=== PATIENT | female | born 1945 | race Caucasian/White ===

== ENCOUNTER 2017-03-27 16:46 | Inpatient (IN) | payer MEDICARE, OTHER ==
[2017-03-27 17:44] LABS: CHLORIDE,CL 95 mmol/L (101-111); SODIUM,NA 130 mmol/L (135-145)
[2017-03-27] MEDS: Sodium Chloride 0.9% 10 ML Syringe FLUSH PRN (17:55)
--- NOTE | 2017-03-27 18:33 | EDM.PDOC ---
ED HPI GENERAL MEDICAL PROBLEM - General Chief Complaint: Respiratory Problem Stated Complaint: CHEST PAIN, CANT BREATH Time Seen by Provider: 03/27/17 17:10 Source of Information: Reports: Patient, Family, RN, RN Notes Reviewed History Limitations: Reports: No Limitations - History of Present Illness INITIAL COMMENTS - FREE TEXT/NARRATIVE: Pt presents to ER with c/o sudden onset of severe chest pain, which she states is sternal and rates a 9-10/10. She states the pain does not radiate anywhere. She admits to runny nose, cough, and cold for about 4 days. Pt admits to fever and chills today, along with N/V only today. She denies diarrhea. 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 (see below) Other Treatments INTERNET RETAILER: none Bilateral Lower Chest Pain Score (Numeric/FACES): 9 - Related Data Allergies Allergy/AdvReac Type Severity Reaction Status Date / Time ibuprofen Allergy Cannot Verified 03/27/17 16:59 Remember oxycodone Allergy Cannot Verified 03/27/17 16:59 Remember promethazine HCl Allergy Cannot Verified 03/27/17 16:59 [From Phenergan] Remember Home Meds: Home Meds Atenolol [Atenolol] 100 mg PO DAILY 05/04/14 [History] FLUoxetine HCl [Fluoxetine HCl] 20 mg PO DAILY 05/04/14 [History] Lisinopril [Lisinopril] 20 mg PO DAILY 05/04/14 [History] Simvastatin [Simvastatin] 10 mg PO DAILY 05/04/14 [History] amLODIPine Besylate [Amlodipine Besylate] 5 mg PO DAILY 05/04/14 [History] Aspirin [Adult Low Dose Aspirin EC] 1 tab PO DAILY 03/23/15 [History] Zolpidem [Ambien] 1 tab PO ASDIRECTED PRN 03/23/15 [History] Past Medical History Cardiovascular History: Reports: High Cholesterol, Hypertension 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 Other Dermatologic History: dry skin - Infectious Disease History Infectious Disease History: Reports: Chicken Pox, Measles - Past Surgical History HEENT Surgical History: Reports: Cataract Surgery Female Surgical History: Reports: Ureteral Stent Social & Family History - Family History Family Medical History: Noncontributory - Tobacco Use Smoking Status *Q: Current Every Day Smoker Years of Tobacco use: 30 Packs/Tins Daily: 0.5 Used Tobacco, but Quit: No Second Hand Smoke Exposure: No - Caffeine Use Caffeine Use: Reports: Coffee - Alcohol Use Days Per Week of Alcohol Use: 0 - Recreational Drug Use Recreational Drug Use: No - Living Situation & Occupation Living situation: Reports: Occupation: Retired ED ROS GENERAL - Review of Systems Review Of Systems: ROS reveals no pertinent complaints other than HPI. ED EXAM, GENERAL - Physical Exam Exam: See Below Exam Limited By: No Limitations General Appearance: Alert, WD/WN, Moderate Distress Eye Exam: Bilateral Eye: EOMI, Normal Inspection Ears: Normal External Exam, Hearing Grossly Normal Nose: Normal Inspection Throat/Mouth: Normal Inspection, No Airway Compromise Head: Atraumatic, Normocephalic Neck: Normal Inspection, Supple, Non-Tender, Full Range of Motion Respiratory/Chest: Crackles, Rhonchi, Wheezing. No: Lungs Clear, Normal Breath Sounds Cardiovascular: Normal Peripheral Pulses, Regular Rate, Rhythm, No Edema, No Gallop, No JVD, No Murmur, No Rub Peripheral Pulses: 2+: Radial (L), Radial (R) GI/Abdominal: Normal Bowel Sounds, Soft, Non-Tender, No Distention (Female) Exam: Deferred Rectal (Female) Exam: Deferred Back Exam: Normal Inspection, Full Range of Motion Extremities: Normal Inspection, Normal Range of Motion, Non-Tender, No Pedal Edema, Normal Capillary Refill Neurological: Alert, Oriented, Normal Cognition, No Motor/Sensory Deficits Psychiatric: Depressed Mood, Flat Affect Skin Exam: Warm, Dry, Intact, Normal Color, No Rash Lymphatic: No Adenopathy EKG INTERPRETATION EKG Date: 03/27/17 Time: 16:52 Rhythm: Other (sinus arrhythmia LBBB) Rate (Beats/Min): 99 Comparison: NA - No Prior EKG Course - Vital Signs Last Recorded V/S: Last Vital Signs Temp 101.2 F H 03/27/17 18:33 Pulse 96 03/27/17 18:33 Resp 28 H 03/27/17 18:33 BP 123/50 L 03/27/17 18:33 Pulse Ox 81 L 03/27/17 17:00 - Orders/Labs/Meds Orders: Active Orders 24 hr Category Date Time Status EKG Documentation Completion [RC] STAT Care 03/27/17 17:02 Active Peripheral IV Care [RC] . DIRECTED Care 03/27/17 17:03 Active CULTURE BLOOD [] Stat Lab 03/27/17 17:08 Results CULTURE BLOOD [] Stat Lab 03/27/17 17:12 Received Sodium Chloride 0.9% [Saline Flush] Med 03/27/17 17:02 Active 10 ml FLUSH ASDIRECTED PRN Blood Culture x2 Reflex Set [OM.PC] Stat Oth 03/27/17 17:03 Ordered Peripheral IV Insertion Adult [OM.PC] Stat Oth 03/27/17 17:01 Ordered Medication Orders Sodium Chloride (Saline Flush) 10 ml FLUSH ASDIRECTED PRN PRN Reason: Keep Vein Open Last Admin: 03/27/17 17:55 Dose: 10 ml Labs: Laboratory Tests 03/27/17 03/27/17 03/27/17 Range/Units 17:12 17:12 17:12 WBC 18.1 H (5.0-10.0) 10^3/uL RBC 3.68 L (4.2-5.4) 10^6/uL Hgb 11.8 L (12.0-16.0) g/dL Hct 35.0 L (37.0-47.0) % MCV 95.1 (80-100) fL MCH 32.1 (27.0-34.0) pg MCHC 33.7 (33.0-35.0) g/dL Plt Count 300 (150-450) 10^3/uL Neut % (Auto) 88.0 H (42.2-75.2) % Lymph % (Auto) 4.8 L (20.5-50.1) % Park % (Auto) 6.8 (2-8) % Eos % (Auto) 0.2 L (1.0-3.0) % Baso % (Auto) 0.2 (0.0-1.0) % Sodium 130 L (135-145) mmol/L Potassium 4.7 (3.6-5.0) mmol/L Chloride 95 L (101-111) mmol/L Carbon Dioxide 24.0 (21.0-31.0) mmol/L Anion Gap 15.7 BUN 29 H (7-18) mg/dL Creatinine 1.2 (0.6-1.3) mg/dL Est Cr Clr Drug Dosing 35.61 mL/min Estimated GFR (MDRD) 44 BUN/Creatinine Ratio 24.16 Glucose 104 (74-105) mg/dL Lactic Acid 0.9 (0.5-2.2) mmol/L Calcium 8.9 (8.4-10.2) mg/dl Total Bilirubin 0.8 (0.2-1.0) mg/dL AST 30 (10-42) IU/L ALT 18 (10-60) IU/L Alkaline Phosphatase 93 (42-121) IU/L Troponin I < 0.02 (0.00-0.02) ng/ml Total Protein 7.2 (6.7-8.2) g/dl Albumin 4.0 (3.2-5.5) g/dl Globulin 3.2 Albumin/Globulin Ratio 1.25 Urine Color (YELLOW) Urine Appearance (CLEAR) Urine pH (5.0-9.0) Ur Specific Tul[place] (1.005-1.030) Urine Protein (NEGATIVE) Urine Glucose (UA) (NEGATIVE) Urine Ketones (NEGATIVE) Urine Occult Blood (NEGATIVE) Urine Nitrite (NEGATIVE) Urine Bilirubin (NEGATIVE) Urine Urobilinogen (0.2-1.0) mg/dL Ur Leukocyte Esterase (NEGATIVE) Urine RBC /HPF Urine WBC (0-5/HPF) /HPF Ur Epithelial Cells /HPF Amorphous Sediment (0/HPF) /HPF Urine Bacteria (0-FEW/HPF) /HPF /27/17 Range/Units 17:26 WBC (5.0-10.0) 10^3/uL RBC (4.2-5.4) 10^6/uL Hgb (12.0-16.0) g/dL Hct (37.0-47.0) % MCV (80-100) fL MCH (27.0-34.0) pg MCHC (33.0-35.0) g/dL Plt Count (150-450) 10^3/uL Neut % (Auto) (42.2-75.2) % Lymph % (Auto) (20.5-50.1) % Park % (Auto) (2-8) % Eos % (Auto) (1.0-3.0) % Baso % (Auto) (0.0-1.0) % Sodium (135-145) mmol/L Potassium (3.6-5.0) mmol/L Chloride (101-111) mmol/L Carbon Dioxide (21.0-31.0) mmol/L Anion Gap BUN (7-18) mg/dL Creatinine (0.6-1.3) mg/dL Est Cr Clr Drug Dosing mL/min Estimated GFR (MDRD) BUN/Creatinine Ratio Glucose (74-105) mg/dL Lactic Acid (0.5-2.2) mmol/L Calcium (8.4-10.2) mg/dl Total Bilirubin (0.2-1.0) mg/dL AST (10-42) IU/L ALT (10-60) IU/L Alkaline Phosphatase (42-121) IU/L Troponin I (0.00-0.02) ng/ml Total Protein (6.7-8.2) g/dl Albumin (3.2-5.5) g/dl Globulin Albumin/Globulin Ratio Urine Color Yellow (YELLOW) Urine Appearance Slightly cloudy (CLEAR) Urine pH 5.0 (5.0-9.0) Ur Specific [place] 1.015 (1.005-1.030) Urine Protein Negative (NEGATIVE) Urine Glucose (UA) Negative (NEGATIVE) Urine Ketones 15 H (NEGATIVE) Urine Occult Blood Negative (NEGATIVE) Urine Nitrite Negative (NEGATIVE) Urine Bilirubin Negative (NEGATIVE) Urine Urobilinogen 0.2 (0.2-1.0) mg/dL Ur Leukocyte Esterase Negative (NEGATIVE) Urine RBC 0-5 /HPF Urine WBC 5-10 H (0-5/HPF) /HPF Ur Epithelial Cells Rare /HPF Amorphous Sediment Occasional (0/HPF) /HPF Urine Bacteria Few (0-FEW/HPF) /HPF Meds: Medications Generic Name Dose Route Start Last Admin Trade Name Freq PRN Reason Stop Dose Admin Sodium Chloride 10 ml 03/27/17 17:02 03/27/17 17:55 Saline Flush FLUSH 10 ml ASDIRECTED PRN Administration Keep Vein Open Discontinued Medications Generic Name Dose Route Start Last Admin Trade Name Freq PRN Reason Stop Dose Admin Acetaminophen 650 mg 03/27/17 19:25 Tylenol PO 03/27/17 19:26 NOW ONE Departure - Departure Time of Disposition: 19:35 Disposition: Admitted As Inpatient 67 Condition: Fair Clinical Impression: Pneumonia Qualifiers: Pneumonia type: due to unspecified organism Laterality: unspecified laterality Lung location: unspecified part of lung Qualified Code(s): J18.9 - Pneumonia, unspecified organism - Discharge Information Forms: ED Department Discharge - My Orders Last 24 Hours: My Active Orders 03/27/17 17:01 Peripheral IV Insertion Adult [OM.PC] Stat 03/27/17 17:02 EKG Documentation Completion [RC] STAT Sodium Chloride 0.9% [Saline Flush] 10 ml FLUSH ASDIRECTED PRN 03/27/17 17:03 Peripheral IV Care [RC] . DIRECTED Blood Culture x2 Reflex Set [OM.PC] Stat 03/27/17 17:08 CULTURE BLOOD [BC] Stat 03/27/17 17:12 CULTURE BLOOD [BC] Stat - Assessment/Plan Last 24 Hours: My Active Orders 03/27/17 17:01 Peripheral IV Insertion Adult [OM.PC] Stat 03/27/17 17:02 EKG Documentation Completion [RC] STAT Sodium Chloride 0.9% [Saline Flush] 10 ml FLUSH ASDIRECTED PRN 03/27/17 17:03 Peripheral IV Care [RC] . DIRECTED Blood Culture x2 Reflex Set [OM.PC] Stat 03/27/17 17:08 CULTURE BLOOD [BC] Stat 03/27/17 17:12 CULTURE BLOOD [BC] Stat
[2017-03-27] MEDS ORDERED: Acetaminophen 325 MG Tab PO ONE (19:25)
[2017-03-27] MEDS ORDERED: Acetaminophen 325 MG Tab PO PRN ×2 (19:44→19:54)
[2017-03-27] MEDS ORDERED: Bisacodyl 10 MG Supp RECTAL PRN ×2 (19:44→19:54)
[2017-03-27] MEDS ORDERED: methylPREDNISolone Sodium Succinate 40 MG/1 ML SDV IVPUSH ONE (20:34)
[2017-03-27] MEDS ORDERED: Albuterol 0.083% 2.5 MG/3 ML Neb Soln NEB PRN (20:34)
[2017-03-27] MEDS ORDERED: Azithromycin 500 MG Vial ONE (21:07)
[2017-03-27] MEDS: cefTRIAXone 1 GM in Sodium Chloride 0.9% 50 ML IV SCH (21:20)
[2017-03-27] MEDS: amLODIPine 5 MG Tab PO SCH (21:26)
[2017-03-27] MEDS: Aspirin 81 MG Tab.EC PO SCH (21:26)
[2017-03-27] MEDS: Lisinopril 10 MG Tab PO SCH (21:27)
[2017-03-27] MEDS: Metoprolol Succinate 50 MG Tab.ER PO SCH (21:28)
[2017-03-27] MEDS: FLUoxetine 10 MG Cap PO SCH (21:28)
[2017-03-27] MEDS: Simvastatin 10 MG Tab PO SCH (21:29)
[2017-03-27] MEDS: Albuterol/Ipratropium 3.0-0.5 MG/3 ML Neb Soln NEB SCH (21:37)
[2017-03-27] MEDS: Azithromycin 500 MG in Sodium Chloride 0.9% 250 ML IV SCH (21:58)
[2017-03-27] MEDS: Sodium Chloride 0.9% 250 ML IV SCH (23:01)
--- NOTE | 2017-03-27 23:01 | EKG ---
03/27/2017 - CAMILLA CRAIG - This 12-lead EKG shows a sinus arrhythmia with a ventricular rate that ranges from 75 to 117 with an average rate of 99. There is a left bundle-branch block. This is compared to a previous EKG found in the Alt database performed on March 26, 2015. A left bundle-branch block was seen at that time also. [facility] /[id number] [facility]
[2017-03-27] MEDS: Zolpidem 5 MG Tab PO PRN (23:03)
[2017-03-28] MEDS: Sodium Chloride 0.9% 250 ML IV SCH (04:07)
[2017-03-28] MEDS: methylPREDNISolone Sodium Succinate 40 MG/1 ML SDV IVPUSH SCH ×3 (05:58→21:49)
[2017-03-28] MEDS: Albuterol/Ipratropium 3.0-0.5 MG/3 ML Neb Soln NEB SCH ×4 (07:29→22:01)
[2017-03-28] MEDS: Enoxaparin 40 MG/0.4 ML Syringe SUBCUT SCH (09:20)
--- NOTE | 2017-03-28 13:30 | HP ---
REASON FOR ADMISSION: Fever, cough, and right anterior chest pain. HISTORY OF PRESENT ILLNESS: Becky Barrios is a 71-year-old lady who has been ill for the last 3 to 4 days with increasing coughing. Today, she said she was coughing so hard, she was gagging. Cough is somewhat productive. She has had fever and chills. She came to the emergency room for evaluation. In the emergency room, she was found to have an elevated white count of 18,000. The remainder of her lab work was essentially unremarkable. Chest x-ray showed changes consistent with COPD but no acute infiltrate. She was admitted for further management. PAST MEDICAL HISTORY: Dyslipidemia; essential hypertension; anxiety with depression; osteopenia; tobacco use disorder, she continues to smoke on a daily basis; carotid artery disease; hyponatremia; hypertension. She has had previous episodes with acute bronchitis. PAST SURGICAL HISTORY: MAUREEN-BSO, bladder cystoscopy. She has had ureteral stents in the past in 2014. IMMUNIZATION HISTORY: She needs influenza vaccine. Her last vaccine was January 2016. PCV13, 08/25/2015. PPV23, 08/21/2014. Zoster, 05/27/2008. Tetanus, 08/08/2002. SOCIAL HISTORY: She is . 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 She also had a daycare at home. Her suffered a serious stroke about 4 years ago and still has disability due to the stroke. She has a son and a daughter with six grandchildren. Everyone is in good health. She did not serve in the . FAMILY HISTORY: Her mother at the age of 43 following childbirth. Father of a cerebral aneurysm. She is one of nine children. She was the third to the eldest. One sibling in October 2016 of coronary artery disease. REVIEW OF SYSTEMS: Her last acute respiratory tract infection was about one year ago, and she gets one about once a year, she states. She denies shortness of breath or orthopnea. She denies abdominal pain or any changes in bowel or bladder. Appetite is good. Weight is unchanged. No recent use of antibiotics. She did have some chest pain associated with the coughing earlier and points to the right anterior lateral chest wall. She called the pain sharp and increases with deep breathing, however, it is better than it was. CURRENT MEDICATIONS: were discussed and resolved. 1. Metoprolol succinate. 2. Amlodipine. 3. Simvastatin. 4. Lisinopril. 5. Fluoxetine. 6. Baby aspirin EC. 7. Zolpidem at bedtime as needed. ALLERGIES: 1. Ibuprofen. 2. Codeine. 3. Promethazine. PHYSICAL EXAMINATION: General: She is a pleasant lady, is in no acute distress. She participated throughout the visit. She is alert and oriented. Vital Signs: Blood pressure 151/55 on the left, 160/60 on the right; pulse 108; respiratory rate 16; oxygen saturation 95% on 3.5 L, this was turned down to 2 L, and saturation stayed above 90%. Her temperature was 99.9 at times of the visit. Temperature prior to that had been 101.2 while she was still in the Emergency Department. HEENT: Unremarkable. Mouth showed moist mucous membranes. Neck: No JVDs or bruits. No adenopathy and no thyromegaly. Chest: Showed anterior and posterior wheezing. Heart: Showed regular rate and rhythm. Abdomen: Soft, flat, benign, and nontender. Extremities: Showed no edema. Neurological: She was intact. LABORATORY DATA: CBC showed an elevated white count of 18,000 with a left shift, hemoglobin and hematocrit are 11.8 and 35. Sodium 130, potassium 4.7. BUN and creatinine are 29 and 1.2 with a GFR of 44. LFTs unremarkable. Troponin was negative at less than 0.02. Lactic acid was normal at 0.9. Urinalysis was essentially negative. IMAGING: A single-view chest x-ray was taken in the ER which showed no acute changes that appear consistent with a COPD or with hyperinflation of the lungs. IMPRESSION: A 71-year-old female who is a daily smoker, presents with what appears to be an exacerbation of chronic obstructive pulmonary disease with negative chest x-ray. PLAN: We will treat her for her exacerbation of COPD. 1. She was started on IV azithromycin and IV Rocephin. 2. She was started on IV Solu-Medrol, was given a loading dose and then tapering down. 3. Her usual medications were continued. 4. Enoxaparin and LIA hose were used for VTE prophylaxis. 5. She was put on nebulized bronchodilator therapy with scheduled DuoNeb and p.r.n. albuterol. 6. Labs ordered. We will repeat the CBC with a manual differential in the morning. A BMP will be ordered for the following day. 7. Two sets of blood cultures were drawn and are pending. 8. We will repeat the chest x-ray on March 29. 9. A flutter valve was ordered to help her mobilize secretions. 10.She was given a K-pad for the right anterior chest wall pain. CODE STATUS: Full code. CONDITION AT THE TIME OF ADMISSION: Hemodynamically and neurologically stable. [facility] /[id number] MTDD
--- NOTE | 2017-03-28 15:11 | PCM.PN ---
- General Info Date of Service: 03/28/17 Subjective Update: Patient is a 71 year old female was admitted due to COPD exacerbation started on IV antibiotics, steroids and nebulizations. Patient reports that she is starting to feel better today. still coughing, no productive but feels there are sputum that needs to be expectorated. she has been doing her flutter valve and incentive spirometry. still on oxygen supplementation, she is not on oxygen at home. has tolerated her meals, had BM yesterday. ambulating wtih not problems. - Patient Data Vitals - Most Recent: Last Vital Signs Temp 97.9 F 03/28/17 07:54 Pulse 73 03/28/17 13:27 Resp 20 03/28/17 11:00 BP 138/60 03/28/17 07:54 Pulse Ox 96 03/28/17 13:27 Weight - Most Recent: 110 lb 4 oz I&O - Last 24 Hours: Intake & Output 03/28/17 03/28/17 03/28/17 06:59 14:59 22:59 Intake Total 898 610 Output Total 350 300 Balance 548 310 Lab Results Last 24 Hours: Laboratory Results - last 24 hr 03/28/17 Range/Units 06:24 WBC 14.6 H (5.0-10.0) 10^3/uL Neutrophils % (Manual) 95 H (42-75) % Band Neutrophils % 2 % Lymphocytes % (Manual) 2 L (20-50) % Monocytes % (Manual) 1 L (2-8) % Med Orders - Current: Current Medications Acetaminophen (Tylenol) 650 mg PO Q4H PRN PRN Reason: Pain (mild 1-3 )/fever Albuterol (Proventil Neb Soln) 2.5 mg NEB Q6HRRT PRN PRN Reason: Dyspnea Albuterol/Ipratropium (Duoneb 3.0-0.5 Mg/3 Ml) 3 ml NEB TIDRT [facility] Last Admin: 03/28/17 13:26 Dose: 3 ml Amlodipine Besylate (Norvasc) 5 mg PO BEDTIME [facility] Last Admin: 03/27/17 21:26 Dose: 5 mg Aspirin (Halfprin) 81 mg PO BEDTIME [facility] Last Admin: 03/27/17 21:26 Dose: 81 mg Bisacodyl (Dulcolax) 10 mg RECTAL DAILY PRN PRN Reason: Constipation Enoxaparin Sodium (Lovenox) 40 mg SUBCUT DAILY [facility] Last Admin: 03/28/17 09:20 Dose: 40 mg Fluoxetine HCl (Prozac) 20 mg PO BEDTIME [facility] Last Admin: 03/27/17 21:28 Dose: 20 mg Azithromycin 500 mg/ Sodium (Chloride) 250 mls @ 250 mls/hr IV Q24H [facility] Last Admin: 03/27/17 21:58 Dose: 250 mls/hr Ceftriaxone Sodium 1 gm/ (Sodium Chloride) 50 mls @ 100 mls/hr IV Q24H [facility] Last Admin: 03/27/17 21:20 Dose: 100 mls/hr Lisinopril (Prinivil) 20 mg PO BEDTIME [facility] Last Admin: 03/27/17 21:27 Dose: 20 mg Methylprednisolone Sodium Succinate (Solu-Medrol) 20 mg IVPUSH Q8H [facility] Last Admin: 03/28/17 05:58 Dose: 20 mg Metoprolol Succinate (Toprol Xl) 100 mg PO BEDTIME [facility] Last Admin: 03/27/17 21:28 Dose: 100 mg Simvastatin (Zocor) 10 mg PO BEDTIME [facility] Last Admin: 03/27/17 21:29 Dose: 10 mg Sodium Chloride (Saline Flush) 10 ml FLUSH ASDIRECTED PRN PRN Reason: Keep Vein Open Last Admin: 03/27/17 17:55 Dose: 10 ml Zolpidem Tartrate (Ambien) 5 mg PO BEDTIME PRN PRN Reason: Sleep Last Admin: 03/27/17 23:03 Dose: 5 mg Discontinued Medications Acetaminophen (Tylenol) 650 mg PO NOW ONE Stop: 03/27/17 19:26 Last Admin: 03/27/17 19:43 Dose: 650 mg Acetaminophen (Tylenol) 650 mg PO Q4H PRN PRN Reason: Pain (mild 1-3 )/fever Azithromycin (Zithromax) Confirm Administered Dose 500 mg .ROUTE .STK-MED ONE Stop: 03/27/17 21:08 Last Admin: 03/27/17 21:44 Dose: Not Given Bisacodyl (Dulcolax) 10 mg RECTAL DAILY PRN PRN Reason: Constipation Sodium Chloride (Normal Saline) 250 mls @ 50 mls/hr IV ASDIRECTED [facility] Last Admin: 03/28/17 04:07 Dose: 50 mls/hr Methylprednisolone Sodium Succinate (Solu-Medrol) 80 mg IVPUSH ONETIME ONE Stop: 03/27/17 20:35 Last Admin: 03/27/17 21:40 Dose: 80 mg - Exam General: Alert, Oriented ( ) Cardiovascular: Regular Rate GI/Abdominal Exam: Normal Bowel Sounds, Soft, Non-Tender Extremities: No Pedal Edema - Problem List Review Problem List Initiated/Reviewed/Updated: Yes - My Orders Last 24 Hours: My Active Orders 03/29/17 06:00 CBC WITH AUTO DIFF [HEME] Routine - Plan Plan:: Patient as a case of COPD exacerbation and now clinically improving. Continue current regimen, await cultures. PLan to taper down steroids if with persistent improvement. Has been tolerating diet, discontinue IV fluids. continue with Flutter valve and incentive spirometry. ambulate and check oxygen on ambulation.
[2017-03-28] MEDS: Sodium Chloride 0.9% 10 ML Syringe FLUSH PRN ×3 (20:20→21:52)
[2017-03-28] MEDS: cefTRIAXone 1 GM in Sodium Chloride 0.9% 50 ML IV SCH (20:23)
[2017-03-28] MEDS: Simvastatin 10 MG Tab PO SCH (20:26)
[2017-03-28] MEDS: Aspirin 81 MG Tab.EC PO SCH (20:27)
[2017-03-28] MEDS: FLUoxetine 10 MG Cap PO SCH (20:27)
[2017-03-28] MEDS: Metoprolol Succinate 50 MG Tab.ER PO SCH (20:28)
[2017-03-28] MEDS: amLODIPine 5 MG Tab PO SCH (20:32)
[2017-03-28] MEDS: Lisinopril 10 MG Tab PO SCH (20:34)
[2017-03-28] MEDS: Azithromycin 500 MG in Sodium Chloride 0.9% 250 ML IV SCH (21:57)
[2017-03-28] MEDS: Zolpidem 5 MG Tab PO PRN (23:12)
[2017-03-29] MEDS ORDERED: Gabapentin 300 MG Cap PO ONE (02:08)
[2017-03-29] MEDS: Sodium Chloride 0.9% 10 ML Syringe FLUSH PRN ×2 (06:20→06:28)
[2017-03-29] MEDS: methylPREDNISolone Sodium Succinate 40 MG/1 ML SDV IVPUSH SCH ×3 (06:20→22:08)
[2017-03-29] MEDS: Enoxaparin 40 MG/0.4 ML Syringe SUBCUT SCH (09:38)
[2017-03-29] MEDS: Albuterol/Ipratropium 3.0-0.5 MG/3 ML Neb Soln NEB SCH ×3 (09:41→21:25)
[2017-03-29] MEDS ORDERED: Gabapentin 400 MG Cap PO PRN (09:51)
--- NOTE | 2017-03-29 10:26 | PN ---
DATE: 03/29/2017 SUBJECTIVE: Ms. Becky Barrios is admitted with COPD. Today, she offers no new complaints. Still coughing. Cough is mostly nonproductive. No hemoptysis. Still has some shortness of breath. Overall, she is improving. She states that she still feels weak. REVIEW OF SYSTEMS: Constitutional, cardiac, respiratory, gastrointestinal, and genitourinary system were reviewed. No other pertinent findings except as noted above. OBJECTIVE: General: The patient is alert and oriented to place, time, and person. Head: Atraumatic and normocephalic. Ear, Nose, and Throat: Unremarkable. Neck: Supple. Chest: Diminished breath sounds bilaterally. Cardiovascular System: Regular rate and rhythm. Abdomen: Soft and nontender. Extremities: No pedal edema. No finger clubbing. Vital Signs: Reviewed and appear within normal limits. LABORATORY DATA: Sodium is at 129. Hemoglobin is dropped by 2 g, down to 9.4. White count is 16.5. ASSESSMENT: 1. Acute exacerbation of chronic obstructive pulmonary disease. 2. Anemia. 3. Hyponatremia. Serum sodium is down to 129. PLAN: 1. Obtain a repeat CBC. 2. Obtain a repeat basic metabolic panel. 3. The patient on fluid restriction; 1800 mL every 24 hours. 4. Continue current management. Possibly, discharge in the next day or so. 5. Obtain stool occult blood. Recheck hemoglobin. [facility] /[id number] MAXIMO
--- NOTE | 2017-03-29 13:56 | CR ---
Clinical history: 71-year-old female reported on recent chest radiograph for pain to have "no acute f indings" 27 March 2017. Follow-up please. Interpretation: Asymmetric small dependent new subpulmonic pleural effusions blunting the right costo phrenic sulcus since 01 May 2016 (this present on recent 27 March exam). Cardiac silhouette prominent but within upper limits of normal and unchanged. No cephalization of pedro w, new signs of alveolar edema or contralateral dependent left pleural effusion. No new lung mass or hilar lymphadenopathy but there is subtle patchy medial segment right middle lobe atelectasis or developing infiltrate silhouetting the right heart border. CONCLUSION: Right middle lobe pneumonia with small effusion. Hilar lymphadenopathy or focal lobar pne umonia Cough and shortness of breath reported
[2017-03-29] MEDS: cefTRIAXone 1 GM in Sodium Chloride 0.9% 50 ML IV SCH (21:23)
[2017-03-29] MEDS: FLUoxetine 10 MG Cap PO SCH (21:25)
[2017-03-29] MEDS: Lisinopril 10 MG Tab PO SCH (21:40)
[2017-03-29] MEDS: Aspirin 81 MG Tab.EC PO SCH (21:40)
[2017-03-29] MEDS: Zolpidem 5 MG Tab PO PRN (21:40)
[2017-03-29] MEDS: Simvastatin 10 MG Tab PO SCH (21:40)
[2017-03-29] MEDS: Metoprolol Succinate 50 MG Tab.ER PO SCH (21:41)
[2017-03-29] MEDS: amLODIPine 5 MG Tab PO SCH (21:44)
[2017-03-29] MEDS: Azithromycin 500 MG in Sodium Chloride 0.9% 250 ML IV SCH (22:08)
[2017-03-30] MEDS ORDERED: Metoprolol Succinate 50 MG Tab.ER PO ONE (00:04)
[2017-03-30] MEDS: methylPREDNISolone Sodium Succinate 40 MG/1 ML SDV IVPUSH SCH (06:25)
[2017-03-30] MEDS: Albuterol/Ipratropium 3.0-0.5 MG/3 ML Neb Soln NEB SCH (07:16)
[2017-03-30] MEDS: Enoxaparin 40 MG/0.4 ML Syringe SUBCUT SCH (09:27)
--- NOTE | 2017-03-30 09:34 | PCM.DCSUM1 ---
Discharge Summary - Hospital Course Free Text/Narrative:: The patient presented with cough, shortness of breath. The patient had an abnormal chest x-ray that was felt to represent represents a right-sided pneumonia. She was admitted treated with IV antibiotic ceftriaxone and azithromycin. She was treated with nebulizers. She significantly improved. She will be discharged on continuing oral antibiotics and inhalers. During the hospital stay the patient was noted to have hyponatremia. The patient was asymptomatic. Reviewing her medication list the patient is on an SSRI that might have a side effect of this. Nevertheless she has been on this medication for 10 years and she feels that she would like to continue that. Certainly the pulmonary process might be responsible for this as well. Have to make sure that he chest x-ray changes completely resolve and there is no underlying malignancy. The patient was also noted to have anemia with good blood positive stool. This might represent a gastric ulcer. Start the patient on a proton pump inhibitor. She will also need follow-up with colonoscopy. - Discharge Data Discharge Date: 03/30/17 Discharge Disposition: Home, Self-Care 01 Condition: Fair - Patient Instructions Diet: Regular Diet as Tolerated Fluid Restriction: 2000 mL Activity: As Tolerated - Discharge Plan Prescriptions/Med Rec: Albuterol [Proventil HFA] 6.7 gm INH Q4H PRN #1 inhaler PRN Reason: for SOB Amoxicillin/Potassium Clav [Augmentin 500-125 Tablet] 1 each PO TID #15 tablet Budesonide/Formoterol Fumarate [Symbicort 160-4.5 Mcg Inhaler] 1 puff IH BID #1 canister Pantoprazole Sodium [Protonix] 40 mg PO DAILY #30 tablet. predniSONE [Prednisone] See Taper PO DAILY #30 tablet Home Medications: Home Meds FLUoxetine HCl [Fluoxetine HCl] 20 mg PO DAILY 05/04/14 [History] Lisinopril 20 mg PO DAILY 05/04/14 [History] Simvastatin 10 mg PO DAILY 05/04/14 [History] amLODIPine Besylate [Amlodipine Besylate] 5 mg PO DAILY 05/04/14 [History] Aspirin [Adult Low Dose Aspirin EC] 1 tab PO DAILY 03/23/15 [History] Zolpidem [Ambien] 1 tab PO ASDIRECTED PRN 03/23/15 [History] Metoprolol Succinate [Toprol XL] 100 mg PO DAILY 03/27/17 [History] Albuterol [Proventil HFA] 6.7 gm INH Q4H PRN #1 inhaler 03/30/17 [Rx] Amoxicillin/Potassium Clav [Augmentin 500-125 Tablet] 1 each PO TID #15 tablet 03/30/17 [Rx] Budesonide/Formoterol Fumarate [Symbicort 160-4.5 Mcg Inhaler] 1 puff IH BID #1 canister 03/30/17 [Rx] Pantoprazole Sodium [Protonix] 40 mg PO DAILY #30 tablet. 03/30/17 [Rx] predniSONE [Prednisone] See Taper PO DAILY #30 tablet 03/30/17 [Rx] Referrals: Hannah Fulton PA [Primary Care Provider] - (in 3-4 days) - Discharge Summary/Plan Comment DC Time >30 min.: No - General Info Date of Service: 03/30/17 Subjective Update: She is feeling well, ambulating on the corridor. - Review of Systems General: Denies: Fever, Weakness Pulmonary: Reports: Cough. Denies: Shortness of Breath Cardiovascular: Denies: Chest Pain Gastrointestinal: Denies: Abdominal Pain Genitourinary: Denies: Dysuria - Patient Data Vitals - Most Recent: Last Vital Signs Temp 36.7 C 03/30/17 08:00 Pulse 86 03/30/17 08:00 Resp 20 03/30/17 08:00 BP 128/58 L 03/30/17 08:00 Pulse Ox 94 L 03/30/17 08:00 Weight - Most Recent: 50.009 kg I&O - Last 24 hours: Intake & Output 03/29/17 03/30/17 03/30/17 22:59 06:59 14:59 Intake Total 320 236 Output Total 400 1275 Balance -400 -955 236 Lab Results - Last 24 hrs: Laboratory Results - last 24 hr 03/30/17 03/30/17 Range/Units 06:17 06:17 WBC 14.8 H (5.0-10.0) 10^3/uL RBC 2.91 L (4.2-5.4) 10^6/uL Hgb 9.3 L (12.0-16.0) g/dL Hct 28.0 L (37.0-47.0) % MCV 96.2 (80-100) fL MCH 32.0 (27.0-34.0) pg MCHC 33.2 (33.0-35.0) g/dL Plt Count 279 (150-450) 10^3/uL Sodium 129 L (135-145) mmol/L Potassium 4.6 (3.6-5.0) mmol/L Chloride 98 L (101-111) mmol/L Carbon Dioxide 23.0 (21.0-31.0) mmol/L Anion Gap 12.6 BUN 32 H (7-18) mg/dL Creatinine 1.1 (0.6-1.3) mg/dL Est Cr Clr Drug Dosing 37.57 mL/min Estimated GFR (MDRD) 49 Glucose 119 H (74-105) mg/dL Calcium 8.9 (8.4-10.2) mg/dl AMANUEL Results - Last 24 hrs: Microbiology 03/29/17 22:15 Stool Occult Blood (AMANUEL) - Final Stool / Feces - Stool, Formed Med Orders - Current: Current Medications Acetaminophen (Tylenol) 650 mg PO Q4H PRN PRN Reason: Pain (mild 1-3 )/fever Albuterol (Proventil Neb Soln) 2.5 mg NEB Q6HRRT PRN PRN Reason: Dyspnea Albuterol/Ipratropium (Duoneb 3.0-0.5 Mg/3 Ml) 3 ml NEB TIDRT [facility] Last Admin: 03/30/17 07:16 Dose: 3 ml Amlodipine Besylate (Norvasc) 5 mg PO BEDTIME [facility] Last Admin: 03/29/17 21:44 Dose: 5 mg Aspirin (Halfprin) 81 mg PO BEDTIME [facility] Last Admin: 03/29/17 21:40 Dose: 81 mg Bisacodyl (Dulcolax) 10 mg RECTAL DAILY PRN PRN Reason: Constipation Enoxaparin Sodium (Lovenox) 40 mg SUBCUT DAILY [facility] Last Admin: 03/29/17 09:38 Dose: 40 mg Fluoxetine HCl (Prozac) 20 mg PO BEDTIME [facility] Last Admin: 03/29/17 21:25 Dose: 20 mg Gabapentin (Neurontin) 400 mg PO BEDTIME PRN PRN Reason: restless leg Azithromycin 500 mg/ Sodium (Chloride) 250 mls @ 250 mls/hr IV Q24H [facility] Last Admin: 03/29/17 22:08 Dose: 250 mls/hr Ceftriaxone Sodium 1 gm/ (Sodium Chloride) 50 mls @ 100 mls/hr IV Q24H [facility] Last Admin: 03/29/17 21:23 Dose: 100 mls/hr Lisinopril (Prinivil) 20 mg PO BEDTIME [facility] Last Admin: 03/29/17 21:40 Dose: Not Given Methylprednisolone Sodium Succinate (Solu-Medrol) 20 mg IVPUSH Q8H [facility] Last Admin: 03/30/17 06:25 Dose: 20 mg Simvastatin (Zocor) 10 mg PO BEDTIME [facility] Last Admin: 03/29/17 21:40 Dose: 10 mg Sodium Chloride (Saline Flush) 10 ml FLUSH ASDIRECTED PRN PRN Reason: Keep Vein Open Last Admin: 03/29/17 06:28 Dose: 10 ml Zolpidem Tartrate (Ambien) 5 mg PO BEDTIME PRN PRN Reason: Sleep Last Admin: 03/29/17 21:40 Dose: 5 mg Discontinued Medications Acetaminophen (Tylenol) 650 mg PO NOW ONE Stop: 03/27/17 19:26 Last Admin: 03/27/17 19:43 Dose: 650 mg Acetaminophen (Tylenol) 650 mg PO Q4H PRN PRN Reason: Pain (mild 1-3 )/fever Azithromycin (Zithromax) Confirm Administered Dose 500 mg .ROUTE .STK-MED ONE Stop: 03/27/17 21:08 Last Admin: 03/27/17 21:44 Dose: Not Given Bisacodyl (Dulcolax) 10 mg RECTAL DAILY PRN PRN Reason: Constipation Gabapentin (Neurontin) 300 mg PO ONETIME ONE Stop: 03/29/17 02:09 Last Admin: 03/29/17 02:26 Dose: 300 mg Sodium Chloride (Normal Saline) 250 mls @ 50 mls/hr IV ASDIRECTED ASHIA Last Admin: 03/28/17 04:07 Dose: 50 mls/hr Methylprednisolone Sodium Succinate (Solu-Medrol) 80 mg IVPUSH ONETIME ONE Stop: 03/27/17 20:35 Last Admin: 03/27/17 21:40 Dose: 80 mg Metoprolol Succinate (Toprol Xl) 100 mg PO BEDTIME [facility] Stop: 03/30/17 00:04 Last Admin: 03/29/17 21:41 Dose: Not Given Metoprolol Succinate (Toprol Xl) 100 mg PO ONETIME ONE Stop: 03/30/17 00:05 Last Admin: 03/30/17 00:16 Dose: 100 mg - Exam Quality Assessment: Denies: Supplemental Oxygen General: Reports: Alert, Oriented Neck: Reports: Supple Lungs: Reports: Normal Respiratory Effort, Decreased Breath Sounds. Denies: Wheezing Cardiovascular: Reports: Regular Rate, Regular Rhythm GI/Abdominal Exam: Normal Bowel Sounds, Soft, Non-Tender Extremities: No Pedal Edema Skin: Reports: Warm, Dry *Q Meaningful Use (DIS) - VTE *Q VTE Criteria *Q: - Stroke *Q Stroke Criteria *Q: - AMI *Q AMI Criteria *Q:
[2017-03-30 10:01] VITALS: BP 142/61
--- NOTE | 2017-03-31 18:33 | EKG ---
03/27/2017 - CAMILLA CRAIG - EKG, per my reading, shows sinus tachycardia with left bundle-branch block. [facility] /[id number]
== END 2017-03-30 10:15 | disposition home or self-care (01) | DRG 194 ==
LOC: DL.ED 16:46 → DL.MS 19:44 → DL.ED 19:48
PROVIDERS: ADMIT Internal Medicine; ATTEND Internal Medicine
DX: J18.9 Pneumonia, unspecified organism (principal); E87.1 Hypo-osmolality and hyponatremia; E78.00 Pure hypercholesterolemia, unspecified; F32.9 Major depressive disorder, single episode, unspecified; F41.9 Anxiety disorder, unspecified; E89.6 Postprocedural adrenocortical (-medullary) hypofunction; K92.1 Melena; Z79.82 Long term (current) use of aspirin; D64.9 Anemia, unspecified; F17.210 Nicotine dependence, cigarettes, uncomplicated; I10 Essential (primary) hypertension; F41.8 Other specified anxiety disorders; M85.80 Other specified disorders of bone density and structure, unspecified site; I65.23 Occlusion and stenosis of bilateral carotid arteries; Z88.5 Allergy status to narcotic agent; Z88.8 Allergy status to other drugs, medicaments and biological substances; Z79.899 Other long term (current) drug therapy
CPT/HCPCS: 36415; 71010; 80053; 81001; 83605; 84484; 85025; 87040 ×2; 93005; 93010; 99285; A9270; J7050; 71020; 80048; 82272; 85007; 85027; 85048; 94010; 94640; 94667; 99284; J0456; J0696; J1650; J2920

== ENCOUNTER 2017-06-17 18:41 | Emergency (ER) | payer MEDICARE, OTHER ==
[2017-06-17] MEDS ORDERED: Sodium Chloride 0.9% 1,000 ML IV ONE ×2 (19:18→20:46)
--- NOTE | 2017-06-17 19:27 | EDM.PDOC ---
ED HPI GENERAL MEDICAL PROBLEM - General Chief Complaint: Respiratory Problem Stated Complaint: RESPIRATORY,WEAK [id number] Time Seen by Provider: 06/17/17 19:27 Source of Information: Reports: Patient History Limitations: Reports: No Limitations - History of Present Illness INITIAL COMMENTS - FREE TEXT/NARRATIVE: ED with cough and feeling weak since .Productive green phlegm. Low grade temps. No appetite and not drinking much fluid past couple days. COPD hx, current smoker. - Related Data Allergies Allergy/AdvReac Type Severity Reaction Status Date / Time ibuprofen Allergy Cannot Verified 06/17/17 18:55 Remember oxycodone Allergy Cannot Verified 06/17/17 18:55 Remember promethazine HCl Allergy Cannot Verified 06/17/17 18:55 [From Phenergan] Remember Home Meds: Home Meds FLUoxetine HCl [Fluoxetine HCl] 20 mg PO DAILY 05/04/14 [History] Lisinopril 40 mg PO DAILY 05/04/14 [History] Simvastatin 10 mg PO DAILY 05/04/14 [History] amLODIPine Besylate [Amlodipine Besylate] 5 mg PO BID 05/04/14 [History] Aspirin [Adult Low Dose Aspirin EC] 1 tab PO DAILY 03/23/15 [History] Zolpidem [Ambien] 1 tab PO ASDIRECTED PRN 03/23/15 [History] Metoprolol Succinate [Toprol XL] 100 mg PO DAILY 03/27/17 [History] Albuterol [Proventil HFA] 6.7 gm INH Q4H PRN #1 inhaler 03/30/17 [Rx] Budesonide/Formoterol Fumarate [Symbicort 160-4.5 Mcg Inhaler] 1 puff IH BID #1 canister 03/30/17 [Rx] Past Medical History Cardiovascular History: Reports: High Cholesterol, Hypertension Respiratory History: Reports: Bronchitis, Recurrent, COPD Genitourinary History: Reports: UTI, Recurrent, Other (See Below) Other Genitourinary History: stent in urethea tube and stress incontinence [employer] History: Reports: Musculoskeletal History: Reports: Osteoporosis Psychiatric History: Reports: Anxiety, Depression Oncologic (Cancer) History: Reports: Other (See Below) Other Oncologic History: 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 Other Dermatologic History: dry skin - Infectious Disease History Infectious Disease History: Reports: Chicken Pox, Measles - Past Surgical History HEENT Surgical History: Reports: Cataract Surgery Other HEENT Surgeries/Procedures: left cataract removal GI Surgical History: Reports: Other (See Below) Other GI Surgeries/Procedures: stent in urethea tube Female Surgical History: Reports: Oophorectomy, Ureteral Stent, Other (See Below) Other Female Surgeries/Procedures: bladder lift Social & Family History - Family History Family Medical History: Noncontributory - Tobacco Use Smoking Status *Q: Current Every Day Smoker Years of Tobacco use: 55 Packs/Tins Daily: 0.5 Used Tobacco, but Quit: No Second Hand Smoke Exposure: No - Caffeine Use Caffeine Use: Reports: Coffee - Alcohol Use Days Per Week of Alcohol Use: 5 Number of Drinks Per Day: 2 Total Drinks Per Week: 10 - Recreational Drug Use Recreational Drug Use: No - Living Situation & Occupation Living situation: Reports: Occupation: Retired ED ROS GENERAL - Review of Systems Review Of Systems: See Below Constitutional: Reports: Fever, Chills, Weakness HEENT: Reports: No Symptoms, Throat Pain Respiratory: Reports: Shortness of Breath, Cough, Sputum Cardiovascular: Reports: Dyspnea on Exertion, Other (smoker, ). Denies: Chest Pain Endocrine: Reports: No Symptoms GI/Abdominal: Reports: No Symptoms Musculoskeletal: Reports: No Symptoms Skin: Reports: No Symptoms Neurological: Reports: No Symptoms ED EXAM, GENERAL - Physical Exam Exam: See Below Exam Limited By: No Limitations General Appearance: Alert, Mild Distress Eye Exam: Bilateral Eye: EOMI Ears: Normal External Exam, Normal TMs Nose: Normal Inspection Throat/Mouth: Normal Lips, Other (membranes moist) Head: Atraumatic, Normocephalic Neck: Full Range of Motion. No: Lymphadenopathy (L), Lymphadenopathy (R) Respiratory/Chest: Decreased Breath Sounds, Wheezing (intermittent clear with cough) Cardiovascular: Normal Peripheral Pulses, Regular Rate, Rhythm, Tachycardia GI/Abdominal: Normal Bowel Sounds, Soft Back Exam: Normal Inspection Extremities: Normal Inspection, Normal Range of Motion Neurological: Alert, Oriented, Normal Cognition Psychiatric: Normal Affect, Normal Mood, Anxious Skin Exam: Warm, Dry, Intact, Normal Color Course - Vital Signs Last Recorded V/S: Last Vital Signs Temp 99.2 F 06/17/17 20:44 Pulse 136 H 06/17/17 20:44 Resp 21 H 06/17/17 20:44 BP 146/70 H 06/17/17 20:44 Pulse Ox 94 L 06/17/17 20:44 - Orders/Labs/Meds Orders: Active Orders 24 hr Category Date Time Status CULTURE BLOOD [] Stat Lab 06/17/17 19:25 Received CULTURE BLOOD [] Stat Lab 06/17/17 19:28 Received CULTURE SPUTUM + SMEAR [] Stat Lab 06/17/17 19:16 Results CULTURE STREP A CONFIRMATION [] Stat Lab 06/17/17 19:25 Results STREP SCRN A RAPID W CULT CONF [] Stat Lab 06/17/17 19:25 Results Blood Culture x2 Reflex Set [OM.PC] Stat Oth 06/17/17 19:14 Ordered Labs: Laboratory Tests 06/17/17 06/17/17 06/17/17 Range/Units 19:25 19:25 19:25 WBC 16.6 H (5.0-10.0) 10^3/uL RBC 3.55 L (4.2-5.4) 10^6/uL Hgb 10.7 L (12.0-16.0) g/dL Hct 32.9 L (37.0-47.0) % MCV 92.7 D (80-100) fL MCH 30.1 (27.0-34.0) pg MCHC 32.5 L (33.0-35.0) g/dL Plt Count 399 D (150-450) 10^3/uL Neut % (Auto) 79.2 H (42.2-75.2) % Lymph % (Auto) 8.2 L (20.5-50.1) % [place] % (Auto) 8.4 H (2-8) % Eos % (Auto) 3.7 H (1.0-3.0) % Baso % (Auto) 0.5 (0.0-1.0) % Add Manual Diff Yes Neutrophils % (Manual) 78 H (42-75) % Lymphocytes % (Manual) 11 L (20-50) % Monocytes % (Manual) 8 (2-8) % Eosinophils % (Manual) 3 (1-3) % PT 9.7 (9.0-12.0) SEC INR 1.0 (0.9-1.2) D-Dimer, Quantitative 1430 H (0-400) ng/mL Sodium 133 L (135-145) mmol/L Potassium 3.9 (3.6-5.0) mmol/L Chloride 97 L (101-111) mmol/L Carbon Dioxide 27.0 (21.0-31.0) mmol/L Anion Gap 12.9 BUN 17 (7-18) mg/dL Creatinine 0.9 (0.6-1.3) mg/dL Est Cr Clr Drug Dosing 47.48 mL/min Estimated GFR (MDRD) > 60 BUN/Creatinine Ratio 18.88 Glucose 115 H (74-105) mg/dL Lactic Acid (0.5-2.2) mmol/L Calcium 8.7 (8.4-10.2) mg/dl Total Bilirubin 0.6 (0.2-1.0) mg/dL AST 29 (10-42) IU/L ALT 17 (10-60) IU/L Alkaline Phosphatase 136 H (42-121) IU/L Troponin I < 0.02 (0.00-0.02) ng/ml B-Natriuretic Peptide 178 H (0-100) pg/ml Total Protein 6.9 (6.7-8.2) g/dl Albumin 3.3 (3.2-5.5) g/dl Globulin 3.6 Albumin/Globulin Ratio 0.92 Urine Color (YELLOW) Urine Appearance (CLEAR) Urine pH (5.0-9.0) Ur Specific [place] (1.005-1.030) Urine Protein (NEGATIVE) Urine Glucose (UA) (NEGATIVE) Urine Ketones (NEGATIVE) Urine Occult Blood (NEGATIVE) Urine Nitrite (NEGATIVE) Urine Bilirubin (NEGATIVE) Urine Urobilinogen (0.2-1.0) mg/dL Ur Leukocyte Esterase (NEGATIVE) Urine RBC /HPF Urine WBC (0-5/HPF) /HPF Ur Epithelial Cells /HPF Urine Bacteria (0-FEW/HPF) /HPF 06/17/17 06/17/17 Range/Units 19:25 21:50 WBC (5.0-10.0) 10^3/uL RBC (4.2-5.4) 10^6/uL Hgb (12.0-16.0) g/dL Hct (37.0-47.0) % MCV (80-100) fL MCH (27.0-34.0) pg MCHC (33.0-35.0) g/dL Plt Count (150-450) 10^3/uL Neut % (Auto) (42.2-75.2) % Lymph % (Auto) (20.5-50.1) % [place] % (Auto) (2-8) % Eos % (Auto) (1.0-3.0) % Baso % (Auto) (0.0-1.0) % Add Manual Diff Neutrophils % (Manual) (42-75) % Lymphocytes % (Manual) (20-50) % Monocytes % (Manual) (2-8) % Eosinophils % (Manual) (1-3) % PT (9.0-12.0) SEC INR (0.9-1.2) D-Dimer, Quantitative (0-400) ng/mL Sodium (135-145) mmol/L Potassium (3.6-5.0) mmol/L Chloride (101-111) mmol/L Carbon Dioxide (21.0-31.0) mmol/L Anion Gap BUN (7-18) mg/dL Creatinine (0.6-1.3) mg/dL Est Cr Clr Drug Dosing mL/min Estimated GFR (MDRD) BUN/Creatinine Ratio Glucose (74-105) mg/dL Lactic Acid 1.0 (0.5-2.2) mmol/L Calcium (8.4-10.2) mg/dl Total Bilirubin (0.2-1.0) mg/dL AST (10-42) IU/L ALT (10-60) IU/L Alkaline Phosphatase (42-121) IU/L Troponin I (0.00-0.02) ng/ml B-Natriuretic Peptide (0-100) pg/ml Total Protein (6.7-8.2) g/dl Albumin (3.2-5.5) g/dl Globulin Albumin/Globulin Ratio Urine Color Yellow (YELLOW) Urine Appearance Clear (CLEAR) Urine pH 5.5 (5.0-9.0) Ur Specific [place] 1.010 (1.005-1.030) Urine Protein 30 H (NEGATIVE) Urine Glucose (UA) Negative (NEGATIVE) Urine Ketones Negative (NEGATIVE) Urine Occult Blood Negative (NEGATIVE) Urine Nitrite Negative (NEGATIVE) Urine Bilirubin Negative (NEGATIVE) Urine Urobilinogen 0.2 (0.2-1.0) mg/dL Ur Leukocyte Esterase Negative (NEGATIVE) Urine RBC 0-5 /HPF Urine WBC 0-5 (0-5/HPF) /HPF Ur Epithelial Cells Few /HPF Urine Bacteria Few (0-FEW/HPF) /HPF Meds: Medications Discontinued Medications Generic Name Dose Route Start Last Admin Trade Name Freq PRN Reason Stop Dose Admin Diltiazem HCl 10 mg 06/17/17 19:41 06/17/17 19:50 Diltiazem IVPUSH 06/17/17 19:42 5 mg ONETIME ONE Administration Diltiazem HCl 20 mg 06/17/17 20:47 06/17/17 20:53 Diltiazem IVPUSH 06/17/17 20:48 20 mg ONETIME ONE Administration Sodium Chloride 1,000 mls @ 500 mls/hr 06/17/17 19:18 06/17/17 19:29 Normal Saline IV 06/17/17 21:17 500 mls/hr .BOLUS ONE Administration Levofloxacin/Dextrose 500 mg/ 100 mls @ 100 mls/hr 06/17/17 20:45 06/17/17 21 :15 Premix IV 06/17/17 21:44 100 mls/hr ONETIME ONE Administration Sodium Chloride 1,000 mls @ 250 mls/hr 06/17/17 20:46 06/17/17 21:06 Normal Saline IV 06/18/17 00:45 250 mls/hr .BOLUS ONE Administration Iopamidol 100 ml 06/17/17 20:06 06/17/17 20:35 Isovue-370 (76%) IVPUSH 06/17/17 20:07 55 ml ONETIME ONE Administration Lorazepam 1 mg 06/17/17 22:21 06/17/17 22:27 Ativan IVPUSH 06/17/17 22:22 1 mg ONETIME ONE Administration Methylprednisolone Sodium Succinate 125 mg 06/17/17 20:46 06/17/17 21:06 Solu-Medrol IVPUSH 06/17/17 20:47 125 mg ONETIME ONE Administration - Radiology Interpretation Free Text/Narrative:: CT chest with contrast: No PE, Multifocal bronchopneumonia, Greater than 10 low attenuation metastatic lesions throughout all segments of liver moderate to severe left nephrosis - Re-Assessments/Exams Free Text/Narrative Re-Assessment/Exam: 06/18/17 03:48 Sinus tach with BBB, minimal response with IV rehydration. IV push cardizem for rate control with c/o of brief 5 second sharp chest pain. HR decrease 110's. Abnormal CT findings reviewed with patient and daughter noting abnormal lesions in liver. Dr. Bentley Sams accepting of patient in tx. Increased anxiety upon hearing CT results, tearful, IV ativan prior to transport by [facility]. Departure - Departure Time of Disposition: 21:52 Disposition: DC/Tfer to Acute Hospital 02 Condition: Fair, Undetermined Clinical Impression: Tobacco dependence syndrome, Tachycardia, Dehydration, Hepatic lesion Pneumonia Qualifiers: Pneumonia type: due to unspecified organism Laterality: bilateral Lung location : upper lobe of lung Qualified Code(s): J18.9 - Pneumonia, unspecified organism Hydronephrosis Qualifiers: Hydronephrosis type: unspecified Qualified Code(s): N13.30 - Unspecified hydronephrosis - Discharge Information Forms: ED Department Discharge - My Orders Last 24 Hours: My Active Orders 06/17/17 19:14 Blood Culture x2 Reflex Set [OM.PC] Stat 06/17/17 19:16 CULTURE SPUTUM + SMEAR [RM] Stat 06/17/17 19:25 CULTURE BLOOD [BC] Stat CULTURE STREP A CONFIRMATION [RM] Stat STREP SCRN A RAPID W CULT CONF [RM] Stat 06/17/17 19:28 CULTURE BLOOD [BC] Stat - Assessment/Plan Last 24 Hours: My Active Orders 06/17/17 19:14 Blood Culture x2 Reflex Set [OM.PC] Stat 06/17/17 19:16 CULTURE SPUTUM + SMEAR [RM] Stat 06/17/17 19:25 CULTURE BLOOD [BC] Stat CULTURE STREP A CONFIRMATION [RM] Stat STREP SCRN A RAPID W CULT CONF [RM] Stat 06/17/17 19:28 CULTURE BLOOD [BC] Stat
[2017-06-17] MEDS ORDERED: Diltiazem 25 MG/5 ML SDV IVPUSH ONE ×2 (19:41→20:47)
[2017-06-17 19:56] LABS: CHLORIDE,CL 97 mmol/L (101-111); SODIUM,NA 133 mmol/L (135-145)
[2017-06-17] MEDS ORDERED: Iopamidol 755 Mg/ML 100 ML Bottle IVPUSH ONE (20:06)
[2017-06-17 20:45] VITALS: BP 146/70
[2017-06-17] MEDS ORDERED: Levofloxacin/Dextrose 5%-Water 500 MG in Premix Bag 1 BAG IV ONE (20:45)
[2017-06-17] MEDS ORDERED: methylPREDNISolone Sodium Succinate 125 MG/2 ML SDV IVPUSH ONE (20:46)
[2017-06-17] MEDS ORDERED: LORazepam 2 MG/ML Syringe IVPUSH ONE (22:21)
== END 2017-06-17 22:30 ==
LOC: DL.ED 18:41
DX: J18.9 Pneumonia, unspecified organism (principal); N13.30 Unspecified hydronephrosis; J44.9 Chronic obstructive pulmonary disease, unspecified; I10 Essential (primary) hypertension; E78.00 Pure hypercholesterolemia, unspecified; F17.210 Nicotine dependence, cigarettes, uncomplicated; F32.9 Major depressive disorder, single episode, unspecified; Z79.82 Long term (current) use of aspirin; Z79.899 Other long term (current) drug therapy; Z88.5 Allergy status to narcotic agent; Z88.8 Allergy status to other drugs, medicaments and biological substances
CPT/HCPCS: 36415; 71045; 71260; 80053; 81001; 83605; 83880; 84484; 85025; 85379; 85610; 87040; 87070; 87081; 87205; 87430; 96365; 96366; 96368; 96375; 99285; J1956; J2060; J2930; J3490; J7030; Q9967

== ENCOUNTER 2017-07-07 21:22 | Emergency (ER) | payer MEDICARE, OTHER ==
[2017-07-07] MEDS ORDERED: Acetaminophen/HYDROcodone 325-10 MG Tab PO ONE (21:23)
[2017-07-07] MEDS ORDERED: Metoclopramide 10 MG Tab PO ONE (21:23)
[2017-07-07] MEDS ORDERED: Sodium Chloride 0.9% 1,000 ML IV ONE (21:39)
[2017-07-07] MEDS ORDERED: Metoclopramide 10 MG/2 ML SDV IVPUSH ONE (21:39)
[2017-07-07] MEDS ORDERED: HYDROmorphone 0.5 MG/0.5 ML Syringe IVPUSH ONE (21:40)
--- NOTE | 2017-07-07 23:45 | EDM.PDOC ---
ED HPI GENERAL MEDICAL PROBLEM - General Chief Complaint: Gastrointestinal Problem Stated Complaint: BAD ABDOMINAL PAIN [id number] Time Seen by Provider: 07/07/17 22:00 Source of Information: Reports: Patient, Family History Limitations: Reports: No Limitations - History of Present Illness INITIAL COMMENTS - FREE TEXT/NARRATIVE: ED with daughter. C/O left lower abdominal pain and vomiting. No fever. Hx renal stent placed yesterday. Vomiting started yesterday afternoon. Tried zofran but has not helped. Was able to keep down a few bites of cereal early today and some powerade. Liver bx last week for multiple metastatic lesions. Seeing oncology. Left Lower Abdomen Pain Score (Numeric/FACES): 8 - Related Data Allergies Allergy/AdvReac Type Severity Reaction Status Date / Time ibuprofen Allergy Cannot Verified 07/07/17 21:37 Remember oxycodone Allergy Cannot Verified 07/07/17 21:37 Remember promethazine HCl Allergy Cannot Verified 07/07/17 21:37 [From Phenergan] Remember Home Meds: Home Meds FLUoxetine HCl [Fluoxetine HCl] 20 mg PO DAILY 05/04/14 [History] Lisinopril 40 mg PO DAILY 05/04/14 [History] Simvastatin 10 mg PO DAILY 05/04/14 [History] amLODIPine Besylate [Amlodipine Besylate] 5 mg PO BID 05/04/14 [History] Aspirin [Adult Low Dose Aspirin EC] 1 tab PO DAILY 03/23/15 [History] Zolpidem [Ambien] 1 tab PO ASDIRECTED PRN 03/23/15 [History] Metoprolol Succinate [Toprol XL] 100 mg PO DAILY 03/27/17 [History] Albuterol [Proventil HFA] 6.7 gm INH Q4H PRN #1 inhaler 03/30/17 [Rx] Albuterol [Ventolin HFA] 2 puff INH Q4HR PRN 07/07/17 [History] Past Medical History Cardiovascular History: Reports: High Cholesterol, Hypertension Respiratory History: Reports: Bronchitis, Recurrent, COPD Genitourinary History: Reports: UTI, Recurrent, Other (See Below) Other Genitourinary History: stent in urethea tube and stress incontinence, renal stents 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 Other Dermatologic History: dry skin - Infectious Disease History Infectious Disease History: Reports: Chicken Pox, Measles - Past Surgical History HEENT Surgical History: Reports: Cataract Surgery Other HEENT Surgeries/Procedures: left cataract removal GI Surgical History: Reports: Other (See Below) Other GI Surgeries/Procedures: stent in urethea tube Female Surgical History: Reports: Oophorectomy, Ureteral Stent, Other (See Below) Other Female Surgeries/Procedures: bladder lift Social & Family History - Family History Family Medical History: Noncontributory - Tobacco Use Smoking Status *Q: Current Every Day Smoker Years of Tobacco use: 40 Packs/Tins Daily: 0.2 Used Tobacco, but Quit: No Second Hand Smoke Exposure: Yes - Caffeine Use Caffeine Use: Reports: Coffee - Alcohol Use Days Per Week of Alcohol Use: 5 Number of Drinks Per Day: 2 Total Drinks Per Week: 10 - Recreational Drug Use Recreational Drug Use: No - Living Situation & Occupation Living situation: Reports: Occupation: Retired ED ROS GENERAL - Review of Systems Review Of Systems: See Below Constitutional: Reports: Decreased Appetite. Denies: Fever, Chills HEENT: Reports: No Symptoms Respiratory: Reports: No Symptoms Cardiovascular: Reports: No Symptoms GI/Abdominal: Reports: Abdominal Pain, Nausea, Vomiting. Denies: Distension Musculoskeletal: Reports: No Symptoms Skin: Reports: Wound (bx site RUQ, bandaide dressing CDI) Neurological: Reports: No Symptoms Psychiatric: Reports: No Symptoms ED EXAM, GI/ABD - Physical Exam Exam: See Below Exam Limited By: No Limitations General Appearance: Alert, Mild Distress, Thin Eyes: Bilateral: EOMI Ears: Normal External Exam Nose: Normal Inspection Throat/Mouth: Normal Inspection Head: Normocephalic Neck: Normal Inspection, Full Range of Motion Respiratory/Chest: No Respiratory Distress, Lungs Clear, Normal Breath Sounds Cardiovascular: Normal Peripheral Pulses, Regular Rate, Rhythm GI/Abdominal Exam: Normal Bowel Sounds, Soft, Tender (very mild left lower). No : Distended, Guarding, Rigid, Rebound Back Exam: No: CVA Tenderness (L), CVA Tenderness (R) Extremities: Normal Inspection Neurological: Alert, Oriented, Normal Cognition Psychiatric: Normal Affect, Normal Mood Skin Exam: Warm Course - Vital Signs Last Recorded V/S: Last Vital Signs Temp 98 F 07/07/17 21:33 Pulse 74 07/08/17 00:07 Resp 18 07/08/17 00:07 BP 120/48 L 07/08/17 00:07 Pulse Ox 91 L 07/08/17 00:07 - Orders/Labs/Meds Orders: Active Orders 24 hr Category Date Time Status CULTURE BLOOD [BC] Stat Lab 07/07/17 21:55 Results CULTURE BLOOD [BC] Stat Lab 07/07/17 22:00 Results Blood Culture x2 Reflex Set [OM.PC] Stat Oth 07/07/17 22:34 Ordered Labs: Laboratory Tests 07/07/17 07/07/17 07/07/17 Range/Units 21:55 21:55 21:55 WBC 16.6 H (5.0-10.0) 10^3/uL RBC 3.33 L (4.2-5.4) 10^6/uL Hgb 9.9 L (12.0-16.0) g/dL Hct 30.0 L (37.0-47.0) % MCV 90.1 (80-100) fL MCH 29.7 (27.0-34.0) pg MCHC 33.0 (33.0-35.0) g/dL Plt Count 397 (150-450) 10^3/uL Neut % (Auto) 84.7 H (42.2-75.2) % Lymph % (Auto) 5.7 L (20.5-50.1) % [place] % (Auto) 5.4 (2-8) % Eos % (Auto) 4.0 H (1.0-3.0) % Baso % (Auto) 0.2 (0.0-1.0) % Sodium 128 L (135-145) mmol/L Potassium 3.9 (3.6-5.0) mmol/L Chloride 91 L (101-111) mmol/L Carbon Dioxide 25.0 (21.0-31.0) mmol/L Anion Gap 15.9 BUN 24 H (7-18) mg/dL Creatinine 1.8 H (0.6-1.3) mg/dL Est Cr Clr Drug Dosing 23.32 mL/min Estimated GFR (MDRD) 28 BUN/Creatinine Ratio 13.33 Glucose 144 H (74-105) mg/dL Lactic Acid 0.7 (0.5-2.2) mmol/L Calcium 8.9 (8.4-10.2) mg/dl Total Bilirubin 0.5 (0.2-1.0) mg/dL AST 29 (10-42) IU/L ALT 10 (10-60) IU/L Alkaline Phosphatase 135 H (42-121) IU/L Total Protein 6.9 (6.7-8.2) g/dl Albumin 3.5 (3.2-5.5) g/dl Globulin 3.4 Albumin/Globulin Ratio 1.03 Amylase 171 H (28-100) U/L Lipase 62 H (22-51) U/L Meds: Medications Discontinued Medications Generic Name Dose Route Start Last Admin Trade Name Freq PRN Reason Stop Dose Admin Hydrocodone Bitart/Acetaminophen Confirm 07/08/17 00:00 07/08/17 00:03 [place] 325-10 Mg Administered 07/08/17 00:01 Not Given Dose 2 tab .ROUTE .STK-MED ONE Heparin Sodium (Porcine) 500 units 07/08/17 23:56 07/08/17 00:13 Heparin Lock Flush 100 Units/Ml FLUSH 07/08/17 23:57 500 units ONETIME ONE Administration Heparin Sodium (Porcine) 500 units 07/08/17 00:07 07/08/17 00:21 Heparin Lock Flush 100 Units/Ml FLUSH 07/08/17 00:08 Not Given ASDIRECTED ONE Hydromorphone HCl 1 mg 07/07/17 21:40 07/07/17 22:02 Dilaudid IVPUSH 07/07/17 21:41 1 mg ONETIME ONE Administration Sodium Chloride 1,000 mls @ 250 mls/hr 07/07/17 21:39 07/07/17 22:00 Normal Saline IV 07/08/17 01:38 250 mls/hr .BOLUS ONE Administration Metoclopramide HCl 10 mg 07/07/17 21:39 07/07/17 22:01 Reglan IVPUSH 07/07/17 21:40 10 mg ONETIME ONE Administration Metoclopramide HCl Confirm 07/08/17 00:00 07/08/17 00:03 Reglan Administered 07/08/17 00:01 Not Given Dose 20 mg .ROUTE .STK-MED ONE - Re-Assessments/Exams Free Text/Narrative Re-Assessment/Exam: Good pain relief and nausea resolved. resting taking with daughter while awaiting lab results. Departure - Departure Time of Disposition: 23:37 Disposition: Home, Self-Care 01 Condition: Fair Clinical Impression: Vomiting, History of renal stent - Discharge Information Instructions: Nausea and Vomiting, Adult Referrals: PCP,None [Primary Care Provider] - Forms: ED Department Discharge Additional Instructions: reglan 10 mg every 6 hours as needed for nausea hydrocodone APAP 10/325 one every 6 hours as needed for pain encourage liquids small amount more frequently follow up if symptoms worsen, or fever - My Orders Last 24 Hours: My Active Orders 07/07/17 21:55 CULTURE BLOOD [BC] Stat 07/07/17 22:00 CULTURE BLOOD [BC] Stat 07/07/17 22:34 Blood Culture x2 Reflex Set [OM.PC] Stat - Assessment/Plan Last 24 Hours: My Active Orders 07/07/17 21:55 CULTURE BLOOD [BC] Stat 07/07/17 22:00 CULTURE BLOOD [BC] Stat 07/07/17 22:34 Blood Culture x2 Reflex Set [OM.PC] Stat
[2017-07-08] MEDS ORDERED: Metoclopramide 10 MG Tab ONE
[2017-07-08] MEDS ORDERED: Acetaminophen/HYDROcodone 325-10 MG Tab ONE
[2017-07-08 00:08] VITALS: BP 120/48
== END 2017-07-08 00:25 | disposition home or self-care (01) ==
LOC: DL.ED 21:22
DX: R11.10 Vomiting, unspecified (principal); R10.32 Left lower quadrant pain; I10 Essential (primary) hypertension; E78.00 Pure hypercholesterolemia, unspecified; J44.9 Chronic obstructive pulmonary disease, unspecified; F32.9 Major depressive disorder, single episode, unspecified; F17.210 Nicotine dependence, cigarettes, uncomplicated; Z79.82 Long term (current) use of aspirin; Z79.899 Other long term (current) drug therapy; Z88.5 Allergy status to narcotic agent; Z88.6 Allergy status to analgesic agent; Z88.8 Allergy status to other drugs, medicaments and biological substances; Z96.0 Presence of urogenital implants
CPT/HCPCS: 36415; 80053; 82150; 83605; 83690; 85025; 87040; 96361; 96374; 96375; 99284; J1170; J1642; J2765; J7030; A9270-GY

== ENCOUNTER 2017-08-18 16:11 | Inpatient (IN) | payer MEDICARE, OTHER ==
[2017-08-18] MEDS ORDERED: methylPREDNISolone Sodium Succinate 40 MG/1 ML SDV IVPUSH SCH (17:00)
[2017-08-18] MEDS ORDERED: Levofloxacin/Dextrose 5%-Water 750 MG in Premix Bag 1 BAG IV SCH (17:00)
[2017-08-18] MEDS ORDERED: LIDOCAINE TOP PRN (17:07)
[2017-08-18] MEDS ORDERED: PRILOCAINE TOP PRN (17:07)
[2017-08-18] MEDS ORDERED: Docusate Sodium 100 MG Cap PO PRN (17:25)
[2017-08-18] MEDS ORDERED: Lidocaine/Prilocaine 2.5-2.5% Crm 5 GM Tube TOP ONE (17:29)
--- NOTE | 2017-08-18 17:36 | PCM.HP ---
H&P History of Present Illness - General Date of Service: 08/18/17 Admit Problem/Dx: Admission Diagnosis/Problem Admission Diagnosis/Problem Acute bronchitis - History of Present Illness Initial Comments - Free Text/Narative: The patient is a 72-year-old lady with a history of colon cancer on chemotherapy. History of COPD, hypertension, dyslipidemia. The patient had last chemotherapy last week. She presented to her primary care physician with complaints of cough, sputum. No associated fever. There is increased shortness of breath associated with wheezing. No apparent sick contact at home. Duration of the symptoms are about the 3-4 days. Severity is moderate and worsening. Chest x-ray was done in the clinic there was suspicion for pneumonia. The final chest x-ray reading did not confirm this. Into the clinic oxygen saturation was in the low 80s on room air. The patient was recommended for hospital admission. - Related Data Allergies/Adverse Reactions: Allergies Allergy/AdvReac Type Severity Reaction Status Date / Time ibuprofen Allergy Cannot Verified 07/07/17 21:37 Remember oxycodone Allergy Cannot Verified 07/07/17 21:37 Remember promethazine HCl Allergy Cannot Verified 07/07/17 21:37 [From Phenergan] Remember Home Medications: Home Meds FLUoxetine HCl [Fluoxetine HCl] 20 mg PO DAILY 05/04/14 [History] Lisinopril 40 mg PO DAILY 05/04/14 [History] Simvastatin 10 mg PO BEDTIME 05/04/14 [History] amLODIPine Besylate [Amlodipine Besylate] 10 mg PO DAILY 05/04/14 [History] Aspirin [Adult Low Dose Aspirin EC] 81 mg PO DAILY 03/23/15 [History] Zolpidem [Ambien] 5 mg PO BEDTIME PRN 03/23/15 [History] Metoprolol Succinate [Toprol XL] 100 mg PO DAILY 03/27/17 [History] Albuterol [Ventolin HFA] 1 puff INH Q4HR PRN 08/18/17 [History] Lidocaine/Prilocaine [EMLA Crm] 5 gm TOP DAILY PRN 08/18/17 [History] Multivitamin with Minerals [Multiple Vitamin] 1 tab PO DAILY 08/18/17 [History] Past Medical History Cardiovascular History: Reports: CAD, High Cholesterol, Hypertension Respiratory History: Reports: Bronchitis, Recurrent, COPD Gastrointestinal History: Reports: Other (See Below) Other Gastrointestinal History: abnormal digestive system Genitourinary History: Reports: UTI, Recurrent, Other (See Below) Other Genitourinary History: stent in urethea tube and stress incontinence, renal stents 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 Other Dermatologic History: dry skin - Infectious Disease History Infectious Disease History: Reports: Chicken Pox, Measles - Past Surgical History HEENT Surgical History: Reports: Cataract Surgery Other HEENT Surgeries/Procedures: left cataract removal GI Surgical History: Reports: Colonoscopy, Other (See Below) Other GI Surgeries/Procedures: stent in urethea tube Female Surgical History: Reports: Oophorectomy, Ureteral Stent, Other (See Below) Other Female Surgeries/Procedures: bladder lift Social & Family History - Family History Family Medical History: Noncontributory - Tobacco Use Smoking Status *Q: Former Smoker Years of Tobacco use: 30 Packs/Tins Daily: 0.5 Used Tobacco, but Quit: Yes Month/Year Tobacco Last Used: June 2017 Second Hand Smoke Exposure: Yes - Caffeine Use Caffeine Use: Reports: Coffee - Alcohol Use Days Per Week of Alcohol Use: 5 Number of Drinks Per Day: 2 Total Drinks Per Week: 10 - Recreational Drug Use Recreational Drug Use: No - Living Situation & Occupation Living situation: Reports: Occupation: Retired H&P Review of Systems - Review of Systems: Review Of Systems: See Below General: Reports: Chills, Weakness. Denies: Fever Pulmonary: Reports: Shortness of Breath, Wheezing, Cough. Denies: Sputum Cardiovascular: Denies: Chest Pain, Palpitations Gastrointestinal: Denies: Abdominal Pain Genitourinary: Denies: Dysuria Psychiatric: Denies: Confusion Neurological: Denies: Dizziness Exam - Exam Exam: See Below - Vital Signs Vital Signs: Last Vital Signs Temp 36.8 C 08/18/17 16:29 Pulse 89 08/18/17 16:29 Resp 20 08/18/17 16:29 BP 157/75 H 08/18/17 16:29 Pulse Ox 91 L 08/18/17 16:29 Weight: 47.264 kg - Exam Quality Assessment: No: Supplemental Oxygen General: Alert, Oriented HEENT: EOMI Neck: Supple Lungs: Normal Respiratory Effort, Rales, Wheezing Cardiovascular: Regular Rate, Regular Rhythm GI/Abdominal Exam: Normal Bowel Sounds, Soft, Non-Tender Extremities: No Pedal Edema Skin: Warm, Dry Neuro Extensive - Mental Status: Alert, Oriented x3, Normal Mood/Affect Psychiatric: Normal Mood - Patient Data Lab Results Last 24 hrs: Results for CAMILLA CRAIG ( ) as of 08/18/2017 17:28 Ref. Range 08/18/2017 14:32 BUN Latest Ref Range: 7 - 18 mg/dL 24 (H) Sodium Latest Ref Range: 136 - 145 mmol/L 137 Potassium Latest Ref Range: 3.5 - 5.1 mmol/L 4.3 Chloride Latest Ref Range: 98 - 107 mmol/L 102 CO2 Latest Ref Range: 21.0 - 32.0 mmol/L 27.5 SERUM GLUCOSE Latest Ref Range: 70 - 99 mg/dL 135 (H) Creatinine Latest Ref Range: 0.6 - 1.0 mg/dL 1.3 (H) Calcium Latest Ref Range: 8.5 - 10.1 mg/dL 9.2 ANION GAP Latest Ref Range: 5.0 - 13.0 mmol/L 7.5 GFR Calculated Latest Units: mL/min/1.73 sq m 40 Results for CAMILLA CRAIG ( ) as of 08/18/2017 17:28 Ref. Range 08/18/2017 14:32 WBC Latest Ref Range: 3.60 - 11.00 K/uL 8.40 RBC Latest Ref Range: 3.80 - 5.20 M/uL 3.64 (L) Hemoglobin Latest Ref Range: 12.0 - 16.0 g/dL 10.6 (L) Hematocrit Latest Ref Range: 40.0 - 52.0 % 32.3 (L) MCV Latest Ref Range: 80.0 - 100.0 fL 88.7 MCH Latest Ref Range: 26.0 - 34.0 pg 29.1 MCHC Latest Ref Range: 32.0 - 36.0 g/dL 32.8 RDW Latest Ref Range: 37.0 - 50.0 fL 48.2 Platelets Latest Ref Range: 150 - 440 K/L 210 MPV Latest Ref Range: 8.0 - 13.0 fL 8.7 Imaging Impressions Last 24 hrs: DATE OF STUDY: 08/18/2017 2:41 PM STUDY: XR CHEST PA AND LATERAL HISTORY: Cough COMPARISONS: Outside chest radiograph 06/17/2017 FINDINGS. Heart size is upper normal and similar. Normal pulmonary vascularity. RIGHT portacatheter tip overlies the lower SVC. No infiltrate, pleural effusion or pneumothorax. Problem List Initiated/Reviewed/Updated: Yes Orders Last 24hrs: Active Orders 24 hr Category Date Time Status Patient Status [ADT] Routine ADT 08/18/17 17:25 Ordered Oxygen Therapy [RC] PRN Care 08/18/17 17:25 Ordered Peripheral IV Care [RC] . DIRECTED Care 08/18/17 17:27 Ordered RT Aerosol Therapy [RC] ASDIRECTED Care 08/18/17 16:56 Ordered Up With Assistance [RC] ASDIRECTED Care 08/18/17 17:25 Ordered VTE/DVT Education [RC] PER UNIT ROUTINE Care 08/18/17 17:25 Ordered Vital Signs [RC] Q4H Care 08/18/17 17:25 Ordered Regular Diet [DIET] Diet 08/18/17 Breakfast Ordered BASIC METABOLIC PANEL,BMP [CHEM] AM Lab 08/19/17 05:15 Ordered CBC WITH AUTO DIFF [HEME] AM Lab 08/19/17 05:15 Ordered CULTURE BLOOD [BC] Stat Lab 08/18/17 16:55 Ordered CULTURE BLOOD [BC] Stat Lab 08/18/17 16:55 Ordered CULTURE SPUTUM + SMEAR [RM] Routine Lab 08/18/17 16:55 Ordered LACTIC ACID [CHEM] Routine Lab 08/18/17 16:54 Ordered Albuterol/Ipratropium [DuoNeb 3.0-0.5 MG/3 ML] Med 08/18/17 21:00 Ordered 3 ml NEB TID Aspirin [Halfprin] Med 08/19/17 09:00 Ordered 81 mg PO DAILY Budesonide [Pulmicort] Med 08/18/17 18:00 Ordered 0.5 mg NEB BIDRT Docusate Sodium [Colace] Med 08/18/17 17:25 Ordered 100 mg PO BID PRN FLUoxetine HCl [Fluoxetine HCl] Med 08/19/17 09:00 Ordered 20 mg PO DAILY Heparin Sodium Med 08/18/17 22:00 Ordered 5,000 units SUBCUT Q8HR Levofloxacin/Dextrose 5%-Water [Levaquin in D5W 750 MG/ Med 08/18/17 17:00 Ordered 150 ML] 750 mg Premix Bag 1 bag IV Q24H Lidocaine/Prilocaine Med 08/18/17 17:07 Ordered 5 gm TOP DAILY PRN Lisinopril [Prinivil] Med 08/19/17 09:00 Ordered 40 mg PO DAILY Metoprolol Succinate [Toprol XL] Med 08/19/17 09:00 Ordered 100 mg PO DAILY Simvastatin [Zocor] Med 08/18/17 21:00 Ordered 10 mg PO BEDTIME Sodium Chloride 0.9% [Saline Flush] Med 08/18/17 17:25 Ordered 10 ml FLUSH ASDIRECTED PRN Vancomycin Pharmacy to Dose [Pharmacy to Dose - Med 08/18/17 17:00 Ordered Vancomycin] 1 dose .XX ASDIRECTED Zolpidem [Ambien] Med 08/18/17 17:07 Ordered 5 mg PO BEDTIME PRN amLODIPine [Norvasc] Med 08/19/17 09:00 Ordered 10 mg PO DAILY methylPREDNISolone Sod Succ [Solu-MEDROL] Med 08/18/17 17:00 Ordered 40 mg IVPUSH Q8H Antiembolic Hose [OM.PC] Per Unit Routine Oth 08/18/17 17:26 Ordered Blood Culture x2 Reflex Set [OM.PC] Stat Oth 08/18/17 16:55 Ordered Peripheral IV Insertion Adult [OM.PC] Routine Oth 08/18/17 17:25 Ordered Saline Lock Insert [OM.PC] Routine Oth 08/18/17 17:25 Ordered Resuscitation Status Routine Resus Stat 08/18/17 17:25 Ordered Medication Orders Albuterol/Ipratropium (Duoneb 3.0-0.5 Mg/3 Ml) 3 ml NEB TIDRT ASHIA Amlodipine Besylate (Norvasc) 10 mg PO DAILY ASHIA Aspirin (Halfprin) 81 mg PO DAILY ASHIA Budesonide (Pulmicort) 0.5 mg NEB BIDRT ASHIA Docusate Sodium (Colace) 100 mg PO BID PRN PRN Reason: Constipation Heparin Sodium (Porcine) (Heparin Sodium) 5,000 units SUBCUT Q8HR ASHIA Levofloxacin/Dextrose 750 mg/ (Premix) 150 mls @ 100 mls/hr IV Q24H A[facility]IA Lisinopril (Prinivil) 40 mg PO DAILY ASHIA Methylprednisolone Sodium Succinate (Solu-Medrol) 40 mg IVPUSH Q8H A[facility] Non-Formulary Medication (Fluoxetine Hcl [Fluoxetine Hcl]) 20 mg PO DAILY A[facility] Non-Formulary Medication (Lidocaine/Prilocaine) 5 gm TOP DAILY PRN PRN Reason: Other Non-Formulary Medication (Metoprolol Succinate [Toprol Xl]) 100 mg PO DAILY ASHIA Simvastatin (Zocor) 10 mg PO BEDTIME ASHIA Sodium Chloride (Saline Flush) 10 ml FLUSH ASDIRECTED PRN PRN Reason: Keep Vein Open Vancomycin HCl (Pharmacy To Dose - Vancomycin) 1 dose .XX ASDIRECTED ASHIA Zolpidem Tartrate (Ambien) 5 mg PO BEDTIME PRN PRN Reason: Sleep Assessment/Plan Comment:: The patient is a 72-year-old lady who is immunocompromised due to chemotherapy for colon cancer. She presented with cough, hypoxemia, wheezing as noted in the clinic. #1 acute hypoxemic respiratory failure The patient has COPD, para the patient that she'll always have some wheezing. She might be on borderline hypoxemic At rest when she is at her stable condition. For now we will supplement oxygen as needed. 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 We will obtain sputum culture, blood culture, lactic acid level. We'll empirically treat with levofloxacin and vancomycin. #3 acute COPD exacerbation with hypoxemia and significant wheezing, cough We'll start Pulmicort We'll start scheduled DuoNeb Use as needed DuoNeb Supplement oxygen as needed Start Solu-Medrol IV and taper later #4 history of hypertension Treat with Norvasc, metoprolol, lisinopril #5 dyslipidemia Treat with Zocor #6 DVT prophylaxis will be with subcutaneous heparin
[2017-08-18] MEDS ORDERED: Lidocaine/Prilocaine 2.5-2.5% Crm 5 GM Tube TOP PRN (18:22)
[2017-08-18] MEDS ORDERED: Ondansetron 4 MG/2 ML SDV IV PRN (18:36)
[2017-08-18] MEDS ORDERED: Ondansetron 4 MG Tab.DIS PO PRN (18:37)
[2017-08-18] MEDS: Albuterol/Ipratropium 3.0-0.5 MG/3 ML Neb Soln NEB PRN (19:25)
[2017-08-18] MEDS: Budesonide 0.5 MG/2 ML Neb Susp NEB SCH (19:26)
[2017-08-18] MEDS: Levofloxacin/Dextrose 5%-Water 750 MG in Premix Bag 1 BAG IV SCH (20:42)
[2017-08-18] MEDS: Albuterol/Ipratropium 3.0-0.5 MG/3 ML Neb Soln NEB SCH (21:51)
[2017-08-18] MEDS: Simvastatin 10 MG Tab PO SCH (21:52)
[2017-08-18] MEDS: Zolpidem 5 MG Tab PO PRN (21:52)
[2017-08-18] MEDS: Heparin Sodium 5,000 Units/ML Vial SUBCUT SCH (22:03)
[2017-08-19] MEDS: methylPREDNISolone Sodium Succinate 40 MG/1 ML SDV IVPUSH SCH ×3 (04:13→20:21)
[2017-08-19] MEDS: Heparin Sodium 5,000 Units/ML Vial SUBCUT SCH ×3 (06:18→21:07)
[2017-08-19 07:13] LABS: ANION GAP 11.5
[2017-08-19] MEDS: amLODIPine 5 MG Tab PO SCH (08:00)
[2017-08-19] MEDS: Aspirin 81 MG Tab.EC PO SCH (08:00)
[2017-08-19] MEDS: Lisinopril 20 MG Tab PO SCH (08:01)
[2017-08-19] MEDS: FLUoxetine 10 MG Cap PO SCH (08:01)
[2017-08-19] MEDS: Metoprolol Succinate 50 MG Tab.ER PO SCH (08:01)
[2017-08-19] MEDS: Albuterol/Ipratropium 3.0-0.5 MG/3 ML Neb Soln NEB SCH ×3 (09:39→20:10)
[2017-08-19] MEDS: Budesonide 0.5 MG/2 ML Neb Susp NEB SCH ×2 (10:43→19:28)
--- NOTE | 2017-08-19 11:21 | PCM.PN ---
- General Info Date of Service: 08/19/17 Admission Dx/Problem (Free Text): Admission Diagnosis/Problem Admission Diagnosis/Problem Acute bronchitis Functional Status: Reports: Pain Controlled, Tolerating Diet - Review of Systems General: Reports: Weakness. Denies: Fever Pulmonary: Reports: Shortness of Breath (Improved) Cardiovascular: Denies: Chest Pain, Edema Gastrointestinal: Denies: Abdominal Pain Neurological: Denies: Confusion - Patient Data Vitals - Most Recent: Last Vital Signs Temp 36.6 C 08/19/17 08:00 Pulse 88 08/19/17 09:42 Resp 18 08/19/17 08:00 BP 126/56 L 08/19/17 08:01 Pulse Ox 91 L 08/19/17 09:42 Weight - Most Recent: 47.264 kg I&O - Last 24 Hours: Intake & Output 08/18/17 08/19/17 08/19/17 22:59 06:59 14:59 Intake Total 300 600 Output Total 425 Balance 300 175 Lab Results Last 24 Hours: Laboratory Results - last 24 hr 08/18/17 08/19/17 08/19/17 Range/Units 17:55 06:00 06:00 WBC 3.5 L (5.0-10.0) 10^3/uL RBC 3.02 L (4.2-5.4) 10^6/uL Hgb 8.8 L (12.0-16.0) g/dL Hct 26.8 L (37.0-47.0) % MCV 88.7 (80-100) fL MCH 29.1 (27.0-34.0) pg MCHC 32.8 L (33.0-35.0) g/dL Plt Count 166 D (150-450) 10^3/uL Neut % (Auto) 84.2 H (42.2-75.2) % Lymph % (Auto) 15.0 L (20.5-50.1) % [place] % (Auto) 0.8 L (2-8) % Eos % (Auto) 0.0 L (1.0-3.0) % Baso % (Auto) 0.0 (0.0-1.0) % Sodium 133 L (135-145) mmol/L Potassium 4.5 (3.6-5.0) mmol/L Chloride 102 (101-111) mmol/L Carbon Dioxide 24.0 (21.0-31.0) mmol/L Anion Gap 11.5 BUN 24 H (7-18) mg/dL Creatinine 1.0 (0.6-1.3) mg/dL Est Cr Clr Drug Dosing 38.50 mL/min Estimated GFR (MDRD) 55 Glucose 138 H (74-105) mg/dL Lactic Acid 0.6 (0.5-2.2) mmol/L Calcium 8.7 (8.4-10.2) mg/dl Ramses Results Last 24 Hours: Microbiology 08/18/17 19:30 Gram Stain - Final Sputum - Expectorated Med Orders - Current: Current Medications Albuterol/Ipratropium (Duoneb 3.0-0.5 Mg/3 Ml) 3 ml NEB TIDRT [facility] Last Admin: 08/19/17 09:39 Dose: 3 ml Albuterol/Ipratropium (Duoneb 3.0-0.5 Mg/3 Ml) 3 ml NEB Q4HRRT PRN PRN Reason: sob Last Admin: 08/18/17 19:25 Dose: 3 ml Amlodipine Besylate (Norvasc) 10 mg PO DAILY [facility] Last Admin: 08/19/17 08:00 Dose: 10 mg Aspirin (Halfprin) 81 mg PO DAILY [facility] Last Admin: 08/19/17 08:00 Dose: 81 mg Budesonide (Pulmicort) 0.5 mg NEB BIDRT [facility] Last Admin: 08/19/17 10:43 Dose: Not Given Docusate Sodium (Colace) 100 mg PO BID PRN PRN Reason: Constipation Fluoxetine HCl (Prozac) 20 mg PO DAILY [facility] Last Admin: 08/19/17 08:01 Dose: 20 mg Heparin Sodium (Porcine) (Heparin Sodium) 5,000 units SUBCUT Q8HR [facility] Last Admin: 08/19/17 06:18 Dose: 5,000 units Vancomycin HCl 0.75 gm/ Sodium (Chloride) 250 mls @ 166.667 mls/hr IV Q24H [facility] Last Admin: 08/18/17 18:53 Dose: 166.667 mls/hr Levofloxacin/Dextrose 750 mg/ (Premix) 150 mls @ 100 mls/hr IV Q48H [facility] Last Admin: 08/18/17 20:42 Dose: 100 mls/hr Lidocaine/Prilocaine (Emla Crm) 5 gm TOP DAILY PRN PRN 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 Lisinopril (Prinivil) 40 mg PO DAILY [facility] Last Admin: 08/19/17 08:01 Dose: 40 mg Methylprednisolone Sodium Succinate (Solu-Medrol) 40 mg IVPUSH TID@0400,1200, 2000 [facility] Last Admin: 08/19/17 04:13 Dose: 40 mg Metoprolol Succinate (Toprol Xl) 100 mg PO DAILY [facility] Last Admin: 08/19/17 08:01 Dose: 100 mg Ondansetron HCl (Zofran) 4 mg IV Q4H PRN PRN Reason: Nausea/Vomiting Ondansetron HCl (Zofran Odt) 4 mg PO Q6H PRN PRN Reason: Nausea Simvastatin (Zocor) 10 mg PO BEDTIME [facility] Last Admin: 08/18/17 21:52 Dose: 10 mg Sodium Chloride (Saline Flush) 10 ml FLUSH ASDIRECTED PRN PRN Reason: Keep Vein Open Vancomycin HCl (Pharmacy To Dose - Vancomycin) 1 dose .XX ASDIRECTED [facility] Zolpidem Tartrate (Ambien) 5 mg PO BEDTIME PRN PRN Reason: Sleep Last Admin: 08/18/17 21:52 Dose: 5 mg Discontinued Medications Levofloxacin/Dextrose 750 mg/ (Premix) 150 mls @ 100 mls/hr IV Q24H [facility] Last Admin: 08/18/17 19:19 Dose: Not Given Lidocaine/Prilocaine (Emla Crm) 5 gm TOP ONETIME ONE Stop: 08/18/17 17:30 Last Admin: 08/18/17 17:45 Dose: 1 applic Methylprednisolone Sodium Succinate (Solu-Medrol) 40 mg IVPUSH Q8H [facility] Last Admin: 08/18/17 19:26 Dose: 40 mg Methylprednisolone Sodium Succinate (Solu-Medrol) 40 mg IVPUSH TID@0400,1200, 2000 [facility] Non-Formulary Medication (Lidocaine/Prilocaine) 5 gm TOP DAILY PRN PRN Reason: Other - Exam General: Alert, Oriented Neck: Supple Lungs: Rhonchi, Wheezing Cardiovascular: Regular Rate, Regular Rhythm GI/Abdominal Exam: Normal Bowel Sounds, Soft, Non-Tender Extremities: No Pedal Edema Skin: Warm, Dry Psy/Mental Status: Alert, Normal Affect, Normal Mood - Problem List Review Problem List Initiated/Reviewed/Updated: Yes - My Orders Last 24 Hours: My Active Orders 08/18/17 16:55 Blood Culture x2 Reflex Set [OM.PC] Stat 08/18/17 16:56 RT Aerosol Therapy [RC] ASDIRECTED 08/18/17 17:00 Vancomycin 0.75 gm Sodium Chloride 0.9% [Normal Saline] 250 ml IV Q24H Vancomycin Pharmacy to Dose [Pharmacy to Dose - Vancomycin] 1 dose .XX ASDIRECTED 08/18/17 17:07 Zolpidem [Ambien] 5 mg PO BEDTIME PRN 08/18/17 17:25 Patient Status [ADT] Routine Oxygen Therapy [RC] PRN Up With Assistance [RC] ASDIRECTED VTE/DVT Education [RC] PER UNIT ROUTINE Vital Signs [RC] Q4H Docusate Sodium [Colace] 100 mg PO BID PRN Sodium Chloride 0.9% [Saline Flush] 10 ml FLUSH ASDIRECTED PRN Peripheral IV Insertion Adult [OM.PC] Routine Saline Lock Insert [OM.PC] Routine Resuscitation Status Routine 08/18/17 17:26 Antiembolic Hose [OM.PC] Per Unit Routine 08/18/17 17:27 Peripheral IV Care [RC] . DIRECTED 08/18/17 17:36 Albuterol/Ipratropium [DuoNeb 3.0-0.5 MG/3 ML] 3 ml NEB Q4HRRT PRN 08/18/17 17:37 RT Aerosol Therapy [RC] ASDIRECTED 08/18/17 17:55 CULTURE BLOOD [BC] Stat 08/18/17 18:00 Budesonide [Pulmicort] 0.5 mg NEB BIDRT 08/18/17 18:22 Lidocaine/Prilocaine [EMLA Crm] 5 gm TOP DAILY PRN 08/18/17 18:36 Ondansetron [Zofran] 4 mg IV Q4H PRN 08/18/17 18:37 Ondansetron [Zofran ODT] 4 mg PO Q6H PRN 08/18/17 18:45 CULTURE BLOOD [BC] Stat 08/18/17 19:00 Levofloxacin/Dextrose 5%-Water [Levaquin in D5W 750 MG/150 ML] 750 mg Premix Bag 1 bag IV Q48H 08/18/17 19:30 CULTURE SPUTUM + SMEAR [RM] Routine 08/18/17 21:00 Albuterol/Ipratropium [DuoNeb 3.0-0.5 MG/3 ML] 3 ml NEB TIDRT Simvastatin [Zocor] 10 mg PO BEDTIME 08/18/17 22:00 Heparin Sodium 5,000 units SUBCUT Q8HR 08/19/17 04:00 methylPREDNISolone Sod Succ [Solu-MEDROL] 40 mg IVPUSH TID@0400,1200,199908/19/17 09:00 Aspirin [Halfprin] 81 mg PO DAILY FLUoxetine [PROzac] 20 mg PO DAILY Lisinopril [Prinivil] 40 mg PO DAILY Metoprolol Succinate [Toprol XL] 100 mg PO DAILY amLODIPine [Norvasc] 10 mg PO DAILY 08/19/17 10:24 Acapella [RT Chest Physiotherapy] [RC] ASDIRECTED 08/20/17 05:15 BASIC METABOLIC PANEL,BMP [CHEM] AM CBC WITH AUTO DIFF [HEME] AM - Plan Plan:: The patient is a 72-year-old lady who is immunocompromised due to chemotherapy for colon cancer. She presented with cough, hypoxemia, wheezing as noted in the clinic. #1 acute hypoxemic respiratory failure Improved The patient has COPD, per the patient that she always has some wheezing. She might be on borderline hypoxemic At rest when she is at her stable condition. For now we will supplement oxygen as needed. 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 Pending sputum culture Blood culture: Pending We'll empirically treat with levofloxacin and vancomycin. #3 acute COPD exacerbation with hypoxemia and significant wheezing, cough Continue Pulmicort Continue scheduled DuoNeb Use as needed DuoNeb Supplement oxygen as needed Continue Solu-Medrol IV and taper later #4 history of hypertension Treat with Norvasc, metoprolol, lisinopril #5 dyslipidemia Treat with Zocor #6 DVT prophylaxis will be with subcutaneous heparin
[2017-08-19] MEDS ORDERED: methylPREDNISolone Sodium Succinate 40 MG/1 ML SDV IVPUSH SCH (20:30)
[2017-08-19] MEDS: Simvastatin 10 MG Tab PO SCH (21:07)
[2017-08-19] MEDS: Zolpidem 5 MG Tab PO PRN (21:07)
[2017-08-20] MEDS: methylPREDNISolone Sodium Succinate 40 MG/1 ML SDV IVPUSH SCH ×2 (03:56→21:06)
[2017-08-20] MEDS: Heparin Sodium 5,000 Units/ML Vial SUBCUT SCH ×3 (06:06→21:07)
[2017-08-20 07:13] LABS: ANION GAP 11.9
[2017-08-20] MEDS: Budesonide 0.5 MG/2 ML Neb Susp NEB SCH ×2 (07:26→18:39)
[2017-08-20] MEDS: Albuterol/Ipratropium 3.0-0.5 MG/3 ML Neb Soln NEB SCH ×3 (07:26→21:11)
[2017-08-20] MEDS: Lisinopril 20 MG Tab PO SCH (09:19)
[2017-08-20] MEDS: amLODIPine 5 MG Tab PO SCH (09:19)
[2017-08-20] MEDS: FLUoxetine 10 MG Cap PO SCH (09:19)
[2017-08-20] MEDS: Metoprolol Succinate 50 MG Tab.ER PO SCH (09:19)
[2017-08-20] MEDS: Aspirin 81 MG Tab.EC PO SCH (09:20)
--- NOTE | 2017-08-20 11:41 | PCM.PN ---
- General Info Date of Service: 08/20/17 Admission Dx/Problem (Free Text): Admission Diagnosis/Problem Admission Diagnosis/Problem Acute bronchitis Subjective Update: Feeling better, less shortness of breath. Off oxygen. Still eating very little. No associated abdominal pain, diarrhea, vomiting. Has little appetite Has been up and moving around in the room. Functional Status: Reports: Pain Controlled, Tolerating Diet - Review of Systems General: Denies: Fever, Weakness Pulmonary: Reports: Shortness of Breath (Mild and improved) Cardiovascular: Denies: Chest Pain Gastrointestinal: Denies: Abdominal Pain Neurological: Denies: Confusion Psychiatric: Denies: Depression - Patient Data Vitals - Most Recent: Last Vital Signs Temp 36.6 C 08/20/17 08:00 Pulse 76 08/20/17 09:19 Resp 18 08/20/17 08:00 BP 117/41 L 08/20/17 09:19 Pulse Ox 93 L 08/20/17 08:00 Weight - Most Recent: 47.264 kg I&O - Last 24 Hours: Intake & Output 08/19/17 08/20/17 08/20/17 22:59 06:59 14:59 Intake Total 497 200 Output Total 600 Balance 497 -400 Lab Results Last 24 Hours: Laboratory Results - last 24 hr 08/20/17 08/20/17 Range/Units 06:20 06:20 WBC 8.1 (5.0-10.0) 10^3/uL RBC 2.81 L (4.2-5.4) 10^6/uL Hgb 8.4 L (12.0-16.0) g/dL Hct 24.7 L (37.0-47.0) % MCV 87.9 (80-100) fL MCH 29.9 (27.0-34.0) pg MCHC 34.0 (33.0-35.0) g/dL Plt Count 159 (150-450) 10^3/uL Neut % (Auto) 87.9 H (42.2-75.2) % Lymph % (Auto) 10.1 L (20.5-50.1) % [place] % (Auto) 2.0 (2-8) % Eos % (Auto) 0.0 L (1.0-3.0) % Baso % (Auto) 0.0 (0.0-1.0) % Sodium 132 L (135-145) mmol/L Potassium 3.9 (3.6-5.0) mmol/L Chloride 101 (101-111) mmol/L Carbon Dioxide 23.0 (21.0-31.0) mmol/L Anion Gap 11.9 BUN 30 H (7-18) mg/dL Creatinine 1.1 (0.6-1.3) mg/dL Est Cr Clr Drug Dosing 35.00 mL/min Estimated GFR (MDRD) 49 Glucose 138 H (74-105) mg/dL Calcium 8.4 (8.4-10.2) mg/dl Ramses Results Last 24 Hours: Microbiology 08/18/17 18:45 Aerobic Blood Culture - Preliminary Blood - Venous - Lab Draw NO GROWTH AFTER 1 DAY Anaerobic Blood Culture - Preliminary NO GROWTH AFTER 1 DAY 08/18/17 17:55 Aerobic Blood Culture - Preliminary Blood - Venous NO GROWTH AFTER 1 DAY Anaerobic Blood Culture - Preliminary NO GROWTH AFTER 1 DAY Med Orders - Current: Current Medications Albuterol/Ipratropium (Duoneb 3.0-0.5 Mg/3 Ml) 3 ml NEB TIDRT [facility] Last Admin: 08/20/17 07:26 Dose: 3 ml Albuterol/Ipratropium (Duoneb 3.0-0.5 Mg/3 Ml) 3 ml NEB Q4HRRT PRN PRN Reason: sob Last Admin: 08/18/17 19:25 Dose: 3 ml Amlodipine Besylate (Norvasc) 10 mg PO DAILY [facility] Last Admin: 08/20/17 09:19 Dose: 10 mg Aspirin (Halfprin) 81 mg PO DAILY [facility] Last Admin: 08/20/17 09:20 Dose: 81 mg Budesonide (Pulmicort) 0.5 mg NEB BIDRT [facility] Last Admin: 08/20/17 07:26 Dose: 0.5 mg Docusate Sodium (Colace) 100 mg PO BID PRN PRN Reason: Constipation Fluoxetine HCl (Prozac) 20 mg PO DAILY [facility] Last Admin: 08/20/17 09:19 Dose: 20 mg Heparin Sodium (Porcine) (Heparin Sodium) 5,000 units SUBCUT Q8HR [facility] Last Admin: 08/20/17 06:06 Dose: 5,000 units Vancomycin HCl 0.75 gm/ Sodium (Chloride) 250 mls @ 166.667 mls/hr IV Q24H [facility] Last Admin: 08/19/17 17:53 Dose: 166.667 mls/hr Levofloxacin/Dextrose 750 mg/ (Premix) 150 mls @ 100 mls/hr IV Q48H [facility] Last Admin: 08/18/17 20:42 Dose: 100 mls/hr Lidocaine/Prilocaine (Emla Crm) 5 gm TOP DAILY PRN PRN 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 Lisinopril (Prinivil) 40 mg PO DAILY [facility] Last Admin: 08/20/17 09:19 Dose: 40 mg Methylprednisolone Sodium Succinate (Solu-Medrol) 40 mg IVPUSH TID@0400,1200, 2000 [facility] Last Admin: 08/20/17 03:56 Dose: 40 mg Metoprolol Succinate (Toprol Xl) 100 mg PO DAILY [facility] Last Admin: 08/20/17 09:19 Dose: 100 mg Ondansetron HCl (Zofran) 4 mg IV Q4H PRN PRN Reason: Nausea/Vomiting Ondansetron HCl (Zofran Odt) 4 mg PO Q6H PRN PRN Reason: Nausea Simvastatin (Zocor) 10 mg PO BEDTIME [facility] Last Admin: 08/19/17 21:07 Dose: 10 mg Sodium Chloride (Saline Flush) 10 ml FLUSH ASDIRECTED PRN PRN Reason: Keep Vein Open Vancomycin HCl (Pharmacy To Dose - Vancomycin) 1 dose .XX ASDIRECTED [facility] Zolpidem Tartrate (Ambien) 5 mg PO BEDTIME PRN PRN Reason: Sleep Last Admin: 08/19/17 21:07 Dose: 5 mg Discontinued Medications Levofloxacin/Dextrose 750 mg/ (Premix) 150 mls @ 100 mls/hr IV Q24H [facility] Last Admin: 08/18/17 19:19 Dose: Not Given Lidocaine/Prilocaine (Emla Crm) 5 gm TOP ONETIME ONE Stop: 08/18/17 17:30 Last Admin: 08/18/17 17:45 Dose: 1 applic Methylprednisolone Sodium Succinate (Solu-Medrol) 40 mg IVPUSH Q8H [facility] Last Admin: 08/18/17 19:26 Dose: 40 mg Methylprednisolone Sodium Succinate (Solu-Medrol) 40 mg IVPUSH TID@0400,1200, 2000 [facility] Non-Formulary Medication (Lidocaine/Prilocaine) 5 gm TOP DAILY PRN PRN Reason: Other - Exam Quality Assessment: No: Supplemental Oxygen General: Alert, Oriented HEENT: EOMI Neck: Supple Lungs: Normal Respiratory Effort, Wheezing. No: Rales, Rhonchi Cardiovascular: Regular Rate, Regular Rhythm GI/Abdominal Exam: Normal Bowel Sounds, Soft, Non-Tender Extremities: No Pedal Edema - Problem List Review Problem List Initiated/Reviewed/Updated: Yes - My Orders Last 24 Hours: My Active Orders 08/20/17 11:37 Communication Order [RC] DAILY 08/21/17 05:11 CEA [REF] AM FERRITIN [REF] AM HEPATIC FUNCTION PANEL,HFP [CHEM] AM 08/21/17 05:15 BASIC METABOLIC PANEL,BMP [CHEM] AM CBC WITH AUTO DIFF [HEME] AM - Plan Plan:: The patient is a 72-year-old lady who is immunocompromised due to chemotherapy for colon cancer. She presented with cough, hypoxemia, wheezing as noted in the clinic. #1 acute hypoxemic respiratory failure Improved The patient has COPD, per the patient that she always has some wheezing. She might be on borderline hypoxemic At rest when she is at her stable condition. For now we will supplement oxygen as needed but right now she does not require oxygen supplement. 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 Pending sputum culture Blood culture: Negative for now We'll empirically treat with levofloxacin and vancomycin. #3 acute COPD exacerbation with hypoxemia and significant wheezing, cough Continue Pulmicort Continue scheduled DuoNeb Use as needed DuoNeb Supplement oxygen as needed Taper Solu-Medrol IV #4 history of hypertension Treat with Norvasc, metoprolol, lisinopril #5 dyslipidemia Treat with Zocor #6 DVT prophylaxis will be with subcutaneous heparin
[2017-08-20] MEDS: Sodium Chloride 0.9% 10 ML Syringe FLUSH PRN (19:10)
[2017-08-20] MEDS: Levofloxacin/Dextrose 5%-Water 750 MG in Premix Bag 1 BAG IV SCH (19:28)
[2017-08-20] MEDS: Zolpidem 5 MG Tab PO PRN (21:06)
[2017-08-20] MEDS: Simvastatin 10 MG Tab PO SCH (21:06)
[2017-08-21] MEDS ORDERED: Acetaminophen 325 MG Tab PO PRN (00:32)
[2017-08-21] MEDS: Heparin Sodium 5,000 Units/ML Vial SUBCUT SCH (06:04)
[2017-08-21 07:10] LABS: ANION GAP 8.9
[2017-08-21] MEDS: Albuterol/Ipratropium 3.0-0.5 MG/3 ML Neb Soln NEB SCH (07:50)
[2017-08-21] MEDS: Budesonide 0.5 MG/2 ML Neb Susp NEB SCH ×2 (08:16→11:35)
[2017-08-21] MEDS: Albuterol/Ipratropium 3.0-0.5 MG/3 ML Neb Soln NEB PRN (08:17)
[2017-08-21] MEDS: Metoprolol Succinate 50 MG Tab.ER PO SCH (09:25)
[2017-08-21] MEDS: Aspirin 81 MG Tab.EC PO SCH (09:26)
[2017-08-21] MEDS: Lisinopril 20 MG Tab PO SCH (09:27)
[2017-08-21] MEDS: FLUoxetine 10 MG Cap PO SCH (09:27)
[2017-08-21] MEDS: amLODIPine 5 MG Tab PO SCH (09:27)
[2017-08-21] MEDS: methylPREDNISolone Sodium Succinate 40 MG/1 ML SDV IVPUSH SCH (09:30)
--- NOTE | 2017-08-21 09:33 | PCM.DCSUM1 ---
Discharge Summary - Hospital Course Free Text/Narrative:: The patient is a 72-year-old lady who is immunocompromised due to chemotherapy for colon cancer. She presented with cough, hypoxemia, wheezing as noted in the clinic. 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 Pending sputum culture Blood culture: Negative for now Treated with levofloxacin and vancomycin. finish PO LEvofloxacin 7 more days #3 acute COPD exacerbation with hypoxemia and significant wheezing, cough much improved Continue Pulmicort Continue scheduled DuoNeb Use as needed DuoNeb taper steroids #4 history of hypertension Treat with Norvasc, metoprolol, lisinopril #5 dyslipidemia Treat with Zocor - Discharge Data Discharge Date: 08/21/17 Discharge Disposition: Home, Self-Care 01 Condition: Good - Patient Instructions Diet: Heart Healthy Diet Activity: As Tolerated - Discharge Plan Prescriptions/Med Rec: Albuterol/Ipratropium [DuoNeb 3.0-0.5 MG/3 ML] 3 ml NEB TIDRT #90 neb Budesonide [Pulmicort] 0.5 mg NEB BIDRT #60 neb Levofloxacin 500 mg PO DAILY #7 tablet predniSONE See Taper PO .TAPER #30 tab Home Medications: Home Meds FLUoxetine HCl [Fluoxetine HCl] 20 mg PO DAILY 05/04/14 [History] Lisinopril 40 mg PO DAILY 05/04/14 [History] Simvastatin 10 mg PO BEDTIME 05/04/14 [History] amLODIPine Besylate [Amlodipine Besylate] 10 mg PO DAILY 05/04/14 [History] Aspirin [Adult Low Dose Aspirin EC] 81 mg PO DAILY 03/23/15 [History] Zolpidem [Ambien] 5 mg PO BEDTIME PRN 03/23/15 [History] Metoprolol Succinate [Toprol XL] 100 mg PO DAILY 03/27/17 [History] Albuterol [Ventolin HFA] 1 puff INH Q4HR PRN 08/18/17 [History] Lidocaine/Prilocaine [EMLA Crm] 5 gm TOP DAILY PRN 08/18/17 [History] Multivitamin with Minerals [Multiple Vitamin] 1 tab PO DAILY 08/18/17 [History] Albuterol/Ipratropium [DuoNeb 3.0-0.5 MG/3 ML] 3 ml NEB TIDRT #90 neb 08/21/17 [ Rx] Budesonide [Pulmicort] 0.5 mg NEB BIDRT #60 neb 08/21/17 [Rx] Levofloxacin 500 mg PO DAILY #7 tablet 08/21/17 [Rx] predniSONE See Taper PO .TAPER #30 tab 08/21/17 [Rx] - General Info Date of Service: 08/21/17 Subjective Update: Feeling well. less shortness of breath. Off oxygen. Has been up and moving around in the room. - Review of Systems General: Reports: Weakness. Denies: Fever Pulmonary: Denies: Shortness of Breath, Cough Cardiovascular: Denies: Chest Pain, Edema Neurological: Denies: Confusion - Patient Data Vitals - Most Recent: Last Vital Signs Temp 36.8 C 08/21/17 08:00 Pulse 96 08/21/17 09:25 Resp 20 08/21/17 08:00 BP 140/46 L 08/21/17 09:27 Pulse Ox 94 L 08/21/17 08:00 Weight - Most Recent: 47.264 kg I&O - Last 24 hours: Intake & Output 08/20/17 08/21/17 08/21/17 22:59 06:59 14:59 Intake Total 752 200 Output Total 1400 Balance 752 -1200 Lab Results - Last 24 hrs: Laboratory Results - last 24 hr 08/21/17 08/21/17 Range/Units 06:28 06:28 WBC 5.6 (5.0-10.0) 10^3/uL RBC 2.85 L (4.2-5.4) 10^6/uL Hgb 8.5 L (12.0-16.0) g/dL Hct 25.1 L (37.0-47.0) % MCV 88.1 (80-100) fL MCH 29.8 (27.0-34.0) pg MCHC 33.9 (33.0-35.0) g/dL Plt Count 168 (150-450) 10^3/uL Neut % (Auto) 84.1 H (42.2-75.2) % Lymph % (Auto) 10.4 L (20.5-50.1) % [place] % (Auto) 4.8 (2-8) % Eos % (Auto) 0.5 L (1.0-3.0) % Baso % (Auto) 0.2 (0.0-1.0) % Sodium 130 L (135-145) mmol/L Potassium 3.9 (3.6-5.0) mmol/L Chloride 101 (101-111) mmol/L Carbon Dioxide 24.0 (21.0-31.0) mmol/L Anion Gap 8.9 BUN 29 H (7-18) mg/dL Creatinine 1.1 (0.6-1.3) mg/dL Est Cr Clr Drug Dosing 35.00 mL/min Estimated GFR (MDRD) 49 Glucose 115 H (74-105) mg/dL Calcium 7.9 L (8.4-10.2) mg/dl Total Bilirubin 0.5 (0.2-1.0) mg/dL Direct Bilirubin 0.1 (0.0-0.2) mg/dL Indirect Bilirubin 0.4 AST 39 (10-42) IU/L ALT 37 (10-60) IU/L Alkaline Phosphatase 72 (42-121) IU/L Total Protein 5.3 L (6.7-8.2) g/dl Albumin 2.8 L (3.2-5.5) g/dl Globulin 2.5 Albumin/Globulin Ratio 1.12 AMANUEL Results - Last 24 hrs: Microbiology 08/18/17 19:30 Gram Stain - Final Sputum - Expectorated Sputum Culture - Final Normal Vidya 08/18/17 18:45 Aerobic Blood Culture - Preliminary Blood - Venous - Lab Draw NO GROWTH AFTER 2 DAYS Anaerobic Blood Culture - Preliminary NO GROWTH AFTER 2 DAYS 08/18/17 17:55 Aerobic Blood Culture - Preliminary Blood - Venous NO GROWTH AFTER 2 DAYS Anaerobic Blood Culture - Preliminary NO GROWTH AFTER 2 DAYS Med Orders - Current: Current Medications Acetaminophen (Tylenol) 650 mg PO Q4H PRN PRN Reason: Pain Last Admin: 08/21/17 00:42 Dose: 650 mg Albuterol/Ipratropium (Duoneb 3.0-0.5 Mg/3 Ml) 3 ml NEB TIDRT [facility] Last Admin: 08/20/17 21:11 Dose: 3 ml Albuterol/Ipratropium (Duoneb 3.0-0.5 Mg/3 Ml) 3 ml NEB Q4HRRT PRN PRN Reason: sob Last Admin: 08/21/17 08:17 Dose: 3 ml Amlodipine Besylate (Norvasc) 10 mg PO DAILY [facility] Last Admin: 08/21/17 09:27 Dose: 10 mg Aspirin (Halfprin) 81 mg PO DAILY [facility] Last Admin: 08/21/17 09:26 Dose: 81 mg Budesonide (Pulmicort) 0.5 mg NEB BIDRT [facility] Last Admin: 08/21/17 08:16 Dose: 0.5 mg Docusate Sodium (Colace) 100 mg PO BID PRN PRN Reason: Constipation Fluoxetine HCl (Prozac) 20 mg PO DAILY [facility] Last Admin: 08/21/17 09:27 Dose: 20 mg Heparin Sodium (Porcine) (Heparin Sodium) 5,000 units SUBCUT Q8HR [facility] Last Admin: 08/21/17 06:04 Dose: 5,000 units Vancomycin HCl 0.75 gm/ Sodium (Chloride) 250 mls @ 166.667 mls/hr IV Q24H [facility] Last Admin: 08/20/17 17:33 Dose: 166.667 mls/hr Levofloxacin/Dextrose 750 mg/ (Premix) 150 mls @ 100 mls/hr IV Q48H [facility] Last Admin: 08/20/17 19:28 Dose: 100 mls/hr Lidocaine/Prilocaine (Emla Crm) 5 gm TOP DAILY PRN PRN 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 Lisinopril (Prinivil) 40 mg PO DAILY [facility] Last Admin: 08/21/17 09:27 Dose: 40 mg Methylprednisolone Sodium Succinate (Solu-Medrol) 40 mg IVPUSH BID [facility] Last Admin: 08/21/17 09:30 Dose: 40 mg Metoprolol Succinate (Toprol Xl) 100 mg PO DAILY [facility] Last Admin: 08/21/17 09:25 Dose: 100 mg Ondansetron HCl (Zofran) 4 mg IV Q4H PRN PRN Reason: Nausea/Vomiting Ondansetron HCl (Zofran Odt) 4 mg PO Q6H PRN PRN Reason: Nausea Simvastatin (Zocor) 10 mg PO BEDTIME [facility] Last Admin: 08/20/17 21:06 Dose: 10 mg Sodium Chloride (Saline Flush) 10 ml FLUSH ASDIRECTED PRN PRN Reason: Keep Vein Open Last Admin: 08/20/17 19:10 Dose: 10 ml Vancomycin HCl (Pharmacy To Dose - Vancomycin) 1 dose .XX ASDIRECTED [facility] Zolpidem Tartrate (Ambien) 5 mg PO BEDTIME PRN PRN Reason: Sleep Last Admin: 08/20/17 21:06 Dose: 5 mg Discontinued Medications Levofloxacin/Dextrose 750 mg/ (Premix) 150 mls @ 100 mls/hr IV Q24H [facility] Last Admin: 08/18/17 19:19 Dose: Not Given Lidocaine/Prilocaine (Emla Crm) 5 gm TOP ONETIME ONE Stop: 08/18/17 17:30 Last Admin: 08/18/17 17:45 Dose: 1 applic Methylprednisolone Sodium Succinate (Solu-Medrol) 40 mg IVPUSH Q8H [facility] Last Admin: 08/18/17 19:26 Dose: 40 mg Methylprednisolone Sodium Succinate (Solu-Medrol) 40 mg IVPUSH TID@0400,1200, 2000 [facility] Methylprednisolone Sodium Succinate (Solu-Medrol) 40 mg IVPUSH TID@0400,1200, 2000 [facility] Last Admin: 08/20/17 03:56 Dose: 40 mg Non-Formulary Medication (Lidocaine/Prilocaine) 5 gm TOP DAILY PRN PRN Reason: Other - Exam Quality Assessment: Denies: Supplemental Oxygen General: Reports: Alert, Oriented Neck: Reports: Supple Lungs: Reports: Normal Respiratory Effort, Decreased Breath Sounds. Denies: Wheezing Cardiovascular: Reports: Regular Rate, Regular Rhythm GI/Abdominal Exam: Normal Bowel Sounds, Soft, Non-Tender Extremities: No Pedal Edema
[2017-08-21 11:38] VITALS: BP 119/43
[2017-08-21] MEDS: Sodium Chloride 0.9% 10 ML Syringe FLUSH PRN (11:42)
== END 2017-08-21 13:00 | disposition home or self-care (01) | DRG 189 ==
LOC: DL.MS 16:11 → UNDOADMIN 16:11 → DL.MS 17:25
PROVIDERS: ADMIT Internal Medicine; ATTEND Internal Medicine
DX: J96.01 Acute respiratory failure with hypoxia (principal); J44.0 Chronic obstructive pulmonary disease with (acute) lower respiratory infection; C18.9 Malignant neoplasm of colon, unspecified; J44.1 Chronic obstructive pulmonary disease with (acute) exacerbation; J20.9 Acute bronchitis, unspecified; I10 Essential (primary) hypertension; E78.5 Hyperlipidemia, unspecified; T45.1X5A Adverse effect of antineoplastic and immunosuppressive drugs, initial encounter; I25.10 Atherosclerotic heart disease of native coronary artery without angina pectoris; N39.3 Stress incontinence (female) (male); M81.0 Age-related osteoporosis without current pathological fracture; F41.9 Anxiety disorder, unspecified; F32.9 Major depressive disorder, single episode, unspecified; D64.9 Anemia, unspecified; R53.1 Weakness; Z85.828 Personal history of other malignant neoplasm of skin; Z85.05 Personal history of malignant neoplasm of liver; Z88.5 Allergy status to narcotic agent; Z88.8 Allergy status to other drugs, medicaments and biological substances; Z79.82 Long term (current) use of aspirin; Z87.440 Personal history of urinary (tract) infections; Z96.0 Presence of urogenital implants; Z79.899 Other long term (current) drug therapy; Z87.891 Personal history of nicotine dependence; Z28.21 Immunization not carried out because of patient refusal
CPT/HCPCS: 36415; 80048; 80076; 82378; 82728; 83605; 85025; 87040; 87070; 87205; 94640; 94667; 94668; A9270-GY; J1642; J1644; J1956; J2920; J3370; J7050

== ENCOUNTER 2017-08-23 09:15 | Inpatient (IN) | payer MEDICARE, OTHER ==
[2017-08-23] MEDS ORDERED: Sodium Chloride 0.9% 1,000 ML IV ONE (09:38)
[2017-08-23] MEDS ORDERED: Ondansetron 4 MG Tab.DIS PO ONE (09:38)
--- NOTE | 2017-08-23 09:47 | EDM.PDOC ---
ED HPI GENERAL MEDICAL PROBLEM - General Chief Complaint: Gastrointestinal Problem Stated Complaint: [id number] SICK Time Seen by Provider: 08/23/17 09:35 Source of Information: Reports: Patient, Family History Limitations: Reports: No Limitations - History of Present Illness INITIAL COMMENTS - FREE TEXT/NARRATIVE: This 72 yo female patient was brought to the ED due to nausea and diarrhea that started at about midnight. The patient reports that she had a chemo treatment yesterday and felt a little nauseated last night. The nausea has continued, but the patient reports she has also had 4 separate episodes of diarrhea. The patient reports that her diarrhea was so bad that she could not make it to the bathroom. The patient was recently hospitalized at [facility] for Bronchitis from 08/18/17-. During the hospital stay, the patient was on Levofloxicin and Vancomycin. The patient was discharged on Levofloxacin for 7 additional days. The patient did contact Dr. Joshi (Oncology) regarding this issue and was advised to come to the ED. Dr. Joshi called the ED requesting testing for c. diff. as well as further evaluation. The patient's daughter reports that the patient normally does have loose bowel movements after chemo and takes Zofran for nausea, but the patient has never been to the point that she could not get to the bathroom due to loose bowels. Onset: Today Onset Date: 08/23/17 Onset Time: 00:00 Duration: Constant Location: Reports: Generalized Quality: Reports: Other Severity: Moderate Improves with: Reports: None Worsens with: Reports: None Associated Symptoms: Reports: Nausea/Vomiting, Other (diarrhea) - Related Data Allergies Allergy/AdvReac Type Severity Reaction Status Date / Time ibuprofen Allergy Cannot Verified 07/07/17 21:37 Remember nitrofurantoin Allergy Cannot Verified 08/18/17 20:41 [From Macrobid] Remember oxycodone Allergy Cannot Verified 07/07/17 21:37 Remember promethazine HCl Allergy Cannot Verified 07/07/17 21:37 [From Phenergan] Remember Home Meds: Home Meds FLUoxetine HCl [Fluoxetine HCl] 20 mg PO DAILY 05/04/14 [History] Lisinopril 40 mg PO DAILY 05/04/14 [History] Simvastatin 10 mg PO BEDTIME 05/04/14 [History] amLODIPine Besylate [Amlodipine Besylate] 10 mg PO DAILY 05/04/14 [History] Aspirin [Adult Low Dose Aspirin EC] 81 mg PO DAILY 03/23/15 [History] Zolpidem [Ambien] 5 mg PO BEDTIME PRN 03/23/15 [History] Metoprolol Succinate [Toprol XL] 100 mg PO DAILY 03/27/17 [History] Albuterol [Ventolin HFA] 1 puff INH Q4HR PRN 08/18/17 [History] Lidocaine/Prilocaine [EMLA Crm] 5 gm TOP DAILY PRN 08/18/17 [History] Multivitamin with Minerals [Multiple Vitamin] 1 tab PO DAILY 08/18/17 [History] Albuterol/Ipratropium [DuoNeb 3.0-0.5 MG/3 ML] 3 ml NEB TIDRT #90 neb 08/21/17 [ Rx] Budesonide [Pulmicort] 0.5 mg NEB BIDRT #60 neb 08/21/17 [Rx] Levofloxacin 500 mg PO DAILY #7 tablet 08/21/17 [Rx] predniSONE See Taper PO .TAPER #30 tab 08/21/17 [Rx] Past Medical History Cardiovascular History: Reports: CAD, High Cholesterol, Hypertension Respiratory History: Reports: Bronchitis, Recurrent, COPD, Other (See Below) Other Respiratory History: recent pneumonia Gastrointestinal History: Reports: Other (See Below) Other Gastrointestinal History: abnormal digestive system Genitourinary History: Reports: UTI, Recurrent, Other (See Below) Other Genitourinary History: stent in urethea tube and stress incontinence, renal stents 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 Other Dermatologic History: dry skin - Infectious Disease History Infectious Disease History: Reports: Chicken Pox, Measles - Past Surgical History HEENT Surgical History: Reports: Cataract Surgery Other HEENT Surgeries/Procedures: left cataract removal GI Surgical History: Reports: Colonoscopy, Other (See Below) Other GI Surgeries/Procedures: stent in urethea tube Female Surgical History: Reports: Oophorectomy, Ureteral Stent, Other (See Below) Other Female Surgeries/Procedures: bladder lift Social & Family History - Family History Family Medical History: Noncontributory - Tobacco Use Smoking Status *Q: Former Smoker Years of Tobacco use: 30 Packs/Tins Daily: 0.5 Used Tobacco, but Quit: Yes Month/Year Tobacco Last Used: 06/2017 Second Hand Smoke Exposure: Yes - Caffeine Use Caffeine Use: Reports: Coffee, Soda - Alcohol Use Days Per Week of Alcohol Use: 5 Number of Drinks Per Day: 2 Total Drinks Per Week: 10 - Recreational Drug Use Recreational Drug Use: No - Living Situation & Occupation Living situation: Reports: Occupation: Retired ED ROS GENERAL - Review of Systems Review Of Systems: ROS reveals no pertinent complaints other than HPI. ED EXAM, GI/ABD - Physical Exam Exam: See Below Exam Limited By: No Limitations General Appearance: Alert, WD/WN, Moderate Distress Eyes: Bilateral: Normal Appearance, EOMI Ears: Normal External Exam, Normal Canal, Hearing Grossly Normal, Normal TMs Nose: Normal Inspection, Normal Mucosa, No Blood Throat/Mouth: Normal Inspection, Normal Lips, Normal Teeth, Normal Gums, Normal Oropharynx, Normal Voice, No Airway Compromise Head: Atraumatic, Normocephalic Neck: Normal Inspection, Supple, Non-Tender, Full Range of Motion Respiratory/Chest: No Respiratory Distress, Lungs Clear, Normal Breath Sounds, No Accessory Muscle Use, Chest Non-Tender Cardiovascular: Normal Peripheral Pulses, Regular Rate, Rhythm, No Edema, No Gallop, No JVD, No Murmur, No Rub GI/Abdominal Exam: Normal Bowel Sounds, Soft, Non-Tender, No Organomegaly, No Distention, No Abnormal Bruit, No Mass, Pelvis Stable (Female) Exam: Deferred Rectal (Female) Exam: Deferred Back Exam: Normal Inspection, Full Range of Motion, NT Extremities: Normal Inspection, Normal Range of Motion, Non-Tender, Normal Capillary Refill, No Pedal Edema Neurological: Alert, Oriented, CN II-XII Intact, Normal Cognition, Normal Gait, Normal Reflexes, No Motor/Sensory Deficits Psychiatric: Normal Affect, Normal Mood Skin Exam: Warm, Dry, Intact, Normal Color, No Rash Lymphatic: No Adenopathy Course - Vital Signs Last Recorded V/S: Last Vital Signs Temp 36.1 C 08/23/17 09:31 Pulse 94 04/25/18 09:31 Resp 16 08/23/17 09:31 BP 148/67 H 08/23/17 09:31 Pulse Ox 92 L 08/23/17 09:31 - Orders/Labs/Meds Orders: Active Orders 24 hr Category Date Time Status C DIFFICILE TOXIN BY PCR [MREF] Stat Lab 08/23/17 09:30 Ordered CBC WITH AUTO DIFF [HEME] Urgent Lab 08/23/17 09:30 Ordered CULTURE STOOL [RM] Stat Lab 08/23/17 09:30 Ordered MANUAL DIFFERENTIAL QA/NC [HEME] Urgent Lab 08/23/17 09:42 Results OVA & PARASITES Urgent Lab 08/23/17 09:30 Ordered UA W/MICROSCOPIC [URIN] Stat Lab 08/23/17 09:30 Ordered Labs: Laboratory Tests 08/23/17 08/23/17 Range/Units 09:42 09:42 WBC 1.1 L* (5.0-10.0) 10^3/uL RBC 3.52 L (4.2-5.4) 10^6/uL Hgb 10.4 L D (12.0-16.0) g/dL Hct 31.3 L (37.0-47.0) % MCV 88.9 (80-100) fL MCH 29.5 (27.0-34.0) pg MCHC 33.2 (33.0-35.0) g/dL Plt Count 210 (150-450) 10^3/uL Neut % (Auto) 55.7 (42.2-75.2) % Lymph % (Auto) 19.8 L (20.5-50.1) % Hooker % (Auto) 24.5 H (2-8) % Eos % (Auto) 0.0 L (1.0-3.0) % Baso % (Auto) 0.0 (0.0-1.0) % Add Manual Diff Yes Sodium 132 L (135-145) mmol/L Potassium 3.6 (3.6-5.0) mmol/L Chloride 100 L (101-111) mmol/L Carbon Dioxide 23.0 (21.0-31.0) mmol/L Anion Gap 12.6 BUN 38 H (7-18) mg/dL Creatinine 1.1 (0.6-1.3) mg/dL Est Cr Clr Drug Dosing 35.60 mL/min Estimated GFR (MDRD) 49 BUN/Creatinine Ratio 34.54 Glucose 120 H (74-105) mg/dL Calcium 8.1 L (8.4-10.2) mg/dl Total Bilirubin 0.3 (0.2-1.0) mg/dL AST 40 (10-42) IU/L ALT 38 (10-60) IU/L Alkaline Phosphatase 70 (42-121) IU/L Total Protein 6.0 L (6.7-8.2) g/dl Albumin 3.1 L (3.2-5.5) g/dl Globulin 2.9 Albumin/Globulin Ratio 1.07 Meds: Medications Discontinued Medications Generic Name Dose Route Start Last Admin Trade Name Freq PRN Reason Stop Dose Admin Sodium Chloride 1,000 mls @ 999 mls/hr 08/23/17 09:38 08/23/17 10:23 Normal Saline IV 08/23/17 10:38 999 mls/hr .BOLUS ONE Administration Ondansetron HCl 8 mg 08/23/17 09:38 08/23/17 09:53 Zofran Odt PO 08/23/17 09:39 8 mg ONETIME ONE Administration Departure - Departure Time of Disposition: 10:42 Disposition: Admitted As Inpatient 67 Condition: Fair Clinical Impression: Leukopenia Qualifiers: Leukopenia type: unspecified Qualified Code(s): D72.819 - Decreased white blood cell count, unspecified Diarrhea Qualifiers: Diarrhea type: unspecified type Qualified Code(s): R19.7 - Diarrhea, unspecified - Discharge Information Care Plan Goals: Discussed the patient's history, examination and lab results with Dr. Mendez ( Hospitalist). Dr. Mendez accepted the patient for continued evaluation and management as an inpatient at [facility]. - My Orders Last 24 Hours: My Active Orders 08/23/17 09:30 C DIFFICILE TOXIN BY PCR [MREF] Stat CBC WITH AUTO DIFF [HEME] Urgent CULTURE STOOL [RM] Stat OVA & PARASITES Urgent UA W/MICROSCOPIC [URIN] Stat 08/23/17 09:42 MANUAL DIFFERENTIAL QA/NC [HEME] Urgent - Assessment/Plan Last 24 Hours: My Active Orders 08/23/17 09:30 C DIFFICILE TOXIN BY PCR [MREF] Stat CBC WITH AUTO DIFF [HEME] Urgent CULTURE STOOL [RM] Stat OVA & PARASITES Urgent UA W/MICROSCOPIC [URIN] Stat 08/23/17 09:42 MANUAL DIFFERENTIAL QA/NC [HEME] Urgent
[2017-08-23] MEDS ORDERED: Albuterol 6.7 GM Inhaler INH PRN (11:55)
[2017-08-23] MEDS ORDERED: Lidocaine/Prilocaine 2.5-2.5% Crm 5 GM Tube TOP PRN (11:55)
--- NOTE | 2017-08-23 12:05 | PCM.HP ---
H&P History of Present Illness - General Date of Service: 08/23/17 Admit Problem/Dx: Admission Diagnosis/Problem Admission Diagnosis/Problem Neutropenia associated with infection Source of Information: Patient - History of Present Illness Initial Comments - Free Text/Narative: The patient is a 72 year old female with medical history of colon cancer. The patient was recently in the hospital because of acute hypoxemic respiratory failure and acute exacerbation of COPD. After discharge from the hospital she went and saw her oncologist started on chemotherapy. She started chemotherapy yesterday 22 August 2017. Post chemotherapy she began to have nausea and dry heaves and subsequently diarrhea. She became extremely weak and had to come into the emergency room. She was noted to be neutropenic with absolute neutrophil count of 550. Total white cell count is 1 Onset of Symptoms: Reports: Gradual, Other (Yesterday) Location: Reports: Abdomen Severity: Moderate Associated Symptoms: Reports: Diaphoresis, Nausea/Vomiting, Weakness - Related Data Allergies/Adverse Reactions: Allergies Allergy/AdvReac Type Severity Reaction Status Date / Time ibuprofen Allergy Cannot Verified 08/23/17 12:00 Remember nitrofurantoin Allergy Diarrhea Verified 08/23/17 12:00 [From Macrobid] oxycodone Allergy Cannot Verified 08/23/17 12:00 Remember promethazine HCl Allergy Anxiety Verified 08/23/17 12:00 [From Phenergan] Home Medications: Home Meds FLUoxetine HCl [Fluoxetine HCl] 20 mg PO DAILY 05/04/14 [History] Lisinopril 40 mg PO DAILY 05/04/14 [History] Simvastatin 10 mg PO BEDTIME 05/04/14 [History] amLODIPine Besylate [Amlodipine Besylate] 10 mg PO DAILY 05/04/14 [History] Aspirin [Adult Low Dose Aspirin EC] 81 mg PO DAILY 03/23/15 [History] Zolpidem [Ambien] 5 mg PO BEDTIME PRN 03/23/15 [History] Metoprolol Succinate [Toprol XL] 100 mg PO DAILY 03/27/17 [History] Albuterol [Ventolin HFA] 1 puff INH Q4HR PRN 08/18/17 [History] Lidocaine/Prilocaine [EMLA Crm] 5 gm TOP DAILY PRN 08/18/17 [History] Multivitamin with Minerals [Multiple Vitamin] 1 tab PO DAILY 08/18/17 [History] Albuterol/Ipratropium [DuoNeb 3.0-0.5 MG/3 ML] 3 ml NEB TIDRT #90 neb 08/21/17 [ Rx] Budesonide [Pulmicort] 0.5 mg NEB BIDRT #60 neb 08/21/17 [Rx] Levofloxacin 500 mg PO DAILY #7 tablet 08/21/17 [Rx] Past Medical History Cardiovascular History: Reports: CAD, High Cholesterol, Hypertension Respiratory History: Reports: Bronchitis, Recurrent, COPD, Other (See Below) Other Respiratory History: recent pneumonia Gastrointestinal History: Reports: Other (See Below) Other Gastrointestinal History: abnormal digestive system Genitourinary History: Reports: UTI, Recurrent, Other (See Below) Other Genitourinary History: stent in urethea tube and stress incontinence, renal stents USABILITY 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 Other Dermatologic History: dry skin - Infectious Disease History Infectious Disease History: Reports: Chicken Pox, Measles - Past Surgical History HEENT Surgical History: Reports: Cataract Surgery Other HEENT Surgeries/Procedures: left cataract removal GI Surgical History: Reports: Colonoscopy, Other (See Below) Other GI Surgeries/Procedures: stent in urethea tube Female Surgical History: Reports: Oophorectomy, Ureteral Stent, Other (See Below) Other Female Surgeries/Procedures: bladder lift Social & Family History - Family History Family Medical History: Noncontributory - Tobacco Use Smoking Status *Q: Former Smoker Years of Tobacco use: 30 Packs/Tins Daily: 0.5 Used Tobacco, but Quit: Yes Month/Year Tobacco Last Used: 06/2017 Second Hand Smoke Exposure: Yes - Caffeine Use Caffeine Use: Reports: Coffee, Soda - Alcohol Use Days Per Week of Alcohol Use: 5 Number of Drinks Per Day: 2 Total Drinks Per Week: 10 - Recreational Drug Use Recreational Drug Use: No - Living Situation & Occupation Living situation: Reports: Occupation: Retired H&P Review of Systems - Review of Systems: Review Of Systems: See Below General: Reports: No Symptoms Pulmonary: Reports: No Symptoms Cardiovascular: Reports: No Symptoms Genitourinary: Reports: No Symptoms Skin: Reports: No Symptoms Psychiatric: Reports: No Symptoms Neurological: Reports: No Symptoms Hematologic/Lymphatic: Reports: No Symptoms Exam - Exam Exam: See Below - Vital Signs Vital Signs: Last Vital Signs Temp 36.0 C 08/23/17 11:02 Pulse 82 08/23/17 11:02 Resp 20 08/23/17 11:02 BP 149/51 H 08/23/17 11:02 Pulse Ox 98 08/23/17 11:02 Weight: 48.444 kg - Exam Quality Assessment: Supplemental Oxygen General: Alert, Oriented HEENT: Conjunctiva Clear Neck: Supple Lungs: Rhonchi Cardiovascular: Regular Rate, Regular Rhythm GI/Abdominal Exam: Soft, Non-Tender Back Exam: Normal Inspection, Full Range of Motion, NT Extremities: Normal Inspection, Normal Range of Motion, Non-Tender, No Pedal Edema, Normal Capillary Refill Skin: Warm Psychiatric: Alert, Normal Affect, Normal Mood - Patient Data Lab Results Last 24 hrs: Laboratory Results - last 24 hr 08/23/17 08/23/17 Range/Units 09:42 09:42 WBC 1.1 L* (5.0-10.0) 10^3/uL RBC 3.52 L (4.2-5.4) 10^6/uL Hgb 10.4 L D (12.0-16.0) g/dL Hct 31.3 L (37.0-47.0) % MCV 88.9 (80-100) fL MCH 29.5 (27.0-34.0) pg MCHC 33.2 (33.0-35.0) g/dL Plt Count 210 (150-450) 10^3/uL Neut % (Auto) 55.7 (42.2-75.2) % Lymph % (Auto) 19.8 L (20.5-50.1) % Taylor % (Auto) 24.5 H (2-8) % Eos % (Auto) 0.0 L (1.0-3.0) % Baso % (Auto) 0.0 (0.0-1.0) % Add Manual Diff Yes Neutrophils % (Manual) 50 (42-75) % Band Neutrophils % 3 % Lymphocytes % (Manual) 27 (20-50) % Monocytes % (Manual) 19 H (2-8) % Eosinophils % (Manual) 1 (1-3) % Nucleated RBCs 1 /100WBC Platelet Estimate Adequate Giant Platelets Few Sodium 132 L (135-145) mmol/L Potassium 3.6 (3.6-5.0) mmol/L Chloride 100 L (101-111) mmol/L Carbon Dioxide 23.0 (21.0-31.0) mmol/L Anion Gap 12.6 BUN 38 H (7-18) mg/dL Creatinine 1.1 (0.6-1.3) mg/dL Est Cr Clr Drug Dosing 35.60 mL/min Estimated GFR (MDRD) 49 BUN/Creatinine Ratio 34.54 Glucose 120 H (74-105) mg/dL Calcium 8.1 L (8.4-10.2) mg/dl Total Bilirubin 0.3 (0.2-1.0) mg/dL AST 40 (10-42) IU/L ALT 38 (10-60) IU/L Alkaline Phosphatase 70 (42-121) IU/L Total Protein 6.0 L (6.7-8.2) g/dl Albumin 3.1 L (3.2-5.5) g/dl Globulin 2.9 Albumin/Globulin Ratio 1.07 Result Diagrams: 08/23/17 09:42 08/23/17 09:42 Problem List Initiated/Reviewed/Updated: Yes Orders Last 24hrs: Active Orders 24 hr Category Date Time Status Patient Status [ADT] Routine ADT 08/23/17 11:50 Ordered Oxygen Therapy [RC] PRN Care 08/23/17 11:50 Ordered Up ad Mariana [RC] ASDIRECTED Care 08/23/17 11:50 Ordered VTE/DVT Education [RC] PER UNIT ROUTINE Care 08/23/17 11:50 Ordered Vital Signs [RC] Q4H Care 08/23/17 11:50 Ordered PT Evaluation and Treatment [CONS] Routine Cons 08/23/17 11:50 Ordered Regular Diet [DIET] Diet 08/23/17 Lunch Ordered BASIC METABOLIC PANEL,BMP [CHEM] AM Lab 08/24/17 05:11 Ordered C DIFFICILE TOXIN BY PCR [MREF] Stat Lab 08/23/17 09:30 Ordered CBC WITH AUTO DIFF [HEME] AM Lab 08/24/17 05:11 Ordered CULTURE STOOL [RM] Stat Lab 08/23/17 09:30 Ordered MAGNESIUM [CHEM] AM Lab 08/24/17 05:11 Ordered OVA & PARASITES Urgent Lab 08/23/17 09:30 Ordered PHOSPHORUS [CHEM] AM Lab 08/24/17 05:11 Ordered UA W/MICROSCOPIC [URIN] Stat Lab 08/23/17 09:30 Ordered UA W/O MICROSCOPIC [URIN] Routine Lab 08/23/17 11:50 Ordered Albuterol [Proventil HFA] Med 08/23/17 11:55 Ordered 1 puff INH Q4HR PRN Albuterol/Ipratropium [DuoNeb 3.0-0.5 MG/3 ML] Med 08/23/17 15:00 Ordered 3 ml NEB TIDRT Aspirin [Halfprin] Med 08/24/17 09:00 Ordered 81 mg PO DAILY Budesonide [Pulmicort] Med 08/23/17 18:00 Ordered 0.5 mg NEB BIDRT FLUoxetine HCl [Fluoxetine HCl] Med 08/24/17 09:00 Ordered 20 mg PO DAILY Heparin Sodium Med 08/23/17 14:00 Ordered 5,000 units SUBCUT Q8HR Levofloxacin [Levaquin] Med 08/24/17 09:00 Ordered 500 mg PO DAILY Lidocaine/Prilocaine Med 08/23/17 11:55 Ordered 5 gm TOP DAILY PRN Lisinopril [Prinivil] Med 08/24/17 09:00 Ordered 40 mg PO DAILY Metoprolol Succinate [Toprol XL] Med 08/24/17 09:00 Ordered 100 mg PO DAILY Multivitamin with Minerals [Multiple Vitamin] Med 08/24/17 09:00 Ordered 1 tab PO DAILY Ondansetron [Zofran] Med 08/23/17 11:50 Ordered 4 mg IVPUSH Q6H PRN Simvastatin [Zocor] Med 08/23/17 21:00 Ordered 10 mg PO BEDTIME Sodium Chloride 0.9% @ 125 MLS/HR (1000ml) Med 08/23/17 12:00 Ordered Sodium Chloride 0.9% [Normal Saline] 1,000 ml IV ASDIRECTED Zolpidem [Ambien] Med 08/23/17 11:55 Ordered 5 mg PO BEDTIME PRN amLODIPine [Norvasc] Med 08/24/17 09:00 Ordered 10 mg PO DAILY predniSONE Med 08/24/17 09:00 Ordered 10 mg PO DAILY Resuscitation Status Routine Resus Stat 08/23/17 11:50 Ordered Medication Orders Heparin Sodium (Porcine) (Heparin Sodium) 5,000 units SUBCUT Q8HR [facility] Sodium Chloride (Normal Saline) 1,000 mls @ 125 mls/hr IV ASDIRECTED [facility] Ondansetron HCl (Zofran) 4 mg IVPUSH Q6H PRN PRN Reason: Nausea/Vomiting Assessment/Plan Comment:: The patient is a 72 year old female with medical history of colon cancer. The patient was recently in the hospital because of acute hypoxemic respiratory failure and acute exacerbation of COPD. After discharge from the hospital she went and saw her oncologist started on chemotherapy. She started chemotherapy yesterday 22 August 2017. Post chemotherapy she began to have nausea and dry heaves and subsequently diarrhea. She became extremely weak and had to come into the emergency room. She was noted to be neutropenic with absolute neutrophil count of 550. Total white cell count is 1 #. Diarrhea. Etiology of this is unclear. He may be related to chemotherapy. Could also be related to antibiotic therapy. #. COPD exacerbation. Patient has been on treatment for this. Was recently in the hospital and discharged 2 days ago #.Hypertension. Blood pressure is within acceptable limits. Patient is on multiple antihypertensives. #. Dyslipidemia #. Colon cancer. This is advanced with evidence of spread to the liver. Started on chemotherapy Plan: Admit patient to medical floor. Start intravenous fluid for rehydration. Send sample for basic metabolic panel. Send sample for C. difficile toxin. Send sample for complete blood count. If C. difficile comes back negative I will use antidiarrheal agent. Continue levofloxacin and also continue prednisone. Patient's medical chart was reviewed. Discussed with the emergency room physician family assistant
[2017-08-23] MEDS: Heparin Sodium 5,000 Units/ML Vial SUBCUT SCH ×2 (14:42→21:31)
[2017-08-23] MEDS: Sodium Chloride 0.9% 1,000 ML IV SCH ×2 (14:45→23:18)
[2017-08-23] MEDS ORDERED: Levofloxacin/Dextrose 5%-Water 250 MG in Premix Bag 1 BAG IV SCH (15:00)
[2017-08-23] MEDS: Albuterol/Ipratropium 3.0-0.5 MG/3 ML Neb Soln NEB SCH ×2 (15:30→21:31)
[2017-08-23] MEDS: Ondansetron 4 MG/2 ML SDV IVPUSH PRN (17:37)
[2017-08-23] MEDS: Budesonide 0.5 MG/2 ML Neb Susp NEB SCH (18:36)
[2017-08-23] MEDS: Simvastatin 10 MG Tab PO SCH (21:29)
[2017-08-23] MEDS: Zolpidem 5 MG Tab PO PRN (21:38)
[2017-08-24] MEDS: Ondansetron 4 MG/2 ML SDV IVPUSH PRN ×3 (01:41→19:52)
[2017-08-24] MEDS: Heparin Sodium 5,000 Units/ML Vial SUBCUT SCH ×3 (06:05→21:17)
[2017-08-24 07:00] LABS: CHLORIDE,CL 101 mmol/L (101-111); SODIUM,NA 130 mmol/L (135-145)
[2017-08-24] MEDS: Sodium Chloride 0.9% 1,000 ML IV SCH (07:18)
[2017-08-24] MEDS: Albuterol/Ipratropium 3.0-0.5 MG/3 ML Neb Soln NEB SCH ×3 (07:46→21:17)
[2017-08-24] MEDS: Budesonide 0.5 MG/2 ML Neb Susp NEB SCH ×2 (07:46→17:16)
[2017-08-24] MEDS ORDERED: Levofloxacin 500 MG Tab PO SCH (09:00)
[2017-08-24] MEDS: NS + KCl 20mEq/L 1,000 ML IV SCH ×2 (09:09→23:38)
[2017-08-24] MEDS: predniSONE 10 MG Tab PO SCH (09:39)
[2017-08-24] MEDS: Potassium Chloride 10 MEQ Tab.ER PO SCH ×3 (09:39→17:10)
[2017-08-24] MEDS: metroNIDAZOLE/Normal Saline 500 MG in Premix Bag 100 BAG IV SCH ×2 (12:14→18:40)
--- NOTE | 2017-08-24 12:35 | PN ---
DATE: 08/24/2017 SUBJECTIVE: Mrs. Becky Barrios is a 72-year-old female with a medical history significant for colon cancer, has been on chemotherapy; chronic obstructive pulmonary disease; got admitted to the hospital with complaints of severe diarrhea, weakness, and tiredness, and has been on chemotherapy since 08/22/2017 and was noted to have neutropenia. For the last 24 hours, the patient continues to have diarrhea. She had at least 4 loose stools yesterday and 2 bowel movements this morning. No blood seen in the diarrhea which is watery in nature. Denies any chest pains. No shortness of breath. No abdominal pain. REVIEW OF SYSTEMS: Cardiovascular, respiratory, gastrointestinal, neurology, constitutional were all evaluated. PHYSICAL EXAMINATION: Vital Signs: Temperature of 99, pulse of 91, blood pressure 148/58, respiratory rate of 20, and saturating at 94% on room air. General Appearance: The patient is well oriented to time, place, and person. Follows commands spontaneously. Cardiovascular System: S1 and S2 heard with normal intensity. No gallops. Respiratory System: Clear to auscultation bilaterally. No wheeze. No crepitations. Abdomen: Soft. Bowel sounds positive. Nontender. No rigidity. Extremities: No edema in the bilateral lower extremities. Neurology: No gross focal neurological deficit. MEDICATIONS: Reviewed. Continue with: 1. Albuterol inhalation every 4 hours as needed. 2. DuoNeb 3 mL nebulizer 3 times a day. 3. Norvasc 10 mg daily. 4. Aspirin 81 mg daily. 5. Pulmicort 0.5 mg nebulizer twice a day. 6. Prozac 20 mg daily. 7. Heparin 5000 subcutaneous q.8 hourly. 8. Levaquin every 24 hours. 9. Lisinopril 40 mg daily. 10.Toprol-XL 100 mg daily. 11.Zofran 4 mg IV q.6 hours as needed. 12.Potassium chloride 20 mEq twice a day. 13.Prednisone 10 mg daily. 14.Zocor 10 mg at bedtime. 15.Ambien 5 mg at bedtime as needed. LABORATORY DATA: Reviewed. 1. WBC 0.9, hemoglobin 9.7, hematocrit 28.8, platelet count 199. 2. Sodium 130, potassium 3.1, chloride 101, bicarb 22, BUN 20, creatinine 0.8, glucose 93. ASSESSMENT: 1. Diarrhea. 2. Colon cancer, currently on chemotherapy. 3. Chronic obstructive pulmonary disease. 4. Hypertension. 5. Hyperlipidemia. 6. Hyponatremia. 7. Hypokalemia. 8. Anemia and neutropenia. PLAN: 1. Diarrhea. The patient continues to have diarrhea. Unsure if this is infectious diarrhea versus chemotherapy-related diarrhea. We ordered stool for C. diff toxin; still awaiting for report. We will continue the antibiotic for now. One might consider adding metronidazole if her C. diff toxin is positive. We will keep her hydrated with IV fluids. 2. Neutropenia and anemia. This is chemotherapy related. We will closely follow. We will consult Oncology to see if the patient would benefit from Neulasta or Neupogen to boost her WBC count. We will get a CBC with differential in the a.m. 3. Hyponatremia. This is mainly hypovolemic hyponatremia from diarrhea. We will continue with IV normal saline for now. 4. Hypokalemia. We will replace with IV and oral potassium chloride. We will recheck a basic metabolic panel in the a.m. Recheck a potassium later today. Make sure the patient is not having severe hypokalemia. 5. Hypertension, well controlled. Continue with current antihypertensive medications. 6. DVT prophylaxis. Continue with heparin for DVT prophylaxis. Her platelet count is within normal range at 199. 7. Chronic obstructive pulmonary disease, remains stable. No wheeze noted on the lung exam. Continue with current nebulizer treatment. She recently had COPD exacerbation and has been on steroids. [facility] /[id number]
[2017-08-24] MEDS: amLODIPine 5 MG Tab PO SCH (17:12)
[2017-08-24] MEDS: FLUoxetine 10 MG Cap PO SCH (17:12)
[2017-08-24] MEDS: Aspirin 81 MG Tab.EC PO SCH (17:12)
[2017-08-24] MEDS: Lisinopril 20 MG Tab PO SCH (17:12)
[2017-08-24] MEDS: Metoprolol Succinate 50 MG Tab.ER PO SCH (17:13)
[2017-08-24] MEDS: Multivitamins, Therapeutic with Minerals Tab PO SCH (17:13)
[2017-08-24] MEDS: Zolpidem 5 MG Tab PO PRN (21:16)
[2017-08-24] MEDS: Sodium Chloride 0.9% 10 ML Syringe FLUSH SCH (21:19)
[2017-08-24] MEDS: Simvastatin 10 MG Tab PO SCH (21:19)
[2017-08-25] MEDS: metroNIDAZOLE/Normal Saline 500 MG in Premix Bag 100 BAG IV SCH ×3 (01:49→17:20)
[2017-08-25] MEDS: Ondansetron 4 MG/2 ML SDV IVPUSH PRN ×3 (03:23→15:45)
[2017-08-25] MEDS: Heparin Sodium 5,000 Units/ML Vial SUBCUT SCH ×3 (06:03→23:18)
[2017-08-25 06:51] LABS: CHLORIDE,CL 106 mmol/L (101-111); SODIUM,NA 131 mmol/L (135-145)
[2017-08-25] MEDS: Albuterol/Ipratropium 3.0-0.5 MG/3 ML Neb Soln NEB SCH ×3 (07:23→20:30)
[2017-08-25] MEDS: Budesonide 0.5 MG/2 ML Neb Susp NEB SCH ×2 (07:40→18:28)
[2017-08-25] MEDS: Multivitamins, Therapeutic with Minerals Tab PO SCH (09:07)
[2017-08-25] MEDS: predniSONE 10 MG Tab PO SCH (09:07)
[2017-08-25] MEDS: Aspirin 81 MG Tab.EC PO SCH (09:07)
[2017-08-25] MEDS: amLODIPine 5 MG Tab PO SCH (09:08)
[2017-08-25] MEDS: Metoprolol Succinate 50 MG Tab.ER PO SCH (09:08)
[2017-08-25] MEDS: FLUoxetine 10 MG Cap PO SCH (09:08)
[2017-08-25] MEDS: Lisinopril 20 MG Tab PO SCH (09:09)
[2017-08-25] MEDS: Potassium Chloride 10 MEQ Tab.ER PO SCH (09:10)
[2017-08-25] MEDS: Sodium Chloride 0.9% 10 ML Syringe FLUSH SCH ×2 (09:11→22:32)
[2017-08-25] MEDS ORDERED: Potassium Chloride 10 MEQ Tab.ER PO SCH (09:45)
[2017-08-25] MEDS: Potassium Chloride 10 MEQ in Premix Bag 1 BAG IV SCH ×6 (10:01→15:37)
[2017-08-25] MEDS: Sodium Chloride 0.9% 10 ML Syringe FLUSH PRN (10:06)
[2017-08-25] MEDS: Fluconazole/Normal Saline 200 MG in Premix Bag 1 BAG IV SCH (11:43)
--- NOTE | 2017-08-25 13:30 | PN ---
DATE: 08/25/2017 SUBJECTIVE: Ms. Becky Barrios is a 72-year-old female with medical history significant for colon cancer, received chemotherapy; chronic obstructive pulmonary disease, admitted to the hospital with complaints of severe diarrhea, weakness, and tiredness. For the last 24 hours, the patient continues to have loose stools. She had at least 3-4 loose stools yesterday and 2 loose stools this morning. She also complains of feeling nauseated and unable to eat anything. She does not have a good appetite. She denies any chest pain. No shortness of breath. No cough, no sputum. Denies any fevers or chills in the last 24 hours. She continues to have loose stools. No blood seen in the diarrhea. REVIEW OF SYSTEMS: Cardiovascular, respiratory, gastrointestinal, neurology, constitutional were all evaluated. PHYSICAL EXAMINATION: Vital Signs: Temperature of 97.9, pulse of 104, blood pressure of 162/66, respiratory rate of 18, saturating at 93%. General Appearance: The patient is well oriented to time, place, and person. Follows commands spontaneously. Cardiovascular System: S1, S2 heard with normal intensity. No gallops. Respiratory System: Clear to auscultation bilaterally. No wheeze. No crepitations. Abdomen: Soft. Bowel sounds positive. Mild tenderness. No rigidity, no guarding. No rebound tenderness. Extremities: No edema, bilateral lower extremities. Neurology: No gross focal neurological deficit. MEDICATIONS: Reviewed, continue with, 1. DuoNeb 3 mL nebulizer 3 times a day. 2. Norvasc 10 mg daily. 3. Aspirin 81 mg daily. 4. Pulmicort 0.5 nebulizer twice a day. 5. Prozac 20 mg daily. 6. Heparin 5000 subcutaneous q.8 hourly. 7. Lisinopril 40 mg daily. 8. Toprol-XL 100 mg daily. 9. Metronidazole 500 mg IV q.8 hourly. 10.Potassium chloride 10 mEq for 6 doses. 11.Prednisone 10 mg daily. 12.Zocor 10 mg at bedtime. 13.Diflucan 200 mg daily. LABORATORY DATA: Reviewed. WBC 1, hemoglobin 9.8, hematocrit 29.1, platelet count 202. Sodium 131, potassium 3.5, chloride 106, bicarb 21, BUN 14, creatinine 0.8. ASSESSMENT: 1. Diarrhea. 2. Neutropenia. 3. Anemia. 4. Colon cancer, received chemotherapy. 5. Chronic obstructive pulmonary disease. 6. Hyponatremia. 7. Hypokalemia. 8. Hyperlipidemia. 9. Hypertension. PLAN: 1. Diarrhea. The patient continues to have diarrhea, unsure if this is neutropenic colitis versus infectious diarrhea. Her stool culture has been negative except for yeast in the stool culture. Her C. diff toxin has been negative. Shiga toxin has been negative. Cryptosporidium has been negative, but she is noted to have yeast in the stool culture. [facility] to extract the yeast to see if it is a Alisha albicans. The patient will be started on IV Diflucan. We will order for blood cultures with fungus and we will closely follow. 2. Anemia and neutropenia. The patient continues to have neutropenia. She received Neulasta dose yesterday. We will repeat a CBC with differential in a.m. and if the patient does not improve, she might need higher level of care and will be transferred to [place] in a.m. if things does not improve. 3. Hypertension, uncontrolled. The patient noted to have elevated blood pressure. Continue with current antihypertensive medications. We will further dose adjust the medications if needed. Continue with lisinopril, Toprol-XL, and Norvasc. 4. Chronic obstructive pulmonary disease, remains stable. No wheeze noted on the lung exam. Continue with current nebulizer treatments. The patient is encouraged to use incentive spirometer. 5. Hyponatremia, this is mild in nature. Her sodium is at 131. 6. Hypokalemia, 3.5 potassium. We will replace with IV potassium chloride. The patient is unable to tolerate oral pills well, so we will discontinue the oral and continue with the IV. We also mixed potassium chloride to her IV normal saline bag. 7. Discussed with family members at bedside. [facility] /[id number]
[2017-08-25] MEDS: NS + KCl 20mEq/L 1,000 ML IV SCH (16:49)
[2017-08-25] MEDS ORDERED: Calcium Carbonate 500 MG Tab.Chew PO PRN (18:48)
[2017-08-25] MEDS: Pantoprazole 40 MG Vial IVPUSH SCH ×2 (19:35→20:30)
[2017-08-25] MEDS: Zolpidem 5 MG Tab PO PRN (20:31)
[2017-08-25] MEDS: Simvastatin 10 MG Tab PO SCH (20:31)
[2017-08-26] MEDS: metroNIDAZOLE/Normal Saline 500 MG in Premix Bag 100 BAG IV SCH ×3 (02:09→17:19)
[2017-08-26] MEDS: Sodium Chloride 0.9% 1,000 ML IV SCH ×2 (03:58→16:04)
[2017-08-26] MEDS: Heparin Sodium 5,000 Units/ML Vial SUBCUT SCH ×3 (06:13→21:05)
[2017-08-26] MEDS: Budesonide 0.5 MG/2 ML Neb Susp NEB SCH ×2 (07:30→18:11)
[2017-08-26] MEDS: Albuterol/Ipratropium 3.0-0.5 MG/3 ML Neb Soln NEB SCH ×3 (07:30→21:03)
[2017-08-26] MEDS: amLODIPine 5 MG Tab PO SCH (08:44)
[2017-08-26] MEDS: Lisinopril 20 MG Tab PO SCH (08:45)
[2017-08-26] MEDS: Multivitamins, Therapeutic with Minerals Tab PO SCH (08:45)
[2017-08-26] MEDS: FLUoxetine 10 MG Cap PO SCH (08:45)
[2017-08-26] MEDS: Metoprolol Succinate 50 MG Tab.ER PO SCH (08:46)
[2017-08-26] MEDS: Aspirin 81 MG Tab.EC PO SCH (08:46)
[2017-08-26] MEDS: Pantoprazole 40 MG Vial IVPUSH SCH ×2 (08:46→21:05)
[2017-08-26] MEDS: predniSONE 10 MG Tab PO SCH (08:46)
[2017-08-26] MEDS: Sodium Chloride 0.9% 10 ML Syringe FLUSH SCH ×3 (08:46→21:06)
[2017-08-26] MEDS: Ondansetron 4 MG/2 ML SDV IVPUSH PRN ×2 (10:13→20:01)
[2017-08-26] MEDS: Fluconazole/Normal Saline 200 MG in Premix Bag 1 BAG IV SCH (11:10)
--- NOTE | 2017-08-26 13:22 | PN ---
DATE: 08/26/2017 SUBJECTIVE: Ms. Becky Barrios is a 72-year-old female with medical history significant for colon cancer, received chemotherapy, chronic obstructive pulmonary disease, admitted with complaints of severe diarrhea, weakness, and tiredness. For the last 24 hours, the patient denies any complaints of chest pain. No shortness of breath. Complains of mild abdominal discomfort. She continues to have loose stools but much better than yesterday. She denies any dizziness. No complaints of headache or changes in the vision. REVIEW OF SYSTEMS: Cardiovascular, respiratory, gastrointestinal, neurology, constitutional were all evaluated. PHYSICAL EXAMINATION: Vital Signs: Temperature of 98.8, pulse of 91, blood pressure 131/74, respiratory rate of 20, and saturating 95% on room air. General Appearance: The patient is well oriented to time, place, and person. Follows commands spontaneously. Cardiovascular System: S1 and S2 heard with normal intensity. No gallops. Respiratory System: Clear to auscultation bilaterally. No wheeze. No crepitations. Abdomen: Soft. Bowel sounds positive. Nontender. No rigidity. Extremities: No edema in the bilateral lower extremities. Neurology: No gross focal neurological deficit. MEDICATIONS: Reviewed. Continue the same. Continue: 1. DuoNeb 3 mL nebulizer 3 times a day. 2. Norvasc 10 mg daily. 3. Aspirin 81 mg daily. 4. Pulmicort 0.5 mg nebulizer twice a day. 5. Prozac 20 mg daily. 6. Heparin 5000 subcutaneous q.8 hourly. 7. Lisinopril 40 mg daily. 8. Toprol-XL 100 mg daily. 9. Metronidazole 500 mg IV q.8 hourly. 10.Zofran 4 mg IV push every 6 hours as needed for nausea or vomiting. 11.Prednisone 10 mg daily. 12.Zocor 10 mg at bedtime. 13.Ambien 5 mg at bedtime as needed. LABORATORY DATA: Reviewed. 1. WBC 10.7, hemoglobin 10.2, hematocrit 30.5, platelet count 206. 2. Sodium 130, potassium 4.2, chloride 107, bicarb 17, BUN 18, creatinine 1.1, glucose 91. MICROBIOLOGY: Stool culture positive for yeast. Blood culture negative so far. C. diff negative. ASSESSMENT: 1. Diarrhea. Stool positive for yeast. 2. Neutropenia, improved with Neulasta. 3. Anemia. 4. Colon cancer, receiving chemotherapy. 5. Chronic obstructive pulmonary disease. 6. Hyponatremia. 7. Hypokalemia, improved. 8. Hypertension. PLAN: 1. Diarrhea. This has much improved. Her stool for C. diff toxin has been negative. Shiga toxin has been negative. She is tested positive for yeast in the stool culture. We started her on Diflucan IV. Continue the same. Her stool seems to be improved from yesterday. 2. Electrolyte imbalance. The patient is noted to have hyponatremia. She was noted to have hypokalemia which got improved with IV potassium chloride. She continues to have hyponatremia. We will continue with IV normal saline for now. 3. Hypertension. The patient's blood pressure seems to be in acceptable range. Continue with the current antihypertensive medications. 4. Colon cancer. She received chemotherapy without any complications. 5. Anemia. This could be anemia of chronic disease. No indication for transfusion at this time. 6. DVT prophylaxis. Continue with heparin for DVT prophylaxis. Discussed with family members at bedside. [facility] /[id number]
[2017-08-26] MEDS: Simvastatin 10 MG Tab PO SCH (21:05)
[2017-08-26] MEDS: Zolpidem 5 MG Tab PO PRN (21:05)
[2017-08-26] MEDS ORDERED: Acetaminophen 325 MG Tab PO PRN (23:12)
[2017-08-27] MEDS: metroNIDAZOLE/Normal Saline 500 MG in Premix Bag 100 BAG IV SCH ×3 (01:46→17:46)
[2017-08-27] MEDS: Ondansetron 4 MG/2 ML SDV IVPUSH PRN ×4 (01:48→21:05)
[2017-08-27] MEDS: Sodium Chloride 0.9% 1,000 ML IV SCH ×2 (03:05→16:19)
[2017-08-27] MEDS: Heparin Sodium 5,000 Units/ML Vial SUBCUT SCH ×3 (06:01→21:02)
[2017-08-27] MEDS: Albuterol/Ipratropium 3.0-0.5 MG/3 ML Neb Soln NEB SCH ×3 (07:48→20:58)
[2017-08-27] MEDS: Budesonide 0.5 MG/2 ML Neb Susp NEB SCH ×2 (07:48→19:44)
[2017-08-27] MEDS: Pantoprazole 40 MG Vial IVPUSH SCH ×2 (08:14→21:05)
[2017-08-27] MEDS: FLUoxetine 10 MG Cap PO SCH (08:15)
[2017-08-27] MEDS: Metoprolol Succinate 50 MG Tab.ER PO SCH (08:15)
[2017-08-27] MEDS: Lisinopril 20 MG Tab PO SCH (08:17)
[2017-08-27] MEDS: Multivitamins, Therapeutic with Minerals Tab PO SCH (08:17)
[2017-08-27] MEDS: predniSONE 10 MG Tab PO SCH (08:17)
[2017-08-27] MEDS: amLODIPine 5 MG Tab PO SCH (08:18)
[2017-08-27] MEDS: Aspirin 81 MG Tab.EC PO SCH (08:19)
[2017-08-27] MEDS: Sodium Chloride 0.9% 10 ML Syringe FLUSH PRN (08:20)
[2017-08-27] MEDS: Sodium Chloride 0.9% 10 ML Syringe FLUSH SCH ×2 (09:00→21:06)
[2017-08-27] MEDS: Fluconazole/Normal Saline 200 MG in Premix Bag 1 BAG IV SCH (11:07)
[2017-08-27] MEDS: Sodium Bicarbonate 650 MG Tab PO SCH ×2 (11:55→20:58)
--- NOTE | 2017-08-27 12:42 | PN ---
DATE: 08/27/2017 SUBJECTIVE: Ms. Becky Barrios is a 72-year-old female with medical history significant for colon cancer, received chemotherapy, chronic obstructive pulmonary disease, admitted with severe diarrhea, weakness, and tiredness, and noted to have neutropenia. For the last 24 hours, the patient continues to have diarrhea, but this has much improved. She just had two episodes of diarrhea yesterday. She denies any chest pain. Continues to have poor oral intake, secondary to abdominal discomfort. Denies any shortness of breath at this time. No hematemesis, hematochezia, or melenic stools. Remains afebrile. REVIEW OF SYSTEMS: Cardiovascular, respiratory, gastrointestinal, neurology, constitutional were all evaluated. PHYSICAL EXAMINATION: Vital Signs: Temperature of 98.7, pulse of 79, blood pressure 121/55, respiratory rate of 20, and saturating at 98% on room air. General Appearance: The patient is well oriented to time, place, and person. Follows commands spontaneously. Cardiovascular System: S1 and S2 heard with normal intensity. No gallops. Respiratory System: Clear to auscultation bilaterally. No wheeze. No crepitations. Abdomen: Soft. Bowel sounds positive. Nontender. No rigidity. Extremities: No edema in the bilateral lower extremities. Neurology: No gross focal neurological deficit. MEDICATIONS: Reviewed. Continue the same. The patient is currently on Diflucan; continue the same. Continue with heparin for DVT prophylaxis. Continue the antihypertensive medication with lisinopril and metoprolol. LABORATORY DATA: Labs reviewed. 1. WBC 21.1, hemoglobin 9.8, hematocrit 28.9, platelet count 163. 2. Sodium 131, potassium 3.6, chloride 108, bicarb 17, BUN 18, creatinine 1.1. ASSESSMENT: 1. Diarrhea, improved. 2. Neutropenia, resolved. 3. Hypertension. 4. Hyperlipidemia. 5. Colonic cancer, requiring chemotherapy. 6. Chronic obstructive pulmonary disease. 7. Hyponatremia. 8. Hypokalemia, resolved. PLAN: 1. Diarrhea. The patient's diarrhea seems to be improving, but still continues to have some loose stools, two episodes yesterday. We will have her on Imodium at this time, and we will closely follow. The patient's stool culture was positive for yeast, so we have her on Diflucan, continue the same. 2. Hyponatremia and hypokalemia. The patient's potassium is within normal limits. Continues to have low sodium. We will continue with IV normal saline for now. 3. Metabolic acidosis. The patient's bicarb is at 17. This could be resulting from diarrhea. We will have her on sodium bicarbonate tablets. 4. Anemia. This is anemia of chronic disease. The patient denies any hematemesis, hematochezia, or melenic stools. 5. Hypertension. The patient is currently on metoprolol, lisinopril, and Norvasc for blood pressure. Continue the same. 6. The patient will be encouraged to ambulate. 7. We will have Physical Therapy and Occupational Therapy evaluate and treat the patient. [facility] /[id number]
[2017-08-27] MEDS: Potassium Chloride 10 MEQ in Premix Bag 1 BAG IV SCH ×3 (12:50→15:13)
[2017-08-27] MEDS ORDERED: MAGIC MOUTHWASH PO PRN (18:19)
[2017-08-27] MEDS: Simvastatin 10 MG Tab PO SCH (20:58)
[2017-08-27] MEDS: Zolpidem 5 MG Tab PO PRN (20:58)
[2017-08-28] MEDS: metroNIDAZOLE/Normal Saline 500 MG in Premix Bag 100 BAG IV SCH ×2 (01:36→10:17)
[2017-08-28] MEDS: Sodium Chloride 0.9% 1,000 ML IV SCH (03:11)
[2017-08-28] MEDS: Heparin Sodium 5,000 Units/ML Vial SUBCUT SCH ×3 (06:03→21:01)
[2017-08-28] MEDS: Budesonide 0.5 MG/2 ML Neb Susp NEB SCH ×2 (09:48→17:07)
[2017-08-28] MEDS: Aspirin 81 MG Tab.EC PO SCH (09:48)
[2017-08-28] MEDS: Albuterol/Ipratropium 3.0-0.5 MG/3 ML Neb Soln NEB SCH ×3 (09:48→20:35)
[2017-08-28] MEDS: amLODIPine 5 MG Tab PO SCH (09:48)
[2017-08-28] MEDS: Lisinopril 20 MG Tab PO SCH (09:49)
[2017-08-28] MEDS: FLUoxetine 10 MG Cap PO SCH (09:49)
[2017-08-28] MEDS: Multivitamins, Therapeutic with Minerals Tab PO SCH (09:49)
[2017-08-28] MEDS: Sodium Bicarbonate 650 MG Tab PO SCH ×2 (09:49→20:34)
[2017-08-28] MEDS: Pantoprazole 40 MG Vial IVPUSH SCH ×2 (09:49→20:44)
[2017-08-28] MEDS: Sodium Chloride 0.9% 10 ML Syringe FLUSH SCH ×2 (09:49→20:43)
[2017-08-28] MEDS: predniSONE 10 MG Tab PO SCH (09:49)
[2017-08-28] MEDS: Metoprolol Succinate 50 MG Tab.ER PO SCH (09:49)
[2017-08-28] MEDS ORDERED: Magnesium Sulfate/Water 2 GM in Premix Bag 1 BAG IV ONE (10:00)
[2017-08-28] MEDS: Phosphorus #1 250 MG Tab PO SCH ×3 (10:49→20:34)
[2017-08-28] MEDS: Sodium Chloride 0.9% with KCl 1,000 ML IV SCH (10:49)
[2017-08-28] MEDS: Potassium Chloride 10 MEQ in Premix Bag 1 BAG IV SCH ×2 (11:29→12:22)
[2017-08-28] MEDS ORDERED: Loperamide 2 MG Cap PO PRN (12:21)
[2017-08-28] MEDS ORDERED: Aspirin 81 MG Tab.EC PO ONE (12:49)
[2017-08-28] MEDS ORDERED: amLODIPine 5 MG Tab PO ONE (12:49)
[2017-08-28] MEDS ORDERED: predniSONE 10 MG Tab PO ONE (12:49)
[2017-08-28] MEDS ORDERED: Sodium Bicarbonate 650 MG Tab PO ONE (12:49)
[2017-08-28] MEDS ORDERED: Pantoprazole 40 MG Vial IV ONE (12:49)
[2017-08-28] MEDS ORDERED: Multivitamins, Therapeutic with Minerals Tab PO ONE (12:49)
[2017-08-28] MEDS ORDERED: FLUoxetine 10 MG Cap PO ONE (12:49)
[2017-08-28] MEDS ORDERED: Metoprolol Succinate 50 MG Tab.ER PO ONE (12:49)
[2017-08-28] MEDS ORDERED: Lisinopril 20 MG Tab PO ONE (12:49)
--- NOTE | 2017-08-28 12:52 | PN ---
DATE: 08/28/2017 SUBJECTIVE: Ms. Becky Barrios is a 72-year-old female with medical history significant for colon cancer, receiving chemotherapy; chronic obstructive pulmonary disease, admitted with severe diarrhea, weakness, and neutropenia. For the last 24 hours, the patient continues to have loose stools. She had at least 5 loose stools yesterday which were watery in nature. She complains of mild weakness. She is still not able to have good oral intake. She has a poor oral intake. She denies any chest pain. No shortness of breath. Mild abdominal discomfort. No nausea, vomiting, but continues to have loose stools. REVIEW OF SYSTEMS: Cardiovascular, respiratory, gastrointestinal, neurology, constitutional were all evaluated. PHYSICAL EXAMINATION: Vital Signs: Temperature of 97.3, pulse of 93, blood pressure 130/58, respiratory rate of 20, saturating at 96%. General Appearance: The patient is well oriented to time, place, and person. Follows commands spontaneously. Cardiovascular System: S1, S2 heard with normal intensity. No gallops. Respiratory System: Clear to auscultation bilaterally. No wheeze. No crepitations. Abdomen: Soft. Bowel sounds positive. Nontender. No rigidity. No guarding. No rebound tenderness. Extremities: No edema in bilateral lower extremities. Neurology: No gross focal neurological deficits. MEDICATIONS: Reviewed, continue with, 1. Tylenol 650 every 4 hours as needed for pain. 2. Albuterol every 4 hours as needed for wheezing. 3. DuoNeb 3 mL 3 times a day. 4. Norvasc 10 mg daily. 5. Aspirin 81 mg daily. 6. Pulmicort 0.5 mg nebulizer twice a day. 7. Calcium carbonate (Tums) 500 mg every 2 hours as needed. 8. Prozac 20 mg daily. 9. Heparin 5000 subcutaneous q.8 hourly. 10.Lisinopril 40 mg daily. 11.Metoprolol-XL 100 mg daily. 12.Zofran 4 mg IV q.6 hours as needed for nausea and vomiting. 13.Prednisone 10 mg daily. 14.Zocor 10 mg at bedtime. 15.Neutra-Phos 250 mg 3 times a day. 16.Ambien at bedtime as needed. LABORATORY DATA: Reviewed. WBC 11.5, hemoglobin 8.6, hematocrit 25.7, platelet count 107. Sodium 130, potassium 3.4, chloride 105, bicarb 20, BUN 14, creatinine 1, glucose 77. Phosphorus 1.9, magnesium 1.3. ASSESSMENT: 1. Diarrhea. 2. Neutropenia, improved. 3. Hypertension. 4. Hyponatremia. 5. Hypokalemia. 6. Hypomagnesemia. 7. Hypophosphatemia. 8. Hypertension. 9. Chronic obstructive pulmonary disease. 10.Colon cancer. PLAN: 1. Diarrhea. The patient continues to have diarrhea. It seems to be improved yesterday, but again started to have loose stools. Her stool for C. diff toxin has been negative. Stool was positive for yeast and she is currently on Diflucan. We will add Imodium to control the diarrhea at this time. She denies any abdominal pain. No rigidity, no guarding, no rebound tenderness on physical exam. 2. Hyponatremia and hypokalemia. We will replace with IV normal saline with 40 of potassium in it and also have her on 20 mEq IV potassium chloride, and she is not able to tolerate oral potassium chloride. 3. Hypomagnesemia and hypophosphatemia. We will replace with IV magnesium and oral phosphorus. We will recheck magnesium and phosphorus in the a.m. 4. Hypertension, well controlled. Continue with current antihypertensive medications. 5. Chronic obstructive pulmonary disease, remains stable. No wheeze noted on the lung exam. The patient is currently on nebulizer treatment, continue the same. [facility] /[id number]
[2017-08-28] MEDS: Fluconazole/Normal Saline 200 MG in Premix Bag 1 BAG IV SCH (12:53)
[2017-08-28] MEDS: Ondansetron 4 MG/2 ML SDV IVPUSH PRN (17:26)
[2017-08-28] MEDS: Simvastatin 10 MG Tab PO SCH (20:34)
[2017-08-28] MEDS: Zolpidem 5 MG Tab PO PRN (20:57)
[2017-08-29] MEDS: Sodium Chloride 0.9% with KCl 1,000 ML IV SCH ×2 (01:22→15:34)
[2017-08-29] MEDS: Heparin Sodium 5,000 Units/ML Vial SUBCUT SCH ×3 (06:29→21:14)
[2017-08-29 06:47] LABS: CHLORIDE,CL 108 mmol/L (101-111); SODIUM,NA 133 mmol/L (135-145)
[2017-08-29] MEDS: Albuterol/Ipratropium 3.0-0.5 MG/3 ML Neb Soln NEB SCH ×3 (07:28→21:04)
[2017-08-29] MEDS: Budesonide 0.5 MG/2 ML Neb Susp NEB SCH ×2 (07:28→21:04)
[2017-08-29] MEDS: Pantoprazole 40 MG Vial IVPUSH SCH ×2 (09:02→20:58)
[2017-08-29] MEDS: Sodium Chloride 0.9% 10 ML Syringe FLUSH SCH ×2 (09:02→21:59)
--- NOTE | 2017-08-29 09:02 | PCM.PN ---
- General Info Date of Service: 08/29/17 Admission Dx/Problem (Free Text): Admission Diagnosis/Problem Admission Diagnosis/Problem Neutropenia associated with infection Subjective Update: Patient admitted with diarrhea and weakness. One episode of diarrhea overnight. Genrally feels well Functional Status: Reports: Pain Controlled - Review of Systems General: Reports: No Symptoms HEENT: Reports: No Symptoms Pulmonary: Reports: No Symptoms Cardiovascular: Reports: No Symptoms Gastrointestinal: Reports: No Symptoms Genitourinary: Reports: No Symptoms Musculoskeletal: Reports: No Symptoms Skin: Reports: No Symptoms Neurological: Reports: No Symptoms Psychiatric: Reports: No Symptoms - Patient Data Vitals - Most Recent: Last Vital Signs Temp 98.6 F 08/29/17 07:37 Pulse 90 08/29/17 07:37 Resp 20 08/29/17 07:37 BP 118/59 L 08/29/17 07:37 Pulse Ox 95 08/29/17 07:37 Weight - Most Recent: 106 lb 12.8 oz I&O - Last 24 Hours: Intake & Output 08/28/17 08/29/17 08/29/17 22:59 06:59 14:59 Intake Total 200 955 Balance 200 955 Lab Results Last 24 Hours: Laboratory Results - last 24 hr 08/28/17 08/29/17 08/29/17 Range/Units 17:15 05:58 05:58 WBC 3.1 L (5.0-10.0) 10^3/uL RBC 3.06 L (4.2-5.4) 10^6/uL Hgb 9.1 L (12.0-16.0) g/dL Hct 26.6 L (37.0-47.0) % MCV 86.9 (80-100) fL MCH 29.7 (27.0-34.0) pg MCHC 34.2 (33.0-35.0) g/dL Plt Count 75 L (150-450) 10^3/uL Neut % (Auto) 45.3 (42.2-75.2) % Lymph % (Auto) 51.1 H (20.5-50.1) % [place] % (Auto) 2.6 (2-8) % Eos % (Auto) 0.7 L (1.0-3.0) % Baso % (Auto) 0.3 (0.0-1.0) % Sodium 133 L (135-145) mmol/L Potassium 4.0 4.1 (3.6-5.0) mmol/L Chloride 108 (101-111) mmol/L Carbon Dioxide 21.0 (21.0-31.0) mmol/L Anion Gap 8.1 BUN 11 (7-18) mg/dL Creatinine 0.9 (0.6-1.3) mg/dL Est Cr Clr Drug Dosing 43.85 mL/min Estimated GFR (MDRD) > 60 Glucose 94 (74-105) mg/dL Calcium 7.6 L (8.4-10.2) mg/dl Phosphorus 2.4 L (2.5-4.6) mg/dL Magnesium 1.6 L (1.8-2.5) mg/dL Ramses Results Last 24 Hours: Microbiology 08/25/17 11:07 Aerobic Blood Culture - Preliminary Blood NO GROWTH AFTER 3 DAYS Anaerobic Blood Culture - Preliminary NO GROWTH AFTER 3 DAYS Med Orders - Current: Current Medications Acetaminophen (Tylenol) 650 mg PO Q4H PRN PRN Reason: Pain Last Admin: 08/26/17 23:23 Dose: 650 mg Albuterol (Proventil Hfa) 0 gm INH Q4HR PRN PRN Reason: Wheezing Albuterol/Ipratropium (Duoneb 3.0-0.5 Mg/3 Ml) 3 ml NEB TIDRT [facility] Last Admin: 08/29/17 07:28 Dose: 3 ml Amlodipine Besylate (Norvasc) 10 mg PO DAILY [facility] Last Admin: 08/28/17 09:48 Dose: Not Given Aspirin (Halfprin) 81 mg PO DAILY [facility] Last Admin: 08/28/17 09:48 Dose: Not Given Budesonide (Pulmicort) 0.5 mg NEB BIDRT [facility] Last Admin: 08/29/17 07:28 Dose: 0.5 mg Calcium Carbonate/Glycine (Tums) 500 mg PO Q2H PRN PRN Reason: Heartburn Fluoxetine HCl (Prozac) 20 mg PO DAILY [facility] Last Admin: 08/28/17 09:49 Dose: Not Given Heparin Sodium (Porcine) (Heparin Sodium) 5,000 units SUBCUT Q8HR [facility] Last Admin: 08/29/17 06:29 Dose: 5,000 units Fluconazole/Sodium Chloride (200 mg/ Premix) 100 mls @ 100 mls/hr IV Q24H [facility] Last Admin: 08/28/17 12:53 Dose: 100 mls/hr Potassium Chloride/Sodium Chloride (Normal Saline With 40 Meq Kcl) 1,000 mls @ 75 mls/hr IV ASDIRECTED [facility] Last Admin: 08/29/17 01:22 Dose: 75 mls/hr Lidocaine/Prilocaine (Emla Crm) 5 gm TOP DAILY PRN PRN Reason: Other Lisinopril (Prinivil) 40 mg PO DAILY [facility] Last Admin: 08/28/17 09:49 Dose: Not Given Loperamide HCl (Imodium) 2 mg PO Q6H PRN PRN Reason: Diarrhea Metoprolol Succinate (Toprol Xl) 100 mg PO DAILY [facility] Last Admin: 08/28/17 09:49 Dose: Not Given Multivitamins/Minerals (Vitamins And Minerals) 1 tab PO DAILY [facility] Last Admin: 08/28/17 09:49 Dose: Not Given Non-Formulary Medication Magic Mouthwash 0 each PO Q2HR PRN PRN Reason: Other Ondansetron HCl (Zofran) 4 mg IVPUSH Q6H PRN PRN Reason: Nausea/Vomiting Last Admin: 08/28/17 17:26 Dose: 4 mg Pantoprazole Sodium (Protonix Iv) 40 mg IVPUSH BID [facility] Last Admin: 08/28/17 20:44 Dose: 40 mg Prednisone (Prednisone) 5 mg PO DAILY@0800 [facility] Simvastatin (Zocor) 10 mg PO BEDTIME [facility] Last Admin: 08/28/17 20:34 Dose: 10 mg Sodium Bicarbonate (Sodium Bicarbonate) 650 mg PO BID [facility] Last Admin: 08/28/17 20:34 Dose: 650 mg Sodium Chloride (Saline Flush) 10 ml FLUSH ASDIRECTED PRN PRN Reason: Keep Vein Open Last Admin: 08/27/17 08:20 Dose: 10 ml Sodium Chloride (Saline Flush) 10 ml FLUSH BID [facility] Last Admin: 08/28/17 20:43 Dose: 10 ml Sodium Phosphate (Neutra-Phos) 250 mg PO TID [facility] Last Admin: 08/28/17 20:34 Dose: 250 mg Zolpidem Tartrate (Ambien) 5 mg PO BEDTIME PRN PRN Reason: Sleep Last Admin: 08/28/17 20:57 Dose: 5 mg Discontinued Medications Sodium Chloride (Normal Saline) 1,000 mls @ 999 mls/hr IV .BOLUS ONE Stop: 08/23/17 10:38 Last Admin: 08/23/17 10:23 Dose: 999 mls/hr Sodium Chloride (Normal Saline) 1,000 mls @ 125 mls/hr IV ASDIRECTED [facility] Last Admin: 08/24/17 07:18 Dose: 125 mls/hr Levofloxacin/Dextrose 250 mg/ (Premix) 50 mls @ 50 mls/hr IV Q24H [facility] Last Admin: 08/23/17 14:41 Dose: 50 mls/hr Potassium Chloride/Sodium Chloride (Normal Saline With 20 Meq Kcl) 1,000 mls @ 75 mls/hr IV ASDIRECTED [facility] Last Infusion: 08/26/17 16:04 Dose: Infused Metronidazole 500 mg/ Premix 100 mls @ 100 mls/hr IV Q8H [facility] Last Admin: 08/28/17 10:17 Dose: 200 mls/hr Potassium Chloride 10 meq/ (Premix) 100 mls @ 100 mls/hr IV Q1H [facility] Stop: 08/25/17 15:44 Last Infusion: 08/25/17 16:48 Dose: Infused Sodium Chloride (Normal Saline) 1,000 mls @ 100 mls/hr IV ASDIRECTED [facility] Stop: 08/30/17 03:40 Last Admin: 08/28/17 03:11 Dose: 100 mls/hr Potassium Chloride 10 meq/ (Premix) 100 mls @ 100 mls/hr IV Q2H [facility] Stop: 08/27/17 16:59 Last Admin: 08/27/17 15:13 Dose: 100 mls/hr Magnesium Sulfate 2 gm/ Premix 50 mls @ 25 mls/hr IV ONETIME ONE Stop: 08/28/17 11:59 Last Admin: 08/28/17 11:00 Dose: 25 mls/hr Potassium Chloride 10 meq/ (Premix) 100 mls @ 100 mls/hr IV Q1H [facility] Stop: 08/28/17 12:59 Last Infusion: 08/28/17 13:26 Dose: Infused Levofloxacin (Levaquin) 500 mg PO DAILY [facility] Ondansetron HCl (Zofran Odt) 8 mg PO ONETIME ONE Stop: 04/25/18 09:39 Last Admin: 08/23/17 09:53 Dose: 8 mg Pegfilgrastim (Neulasta) 6 mg SUBCUT ONETIME ONE Stop: 08/24/17 18:01 Last Admin: 08/24/17 19:34 Dose: 6 mg Potassium Chloride (Klor-Con 10) 20 meq PO BIDMEALS [facility] Last Admin: 08/25/17 09:10 Dose: Not Given Potassium Chloride (Klor-Con 10) 20 meq PO TIDMEALS [facility] Prednisone (Prednisone) 10 mg PO DAILY [facility] Last Admin: 08/28/17 09:49 Dose: Not Given - Exam General: Alert, Oriented HEENT: Pupils Equal, Pupils Reactive, EOMI, Mucous Membr. Moist/[place] Neck: Supple Lungs: Clear to Auscultation, Normal Respiratory Effort Cardiovascular: Regular Rate, Regular Rhythm GI/Abdominal Exam: Normal Bowel Sounds, Soft, Non-Tender, No Organomegaly, No Distention, No Abnormal Bruit, No Mass, Pelvis Stable (Female) Exam: Normal External Exam, Normal Speculum Exam, Normal Bimanual Exam Back Exam: Normal Inspection, Full Range of Motion Extremities: Normal Inspection, Normal Range of Motion, Non-Tender, No Pedal Edema, Normal Capillary Refill Skin: Warm, Dry, Intact Wound/Incisions: Healing Well Neurological: No New Focal Deficit Psy/Mental Status: Alert, Normal Affect, Normal Mood - Problem List & Annotations (1) Abdominal pain SNOMED Code(s): 35652393 Code(s): R10.9 - UNSPECIFIED ABDOMINAL PAIN Status: Acute Current Visit: No (2) Acute bronchitis SNOMED Code(s): 86615696 Code(s): J20.9 - ACUTE BRONCHITIS, UNSPECIFIED Status: Acute Current Visit: No (3) Acute exacerbation of chronic obstructive airways disease SNOMED Code(s): 345742845 Code(s): J44.1 - CHRONIC OBSTRUCTIVE PULMONARY DISEASE W (ACUTE) EXACERBATION Status: Acute Current Visit: No (4) Allergic reaction, urticaria SNOMED Code(s): 55582393 Code(s): L50.0 - ALLERGIC URTICARIA Status: Acute Current Visit: No (5) Bronchospasm with bronchitis, acute SNOMED Code(s): 66516407 Code(s): J20.9 - ACUTE BRONCHITIS, UNSPECIFIED Status: Acute Current Visit: No (6) Dehydration SNOMED Code(s): 95109813 Code(s): E86.0 - DEHYDRATION Status: Acute Current Visit: No (7) Diarrhea SNOMED Code(s): 89569807 Code(s): R19.7 - DIARRHEA, UNSPECIFIED Status: Acute Current Visit: No Qualifiers: Diarrhea type: unspecified type Qualified Code(s): R19.7 - Diarrhea, unspecified (8) HTN, Essential hypertension SNOMED Code(s): 97123304 Code(s): I10 - ESSENTIAL (PRIMARY) HYPERTENSION Status: Acute Current Visit: No (9) Leukopenia SNOMED Code(s): 33478652, 495674049 Code(s): D72.819 - DECREASED WHITE BLOOD CELL COUNT, UNSPECIFIED Status: Acute Current Visit: No Qualifiers: Leukopenia type: unspecified Qualified Code(s): D72.819 - Decreased white blood cell count, unspecified (10) Vomiting SNOMED Code(s): 286158223 Code(s): R11.10 - VOMITING, UNSPECIFIED Status: Acute Current Visit: No - Problem List Review Problem List Initiated/Reviewed/Updated: Yes - Plan Plan:: The patient is a 72 year old female with medical history of colon cancer. The patient was recently in the hospital because of acute hypoxemic respiratory failure and acute exacerbation of COPD. After discharge from the hospital she went and saw her oncologist started on chemotherapy. She started chemotherapy yesterday 22 August 2017. Post chemotherapy she began to have nausea and dry heaves and subsequently diarrhea. She became extremely weak and had to come into the emergency room. She was noted to be neutropenic with absolute neutrophil count of 550. Total white cell count is 1. She has recieved one dose of neulesta in this admission. #. Diarrhea. Etiology of this is unclear. He may be related to chemotherapy. C.diff was negative. Stool grew yeast and she was starte on diflucan Improving continue current care #. COPD exacerbation. stable continue nebs #.Hypertension. Blood pressure is within acceptable limits. Patient is on multiple antihypertensives. continue current care #. Dyslipidemia continue home meds #. Colon cancer. This is advanced with evidence of spread to the liver. Started on chemotherapy
[2017-08-29] MEDS: Lisinopril 20 MG Tab PO SCH (09:03)
[2017-08-29] MEDS: amLODIPine 5 MG Tab PO SCH (09:03)
[2017-08-29] MEDS: Aspirin 81 MG Tab.EC PO SCH (09:03)
[2017-08-29] MEDS: Phosphorus #1 250 MG Tab PO SCH ×3 (09:03→21:04)
[2017-08-29] MEDS: Multivitamins, Therapeutic with Minerals Tab PO SCH (09:03)
[2017-08-29] MEDS: Sodium Bicarbonate 650 MG Tab PO SCH ×2 (09:03→21:02)
[2017-08-29] MEDS: FLUoxetine 10 MG Cap PO SCH (09:03)
[2017-08-29] MEDS: Metoprolol Succinate 50 MG Tab.ER PO SCH (09:03)
[2017-08-29] MEDS: predniSONE 5 MG Tab PO SCH (09:03)
[2017-08-29] MEDS ORDERED: Magnesium Sulfate/Water 2 GM in Premix Bag 1 BAG IV ONE (10:11)
[2017-08-29] MEDS: Fluconazole/Normal Saline 200 MG in Premix Bag 1 BAG IV SCH (11:08)
[2017-08-29] MEDS: Ondansetron 4 MG/2 ML SDV IVPUSH PRN (13:10)
[2017-08-29] MEDS ORDERED: MAGIC MOUTHWASH PO PRN (13:48)
[2017-08-29] MEDS: Ondansetron 4 MG/2 ML SDV IVPUSH SCH (21:02)
[2017-08-29] MEDS: Simvastatin 10 MG Tab PO SCH (21:03)
[2017-08-29] MEDS: Zolpidem 5 MG Tab PO PRN (21:14)
[2017-08-30] MEDS: Sodium Chloride 0.9% with KCl 1,000 ML IV SCH ×2 (04:57→19:35)
[2017-08-30] MEDS: Heparin Sodium 5,000 Units/ML Vial SUBCUT SCH (05:23)
--- NOTE | 2017-08-30 08:13 | PCM.PN ---
- General Info Date of Service: 08/30/17 Admission Dx/Problem (Free Text): Admission Diagnosis/Problem Admission Diagnosis/Problem Neutropenia associated with infection Subjective Update: Patient admitted with diarrhea and weakness. One episode of diarrhea overnight. Genrally feels well Functional Status: Reports: Pain Controlled - Review of Systems General: Reports: No Symptoms HEENT: Reports: No Symptoms Pulmonary: Reports: No Symptoms Cardiovascular: Reports: No Symptoms Gastrointestinal: Reports: Diarrhea Genitourinary: Reports: No Symptoms Musculoskeletal: Reports: No Symptoms Skin: Reports: No Symptoms Neurological: Reports: No Symptoms Psychiatric: Reports: No Symptoms - Patient Data Vitals - Most Recent: Last Vital Signs Temp 98 F 08/30/17 08:00 Pulse 87 08/30/17 08:00 Resp 16 08/30/17 08:00 BP 129/56 L 08/30/17 08:00 Pulse Ox 95 08/30/17 08:00 Weight - Most Recent: 100 lb I&O - Last 24 Hours: Intake & Output 08/29/17 08/30/17 08/30/17 22:59 06:59 14:59 Intake Total 388 1412 Balance 388 1412 Lab Results Last 24 Hours: Laboratory Results - last 24 hr 08/30/17 08/30/17 Range/Units 05:53 05:53 WBC 1.3 L* (5.0-10.0) 10^3/uL RBC 2.87 L (4.2-5.4) 10^6/uL Hgb 8.5 L (12.0-16.0) g/dL Hct 24.8 L (37.0-47.0) % MCV 86.4 (80-100) fL MCH 29.6 (27.0-34.0) pg MCHC 34.3 (33.0-35.0) g/dL Plt Count 59 L (150-450) 10^3/uL Neut % (Auto) 5.5 L (42.2-75.2) % Lymph % (Auto) 84.4 H (20.5-50.1) % [place] % (Auto) 7.0 (2-8) % Eos % (Auto) 3.1 H (1.0-3.0) % Baso % (Auto) 0.0 (0.0-1.0) % Add Manual Diff Yes Neutrophils % (Manual) 5 L (42-75) % Lymphocytes % (Manual) 85 H (20-50) % Atypical Lymphs % 6 % Monocytes % (Manual) 4 (2-8) % Sodium 132 L (135-145) mmol/L Potassium 4.5 (3.6-5.0) mmol/L Chloride 108 (101-111) mmol/L Carbon Dioxide 21.0 (21.0-31.0) mmol/L Anion Gap 7.5 BUN 10 (7-18) mg/dL Creatinine 1.0 (0.6-1.3) mg/dL Est Cr Clr Drug Dosing 36.95 mL/min Estimated GFR (MDRD) 55 BUN/Creatinine Ratio 10.00 Glucose 86 (74-105) mg/dL Calcium 7.4 L (8.4-10.2) mg/dl Total Bilirubin 0.5 (0.2-1.0) mg/dL AST 23 (10-42) IU/L ALT 26 (10-60) IU/L Alkaline Phosphatase 55 (42-121) IU/L Total Protein 4.1 L (6.7-8.2) g/dl Albumin 2.3 L (3.2-5.5) g/dl Globulin 1.8 Albumin/Globulin Ratio 1.28 Ramses Results Last 24 Hours: Microbiology 08/25/17 11:07 Aerobic Blood Culture - Preliminary Blood NO GROWTH AFTER 4 DAYS Anaerobic Blood Culture - Preliminary NO GROWTH AFTER 4 DAYS Med Orders - Current: Current Medications Acetaminophen (Tylenol) 650 mg PO Q4H PRN PRN Reason: Pain Last Admin: 08/26/17 23:23 Dose: 650 mg Albuterol (Proventil Hfa) 0 gm INH Q4HR PRN PRN Reason: Wheezing Albuterol/Ipratropium (Duoneb 3.0-0.5 Mg/3 Ml) 3 ml NEB TIDRT [facility] Last Admin: 08/29/17 21:04 Dose: Not Given Amlodipine Besylate (Norvasc) 10 mg PO DAILY [facility] Last Admin: 08/29/17 09:03 Dose: 10 mg Aspirin (Halfprin) 81 mg PO DAILY [facility] Last Admin: 08/29/17 09:03 Dose: 81 mg Budesonide (Pulmicort) 0.5 mg NEB BIDRT [facility] Last Admin: 08/29/17 21:04 Dose: Not Given Calcium Carbonate/Glycine (Tums) 500 mg PO Q2H PRN PRN Reason: Heartburn Fluoxetine HCl (Prozac) 20 mg PO DAILY [facility] Last Admin: 08/29/17 09:03 Dose: 20 mg Heparin Sodium (Porcine) (Heparin Sodium) 5,000 units SUBCUT Q8HR [facility] Last Admin: 08/30/17 05:23 Dose: 5,000 units Fluconazole/Sodium Chloride (200 mg/ Premix) 100 mls @ 100 mls/hr IV Q24H [facility] Last Admin: 08/29/17 11:08 Dose: 100 mls/hr Potassium Chloride/Sodium Chloride (Normal Saline With 40 Meq Kcl) 1,000 mls @ 75 mls/hr IV ASDIRECTED [facility] Last Admin: 08/30/17 04:57 Dose: 75 mls/hr Lidocaine/Prilocaine (Emla Crm) 5 gm TOP DAILY PRN PRN Reason: Other Lisinopril (Prinivil) 40 mg PO DAILY [facility] Last Admin: 08/29/17 09:03 Dose: 40 mg Loperamide HCl (Imodium) 2 mg PO Q6H PRN PRN Reason: Diarrhea Last Admin: 08/30/17 04:15 Dose: 2 mg Metoprolol Succinate (Toprol Xl) 100 mg PO DAILY [facility] Last Admin: 08/29/17 09:03 Dose: 100 mg Multivitamins/Minerals (Vitamins And Minerals) 1 tab PO DAILY [facility] Last Admin: 08/29/17 09:03 Dose: 1 tab Non-Formulary Medication Magic Mouthwash 0 each PO Q2HR PRN PRN Reason: Other Last Admin: 08/30/17 04:19 Dose: 1 each Ondansetron HCl (Zofran) 4 mg IVPUSH Q6H PRN PRN Reason: Nausea/Vomiting Last Admin: 08/29/17 13:10 Dose: 4 mg Ondansetron HCl (Zofran) 4 mg IVPUSH TID [facility] Last Admin: 08/29/17 21:02 Dose: 4 mg Pantoprazole Sodium (Protonix Iv) 40 mg IVPUSH BID [facility] Last Admin: 08/29/17 20:58 Dose: 40 mg Prednisone (Prednisone) 5 mg PO DAILY@0800 [facility] Last Admin: 08/29/17 09:03 Dose: 5 mg Simvastatin (Zocor) 10 mg PO BEDTIME [facility] Last Admin: 08/29/17 21:03 Dose: 10 mg Sodium Bicarbonate (Sodium Bicarbonate) 650 mg PO BID [facility] Last Admin: 08/29/17 21:02 Dose: 650 mg Sodium Chloride (Saline Flush) 10 ml FLUSH ASDIRECTED PRN PRN Reason: Keep Vein Open Last Admin: 08/27/17 08:20 Dose: 10 ml Sodium Chloride (Saline Flush) 10 ml FLUSH BID [facility] Last Admin: 08/29/17 21:59 Dose: 10 ml Sodium Phosphate (Neutra-Phos) 250 mg PO TID [facility] Last Admin: 08/29/17 21:04 Dose: 250 mg Zolpidem Tartrate (Ambien) 5 mg PO BEDTIME PRN PRN Reason: Sleep Last Admin: 08/29/17 21:14 Dose: 5 mg Discontinued Medications Sodium Chloride (Normal Saline) 1,000 mls @ 999 mls/hr IV .BOLUS ONE Stop: 08/23/17 10:38 Last Admin: 08/23/17 10:23 Dose: 999 mls/hr Sodium Chloride (Normal Saline) 1,000 mls @ 125 mls/hr IV ASDIRECTED [facility] Last Admin: 08/24/17 07:18 Dose: 125 mls/hr Levofloxacin/Dextrose 250 mg/ (Premix) 50 mls @ 50 mls/hr IV Q24H [facility] Last Admin: 08/23/17 14:41 Dose: 50 mls/hr Potassium Chloride/Sodium Chloride (Normal Saline With 20 Meq Kcl) 1,000 mls @ 75 mls/hr IV ASDIRECTED [facility] Last Infusion: 08/26/17 16:04 Dose: Infused Metronidazole 500 mg/ Premix 100 mls @ 100 mls/hr IV Q8H [facility] Last Admin: 08/28/17 10:17 Dose: 200 mls/hr Potassium Chloride 10 meq/ (Premix) 100 mls @ 100 mls/hr IV Q1H [facility] Stop: 08/25/17 15:44 Last Infusion: 08/25/17 16:48 Dose: Infused Sodium Chloride (Normal Saline) 1,000 mls @ 100 mls/hr IV ASDIRECTED [facility] Stop: 08/30/17 03:40 Last Admin: 08/28/17 03:11 Dose: 100 mls/hr Potassium Chloride 10 meq/ (Premix) 100 mls @ 100 mls/hr IV Q2H [facility] Stop: 08/27/17 16:59 Last Admin: 08/27/17 15:13 Dose: 100 mls/hr Magnesium Sulfate 2 gm/ Premix 50 mls @ 25 mls/hr IV ONETIME ONE Stop: 08/28/17 11:59 Last Admin: 08/28/17 11:00 Dose: 25 mls/hr Potassium Chloride 10 meq/ (Premix) 100 mls @ 100 mls/hr IV Q1H [facility] Stop: 08/28/17 12:59 Last Infusion: 08/28/17 13:26 Dose: Infused Magnesium Sulfate 2 gm/ Premix 50 mls @ 25 mls/hr IV ONETIME ONE Stop: 08/29/17 12:10 Last Admin: 08/29/17 11:09 Dose: 25 mls/hr Levofloxacin (Levaquin) 500 mg PO DAILY [facility] Non-Formulary Medication Magic Mouthwash 0 each PO Q2HR PRN PRN Reason: Other Ondansetron HCl (Zofran Odt) 8 mg PO ONETIME ONE Stop: 08/23/17 09:39 Last Admin: 08/23/17 09:53 Dose: 8 mg Pegfilgrastim (Neulasta) 6 mg SUBCUT ONETIME ONE Stop: 08/24/17 18:01 Last Admin: 08/24/17 19:34 Dose: 6 mg Potassium Chloride (Klor-Con 10) 20 meq PO BIDMEALS [facility] Last Admin: 08/25/17 09:10 Dose: Not Given Potassium Chloride (Klor-Con 10) 20 meq PO TIDMEALS [facility] Prednisone (Prednisone) 10 mg PO DAILY [facility] Last Admin: 08/28/17 09:49 Dose: Not Given - Exam General: Alert, Oriented HEENT: Pupils Equal, Pupils Reactive, EOMI, Mucous Membr. Moist/[place] Neck: Supple Lungs: Clear to Auscultation, Normal Respiratory Effort Cardiovascular: Regular Rate, Regular Rhythm GI/Abdominal Exam: Normal Bowel Sounds, Soft, Non-Tender, No Organomegaly, No Distention, No Abnormal Bruit, No Mass, Pelvis Stable (Female) Exam: Normal External Exam, Normal Speculum Exam, Normal Bimanual Exam Back Exam: Normal Inspection, Full Range of Motion Extremities: Normal Inspection, Normal Range of Motion, Non-Tender, No Pedal Edema, Normal Capillary Refill Skin: Warm, Dry, Intact Wound/Incisions: Healing Well Neurological: No New Focal Deficit Psy/Mental Status: Alert, Normal Affect, Normal Mood - Problem List & Annotations (1) Abdominal pain SNOMED Code(s): 87407018 Code(s): R10.9 - UNSPECIFIED ABDOMINAL PAIN Status: Acute Current Visit: No (2) Acute bronchitis SNOMED Code(s): 47049044 Code(s): J20.9 - ACUTE BRONCHITIS, UNSPECIFIED Status: Acute Current Visit: No (3) Acute exacerbation of chronic obstructive airways disease SNOMED Code(s): 748106017 Code(s): J44.1 - CHRONIC OBSTRUCTIVE PULMONARY DISEASE W (ACUTE) EXACERBATION Status: Acute Current Visit: No (4) Allergic reaction, urticaria SNOMED Code(s): 92086584 Code(s): L50.0 - ALLERGIC URTICARIA Status: Acute Current Visit: No (5) Bronchospasm with bronchitis, acute SNOMED Code(s): 06250282 Code(s): J20.9 - ACUTE BRONCHITIS, UNSPECIFIED Status: Acute Current Visit: No (6) Dehydration SNOMED Code(s): 23785888 Code(s): E86.0 - DEHYDRATION Status: Acute Current Visit: No (7) Diarrhea SNOMED Code(s): 67824215 Code(s): R19.7 - DIARRHEA, UNSPECIFIED Status: Acute Current Visit: No Qualifiers: Diarrhea type: unspecified type Qualified Code(s): R19.7 - Diarrhea, unspecified (8) HTN, Essential hypertension SNOMED Code(s): 19917014 Code(s): I10 - ESSENTIAL (PRIMARY) HYPERTENSION Status: Acute Current Visit: No (9) Leukopenia SNOMED Code(s): 23530936, 590996037 Code(s): D72.819 - DECREASED WHITE BLOOD CELL COUNT, UNSPECIFIED Status: Acute Current Visit: No Qualifiers: Leukopenia type: unspecified Qualified Code(s): D72.819 - Decreased white blood cell count, unspecified (10) Vomiting SNOMED Code(s): 550280049 Code(s): R11.10 - VOMITING, UNSPECIFIED Status: Acute Current Visit: No - Problem List Review Problem List Initiated/Reviewed/Updated: Yes - My Orders Last 24 Hours: My Active Orders 05/01/18 21:00 Ondansetron [Zofran] 4 mg IVPUSH TID 08/30/17 05:53 CEA [REF] Routine FERRITIN [REF] Routine - Plan Plan:: The patient is a 72 year old female with medical history of colon cancer. The patient was recently in the hospital because of acute hypoxemic respiratory failure and acute exacerbation of COPD. After discharge from the hospital she went and saw her oncologist started on chemotherapy. She started chemotherapy yesterday 22 August 2017. Post chemotherapy she began to have nausea and dry heaves and subsequently diarrhea. She became extremely weak and had to come into the emergency room. She was noted to be neutropenic with absolute neutrophil count of 550. Total white cell count is 1. She has recieved one dose of neulesta in this admission. #. Diarrhea. Etiology of this is unclear. He may be related to chemotherapy. C.diff was negative. Stool grew yeast and she was started on diflucan Improving continue current care #Hypomagnesemia will replace #Hypophosphatemia will replace #Generalized weakness PT/OT #. COPD exacerbation. stable continue nebs #.Hypertension. Blood pressure is within acceptable limits. Patient is on multiple antihypertensives. continue current care #. Dyslipidemia continue home meds #. Colon cancer. This is advanced with evidence of spread to the liver. Started on chemotherapy
[2017-08-30] MEDS: Budesonide 0.5 MG/2 ML Neb Susp NEB SCH ×2 (08:48→19:19)
[2017-08-30] MEDS: Albuterol/Ipratropium 3.0-0.5 MG/3 ML Neb Soln NEB SCH ×3 (08:48→21:02)
[2017-08-30] MEDS: Pantoprazole 40 MG Vial IVPUSH SCH ×2 (08:49→20:39)
[2017-08-30] MEDS: Ondansetron 4 MG/2 ML SDV IVPUSH SCH ×3 (08:49→20:38)
[2017-08-30] MEDS: predniSONE 5 MG Tab PO SCH (08:49)
[2017-08-30] MEDS: Phosphorus #1 250 MG Tab PO SCH ×3 (08:50→21:02)
[2017-08-30] MEDS: Aspirin 81 MG Tab.EC PO SCH (08:50)
[2017-08-30] MEDS: amLODIPine 5 MG Tab PO SCH (08:50)
[2017-08-30] MEDS: Lisinopril 20 MG Tab PO SCH (08:51)
[2017-08-30] MEDS: FLUoxetine 10 MG Cap PO SCH (08:51)
[2017-08-30] MEDS: Sodium Bicarbonate 650 MG Tab PO SCH ×2 (08:52→21:03)
[2017-08-30] MEDS: Metoprolol Succinate 50 MG Tab.ER PO SCH (08:52)
[2017-08-30] MEDS: Multivitamins, Therapeutic with Minerals Tab PO SCH (08:52)
[2017-08-30] MEDS: Sodium Chloride 0.9% 10 ML Syringe FLUSH SCH ×2 (08:58→21:28)
[2017-08-30] MEDS ORDERED: Magnesium Sulfate/Water 2 GM in Premix Bag 1 BAG IV ONE (10:00)
[2017-08-30] MEDS: Fluconazole/Normal Saline 200 MG in Premix Bag 1 BAG IV SCH (11:10)
[2017-08-30] MEDS ORDERED: ORAJEL TOP PRN (16:37)
[2017-08-30] MEDS: Ondansetron 4 MG/2 ML SDV IVPUSH PRN (16:40)
[2017-08-30] MEDS: Simvastatin 10 MG Tab PO SCH (21:03)
[2017-08-30] MEDS: Zolpidem 5 MG Tab PO PRN (21:28)
[2017-08-31] MEDS: Sodium Chloride 0.9% with KCl 1,000 ML IV SCH (09:29)
[2017-08-31] MEDS: Ondansetron 4 MG/2 ML SDV IVPUSH SCH (09:35)
[2017-08-31] MEDS: Pantoprazole 40 MG Vial IVPUSH SCH (09:35)
[2017-08-31] MEDS: Sodium Chloride 0.9% 10 ML Syringe FLUSH SCH (09:35)
[2017-08-31] MEDS: Albuterol/Ipratropium 3.0-0.5 MG/3 ML Neb Soln NEB SCH (10:05)
[2017-08-31] MEDS: Budesonide 0.5 MG/2 ML Neb Susp NEB SCH (10:05)
[2017-08-31] MEDS ORDERED: Magnesium Sulfate/D5W 2 GM in Premix Bag 1 BAG IV ONE (10:12)
[2017-08-31] MEDS ORDERED: Loperamide 2 MG Cap PO SCH (10:15)
[2017-08-31] MEDS: predniSONE 5 MG Tab PO SCH (10:23)
[2017-08-31] MEDS: Phosphorus #1 250 MG Tab PO SCH (10:23)
[2017-08-31] MEDS: Aspirin 81 MG Tab.EC PO SCH (10:23)
[2017-08-31] MEDS: amLODIPine 5 MG Tab PO SCH ×2 (10:24→12:18)
[2017-08-31] MEDS: FLUoxetine 10 MG Cap PO SCH (10:24)
[2017-08-31] MEDS: Lisinopril 20 MG Tab PO SCH ×2 (10:24→12:20)
[2017-08-31] MEDS: Sodium Bicarbonate 650 MG Tab PO SCH (10:25)
[2017-08-31] MEDS: Metoprolol Succinate 50 MG Tab.ER PO SCH ×2 (10:25→12:19)
[2017-08-31] MEDS: Multivitamins, Therapeutic with Minerals Tab PO SCH (10:26)
--- NOTE | 2017-08-31 10:53 | PCM.DCSUM1 ---
Discharge Summary - Hospital Course Free Text/Narrative:: The patient is a 72 year old female with medical history of colon cancer. The patient was recently in the hospital because of acute hypoxemic respiratory failure and acute exacerbation of COPD. After discharge from the hospital she went and saw her oncologist started on chemotherapy. She started chemotherapy yesterday 22 August 2017. Post chemotherapy she began to have nausea and dry heaves and subsequently diarrhea. She became extremely weak and had to come into the emergency room. #. Diarrhea. Etiology of this is unclear. He may be related to chemotherapy. C.diff was negative. Stool grew yeast and she was started on diflucan Family member had similar diarrhea starting the same day that lasted about 4 days. Was presumed a viral infection. Not Improving Unable to keep down food, medications. Requiring IV fluids. #Hypomagnesemia #Hypophosphatemia Needs continued replacement #Generalized weakness PT/OT #. COPD, recent pneumonia. stable continue nebs Off antibiotics #.Hypertension. Controlled #. Dyslipidemia continue home meds #. Colon cancer status post chemotherapy This is advanced with evidence of spread to the liver. Started on chemotherapy # Neutropenia She was noted to be neutropenic with absolute neutrophil count of 550. Total white cell count is 1. She has recieved one dose of neulasta in this admission. - Discharge Data Discharge Date: 08/31/17 Discharge Disposition: Home, Self-Care 01 Condition: Serious - Patient Summary/Data Consults: Consultations 08/23/17 11:50 PT Evaluation and Treatment [CONS] Routine - Patient Instructions Diet: Full Liquid Diet Activity: As Tolerated - Discharge Plan Home Medications: Home Meds FLUoxetine HCl [Fluoxetine HCl] 20 mg PO DAILY 05/04/14 [History] Lisinopril 40 mg PO DAILY 05/04/14 [History] Simvastatin 10 mg PO BEDTIME 05/04/14 [History] amLODIPine Besylate [Amlodipine Besylate] 10 mg PO DAILY 05/04/14 [History] Aspirin [Adult Low Dose Aspirin EC] 81 mg PO DAILY 03/23/15 [History] Zolpidem [Ambien] 5 mg PO BEDTIME PRN 03/23/15 [History] Metoprolol Succinate [Toprol XL] 100 mg PO DAILY 03/27/17 [History] Albuterol [Ventolin HFA] 1 puff INH Q4HR PRN 08/18/17 [History] Lidocaine/Prilocaine [EMLA Crm] 5 gm TOP DAILY PRN 08/18/17 [History] Multivitamin with Minerals [Multiple Vitamin] 1 tab PO DAILY 08/18/17 [History] Albuterol/Ipratropium [DuoNeb 3.0-0.5 MG/3 ML] 3 ml NEB TIDRT #90 neb 08/21/17 [ Rx] Budesonide [Pulmicort] 0.5 mg NEB BIDRT #60 neb 08/21/17 [Rx] Fluconazole/Normal Saline [Diflucan in NS 200 MG/100 ML] 200 mg IV Q24H bag 07/16 [Rx] Loperamide [Imodium] 2 mg PO Q6H cap 08/31/17 [Rx] Pantoprazole [ProTONIX IV] 40 mg IVPUSH BID vial 08/31/17 [Rx] Phosphorus #1 [Neutra-Phos] 250 mg PO TID tablet 08/31/17 [Rx] Sodium Bicarbonate 650 mg PO BID tablet 08/31/17 [Rx] predniSONE 5 mg PO DAILY@0800 tablet 08/31/17 [Rx] Patient Handouts: Precautions When Using Cytotoxic Medicine, Neutropenia, Food Safety for the Immunocompromised Person - Discharge Summary/Plan Comment DC Time >30 min.: Yes (arranging transfer to [facility]) - General Info Date of Service: 08/31/17 Admission Dx/Problem (Free Text: Admission Diagnosis/Problem Admission Diagnosis/Problem Neutropenia, diarrhea Subjective Update: Patient admitted with diarrhea and weakness. Continues to have ongoing diarrhea, vomiting. Unable to take oral medications. Complains of feeling soreness in mouth but ulcers not seen. Feels very weak. Has not been able to eat about 7 days. Functional Status: Denies: Tolerating Diet - Review of Systems General: Reports: Weakness, Fatigue. Denies: Fever Pulmonary: Denies: Shortness of Breath Cardiovascular: Denies: Chest Pain Gastrointestinal: Reports: Diarrhea, Nausea. Denies: Abdominal Pain Neurological: Denies: Confusion Psychiatric: Denies: Depression - Patient Data Vitals - Most Recent: Last Vital Signs Temp 37.1 C 08/31/17 07:55 Pulse 107 H 08/31/17 10:25 Resp 20 08/31/17 07:55 BP 146/56 H 08/31/17 10:25 Pulse Ox 97 08/31/17 07:55 Weight - Most Recent: 45.359 kg I&O - Last 24 hours: Intake & Output 08/30/17 08/31/17 08/31/17 22:59 06:59 14:59 Intake Total 400 1400 Balance 400 1400 Lab Results - Last 24 hrs: Laboratory Results - last 24 hr 08/30/17 08/30/17 08/30/17 Range/Units 05:53 05:53 05:53 WBC (5.0-10.0) 10^3/uL RBC (4.2-5.4) 10^6/uL Hgb (12.0-16.0) g/dL Hct (37.0-47.0) % MCV (80-100) fL MCH (27.0-34.0) pg MCHC (33.0-35.0) g/dL Plt Count (150-450) 10^3/uL Neut % (Auto) (42.2-75.2) % Lymph % (Auto) (20.5-50.1) % [place] % (Auto) (2-8) % Eos % (Auto) (1.0-3.0) % Baso % (Auto) (0.0-1.0) % Percent Retic (0.5-1.5) % Sodium (135-145) mmol/L Potassium (3.6-5.0) mmol/L Chloride (101-111) mmol/L Carbon Dioxide (21.0-31.0) mmol/L Anion Gap BUN (7-18) mg/dL Creatinine (0.6-1.3) mg/dL Est Cr Clr Drug Dosing mL/min Estimated GFR (MDRD) Glucose (74-105) mg/dL Calcium (8.4-10.2) mg/dl Phosphorus (2.5-4.6) mg/dL Magnesium (1.8-2.5) mg/dL Ferritin 314 H (11-307) ng/mL Carcinoembryonic Ag 6.8 H (0.0-3.0) ng/mL 08/31/17 08/31/17 Range/Units 06:06 06:06 WBC 2.3 L (5.0-10.0) 10^3/uL RBC 2.97 L (4.2-5.4) 10^6/uL Hgb 8.7 L (12.0-16.0) g/dL Hct 25.8 L (37.0-47.0) % MCV 86.9 (80-100) fL MCH 29.3 (27.0-34.0) pg MCHC 33.7 (33.0-35.0) g/dL Plt Count 66 L (150-450) 10^3/uL Neut % (Auto) 6.9 L (42.2-75.2) % Lymph % (Auto) 66.7 H (20.5-50.1) % [place] % (Auto) 20.9 H (2-8) % Eos % (Auto) 5.1 H (1.0-3.0) % Baso % (Auto) 0.4 (0.0-1.0) % Percent Retic (0.5-1.5) % Sodium 130 L (135-145) mmol/L Potassium 4.8 (3.6-5.0) mmol/L Chloride 102 (101-111) mmol/L Carbon Dioxide 22.0 (21.0-31.0) mmol/L Anion Gap 10.8 BUN 6 L (7-18) mg/dL Creatinine 1.0 (0.6-1.3) mg/dL Est Cr Clr Drug Dosing 36.95 mL/min Estimated GFR (MDRD) 55 Glucose 72 L (74-105) mg/dL Calcium 7.8 L (8.4-10.2) mg/dl Phosphorus 2.4 L (2.5-4.6) mg/dL Magnesium 1.6 L (1.8-2.5) mg/dL Ferritin (11-307) ng/mL Carcinoembryonic Ag (0.0-3.0) ng/mL AMANUEL Results - Last 24 hrs: Microbiology 08/25/17 11:07 Aerobic Blood Culture - Final Blood NO GROWTH AFTER 5 DAYS Anaerobic Blood Culture - Final NO GROWTH AFTER 5 DAYS Med Orders - Current: Current Medications Acetaminophen (Tylenol) 650 mg PO Q4H PRN PRN Reason: Pain Last Admin: 08/26/17 23:23 Dose: 650 mg Albuterol (Proventil Hfa) 0 gm INH Q4HR PRN PRN Reason: Wheezing Albuterol/Ipratropium (Duoneb 3.0-0.5 Mg/3 Ml) 3 ml NEB TIDRT [facility] Last Admin: 08/31/17 10:05 Dose: Not Given Amlodipine Besylate (Norvasc) 10 mg PO DAILY [facility] Last Admin: 08/31/17 10:24 Dose: Not Given Aspirin (Halfprin) 81 mg PO DAILY [facility] Last Admin: 08/31/17 10:23 Dose: Not Given Budesonide (Pulmicort) 0.5 mg NEB BIDRT [facility] Last Admin: 08/31/17 10:05 Dose: Not Given Calcium Carbonate/Glycine (Tums) 500 mg PO Q2H PRN PRN Reason: Heartburn Fluoxetine HCl (Prozac) 20 mg PO DAILY [facility] Last Admin: 08/31/17 10:24 Dose: Not Given Fluconazole/Sodium Chloride (200 mg/ Premix) 100 mls @ 100 mls/hr IV Q24H [facility] Last Admin: 08/30/17 11:10 Dose: 100 mls/hr Potassium Chloride/Sodium Chloride (Normal Saline With 40 Meq Kcl) 1,000 mls @ 75 mls/hr IV ASDIRECTED [facility] Last Admin: 08/31/17 09:29 Dose: 75 mls/hr Magnesium Sulfate/Dextrose 2 (gm/ Premix) 200 mls @ 100 mls/hr IV ONETIME ONE Stop: 08/31/17 12:11 Lidocaine/Prilocaine (Emla Crm) 5 gm TOP DAILY PRN PRN Reason: Other Lisinopril (Prinivil) 40 mg PO DAILY [facility] Last Admin: 08/31/17 10:24 Dose: Not Given Loperamide HCl (Imodium) 2 mg PO Q6HR [facility] Metoprolol Succinate (Toprol Xl) 100 mg PO DAILY [facility] Last Admin: 08/31/17 10:25 Dose: Not Given Multivitamins/Minerals (Vitamins And Minerals) 1 tab PO DAILY [facility] Last Admin: 08/31/17 10:26 Dose: Not Given Non-Formulary Medication Magic Mouthwash 0 each PO Q2HR PRN PRN Reason: Other Last Admin: 08/30/17 04:19 Dose: 1 each Ondansetron HCl (Zofran) 4 mg IVPUSH Q6H PRN PRN Reason: Nausea/Vomiting Last Admin: 08/30/17 16:40 Dose: 4 mg Ondansetron HCl (Zofran) 4 mg IVPUSH TID [facility] Last Admin: 08/31/17 09:35 Dose: 4 mg Pantoprazole Sodium (Protonix Iv) 40 mg IVPUSH BID [facility] Last Admin: 08/31/17 09:35 Dose: 40 mg Orajel Pt's Own (Med) 1 each TOP QID PRN PRN Reason: mouth sores Prednisone (Prednisone) 5 mg PO DAILY@0800 [facility] Last Admin: 08/31/17 10:23 Dose: Not Given Simvastatin (Zocor) 10 mg PO BEDTIME [facility] Last Admin: 08/30/17 21:03 Dose: Not Given Sodium Bicarbonate (Sodium Bicarbonate) 650 mg PO BID [facility] Last Admin: 08/31/17 10:25 Dose: Not Given Sodium Chloride (Saline Flush) 10 ml FLUSH ASDIRECTED PRN PRN Reason: Keep Vein Open Last Admin: 08/27/17 08:20 Dose: 10 ml Sodium Chloride (Saline Flush) 10 ml FLUSH BID [facility] Last Admin: 08/30/17 21:28 Dose: 10 ml Sodium Phosphate (Neutra-Phos) 250 mg PO TID [facility] Last Admin: 08/31/17 10:23 Dose: Not Given Zolpidem Tartrate (Ambien) 5 mg PO BEDTIME PRN PRN Reason: Sleep Last Admin: 08/30/17 21:28 Dose: 5 mg Discontinued Medications Heparin Sodium (Porcine) (Heparin Sodium) 5,000 units SUBCUT Q8HR [facility] Last Admin: 08/30/17 05:23 Dose: 5,000 units Sodium Chloride (Normal Saline) 1,000 mls @ 999 mls/hr IV .BOLUS ONE Stop: 08/23/17 10:38 Last Admin: 08/23/17 10:23 Dose: 999 mls/hr Sodium Chloride (Normal Saline) 1,000 mls @ 125 mls/hr IV ASDIRECTED [facility] Last Admin: 08/24/17 07:18 Dose: 125 mls/hr Levofloxacin/Dextrose 250 mg/ (Premix) 50 mls @ 50 mls/hr IV Q24H [facility] Last Admin: 08/23/17 14:41 Dose: 50 mls/hr Potassium Chloride/Sodium Chloride (Normal Saline With 20 Meq Kcl) 1,000 mls @ 75 mls/hr IV ASDIRECTED [facility] Last Infusion: 08/26/17 16:04 Dose: Infused Metronidazole 500 mg/ Premix 100 mls @ 100 mls/hr IV Q8H [facility] Last Admin: 08/28/17 10:17 Dose: 200 mls/hr Potassium Chloride 10 meq/ (Premix) 100 mls @ 100 mls/hr IV Q1H [facility] Stop: 08/25/17 15:44 Last Infusion: 08/25/17 16:48 Dose: Infused Sodium Chloride (Normal Saline) 1,000 mls @ 100 mls/hr IV ASDIRECTED [facility] Stop: 08/30/17 03:40 Last Admin: 08/28/17 03:11 Dose: 100 mls/hr Potassium Chloride 10 meq/ (Premix) 100 mls @ 100 mls/hr IV Q2H [facility] Stop: 08/27/17 16:59 Last Admin: 08/27/17 15:13 Dose: 100 mls/hr Magnesium Sulfate 2 gm/ Premix 50 mls @ 25 mls/hr IV ONETIME ONE Stop: 08/28/17 11:59 Last Admin: 08/28/17 11:00 Dose: 25 mls/hr Potassium Chloride 10 meq/ (Premix) 100 mls @ 100 mls/hr IV Q1H [facility] Stop: 08/28/17 12:59 Last Infusion: 08/28/17 13:26 Dose: Infused Magnesium Sulfate 2 gm/ Premix 50 mls @ 25 mls/hr IV ONETIME ONE Stop: 08/29/17 12:10 Last Admin: 08/29/17 11:09 Dose: 25 mls/hr Magnesium Sulfate 2 gm/ Premix 50 mls @ 25 mls/hr IV ONETIME ONE Stop: 08/30/17 11:59 Last Admin: 08/30/17 09:51 Dose: 25 mls/hr Levofloxacin (Levaquin) 500 mg PO DAILY [facility] Loperamide HCl (Imodium) 2 mg PO Q6H PRN PRN Reason: Diarrhea Last Admin: 08/30/17 04:15 Dose: 2 mg Non-Formulary Medication Magic Mouthwash 0 each PO Q2HR PRN PRN Reason: Other Ondansetron HCl (Zofran Odt) 8 mg PO ONETIME ONE Stop: 08/23/17 09:39 Last Admin: 08/23/17 09:53 Dose: 8 mg Pegfilgrastim (Neulasta) 6 mg SUBCUT ONETIME ONE Stop: 08/24/17 18:01 Last Admin: 08/24/17 19:34 Dose: 6 mg Potassium Chloride (Klor-Con 10) 20 meq PO BIDMEALS [facility] Last Admin: 08/25/17 09:10 Dose: Not Given Potassium Chloride (Klor-Con 10) 20 meq PO TIDMEALS [facility] Prednisone (Prednisone) 10 mg PO DAILY [facility] Last Admin: 08/28/17 09:49 Dose: Not Given - Exam General: Reports: Alert, Oriented Neck: Reports: Supple Lungs: Reports: Clear to Auscultation, Normal Respiratory Effort Cardiovascular: Reports: Regular Rate, Regular Rhythm GI/Abdominal Exam: Normal Bowel Sounds, Soft. No: Non-Tender, No Distention Extremities: No Pedal Edema Skin: Reports: Warm, Dry Neurological: Reports: No New Focal Deficit Psy/Mental Status: Reports: Alert, Normal Affect, Normal Mood
[2017-08-31 11:10] VITALS: BP 136/59
[2017-08-31] MEDS ORDERED: Magnesium Sulfate/Water 2 GM in Premix Bag 1 BAG IV ONE (11:39)
[2017-08-31] MEDS: Fluconazole/Normal Saline 200 MG in Premix Bag 1 BAG IV SCH (13:17)
== END 2017-08-31 12:50 | DRG 394 ==
LOC: DL.ED 09:15 → DL.MS 10:56 → UNDOADMIN 10:56 → DL.MS 11:50
PROVIDERS: ADMIT Hospitalist; ATTEND Hospitalist
DX: D72.819 Decreased white blood cell count, unspecified (principal); K52.1 Toxic gastroenteritis and colitis; B37.89 Other sites of candidiasis; E78.00 Pure hypercholesterolemia, unspecified; J44.9 Chronic obstructive pulmonary disease, unspecified; C18.9 Malignant neoplasm of colon, unspecified; J44.1 Chronic obstructive pulmonary disease with (acute) exacerbation; D64.9 Anemia, unspecified; C78.7 Secondary malignant neoplasm of liver and intrahepatic bile duct; E87.1 Hypo-osmolality and hyponatremia; C22.8 Malignant neoplasm of liver, primary, unspecified as to type; E87.2 Acidosis; J44.0 Chronic obstructive pulmonary disease with (acute) lower respiratory infection; T45.1X5A Adverse effect of antineoplastic and immunosuppressive drugs, initial encounter; R11.2 Nausea with vomiting, unspecified; I25.10 Atherosclerotic heart disease of native coronary artery without angina pectoris; I10 Essential (primary) hypertension; R11.0 Nausea; R19.7 Diarrhea, unspecified; N39.3 Stress incontinence (female) (male); M81.0 Age-related osteoporosis without current pathological fracture; F41.9 Anxiety disorder, unspecified; F32.9 Major depressive disorder, single episode, unspecified; R53.1 Weakness; E78.5 Hyperlipidemia, unspecified; E87.6 Hypokalemia; D70.1 Agranulocytosis secondary to cancer chemotherapy; D64.81 Anemia due to antineoplastic chemotherapy; D63.8 Anemia in other chronic diseases classified elsewhere; E83.42 Hypomagnesemia; E83.39 Other disorders of phosphorus metabolism; E86.0 Dehydration; J20.9 Acute bronchitis, unspecified; L50.0 Allergic urticaria; Z88.1 Allergy status to other antibiotic agents; Z88.5 Allergy status to narcotic agent; Z88.8 Allergy status to other drugs, medicaments and biological substances; Z87.440 Personal history of urinary (tract) infections; Z96.0 Presence of urogenital implants; Z79.82 Long term (current) use of aspirin; Z85.828 Personal history of other malignant neoplasm of skin; Z87.891 Personal history of nicotine dependence; Z79.52 Long term (current) use of systemic steroids; Z79.899 Other long term (current) drug therapy
CPT/HCPCS: 36415; 80053; 85025; 87046 ×2; 96360; 99284 ×2; A9270; J7030; 80048; 81001; 82378; 82728; 83735; 84100; 84132; 85045; 87040; 87045; 87328; 87329; 87493; 87899; 94640; 94760; 97110-GP; 97116-GP; 97162-GP; 99211; C9113; J1450; J1644; J1956; J2405; J2505; J3475; J3480; J7050

== ENCOUNTER 2017-09-12 17:51 | Emergency (ER) | payer MEDICARE, OTHER ==
--- NOTE | 2017-09-12 18:04 | EDM.PDOC ---
<Selvin Paula M - Last Filed: 09/12/17 19:01> ED HPI GENERAL MEDICAL PROBLEM - General Chief Complaint: Cardiovascular Problem Stated Complaint: HEART IRREGULAR Time Seen by Provider: 09/12/17 17:55 Source of Information: Reports: Patient History Limitations: Reports: No Limitations - History of Present Illness INITIAL COMMENTS - FREE TEXT/NARRATIVE: This 72 yo female patient was brought to the ED by her family due to an irregular heartrate, lightheadedness and swelling in her lower extremities. The patient also reports that she has been a little nauseated. The patient reports that her symptoms started this afternoon. The patient's daughter talked to her primary care provider (Hannah Fulton) and was advised to come to the ED. The patient was released from [place] yesterday after being an inpatient due to nausea, vomiting and diarrhea. 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: Reports: EKG, IV/IO - Related Data Allergies Allergy/AdvReac Type Severity Reaction Status Date / Time ibuprofen Allergy Cannot Verified 09/12/17 18:05 Remember nitrofurantoin Allergy Diarrhea Verified 09/12/17 18:05 [From Macrobid] oxycodone Allergy Cannot Verified 09/12/17 18:05 Remember promethazine HCl Allergy Anxiety Verified 09/12/17 18:05 [From Phenergan] Home Meds: Home Meds FLUoxetine HCl [Fluoxetine HCl] 20 mg PO DAILY 05/04/14 [History] Simvastatin 10 mg PO BEDTIME 05/04/14 [History] Aspirin [Adult Low Dose Aspirin EC] 81 mg PO DAILY 03/23/15 [History] Zolpidem [Ambien] 5 mg PO BEDTIME PRN 03/23/15 [History] Albuterol [Ventolin HFA] 1 puff INH Q4HR PRN 08/18/17 [History] Lidocaine/Prilocaine [EMLA Crm] 5 gm TOP DAILY PRN 08/18/17 [History] Multivitamin with Minerals [Multiple Vitamin] 1 tab PO DAILY 08/18/17 [History] Albuterol/Ipratropium [DuoNeb 3.0-0.5 MG/3 ML] 3 ml NEB TIDRT #90 neb 08/21/17 [ Rx] Budesonide [Pulmicort] 0.5 mg NEB BIDRT #60 neb 08/21/17 [Rx] Loperamide [Imodium] 2 mg PO Q6H cap 08/31/17 [Rx] Diphenoxylate HCl/Atropine [Lomotil] 1 tab PO Q6H PRN 09/12/17 [History] Ondansetron [Zofran ODT] 4 mg PO Q6H PRN 09/12/17 [History] Past Medical History Cardiovascular History: Reports: CAD, High Cholesterol, Hypertension Respiratory History: Reports: Bronchitis, Recurrent, COPD, Other (See Below) Other Respiratory History: recent pneumonia Gastrointestinal History: Reports: Other (See Below) Other Gastrointestinal History: abnormal digestive system Genitourinary History: Reports: UTI, Recurrent, Other (See Below) Other Genitourinary History: stent in urethea tube and stress incontinence, renal stents [employer] History: Reports: Musculoskeletal History: Reports: Osteoporosis Psychiatric History: Reports: Anxiety, Depression Hematologic History: Reports: Anemia Immunologic History: Reports: Immunosuppression, Other (See Below) Other Immunologic History: on chemo Oncologic (Cancer) History: Reports: Colon, Liver, Other (See Below) Other Oncologic History: 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 Other Dermatologic History: dry skin - Infectious Disease History Infectious Disease History: Reports: Chicken Pox, Measles - Past Surgical History HEENT Surgical History: Reports: Cataract Surgery Other HEENT Surgeries/Procedures: left cataract removal GI Surgical History: Reports: Colonoscopy, Other (See Below) Other GI Surgeries/Procedures: stent in urethea tube Female Surgical History: Reports: Oophorectomy, Ureteral Stent, Other (See Below) Other Female Surgeries/Procedures: bladder lift Social & Family History - Family History Family Medical History: Noncontributory - Caffeine Use Caffeine Use: Reports: Coffee, Soda - Living Situation & Occupation Living situation: Reports: Occupation: Retired ED ROS GENERAL - Review of Systems Review Of Systems: ROS reveals no pertinent complaints other than HPI. ED EXAM, GENERAL - Physical Exam Exam: See Below Exam Limited By: No Limitations General Appearance: Alert, WD/WN, No Apparent Distress, Thin Eye Exam: Bilateral Eye: EOMI, Normal Inspection, PERRL Ears: Normal External Exam, Normal Canal, Hearing Grossly Normal, Normal TMs Nose: Normal Inspection, Normal Mucosa, No Blood Throat/Mouth: Normal Inspection, Normal Lips, Normal Teeth, Normal Gums, Normal Oropharynx, Normal Voice, No Airway Compromise Head: Atraumatic, Normocephalic Neck: Normal Inspection, Supple, Non-Tender, Full Range of Motion Respiratory/Chest: No Respiratory Distress, Lungs Clear, Normal Breath Sounds, No Accessory Muscle Use, Chest Non-Tender Cardiovascular: No Murmur, No Rub, Tachycardia GI/Abdominal: Normal Bowel Sounds, Soft, Non-Tender, No Organomegaly, No Distention, No Abnormal Bruit, No Mass (Female) Exam: Deferred Rectal (Female) Exam: Deferred Back Exam: Normal Inspection, Full Range of Motion, NT Extremities: Pedal Edema (bilateral) Neurological: Alert, Oriented, CN II-XII Intact, Normal Cognition, Normal Gait, Normal Reflexes, No Motor/Sensory Deficits Psychiatric: Normal Affect, Normal Mood Skin Exam: Warm, Dry, Intact, Normal Color, No Rash Lymphatic: No Adenopathy Course - Vital Signs Last Recorded V/S: Last Vital Signs Temp 99.3 F 09/12/17 21:37 Pulse 91 09/12/17 21:37 Resp 16 09/12/17 21:37 BP 146/81 H 09/12/17 21:37 Pulse Ox 96 09/12/17 21:37 - Orders/Labs/Meds Orders: Active Orders 24 hr Category Date Time Status EKG Documentation Completion [RC] URGENT Care 09/12/17 17:56 Active CULTURE BLOOD [BC] Stat Lab 09/12/17 18:58 Received CULTURE BLOOD [BC] Stat Lab 09/12/17 19:02 Received UA W/MICROSCOPIC [URIN] Stat Lab 09/12/17 19:56 Ordered Blood Culture x2 Reflex Set [OM.PC] Stat Oth 09/12/17 18:42 Ordered Labs: Laboratory Tests 09/12/17 09/12/17 09/12/17 Range/Units 18:08 18:08 18:08 WBC 18.7 H (5.0-10.0) 10^3/uL RBC 3.05 L (4.2-5.4) 10^6/uL Hgb 9.4 L (12.0-16.0) g/dL Hct 27.7 L (37.0-47.0) % MCV 90.8 D (80-100) fL MCH 30.8 (27.0-34.0) pg MCHC 33.9 (33.0-35.0) g/dL Plt Count 345 D (150-450) 10^3/uL Neut % (Auto) 71.6 (42.2-75.2) % Lymph % (Auto) 15.9 L (20.5-50.1) % [place] % (Auto) 10.4 H (2-8) % Eos % (Auto) 0.7 L (1.0-3.0) % Baso % (Auto) 1.4 H (0.0-1.0) % Sodium 132 L (135-145) mmol/L Potassium 4.3 (3.6-5.0) mmol/L Chloride 102 (101-111) mmol/L Carbon Dioxide 23.0 (21.0-31.0) mmol/L Anion Gap 11.3 BUN 15 (7-18) mg/dL Creatinine 1.2 (0.6-1.3) mg/dL Est Cr Clr Drug Dosing 30.79 mL/min Estimated GFR (MDRD) 44 BUN/Creatinine Ratio 12.50 Glucose 102 (74-105) mg/dL Lactic Acid (0.5-2.2) mmol/L Calcium 8.2 L (8.4-10.2) mg/dl Total Bilirubin 0.4 (0.2-1.0) mg/dL AST 28 (10-42) IU/L ALT 19 (10-60) IU/L Alkaline Phosphatase 89 (42-121) IU/L Troponin I 0.02 (0.00-0.02) ng/ml B-Natriuretic Peptide 331 H (0-100) pg/ml Total Protein 5.6 L (6.7-8.2) g/dl Albumin 2.8 L (3.2-5.5) g/dl Globulin 2.8 Albumin/Globulin Ratio 1.00 Urine Color (YELLOW) Urine Appearance (CLEAR) Urine pH (5.0-9.0) Ur Specific [place] (1.005-1.030) Urine Protein (NEGATIVE) Urine Glucose (UA) (NEGATIVE) Urine Ketones (NEGATIVE) Urine Occult Blood (NEGATIVE) Urine Nitrite (NEGATIVE) Urine Bilirubin (NEGATIVE) Urine Urobilinogen (0.2-1.0) mg/dL Ur Leukocyte Esterase (NEGATIVE) Urine RBC /HPF Urine WBC (0-5/HPF) /HPF Ur Epithelial Cells /HPF Amorphous Sediment (0/HPF) /HPF Urine Bacteria (0-FEW/HPF) /HPF Hyaline Casts /LPF Urine Mucus /LPF 09/12/17 09/12/17 Range/Units 18:58 19:56 WBC (5.0-10.0) 10^3/uL RBC (4.2-5.4) 10^6/uL Hgb (12.0-16.0) g/dL Hct (37.0-47.0) % MCV (80-100) fL MCH (27.0-34.0) pg MCHC (33.0-35.0) g/dL Plt Count (150-450) 10^3/uL Neut % (Auto) (42.2-75.2) % Lymph % (Auto) (20.5-50.1) % [place] % (Auto) (2-8) % Eos % (Auto) (1.0-3.0) % Baso % (Auto) (0.0-1.0) % Sodium (135-145) mmol/L Potassium (3.6-5.0) mmol/L Chloride (101-111) mmol/L Carbon Dioxide (21.0-31.0) mmol/L Anion Gap BUN (7-18) mg/dL Creatinine (0.6-1.3) mg/dL Est Cr Clr Drug Dosing mL/min Estimated GFR (MDRD) BUN/Creatinine Ratio Glucose (74-105) mg/dL Lactic Acid 0.7 (0.5-2.2) mmol/L Calcium (8.4-10.2) mg/dl Total Bilirubin (0.2-1.0) mg/dL AST (10-42) IU/L ALT (10-60) IU/L Alkaline Phosphatase (42-121) IU/L Troponin I (0.00-0.02) ng/ml B-Natriuretic Peptide (0-100) pg/ml Total Protein (6.7-8.2) g/dl Albumin (3.2-5.5) g/dl Globulin Albumin/Globulin Ratio Urine Color Yellow (YELLOW) Urine Appearance Cloudy (CLEAR) Urine pH 5.5 (5.0-9.0) Ur Specific [place] 1.015 (1.005-1.030) Urine Protein 30 H (NEGATIVE) Urine Glucose (UA) Negative (NEGATIVE) Urine Ketones Negative (NEGATIVE) Urine Occult Blood Moderate H (NEGATIVE) Urine Nitrite Negative (NEGATIVE) Urine Bilirubin Negative (NEGATIVE) Urine Urobilinogen 0.2 (0.2-1.0) mg/dL Ur Leukocyte Esterase Trace H (NEGATIVE) Urine RBC 20-30 H /HPF Urine WBC 10-20 H (0-5/HPF) /HPF Ur Epithelial Cells Moderate H /HPF Amorphous Sediment Rare (0/HPF) /HPF Urine Bacteria Rare (0-FEW/HPF) /HPF Hyaline Casts Few H /LPF Urine Mucus Few H /LPF Meds: Medications Discontinued Medications Generic Name Dose Route Start Last Admin Trade Name Freq PRN Reason Stop Dose Admin Heparin Sodium (Porcine) 500 units 09/12/17 21:21 09/12/17 21:26 Heparin Lock Flush 100 Units/Ml FLUSH 09/12/17 21:22 500 units ONETIME ONE Administration Sodium Chloride 1,000 mls @ 999 mls/hr 09/12/17 18:05 09/12/17 18:17 Normal Saline IV 09/12/17 19:05 999 mls/hr .BOLUS ONE Administration Metoprolol Tartrate 2.5 mg 09/12/17 19:29 09/12/17 19:35 Lopressor IVPUSH 09/12/17 19:30 2.5 mg ONETIME ONE Administration Metoprolol Tartrate 50 mg 09/12/17 21:15 09/12/17 21:22 Lopressor PO 09/12/17 21:16 50 mg ONETIME ONE Administration Departure - Departure Disposition: Home, Self-Care 01 Clinical Impression: Dehydration, Tachycardia with heart rate 141-160 beats per minute Instructions: Dehydration, Adult, [id number] Forms: ED Department Discharge Additional Instructions: Urgent follow up if HR greater than 120, dizziness, shortness or chest pain change positions slowly Toprol 50mg daily Follow up with Dr. Joshi tomorrow as scheduled <Iesha Carmen - Last Filed: 09/13/17 04:55> Course - Re-Assessments/Exams Free Text/Narrative Re-Assessment/Exam: Initial improviement with IVF with decrease HR 130's not sustained, Good response with Lopressor. Tolerate limited activity with no increase beyond 110' s. No complaint of pain or SOB. Has appointment in [place] to see PCP. Family reports patient's 3 BP medications discontinued by hospitalist during last hospitalization with dehydration and tachycardia. Diarrhea mostly resolved with both immodium and lomotil. Chemo on hold for one more week. Daughter planning to stay with patient tonight and take to appointment in am. Patient desires home trial tonight. Daughter and patient agreeable to return if HR increasing or becomes symptomatic with anything.. PO metoprolol resumed. Departure - Departure Time of Disposition: 21:16
[2017-09-12] MEDS ORDERED: Sodium Chloride 0.9% 1,000 ML IV ONE (18:05)
[2017-09-12] MEDS ORDERED: Metoprolol Tartrate 5 MG/5 ML SDV IVPUSH ONE (19:29)
[2017-09-12] MEDS ORDERED: Metoprolol Tartrate 50 MG Tab PO ONE (21:15)
[2017-09-12 21:39] VITALS: BP 146/81
--- NOTE | 2017-09-13 17:38 | EKG ---
09/12/2017 - CAMILLA CRAIG - A 12-lead EKG shows wide-complex tachycardia with possible left bundle branch block. Highly recommend to repeat a 12-lead EKG and if persistent, then the patient would benefit from Cardiology consultation. [facility] /[id number]
== END 2017-09-12 21:42 | disposition home or self-care (01) ==
LOC: DL.ED 17:51
DX: R00.0 Tachycardia, unspecified (principal); E86.0 Dehydration; I10 Essential (primary) hypertension; E78.00 Pure hypercholesterolemia, unspecified; F41.9 Anxiety disorder, unspecified; F32.9 Major depressive disorder, single episode, unspecified; D64.9 Anemia, unspecified; Z79.899 Other long term (current) drug therapy; Z79.82 Long term (current) use of aspirin; Z88.6 Allergy status to analgesic agent; Z88.2 Allergy status to sulfonamides
CPT/HCPCS: 36415; 71045; 80053; 81001; 83605; 83880; 84484; 85025; 87040; 93005; 93010; 96361; 96374; 96375; 99284; 99285; A9270-GY; J1642; J3490; J7030

== ENCOUNTER 2017-11-02 01:40 | Emergency (ER) | payer MEDICARE, OTHER ==
[2017-11-02] MEDS ORDERED: Etomidate 2 MG/ML 20 ML SDV IVPUSH ONE (01:41)
[2017-11-02] MEDS ORDERED: fentaNYL 100 MCG/2 ML SDV IV ONE (01:41)
[2017-11-02] MEDS ORDERED: Rocuronium 50 MG/5 ML Vial IV ONE (01:41)
[2017-11-02] MEDS ORDERED: Succinylcholine 200 MG/10 ML MDV IV ONE (01:41)
[2017-11-02] MEDS ORDERED: Midazolam 1 MG/ML 2 ML SDV IV ONE (01:41)
[2017-11-02] MEDS ORDERED: Sodium Chloride 0.9% 10 ML Syringe FLUSH PRN (01:45)
[2017-11-02 01:52] VITALS: BP 194/106
[2017-11-02] MEDS ORDERED: fentaNYL 100 MCG/2 ML SDV ONE (01:58)
[2017-11-02] MEDS ORDERED: Midazolam 1 MG/ML 2 ML SDV ONE (01:58)
[2017-11-02] MEDS ORDERED: Nitroprusside 50 MG in Dextrose 5% in Water 248 ML IV SCH ×2 (02:15)
[2017-11-02 02:19] LABS: ANION GAP 14.5; CHLORIDE,CL 105 mmol/L (101-111); SODIUM,NA 137 mmol/L (135-145)
[2017-11-02 02:30] LABS: O2 DELIVERY DEVICE NON REBR MASK
--- NOTE | 2017-11-02 02:30 | EDM.PDOC ---
ED HPI GENERAL MEDICAL PROBLEM - General Chief Complaint: Respiratory Problem Stated Complaint: AMBULANCE Time Seen by Provider: 11/02/17 01:47 Source of Information: Reports: EMS, EMS Notes Reviewed, RN, RN Notes Reviewed History Limitations: Reports: Altered Mental Status, Respiratory Distress - History of Present Illness INITIAL COMMENTS - FREE TEXT/NARRATIVE: Pt to Er per [facility] in respiratory distress. EMS states they were paged to a home where a woman called crying that she could not breathe. Upon arrival to the home , the patient was standing on the porch in respiratory distress, but answering questions. Upon arrival to the ER, patient unresponsive, breathing on her own with a non-rebreather in place. Patient daughter states the patient has a history of colon cancer with mets to the liver, currently on chemotherapy, which was running upon arrival. Onset: Today, Sudden - Related Data Allergies Allergy/AdvReac Type Severity Reaction Status Date / Time ibuprofen Allergy Cannot Verified 09/12/17 18:05 Remember nitrofurantoin Allergy Diarrhea Verified 09/12/17 18:05 [From Macrobid] oxycodone Allergy Cannot Verified 09/12/17 18:05 Remember promethazine HCl Allergy Anxiety Verified 09/12/17 18:05 [From Phenergan] Home Meds: Home Meds FLUoxetine HCl [Fluoxetine HCl] 20 mg PO DAILY 05/04/14 [History] Simvastatin 10 mg PO BEDTIME 05/04/14 [History] Aspirin [Adult Low Dose Aspirin EC] 81 mg PO DAILY 03/23/15 [History] Zolpidem [Ambien] 5 mg PO BEDTIME PRN 03/23/15 [History] Albuterol [Ventolin HFA] 1 puff INH Q4HR PRN 08/18/17 [History] Lidocaine/Prilocaine [EMLA Crm] 5 gm TOP DAILY PRN 08/18/17 [History] Multivitamin with Minerals [Multiple Vitamin] 1 tab PO DAILY 08/18/17 [History] Albuterol/Ipratropium [DuoNeb 3.0-0.5 MG/3 ML] 3 ml NEB TIDRT #90 neb 08/21/17 [ Rx] Budesonide [Pulmicort] 0.5 mg NEB BIDRT #60 neb 08/21/17 [Rx] Loperamide [Imodium] 2 mg PO Q6H cap 08/31/17 [Rx] Diphenoxylate HCl/Atropine [Lomotil] 1 tab PO Q6H PRN 09/12/17 [History] Ondansetron [Zofran ODT] 4 mg PO Q6H PRN 09/12/17 [History] Past Medical History HEENT History: Reports: None Cardiovascular History: Reports: CAD, High Cholesterol, Hypertension Respiratory History: Reports: Bronchitis, Recurrent, COPD, Other (See Below) Other Respiratory History: recent pneumonia Gastrointestinal History: Reports: Other (See Below) Other Gastrointestinal History: abnormal digestive system Genitourinary History: Reports: UTI, Recurrent, Other (See Below) Other Genitourinary History: stent in urethea tube and stress incontinence, renal stents PAPER COUNTER History: Reports: Musculoskeletal History: Reports: Osteoporosis Neurological History: Reports: None Psychiatric History: Reports: Anxiety, Depression Endocrine/Metabolic History: Reports: None Hematologic History: Reports: Anemia Immunologic History: Reports: Immunosuppression, Other (See Below) Other Immunologic History: on chemo Oncologic (Cancer) History: Reports: Colon, Liver, Other (See Below) Other Oncologic History: 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 Dermatologic History: Reports: None Other Dermatologic History: dry skin - Infectious Disease History Infectious Disease History: Reports: Chicken Pox, Measles - Past Surgical History HEENT Surgical History: Reports: Cataract Surgery Other HEENT Surgeries/Procedures: left cataract removal GI Surgical History: Reports: Colonoscopy, Other (See Below) Other GI Surgeries/Procedures: stent in urethea tube Female Surgical History: Reports: Oophorectomy, Ureteral Stent, Other (See Below) Other Female Surgeries/Procedures: bladder lift Social & Family History - Family History Family Medical History: Noncontributory - Caffeine Use Caffeine Use: Reports: Coffee, Soda - Living Situation & Occupation Living situation: Reports: Occupation: Retired ED ROS GENERAL - Review of Systems Review Of Systems: ROS reveals no pertinent complaints other than HPI. ED EXAM, GENERAL - Physical Exam Exam: See Below Exam Limited By: Altered Mental Status General Appearance: Obtunded, Severe Distress, Thin, Cachetic Eye Exam: Bilateral Eye: PERRL (3, very sluggish) Ears: Normal External Exam Nose: Normal Inspection Throat/Mouth: Normal Inspection Head: Atraumatic, Normocephalic Neck: Normal Inspection Respiratory/Chest: Respiratory Distress, Crackles, Rhonchi, Accessory Muscle Use , Retractions Cardiovascular: Normal Peripheral Pulses, No Edema, Tachycardia Peripheral Pulses: 1+: Radial (L), Radial (R), Dorsalis Pedis (L), Dorsalis Pedis (R) GI/Abdominal: Abnormal Bowel Sounds (hypoactive) (Female) Exam: Deferred Rectal (Female) Exam: Deferred Back Exam: Normal Inspection Extremities: Normal Inspection Neurological: Unresponsive Skin Exam: Dry, Cool Lymphatic: No Adenopathy EKG INTERPRETATION EKG Date: 11/02/17 Rhythm: Other (wide complex tachycardia) Rate (Beats/Min): 150 Comparison: No Change Course - Vital Signs Last Recorded V/S: Last Vital Signs Temp 97 F 11/02/17 01:48 Pulse 151 H 11/02/17 01:48 Resp 24 H 11/02/17 01:48 BP 194/106 H 11/02/17 01:48 Pulse Ox 89 L 11/02/17 01:48 - Orders/Labs/Meds Orders: Active Orders 24 hr Category Date Time Status EKG Documentation Completion [RC] STAT Care 11/02/17 01:46 Active Peripheral IV Care [RC] . DIRECTED Care 11/02/17 01:47 Active Chest 1V Frontal [CR] Routine Exams 11/02/17 02:20 Taken Chest 1V Frontal [CR] Stat Exams 11/02/17 01:46 Taken ABG [BLOOD GAS ARTERIAL] [BG] Stat Lab 11/02/17 01:48 Ordered CULTURE BLOOD [BC] Stat Lab 11/02/17 01:52 Received CULTURE BLOOD [BC] Stat Lab 11/02/17 02:23 Received UA W/MICROSCOPIC [URIN] Stat Lab 11/02/17 02:22 Ordered Blood Culture x2 Reflex Set [OM.PC] Stat Oth 11/02/17 01:46 Ordered Peripheral IV Insertion Adult [OM.PC] Stat Oth 11/02/17 01:46 Ordered Labs: Laboratory Tests 11/02/17 11/02/17 11/02/17 Range/Units 01:52 01:52 01:52 WBC 11.2 H (5.0-10.0) 10^3/uL RBC 3.06 L (4.2-5.4) 10^6/uL Hgb 9.7 L (12.0-16.0) g/dL Hct 31.9 L (37.0-47.0) % MCV 104.2 H D (80-100) fL MCH 31.7 (27.0-34.0) pg MCHC 30.4 L (33.0-35.0) g/dL Plt Count 222 D (150-450) 10^3/uL Neut % (Auto) 68.7 (42.2-75.2) % Lymph % (Auto) 21.4 (20.5-50.1) % [place] % (Auto) 7.2 (2-8) % Eos % (Auto) 2.2 (1.0-3.0) % Baso % (Auto) 0.5 (0.0-1.0) % PT 9.1 (9.0-12.0) SEC INR 0.9 (0.9-1.2) D-Dimer, Quantitative 3020 H (0-400) ng/mL Sodium 137 (135-145) mmol/L Potassium 4.5 (3.6-5.0) mmol/L Chloride 105 (101-111) mmol/L Carbon Dioxide 22.0 (21.0-31.0) mmol/L Anion Gap 14.5 BUN 30 H (7-18) mg/dL Creatinine 1.5 H (0.6-1.3) mg/dL Est Cr Clr Drug Dosing TNP Estimated GFR (MDRD) 34 BUN/Creatinine Ratio 20.00 Glucose TNP Lactic Acid (0.5-2.2) mmol/L Calcium 8.3 L (8.4-10.2) mg/dl Total Bilirubin 0.4 (0.2-1.0) mg/dL AST 67 H (10-42) IU/L ALT 40 (10-60) IU/L Alkaline Phosphatase 101 (42-121) IU/L Troponin I 0.02 (0.00-0.02) ng/ml B-Natriuretic Peptide 1480 H (0-100) pg/ml Total Protein 6.7 (6.7-8.2) g/dl Albumin 3.7 (3.2-5.5) g/dl Globulin 3.0 Albumin/Globulin Ratio 1.23 Urine Color (YELLOW) Urine Appearance (CLEAR) Urine pH (5.0-9.0) Ur Specific [place] (1.005-1.030) Urine Protein (NEGATIVE) Urine Glucose (UA) (NEGATIVE) Urine Ketones (NEGATIVE) Urine Occult Blood (NEGATIVE) Urine Nitrite (NEGATIVE) Urine Bilirubin (NEGATIVE) Urine Urobilinogen (0.2-1.0) mg/dL Ur Leukocyte Esterase (NEGATIVE) Urine RBC /HPF Urine WBC (0-5/HPF) /HPF Ur Epithelial Cells /HPF Urine Bacteria (0-FEW/HPF) /HPF Ethyl Alcohol < 5 mg/dL 11/02/17 11/02/17 Range/Units 01:52 02:22 WBC (5.0-10.0) 10^3/uL RBC (4.2-5.4) 10^6/uL Hgb (12.0-16.0) g/dL Hct (37.0-47.0) % MCV (80-100) fL MCH (27.0-34.0) pg MCHC (33.0-35.0) g/dL Plt Count (150-450) 10^3/uL Neut % (Auto) (42.2-75.2) % Lymph % (Auto) (20.5-50.1) % [place] % (Auto) (2-8) % Eos % (Auto) (1.0-3.0) % Baso % (Auto) (0.0-1.0) % PT (9.0-12.0) SEC INR (0.9-1.2) D-Dimer, Quantitative (0-400) ng/mL Sodium (135-145) mmol/L Potassium (3.6-5.0) mmol/L Chloride (101-111) mmol/L Carbon Dioxide (21.0-31.0) mmol/L Anion Gap BUN (7-18) mg/dL Creatinine (0.6-1.3) mg/dL Est Cr Clr Drug Dosing Estimated GFR (MDRD) BUN/Creatinine Ratio Glucose Lactic Acid 4.3 H (0.5-2.2) mmol/L Calcium (8.4-10.2) mg/dl Total Bilirubin (0.2-1.0) mg/dL AST (10-42) IU/L ALT (10-60) IU/L Alkaline Phosphatase (42-121) IU/L Troponin I (0.00-0.02) ng/ml B-Natriuretic Peptide (0-100) pg/ml Total Protein (6.7-8.2) g/dl Albumin (3.2-5.5) g/dl Globulin Albumin/Globulin Ratio Urine Color Red (YELLOW) Urine Appearance Cloudy (CLEAR) Urine pH 6.0 (5.0-9.0) Ur Specific [place] 1.020 (1.005-1.030) Urine Protein >=300 H (NEGATIVE) Urine Glucose (UA) Negative (NEGATIVE) Urine Ketones Trace H (NEGATIVE) Urine Occult Blood Large H (NEGATIVE) Urine Nitrite Negative (NEGATIVE) Urine Bilirubin Moderate H (NEGATIVE) Urine Urobilinogen 1.0 (0.2-1.0) mg/dL Ur Leukocyte Esterase Trace H (NEGATIVE) Urine RBC Packed H /HPF Urine WBC 5-10 H (0-5/HPF) /HPF Ur Epithelial Cells Few /HPF Urine Bacteria Few (0-FEW/HPF) /HPF Ethyl Alcohol mg/dL Meds: Medications Discontinued Medications Generic Name Dose Route Start Last Admin Trade Name Freq PRN Reason Stop Dose Admin Albuterol/Ipratropium Confirm 11/02/17 02:37 11/02/17 02:40 Duoneb 3.0-0.5 Mg/3 Ml Administered 11/02/17 02:38 3 ml Dose Administration 3 ml .ROUTE .STK-MED ONE Fentanyl Confirm 11/02/17 01:58 Sublimaze Administered 11/02/17 01:59 Dose 100 mcg .ROUTE .STK-MED ONE Sodium Nitroprusside 50 mg/ 250 mls @ 44.33 mls/hr 11/02/17 02:15 Dextrose/Water IV TITRATE ASHIA Protocol 3 MCG/KG/MIN Midazolam HCl Confirm 11/02/17 01:58 Versed 1 Mg/Ml Administered 11/02/17 01:59 Dose 2 mg .ROUTE .STK-MED ONE Sodium Chloride 10 ml 11/02/17 01:45 Saline Flush FLUSH ASDIRECTED PRN Keep Vein Open - Radiology Interpretation Free Text/Narrative:: Chest xray: IMPRESSION: Interval development of pulmonary vascular congestion with bilateral pulmonary edema. Thank you for allowing us to participate in the care of your patient. Dictated and Authenticated by: Tammy Friedman MD Post intubation chest xray: IMPRESSION: Interval placement of an endotracheal tube, which terminates approximately 5.9 cm superior to the florina. No other significant interval change. Thank you for allowing us to participate in the care of your patient. Dictated and Authenticated by: Tammy Friedman MD 11/02/2017 3:20 AM Central Time ([place] & [place]) See Rad report Departure - Departure Time of Disposition: 03:00 Disposition: DC/Tfer to Acute Hospital 02 Condition: Poor, Critical Clinical Impression: Acute respiratory failure Qualifiers: Respiratory failure complication: unspecified whether with hypoxia or hypercapnia Qualified Code(s): J96.00 - Acute respiratory failure, unspecified whether with hypoxia or hypercapnia Pulmonary edema Qualifiers: Chronicity: acute Qualified Code(s): J81.0 - Acute pulmonary edema - Discharge Information Referrals: PCP,Unobtain [Primary Care Provider] - Forms: ED Department Discharge, Interfacility Transfer EMTALA - My Orders Last 24 Hours: My Active Orders 11/02/17 01:46 EKG Documentation Completion [RC] STAT Chest 1V Frontal [CR] Stat Blood Culture x2 Reflex Set [OM.PC] Stat Peripheral IV Insertion Adult [OM.PC] Stat 11/02/17 01:47 Peripheral IV Care [RC] . DIRECTED 11/02/17 01:48 ABG [BLOOD GAS ARTERIAL] [BG] Stat 11/02/17 01:52 CULTURE BLOOD [BC] Stat 11/02/17 02:20 Chest 1V Frontal [CR] Routine 11/02/17 02:22 UA W/MICROSCOPIC [URIN] Stat 11/02/17 02:23 CULTURE BLOOD [BC] Stat - Assessment/Plan Last 24 Hours: My Active Orders 11/02/17 01:46 EKG Documentation Completion [RC] STAT Chest 1V Frontal [CR] Stat Blood Culture x2 Reflex Set [OM.PC] Stat Peripheral IV Insertion Adult [OM.PC] Stat 11/02/17 01:47 Peripheral IV Care [RC] . DIRECTED 11/02/17 01:48 ABG [BLOOD GAS ARTERIAL] [BG] Stat 11/02/17 01:52 CULTURE BLOOD [BC] Stat 11/02/17 02:20 Chest 1V Frontal [CR] Routine 11/02/17 02:22 UA W/MICROSCOPIC [URIN] Stat 11/02/17 02:23 CULTURE BLOOD [BC] Stat
--- NOTE | 2017-11-02 02:34 | EDM.PDOC ---
ED HPI GENERAL MEDICAL PROBLEM - General Chief Complaint: Respiratory Problem Stated Complaint: AMBULANCE - Related Data Allergies Allergy/AdvReac Type Severity Reaction Status Date / Time ibuprofen Allergy Cannot Verified 09/12/17 18:05 Remember nitrofurantoin Allergy Diarrhea Verified 09/12/17 18:05 [From Macrobid] oxycodone Allergy Cannot Verified 09/12/17 18:05 Remember promethazine HCl Allergy Anxiety Verified 09/12/17 18:05 [From Phenergan] Home Meds: Home Meds FLUoxetine HCl [Fluoxetine HCl] 20 mg PO DAILY 05/04/14 [History] Simvastatin 10 mg PO BEDTIME 05/04/14 [History] Aspirin [Adult Low Dose Aspirin EC] 81 mg PO DAILY 03/23/15 [History] Zolpidem [Ambien] 5 mg PO BEDTIME PRN 03/23/15 [History] Albuterol [Ventolin HFA] 1 puff INH Q4HR PRN 08/18/17 [History] Lidocaine/Prilocaine [EMLA Crm] 5 gm TOP DAILY PRN 08/18/17 [History] Multivitamin with Minerals [Multiple Vitamin] 1 tab PO DAILY 08/18/17 [History] Albuterol/Ipratropium [DuoNeb 3.0-0.5 MG/3 ML] 3 ml NEB TIDRT #90 neb 08/21/17 [ Rx] Budesonide [Pulmicort] 0.5 mg NEB BIDRT #60 neb 08/21/17 [Rx] Loperamide [Imodium] 2 mg PO Q6H cap 08/31/17 [Rx] Diphenoxylate HCl/Atropine [Lomotil] 1 tab PO Q6H PRN 09/12/17 [History] Ondansetron [Zofran ODT] 4 mg PO Q6H PRN 09/12/17 [History] Past Medical History HEENT History: Reports: None Cardiovascular History: Reports: CAD, High Cholesterol, Hypertension Respiratory History: Reports: Bronchitis, Recurrent, COPD, Other (See Below) Other Respiratory History: recent pneumonia Gastrointestinal History: Reports: Other (See Below) Other Gastrointestinal History: abnormal digestive system Genitourinary History: Reports: UTI, Recurrent, Other (See Below) Other Genitourinary History: stent in urethea tube and stress incontinence, renal stents 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 Dermatologic History: Reports: None Other Dermatologic History: dry skin - Infectious Disease History Infectious Disease History: Reports: Chicken Pox, Measles - Past Surgical History HEENT Surgical History: Reports: Cataract Surgery Other HEENT Surgeries/Procedures: left cataract removal GI Surgical History: Reports: Colonoscopy, Other (See Below) Other GI Surgeries/Procedures: stent in urethea tube Female Surgical History: Reports: Oophorectomy, Ureteral Stent, Other (See Below) Other Female Surgeries/Procedures: bladder lift Social & Family History - Family History Family Medical History: Noncontributory - Caffeine Use Caffeine Use: Reports: Coffee, Soda - Living Situation & Occupation Living situation: Reports: Occupation: Retired Course - Vital Signs Last Recorded V/S: Last Vital Signs Temp 97 F 11/02/17 01:48 Pulse 151 H 11/02/17 01:48 Resp 24 H 11/02/17 01:48 BP 194/106 H 11/02/17 01:48 Pulse Ox 89 L 11/02/17 01:48 - Orders/Labs/Meds Labs: Laboratory Tests 11/02/17 11/02/17 11/02/17 Range/Units 01:48 01:52 01:52 WBC 11.2 H (5.0-10.0) 10^3/uL RBC 3.06 L (4.2-5.4) 10^6/uL Hgb 9.7 L (12.0-16.0) g/dL Hct 31.9 L (37.0-47.0) % MCV 104.2 H D (80-100) fL MCH 31.7 (27.0-34.0) pg MCHC 30.4 L (33.0-35.0) g/dL Plt Count 222 D (150-450) 10^3/uL Neut % (Auto) 68.7 (42.2-75.2) % Lymph % (Auto) 21.4 (20.5-50.1) % [place] % (Auto) 7.2 (2-8) % Eos % (Auto) 2.2 (1.0-3.0) % Baso % (Auto) 0.5 (0.0-1.0) % PT 9.1 (9.0-12.0) SEC INR 0.9 (0.9-1.2) D-Dimer, Quantitative 3020 H (0-400) ng/mL ABG pH 7.07 L* (7.35-7.45) ABG pCO2 69 H* (35-45) mmHg ABG pO2 242 H (70-100) mmHg ABG HCO3 19.0 L (22-26) mmol/L ABG O2 Saturation 100 (95-100) % ABG Base Excess -11 L ((-2)-(+3)) mmol/L Ricki Test Performed O2 Delivery Device Non rebr mask Sodium (135-145) mmol/L Potassium (3.6-5.0) mmol/L Chloride (101-111) mmol/L Carbon Dioxide (21.0-31.0) mmol/L Anion Gap BUN (7-18) mg/dL Creatinine (0.6-1.3) mg/dL Est Cr Clr Drug Dosing Estimated GFR (MDRD) BUN/Creatinine Ratio Glucose Lactic Acid (0.5-2.2) mmol/L Calcium (8.4-10.2) mg/dl Total Bilirubin (0.2-1.0) mg/dL AST (10-42) IU/L ALT (10-60) IU/L Alkaline Phosphatase (42-121) IU/L Troponin I (0.00-0.02) ng/ml B-Natriuretic Peptide (0-100) pg/ml Total Protein (6.7-8.2) g/dl Albumin (3.2-5.5) g/dl Globulin Albumin/Globulin Ratio Urine Color (YELLOW) Urine Appearance (CLEAR) Urine pH (5.0-9.0) Ur Specific [place] (1.005-1.030) Urine Protein (NEGATIVE) Urine Glucose (UA) (NEGATIVE) Urine Ketones (NEGATIVE) Urine Occult Blood (NEGATIVE) Urine Nitrite (NEGATIVE) Urine Bilirubin (NEGATIVE) Urine Urobilinogen (0.2-1.0) mg/dL Ur Leukocyte Esterase (NEGATIVE) Urine RBC /HPF Urine WBC (0-5/HPF) /HPF Ur Epithelial Cells /HPF Urine Bacteria (0-FEW/HPF) /HPF Ethyl Alcohol mg/dL 11/02/17 11/02/17 11/02/17 Range/Units 01:52 01:52 02:22 WBC (5.0-10.0) 10^3/uL RBC (4.2-5.4) 10^6/uL Hgb (12.0-16.0) g/dL Hct (37.0-47.0) % MCV (80-100) fL MCH (27.0-34.0) pg MCHC (33.0-35.0) g/dL Plt Count (150-450) 10^3/uL Neut % (Auto) (42.2-75.2) % Lymph % (Auto) (20.5-50.1) % [place] % (Auto) (2-8) % Eos % (Auto) (1.0-3.0) % Baso % (Auto) (0.0-1.0) % PT (9.0-12.0) SEC INR (0.9-1.2) D-Dimer, Quantitative (0-400) ng/mL ABG pH (7.35-7.45) ABG pCO2 (35-45) mmHg ABG pO2 (70-100) mmHg ABG HCO3 (22-26) mmol/L ABG O2 Saturation (95-100) % ABG Base Excess ((-2)-(+3)) mmol/L Ricki Test O2 Delivery Device Sodium 137 (135-145) mmol/L Potassium 4.5 (3.6-5.0) mmol/L Chloride 105 (101-111) mmol/L Carbon Dioxide 22.0 (21.0-31.0) mmol/L Anion Gap 14.5 BUN 30 H (7-18) mg/dL Creatinine 1.5 H (0.6-1.3) mg/dL Est Cr Clr Drug Dosing TNP Estimated GFR (MDRD) 34 BUN/Creatinine Ratio 20.00 Glucose TNP Lactic Acid 4.3 H (0.5-2.2) mmol/L Calcium 8.3 L (8.4-10.2) mg/dl Total Bilirubin 0.4 (0.2-1.0) mg/dL AST 67 H (10-42) IU/L ALT 40 (10-60) IU/L Alkaline Phosphatase 101 (42-121) IU/L Troponin I 0.02 (0.00-0.02) ng/ml B-Natriuretic Peptide 1480 H (0-100) pg/ml Total Protein 6.7 (6.7-8.2) g/dl Albumin 3.7 (3.2-5.5) g/dl Globulin 3.0 Albumin/Globulin Ratio 1.23 Urine Color Red (YELLOW) Urine Appearance Cloudy (CLEAR) Urine pH 6.0 (5.0-9.0) Ur Specific [place] 1.020 (1.005-1.030) Urine Protein >=300 H (NEGATIVE) Urine Glucose (UA) Negative (NEGATIVE) Urine Ketones Trace H (NEGATIVE) Urine Occult Blood Large H (NEGATIVE) Urine Nitrite Negative (NEGATIVE) Urine Bilirubin Moderate H (NEGATIVE) Urine Urobilinogen 1.0 (0.2-1.0) mg/dL Ur Leukocyte Esterase Trace H (NEGATIVE) Urine RBC Packed H /HPF Urine WBC 5-10 H (0-5/HPF) /HPF Ur Epithelial Cells Few /HPF Urine Bacteria Few (0-FEW/HPF) /HPF Ethyl Alcohol < 5 mg/dL Meds: Medications Discontinued Medications Generic Name Dose Route Start Last Admin Trade Name Guillermo PRN Reason Stop Dose Admin Albuterol/Ipratropium Confirm 11/02/17 02:37 11/02/17 02:40 Duoneb 3.0-0.5 Mg/3 Ml Administered 11/02/17 02:38 3 ml Dose Administration 3 ml .ROUTE .STK-MED ONE Etomidate 18 mg 11/02/17 01:41 Amidate IVPUSH 11/02/17 01:42 .STK-MED ONE Fentanyl Confirm 11/02/17 01:58 Sublimaze Administered 11/02/17 01:59 Dose 100 mcg .ROUTE .STK-MED ONE Fentanyl 100 mcg 11/02/17 01:41 Sublimaze IV 11/02/17 01:42 .STK-MED ONE Sodium Nitroprusside 50 mg/ 250 mls @ 44.33 mls/hr 11/02/17 02:15 Dextrose/Water IV TITRATE ASHIA Protocol 3 MCG/KG/MIN Midazolam HCl Confirm 11/02/17 01:58 Versed 1 Mg/Ml Administered 11/02/17 01:59 Dose 2 mg .ROUTE .STK-MED ONE Midazolam HCl 2 mg 11/02/17 01:41 Versed 1 Mg/Ml IV 11/02/17 01:42 .STK-MED ONE Rocuronium [place] 25 mg 11/02/17 01:41 Zemuron IV 11/02/17 01:42 .STK-MED ONE Sodium Chloride 10 ml 11/02/17 01:45 Saline Flush FLUSH ASDIRECTED PRN Keep Vein Open Succinylcholine Chloride 100 mg 11/02/17 01:41 Quelicin IV 11/02/17 01:42 .STK-MED ONE - Re-Assessments/Exams Free Text/Narrative Re-Assessment/Exam: 11/02/17 02:28 Anesthesia. Pt w resp distress, obtunded, O2 sats 89% on 100% NRB, resp rate in 30's. ED provider requesting Pt be intubated for transfer. Pt sedated w 2 mg of versed, 100 mcg of fentanyl and 12 mg of etomidate. cricoid pressure. Glidescope used, anterior airway. 7.0 ETT visualized through cords on 2nd attempt, Pos ETCO2, BBS, pos fogging, O2 sats immediately in low 90 's. OG tube placed. Tube secured at 21 cm at lip. 25 mg Zemuron given. [facility] present for transfer and report given. Departure - Departure Disposition: DC/Tfer to [facility] 02 Clinical Impression: Acute respiratory failure Qualifiers: Respiratory failure complication: unspecified whether with hypoxia or hypercapnia Qualified Code(s): J96.00 - Acute respiratory failure, unspecified whether with hypoxia or hypercapnia Pulmonary edema Qualifiers: Chronicity: acute Qualified Code(s): J81.0 - Acute pulmonary edema - Discharge Information Referrals: PCP,Unobtain [Primary Care Provider] - Forms: ED Department Discharge, Interfacility Transfer [facility]ON[facility]A
[2017-11-02] MEDS ORDERED: Albuterol/Ipratropium 3.0-0.5 MG/3 ML Neb Soln ONE (02:37)
[2017-11-02 07:49] LABS: O2 SATURATION ARTERIAL 100 % (95-100); PCO2 ARTERIAL 69 mmHg (35-45); PO2 ARTERIAL 242 mmHg (70-100)
[2017-11-02 07:50] LABS: ALLEN TEST PERFORMED; BASE EXCESS ARTERIAL -11 mmol/L ((-2)-(+3))
== END 2017-11-02 02:57 ==
LOC: DL.ED 01:40
DX: J96.00 Acute respiratory failure, unspecified whether with hypoxia or hypercapnia (principal); J18.0 Bronchopneumonia, unspecified organism; I10 Essential (primary) hypertension; E78.00 Pure hypercholesterolemia, unspecified; F41.9 Anxiety disorder, unspecified; F32.9 Major depressive disorder, single episode, unspecified; D64.9 Anemia, unspecified; Z79.82 Long term (current) use of aspirin; Z79.899 Other long term (current) drug therapy; Z88.6 Allergy status to analgesic agent; Z88.8 Allergy status to other drugs, medicaments and biological substances
CPT/HCPCS: 31500; 36415; 36600; 43752; 51702; 71045; 80053; 81001; 82803; 83605; 83880; 84484; 85025; 85379; 85610; 87040; 93005; 93010; 99285; G0480; J0330; J2250; J3010; J3490

== ENCOUNTER 2018-08-01 17:00 | Emergency (ER) | payer MEDICARE, OTHER ==
--- NOTE | 2018-08-01 17:13 | EDM.PDOC ---
<Myla English - Last Filed: 08/01/18 17:21> ED HPI GENERAL MEDICAL PROBLEM - General Chief Complaint: Fever Stated Complaint: 101.4 TEMP Time Seen by Provider: 08/01/18 17:13 Source of Information: Reports: Patient, Family History Limitations: Reports: No Limitations - History of Present Illness INITIAL COMMENTS - FREE TEXT/NARRATIVE: Patient is a 73 year old female with significant history of colon cancer currently undergoing chemotherapy treatment presented with a fever for 1 day. Patient went to chemotherapy treatment yesterday in [place], [place] and she was noted to have a cough and cold. They deferred treatment yesterday and began Zithromax. Her daughter came to [facility] today and reports that she has had a fever of 104.5F along with a cough and fatigue. They called [facility] and was directed to come to the ER. She reports cough with green sputum production and mild fatigue. She has not had a bowel movement today and has had decreased urination. She denies symptoms of headache, dizziness, blurred vision, sore throat, shortness of breath, chest pain, abdominal pain, or lower extremity swelling. - Related Data Allergies Allergy/AdvReac Type Severity Reaction Status Date / Time ibuprofen Allergy Cannot Verified 08/01/18 17:35 Remember nitrofurantoin Allergy Diarrhea Verified 08/01/18 17:35 [From Macrobid] oxycodone Allergy Cannot Verified 08/01/18 17:35 Remember promethazine HCl Allergy Anxiety Verified 08/01/18 17:35 [From Phenergan] Home Meds: Home Meds FLUoxetine HCl [Fluoxetine HCl] 20 mg PO DAILY 05/04/14 [History] Simvastatin 10 mg PO BEDTIME 05/04/14 [History] Aspirin [Adult Low Dose Aspirin EC] 81 mg PO DAILY 03/23/15 [History] Zolpidem [Ambien] 5 mg PO BEDTIME PRN 03/23/15 [History] Albuterol [Ventolin HFA] 1 puff INH Q4HR PRN 08/18/17 [History] Lidocaine/Prilocaine [EMLA Crm] 5 gm TOP DAILY PRN 08/18/17 [History] Multivitamin with Minerals [Multiple Vitamin] 1 tab PO DAILY 08/18/17 [History] Albuterol/Ipratropium [DuoNeb 3.0-0.5 MG/3 ML] 3 ml NEB TIDRT #90 neb 08/21/17 [ Rx] Budesonide [Pulmicort] 0.5 mg NEB BIDRT #60 neb 08/21/17 [Rx] Loperamide [Imodium] 2 mg PO Q6H cap 08/31/17 [Rx] Diphenoxylate HCl/Atropine [Lomotil] 1 tab PO Q6H PRN 09/12/17 [History] Ondansetron [Zofran ODT] 4 mg PO Q6H PRN 09/12/17 [History] Past Medical History HEENT History: Reports: None Cardiovascular History: Reports: CAD, High Cholesterol, Hypertension Respiratory History: Reports: Bronchitis, Recurrent, COPD, Other (See Below) Other Respiratory History: recent pneumonia Gastrointestinal History: Reports: Other (See Below) (Colon Cancer) Other Gastrointestinal History: abnormal digestive system Genitourinary History: Reports: UTI, Recurrent, Other (See Below) Other Genitourinary History: stent in urethea tube and stress incontinence, renal stents [employer]ING [employer] History: Reports: Musculoskeletal History: Reports: Osteoporosis Neurological History: Reports: None Psychiatric History: Reports: Anxiety, Depression Endocrine/Metabolic History: Reports: None Hematologic History: Reports: Anemia Immunologic History: Reports: Immunosuppression, Other (See Below) Other Immunologic History: on chemo Oncologic (Cancer) History: Reports: Colon, Liver, Other (See Below) Other Oncologic History: 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 Dermatologic History: Reports: None Other Dermatologic History: dry skin - Infectious Disease History Infectious Disease History: Reports: Chicken Pox, Measles - Past Surgical History HEENT Surgical History: Reports: Cataract Surgery Other HEENT Surgeries/Procedures: left cataract removal GI Surgical History: Reports: Colonoscopy, Other (See Below) Other GI Surgeries/Procedures: stent in urethea tube Female Surgical History: Reports: Oophorectomy, Ureteral Stent, Other (See Below) Other Female Surgeries/Procedures: bladder lift Social & Family History - Family History Family Medical History: Noncontributory - Caffeine Use Caffeine Use: Reports: Coffee, Soda - Living Situation & Occupation Living situation: Reports: Occupation: Retired ED ROS GENERAL - Review of Systems Review Of Systems: ROS reveals no pertinent complaints other than HPI. ED EXAM, GENERAL - Physical Exam Exam: See Below Exam Limited By: No Limitations General Appearance: Alert, No Apparent Distress, Cachetic Eye Exam: Bilateral Eye: EOMI, Normal Inspection, PERRL Ears: Normal External Exam Nose: Normal Inspection, Normal Mucosa Throat/Mouth: Normal Inspection, Normal Oropharynx Head: Atraumatic, Normocephalic Neck: Normal Inspection, Supple, Non-Tender, Full Range of Motion Respiratory/Chest: Rhonchi (Left lower lobe and right upper lobe), Wheezing ( diffuse, most prominent in RUL and LLL) Cardiovascular: Normal Peripheral Pulses, Regular Rate, Rhythm Peripheral Pulses: 2+: Radial (L), Radial (R) GI/Abdominal: Normal Bowel Sounds, Soft, Non-Tender, No Abnormal Bruit, No Mass , Distended Extremities: Normal Inspection, No Pedal Edema, Normal Capillary Refill Neurological: Alert, Oriented, CN II-XII Intact Skin Exam: Warm, Dry, Intact Course - Vital Signs Last Recorded V/S: Last Vital Signs Temp 38.6 C H 08/01/18 17:16 Pulse 118 H 08/01/18 17:16 Resp 16 08/01/18 17:16 BP 173/74 H 08/01/18 17:16 Pulse Ox 90 L 08/01/18 17:16 - Orders/Labs/Meds Orders: Active Orders 24 hr Category Date Time Status Peripheral IV Care [RC] . DIRECTED Care 08/01/18 17:22 Active RT Aerosol Therapy [RC] ASDIRECTED Care 08/01/18 17:26 Active Chest 2V [CR] Stat Exams 08/01/18 17:20 Taken CULTURE BLOOD [BC] Stat Lab 08/01/18 17:42 Received CULTURE BLOOD [BC] Stat Lab 08/01/18 17:47 Received CULTURE SPUTUM + SMEAR [RM] Stat Lab 08/01/18 17:50 Received CULTURE URINE [RM] Stat Lab 08/01/18 17:54 Received Piperacillin/Tazobactam [Zosyn] 3.375 gm Med 08/01/18 18:47 Active Sodium Chloride 0.9% [Normal Saline] 100 ml IV ONETIME Sodium Chloride 0.9% [Normal Saline] 1,000 ml Med 08/01/18 17:30 Active IV ASDIRECTED Sodium Chloride 0.9% [Saline Flush] Med 08/01/18 17:22 Active 10 ml FLUSH ASDIRECTED PRN Blood Culture x2 Reflex Set [OM.PC] Stat Oth 08/01/18 17:20 Ordered Peripheral IV Insertion Adult [OM.PC] Stat Oth 08/01/18 17:20 Ordered Medication Orders Sodium Chloride (Normal Saline) 1,000 mls @ 200 mls/hr IV ASDIRECTED ASHIA Last Admin: 08/01/18 18:04 Dose: 200 mls/hr Piperacillin Sod/Tazobactam (Sod 3.375 gm/ Sodium Chloride) 100 mls @ 200 mls/ hr IV ONETIME ONE Stop: 08/01/18 19:16 Sodium Chloride (Saline Flush) 10 ml FLUSH ASDIRECTED PRN PRN Reason: Keep Vein Open Last Admin: 08/01/18 18:03 Dose: 10 ml Labs: Laboratory Tests 08/01/18 08/01/18 08/01/18 Range/Units 17:47 17:47 17:47 WBC 7.3 (5.0-10.0) 10^3/uL RBC 3.50 L (4.2-5.4) 10^6/uL Hgb 11.6 L D (12.0-16.0) g/dL Hct 35.5 L (37.0-47.0) % MCV 101.4 H (80-100) fL MCH 33.1 (27.0-34.0) pg MCHC 32.7 L (33.0-35.0) g/dL Plt Count 323 D (150-450) 10^3/uL Neut % (Auto) 66.7 (42.2-75.2) % Lymph % (Auto) 16.6 L (20.5-50.1) % [place] % (Auto) 12.4 H (2-8) % Eos % (Auto) 3.8 H (1.0-3.0) % Baso % (Auto) 0.5 (0.0-1.0) % Sodium 133 L (135-145) mmol/L Potassium 4.1 (3.6-5.0) mmol/L Chloride 96 L (101-111) mmol/L Carbon Dioxide 25.0 (21.0-31.0) mmol/L Anion Gap 16.1 BUN 20 H (7-18) mg/dL Creatinine 1.1 (0.6-1.3) mg/dL Est Cr Clr Drug Dosing 32.77 mL/min Estimated GFR (MDRD) 49 BUN/Creatinine Ratio 18.18 Glucose 98 (74-105) mg/dL Lactic Acid 0.8 (0.5-2.2) mmol/L Calcium 9.0 (8.4-10.2) mg/dl Total Bilirubin 0.5 (0.2-1.0) mg/dL AST 29 (10-42) IU/L ALT 18 (10-60) IU/L Alkaline Phosphatase 114 (42-121) IU/L Total Protein 7.3 (6.7-8.2) g/dl Albumin 3.8 (3.2-5.5) g/dl Globulin 3.5 Albumin/Globulin Ratio 1.09 Urine Color (YELLOW) Urine Appearance (CLEAR) Urine pH (5.0-9.0) Ur Specific [place] (1.005-1.030) Urine Protein (NEGATIVE) Urine Glucose (UA) (NEGATIVE) Urine Ketones (NEGATIVE) Urine Occult Blood (NEGATIVE) Urine Nitrite (NEGATIVE) Urine Bilirubin (NEGATIVE) Urine Urobilinogen (0.2-1.0) mg/dL Ur Leukocyte Esterase (NEGATIVE) Urine RBC /HPF Urine WBC (0-5/HPF) /HPF Ur Epithelial Cells /HPF Urine Bacteria (0-FEW/HPF) /HPF Urine Mucus /LPF Urine Yeast (0/HPF) /HPF 08/01/18 Range/Units 17:54 WBC (5.0-10.0) 10^3/uL RBC (4.2-5.4) 10^6/uL Hgb (12.0-16.0) g/dL Hct (37.0-47.0) % MCV (80-100) fL MCH (27.0-34.0) pg MCHC (33.0-35.0) g/dL Plt Count (150-450) 10^3/uL Neut % (Auto) (42.2-75.2) % Lymph % (Auto) (20.5-50.1) % [place] % (Auto) (2-8) % Eos % (Auto) (1.0-3.0) % Baso % (Auto) (0.0-1.0) % Sodium (135-145) mmol/L Potassium (3.6-5.0) mmol/L Chloride (101-111) mmol/L Carbon Dioxide (21.0-31.0) mmol/L Anion Gap BUN (7-18) mg/dL Creatinine (0.6-1.3) mg/dL Est Cr Clr Drug Dosing mL/min Estimated GFR (MDRD) BUN/Creatinine Ratio Glucose (74-105) mg/dL Lactic Acid (0.5-2.2) mmol/L Calcium (8.4-10.2) mg/dl Total Bilirubin (0.2-1.0) mg/dL AST (10-42) IU/L ALT (10-60) IU/L Alkaline Phosphatase (42-121) IU/L Total Protein (6.7-8.2) g/dl Albumin (3.2-5.5) g/dl Globulin Albumin/Globulin Ratio Urine Color Dark yellow (YELLOW) Urine Appearance Cloudy (CLEAR) Urine pH 6.0 (5.0-9.0) Ur Specific [place] 1.020 (1.005-1.030) Urine Protein 100 H (NEGATIVE) Urine Glucose (UA) Negative (NEGATIVE) Urine Ketones Negative (NEGATIVE) Urine Occult Blood Large H (NEGATIVE) Urine Nitrite Negative (NEGATIVE) Urine Bilirubin Negative (NEGATIVE) Urine Urobilinogen 0.2 (0.2-1.0) mg/dL Ur Leukocyte Esterase Large H (NEGATIVE) Urine RBC >100 H /HPF Urine WBC >100 H (0-5/HPF) /HPF Ur Epithelial Cells Few /HPF Urine Bacteria Moderate H (0-FEW/HPF) /HPF Urine Mucus Few H /LPF Urine Yeast Many H (0/HPF) /HPF Meds: Medications Generic Name Dose Route Start Last Admin Trade Name Freq PRN Reason Stop Dose Admin Sodium Chloride 1,000 mls @ 200 mls/hr 08/01/18 17:30 08/01/18 18:04 Normal Saline IV 200 mls/hr ASDIRECTED ASHIA Administration Piperacillin Sod/Tazobactam 100 mls @ 200 mls/hr 08/01/18 18:47 Sod 3.375 gm/ Sodium Chloride IV 08/01/18 19:16 ONETIME ONE Sodium Chloride 10 ml 08/01/18 17:22 08/01/18 18:03 Saline Flush FLUSH 10 ml ASDIRECTED PRN Administration Keep Vein Open Discontinued Medications Generic Name Dose Route Start Last Admin Trade Name Freq PRN Reason Stop Dose Admin Acetaminophen 650 mg 08/01/18 17:24 08/01/18 18:03 Tylenol PO 08/01/18 17:25 650 mg NOW ONE Administration Albuterol/Ipratropium 3 ml 08/01/18 17:24 Duoneb 3.0-0.5 Mg/3 Ml NEB 08/01/18 17:25 ONETIME ONE Levofloxacin/Dextrose 500 mg/ 100 mls @ 100 mls/hr 08/01/18 17:27 Premix IV 08/01/18 18:26 ONETIME ONE Departure - Departure Disposition: DC/Tfer to [facility] 02 Clinical Impression: Acute exacerbation of chronic obstructive pulmonary disease (COPD), Yeast cystitis, Colon cancer metastasized to liver, History of chemotherapy Pneumonia Qualifiers: Pneumonia type: due to unspecified organism Laterality: unspecified laterality Lung location: unspecified part of lung Qualified Code(s): J18.9 - Pneumonia, unspecified organism UTI (urinary tract infection) Qualifiers: Urinary tract infection type: site unspecified Hematuria presence: without hematuria Qualified Code(s): N39.0 - Urinary tract infection, site not specified - Discharge Information Forms: ED Department Discharge, Interfacility Transfer EMTALA - Problem List Review Problem List Initiated/Reviewed/Updated: Yes - My Orders Last 24 Hours: My Active Orders 08/01/18 17:20 Chest 2V [CR] Stat Blood Culture x2 Reflex Set [OM.PC] Stat Peripheral IV Insertion Adult [OM.PC] Stat 08/01/18 17:22 Peripheral IV Care [RC] . DIRECTED Sodium Chloride 0.9% [Saline Flush] 10 ml FLUSH ASDIRECTED PRN 08/01/18 17:26 RT Aerosol Therapy [RC] ASDIRECTED 08/01/18 17:30 Sodium Chloride 0.9% [Normal Saline] 1,000 ml IV ASDIRECTED 08/01/18 17:42 CULTURE BLOOD [BC] Stat 08/01/18 17:47 CULTURE BLOOD [BC] Stat 08/01/18 17:50 CULTURE SPUTUM + SMEAR [RM] Stat 08/01/18 17:54 CULTURE URINE [RM] Stat 08/01/18 18:47 Piperacillin/Tazobactam [Zosyn] 3.375 gm Sodium Chloride 0.9% [Normal Saline] 100 ml IV ONETIME - Assessment/Plan Last 24 Hours: My Active Orders 08/01/18 17:20 Chest 2V [CR] Stat Blood Culture x2 Reflex Set [OM.PC] Stat Peripheral IV Insertion Adult [OM.PC] Stat 08/01/18 17:22 Peripheral IV Care [RC] . DIRECTED Sodium Chloride 0.9% [Saline Flush] 10 ml FLUSH ASDIRECTED PRN 08/01/18 17:26 RT Aerosol Therapy [RC] ASDIRECTED 08/01/18 17:30 Sodium Chloride 0.9% [Normal Saline] 1,000 ml IV ASDIRECTED 08/01/18 17:42 CULTURE BLOOD [BC] Stat 08/01/18 17:47 CULTURE BLOOD [BC] Stat 08/01/18 17:50 CULTURE SPUTUM + SMEAR [RM] Stat 08/01/18 17:54 CULTURE URINE [RM] Stat 08/01/18 18:47 Piperacillin/Tazobactam [Zosyn] 3.375 gm Sodium Chloride 0.9% [Normal Saline] 100 ml IV ONETIME Assessment:: Patient is a 73 year old female with significant history of Colon Cancer undergoing chemotherapy presenting with a fever and cough for 1 day. Plan: 1. Chest X-ray 2. Duoneb 3. IV Fluid 4. Tylenol 5. CBC, CMP, UA, Lactic Acid, Blood cultures 6. Levaquin will be initiated after blood cultures are obtained 7. Discussed with daughter that patient will likely need to be transported to [place] to be closer to her oncologist and condition. <John Ferguson - Last Filed: 08/01/18 18:59> Course - Orders/Labs/Meds Labs: Laboratory Tests 08/01/18 08/01/18 08/01/18 Range/Units 17:47 17:47 17:47 WBC 7.3 (5.0-10.0) 10^3/uL RBC 3.50 L (4.2-5.4) 10^6/uL Hgb 11.6 L D (12.0-16.0) g/dL Hct 35.5 L (37.0-47.0) % MCV 101.4 H (80-100) fL MCH 33.1 (27.0-34.0) pg MCHC 32.7 L (33.0-35.0) g/dL Plt Count 323 D (150-450) 10^3/uL Neut % (Auto) 66.7 (42.2-75.2) % Lymph % (Auto) 16.6 L (20.5-50.1) % [place] % (Auto) 12.4 H (2-8) % Eos % (Auto) 3.8 H (1.0-3.0) % Baso % (Auto) 0.5 (0.0-1.0) % Sodium 133 L (135-145) mmol/L Potassium 4.1 (3.6-5.0) mmol/L Chloride 96 L (101-111) mmol/L Carbon Dioxide 25.0 (21.0-31.0) mmol/L Anion Gap 16.1 BUN 20 H (7-18) mg/dL Creatinine 1.1 (0.6-1.3) mg/dL Est Cr Clr Drug Dosing 32.77 mL/min Estimated GFR (MDRD) 49 BUN/Creatinine Ratio 18.18 Glucose 98 (74-105) mg/dL Lactic Acid 0.8 (0.5-2.2) mmol/L Calcium 9.0 (8.4-10.2) mg/dl Total Bilirubin 0.5 (0.2-1.0) mg/dL AST 29 (10-42) IU/L ALT 18 (10-60) IU/L Alkaline Phosphatase 114 (42-121) IU/L Total Protein 7.3 (6.7-8.2) g/dl Albumin 3.8 (3.2-5.5) g/dl Globulin 3.5 Albumin/Globulin Ratio 1.09 Urine Color (YELLOW) Urine Appearance (CLEAR) Urine pH (5.0-9.0) Ur Specific [place] (1.005-1.030) Urine Protein (NEGATIVE) Urine Glucose (UA) (NEGATIVE) Urine Ketones (NEGATIVE) Urine Occult Blood (NEGATIVE) Urine Nitrite (NEGATIVE) Urine Bilirubin (NEGATIVE) Urine Urobilinogen (0.2-1.0) mg/dL Ur Leukocyte Esterase (NEGATIVE) Urine RBC /HPF Urine WBC (0-5/HPF) /HPF Ur Epithelial Cells /HPF Urine Bacteria (0-FEW/HPF) /HPF Urine Mucus /LPF Urine Yeast (0/HPF) /HPF 08/01/18 Range/Units 17:54 WBC (5.0-10.0) 10^3/uL RBC (4.2-5.4) 10^6/uL Hgb (12.0-16.0) g/dL Hct (37.0-47.0) % MCV (80-100) fL MCH (27.0-34.0) pg MCHC (33.0-35.0) g/dL Plt Count (150-450) 10^3/uL Neut % (Auto) (42.2-75.2) % Lymph % (Auto) (20.5-50.1) % [place] % (Auto) (2-8) % Eos % (Auto) (1.0-3.0) % Baso % (Auto) (0.0-1.0) % Sodium (135-145) mmol/L Potassium (3.6-5.0) mmol/L Chloride (101-111) mmol/L Carbon Dioxide (21.0-31.0) mmol/L Anion Gap BUN (7-18) mg/dL Creatinine (0.6-1.3) mg/dL Est Cr Clr Drug Dosing mL/min Estimated GFR (MDRD) BUN/Creatinine Ratio Glucose (74-105) mg/dL Lactic Acid (0.5-2.2) mmol/L Calcium (8.4-10.2) mg/dl Total Bilirubin (0.2-1.0) mg/dL AST (10-42) IU/L ALT (10-60) IU/L Alkaline Phosphatase (42-121) IU/L Total Protein (6.7-8.2) g/dl Albumin (3.2-5.5) g/dl Globulin Albumin/Globulin Ratio Urine Color Dark yellow (YELLOW) Urine Appearance Cloudy (CLEAR) Urine pH 6.0 (5.0-9.0) Ur Specific [place] 1.020 (1.005-1.030) Urine Protein 100 H (NEGATIVE) Urine Glucose (UA) Negative (NEGATIVE) Urine Ketones Negative (NEGATIVE) Urine Occult Blood Large H (NEGATIVE) Urine Nitrite Negative (NEGATIVE) Urine Bilirubin Negative (NEGATIVE) Urine Urobilinogen 0.2 (0.2-1.0) mg/dL Ur Leukocyte Esterase Large H (NEGATIVE) Urine RBC >100 H /HPF Urine WBC >100 H (0-5/HPF) /HPF Ur Epithelial Cells Few /HPF Urine Bacteria Moderate H (0-FEW/HPF) /HPF Urine Mucus Few H /LPF Urine Yeast Many H (0/HPF) /HPF - Radiology Interpretation Free Text/Narrative:: CXR: COPD w/large lung volumes, no focal infiltrates per Rad. report. Departure - Departure Time of Disposition: 18:55 Condition: Serious - Discharge Information *PRESCRIPTION DRUG MONITORING PROGRAM REVIEWED*: No *COPY OF PRESCRIPTION DRUG MONITORING REPORT IN PATIENT KAYLA: No
[2018-08-01 17:34] VITALS: BP 173/74
[2018-08-01] MEDS: Acetaminophen 325 MG Tab PO ONE (18:03)
[2018-08-01] MEDS: Sodium Chloride 0.9% 10 ML Syringe FLUSH PRN (18:03)
[2018-08-01] MEDS: Sodium Chloride 0.9% 1,000 ML IV SCH (18:04)
[2018-08-01 18:18] LABS: ANION GAP 16.1
[2018-08-01] MEDS: Piperacillin/Tazobactam 3.375 GM in Sodium Chloride 0.9% 100 ML IV ONE (18:54)
[2018-08-01] MEDS: Albuterol/Ipratropium 3.0-0.5 MG/3 ML Neb Soln NEB ONE (19:01)
[2018-08-01] MEDS: Levofloxacin/Dextrose 5%-Water 500 MG in Premix Bag 1 BAG IV ONE (19:32)
== END 2018-08-01 19:32 ==
LOC: DL.ED 17:00
DX: J18.9 Pneumonia, unspecified organism (principal); N39.0 Urinary tract infection, site not specified; C18.9 Malignant neoplasm of colon, unspecified; C78.7 Secondary malignant neoplasm of liver and intrahepatic bile duct; J44.1 Chronic obstructive pulmonary disease with (acute) exacerbation; B37.41 Candidal cystitis and urethritis; I10 Essential (primary) hypertension; Z88.8 Allergy status to other drugs, medicaments and biological substances; Z79.899 Other long term (current) drug therapy
CPT/HCPCS: 36415; 71046; 80053; 81001; 83605; 85025; 87040; 87070; 87086; 87205; 87804; 94762; 96361; 96365; 99285; A9270; J2543; J7030; J7050

== ENCOUNTER 2018-08-28 16:50 | Inpatient (IN) | payer MEDICARE, OTHER ==
--- NOTE | 2018-08-28 17:09 | EDM.PDOC ---
"<Lourdes Owen - Last Filed: 08/28/18 17:55> ED HPI GENERAL MEDICAL PROBLEM - General Chief Complaint: General Stated Complaint: SICK,FEVER Time Seen by Provider: 08/28/18 17:09 Source of Information: Reports: Patient, Family, RN, RN Notes Reviewed History Limitations: Reports: No Limitations - History of Present Illness INITIAL COMMENTS - FREE TEXT/NARRATIVE: Pt to ER with c/o cough and fever. Patient states on Monday she began with a dry throat. She was seen in the clinic yesterday and prescribed Levaquin. She has taken 2 doses. Today has had a fever and increased productive cough. Patient states hx COPD, colon cancer. Denies N/V/D. Onset: Gradual Duration: Getting Worse - Related Data Allergies Allergy/AdvReac Type Severity Reaction Status Date / Time ibuprofen Allergy Cannot Verified 08/28/18 21:08 Remember nitrofurantoin Allergy Diarrhea Verified 08/28/18 21:08 [From Macrobid] oxycodone Allergy Cannot Verified 08/28/18 21:08 Remember promethazine HCl Allergy Anxiety Verified 08/28/18 21:08 [From Phenergan] Home Meds: Home Meds FLUoxetine HCl [Fluoxetine HCl] 20 mg PO DAILY 05/04/14 [History] Simvastatin 10 mg PO BEDTIME 05/04/14 [History] Aspirin [Adult Low Dose Aspirin EC] 81 mg PO DAILY 03/23/15 [History] Zolpidem [Ambien] 5 mg PO BEDTIME PRN 03/23/15 [History] Albuterol [Ventolin HFA] 1 puff INH Q4HR PRN 08/18/17 [History] Lidocaine/Prilocaine [EMLA Crm] 5 gm TOP DAILY PRN 08/18/17 [History] Multivitamin with Minerals [Multiple Vitamin] 1 tab PO DAILY 08/18/17 [History] Albuterol/Ipratropium [DuoNeb 3.0-0.5 MG/3 ML] 3 ml NEB TIDRT #90 neb 08/21/17 [ Rx] Budesonide [Pulmicort] 0.5 mg NEB BIDRT #60 neb 08/21/17 [Rx] Loperamide [Imodium] 2 mg PO Q6H cap 08/31/17 [Rx] Diphenoxylate HCl/Atropine [Lomotil] 1 tab PO Q6H PRN 09/12/17 [History] Ondansetron [Zofran ODT] 4 mg PO Q6H PRN 09/12/17 [History] Amitriptyline [Elavil] 10 mg PO BID 08/28/18 [History] Levofloxacin 500 mg PO BID 08/28/18 [History] Metoprolol Tartrate 75 mg PO BID 08/28/18 [History] amLODIPine [Norvasc] 5 mg PO DAILY 08/28/18 [History] Past Medical History HEENT History: Reports: None Cardiovascular History: Reports: CAD, High Cholesterol, Hypertension Respiratory History: Reports: Bronchitis, Recurrent, COPD, Other (See Below) Other Respiratory History: recent pneumonia Gastrointestinal History: Reports: Other (See Below) Other Gastrointestinal History: abnormal digestive system Genitourinary History: Reports: UTI, Recurrent, Other (See Below) Other Genitourinary History: stent in urethea tube and stress incontinence, renal stents [employer]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 Dermatologic History: Reports: None Other Dermatologic History: dry skin - Infectious Disease History Infectious Disease History: Reports: Chicken Pox, Measles - Past Surgical History Head Surgeries/Procedures: Reports: None HEENT Surgical History: Reports: Cataract Surgery Other HEENT Surgeries/Procedures: left cataract removal GI Surgical History: Reports: Colonoscopy, Other (See Below) Other GI Surgeries/Procedures: stent in urethea tube Female Surgical History: Reports: Oophorectomy, Ureteral Stent, Other (See Below) Other Female Surgeries/Procedures: bladder lift Social & Family History - Family History Family Medical History: Noncontributory - Caffeine Use Caffeine Use: Reports: Coffee, Soda - Living Situation & Occupation Living situation: Reports: Occupation: Retired ED ROS GENERAL - Review of Systems Review Of Systems: ROS reveals no pertinent complaints other than HPI. ED EXAM, GENERAL - Physical Exam Exam: See Below Exam Limited By: No Limitations General Appearance: Alert, WD/WN, Mild Distress, Thin Eye Exam: Bilateral Eye: EOMI, Normal Inspection Ears: Normal External Exam, Hearing Grossly Normal Nose: Normal Inspection Throat/Mouth: Normal Inspection, Normal Voice, No Airway Compromise Head: Atraumatic, Normocephalic Neck: Normal Inspection, Supple, Non-Tender Respiratory/Chest: Decreased Breath Sounds, Crackles, Rales, Wheezing Cardiovascular: Normal Peripheral Pulses, No Edema, No Gallop, No JVD, No Murmur , No Rub, Tachycardia Peripheral Pulses: 2+: Radial (L), Radial (R) GI/Abdominal: Normal Bowel Sounds, Soft, Non-Tender (Female) Exam: Deferred Rectal (Female) Exam: Deferred Back Exam: Normal Inspection, Full Range of Motion Extremities: Normal Inspection, Normal Range of Motion, Non-Tender, No Pedal Edema, Normal Capillary Refill Neurological: Alert, Oriented, Normal Cognition, Normal Gait, Normal Reflexes, No Motor/Sensory Deficits Psychiatric: Normal Affect, Normal Mood Skin Exam: Warm, Dry, Intact, No Rash, Pallor Lymphatic: No Adenopathy Course - Vital Signs Last Recorded V/S: Last Vital Signs Temp 100.5 F 08/28/18 22:00 Pulse 102 H 08/28/18 22:00 Resp 20 08/28/18 22:00 BP 145/62 H 08/28/18 22:00 Pulse Ox 83 L 08/28/18 22:00 - Orders/Labs/Meds Orders: Active Orders 24 hr Category Date Time Status EKG Documentation Completion [RC] STAT Care 08/28/18 17:15 Active Peripheral IV Care [RC] . DIRECTED Care 08/28/18 17:16 Active RT Aerosol Therapy [RC] ASDIRECTED Care 08/28/18 17:23 Active CULTURE BLOOD [BC] Stat Lab 08/28/18 17:11 Received CULTURE BLOOD [BC] Stat Lab 08/28/18 17:35 Received CULTURE URINE [RM] Stat Lab 08/28/18 18:10 Received Sodium Chloride 0.9% [Saline Flush] Med 08/28/18 17:15 Active 10 ml FLUSH ASDIRECTED PRN Blood Culture x2 Reflex Set [OM.PC] Stat Oth 08/28/18 17:15 Ordered Peripheral IV Insertion Adult [OM.PC] Stat Oth 08/28/18 17:15 Ordered Medication Orders Acetaminophen (Tylenol) 650 mg PO Q4H PRN PRN Reason: Fever Albuterol/Ipratropium (Duoneb 3.0-0.5 Mg/3 Ml) 3 ml NEB Q4HRRT PRN PRN Reason: Wheezing Amitriptyline HCl (Elavil) 10 mg PO BID [facility] Amlodipine Besylate (Norvasc) 5 mg PO DAILY [facility] Aspirin (Halfprin) 81 mg PO DAILY [facility] Budesonide (Pulmicort) 0.5 mg NEB BIDRT [facility] Diphenoxylate HCl/Atropine (Lomotil 0.025-2.5 Mg) 1 tab PO Q6H PRN PRN Reason: Diarrhea Enoxaparin Sodium (Lovenox) 40 mg SUBCUT DAILY [facility] Fluoxetine HCl (Prozac) 20 mg PO DAILY [facility] Ceftriaxone Sodium 1 gm/ (Sodium Chloride) 50 mls @ 50 mls/hr IV Q24H [facility] Last Admin: 08/28/18 22:32 Dose: 50 mls/hr Sodium Chloride (Normal Saline) 1,000 mls @ 125 mls/hr IV ASDIRECTED [facility] Last Admin: 08/29/18 03:19 Dose: 125 mls/hr Metoprolol Tartrate (Lopressor) 75 mg PO BID [facility] Multivitamins/Minerals (Vitamins And Minerals) 1 tab PO DAILY [facility] Ondansetron HCl (Zofran Odt) 4 mg PO Q6H PRN PRN Reason: Nausea Simvastatin (Zocor) 10 mg PO BEDTIME [facility] Sodium Chloride (Saline Flush) 10 ml FLUSH ASDIRECTED PRN PRN Reason: Keep Vein Open Last Admin: 08/28/18 17:17 Dose: 10 ml Sodium Chloride (Saline Flush) 10 ml FLUSH ASDIRECTED PRN PRN Reason: Keep Vein Open Sodium Chloride (Saline Flush) 10 ml FLUSH ASDIRECTED PRN PRN Reason: Keep Vein Open Zolpidem Tartrate (Ambien) 5 mg PO BEDTIME PRN PRN Reason: Sleep Last Admin: 08/28/18 22:32 Dose: 5 mg Labs: Laboratory Tests 08/28/18 08/28/18 08/28/18 Range/Units 17:11 17:11 17:11 WBC 4.6 L (5.0-10.0) 10^3/uL RBC 3.01 L (4.2-5.4) 10^6/uL Hgb 9.9 L D (12.0-16.0) g/dL Hct 30.4 L (37.0-47.0) % MCV 101.0 H (80-100) fL MCH 32.9 (27.0-34.0) pg MCHC 32.6 L (33.0-35.0) g/dL Plt Count 253 (150-450) 10^3/uL Neut % (Auto) 70.9 (42.2-75.2) % Lymph % (Auto) 16.3 L (20.5-50.1) % [place] % (Auto) 9.8 H (2-8) % Eos % (Auto) 2.6 (1.0-3.0) % Baso % (Auto) 0.4 (0.0-1.0) % PT 10.2 (9.0-12.0) SEC INR 1.0 (0.9-1.2) D-Dimer, Quantitative (0-400) ng/mL Sodium 132 L (135-145) mmol/L Potassium 4.5 (3.6-5.0) mmol/L Chloride 94 L (101-111) mmol/L Carbon Dioxide 25.0 (21.0-31.0) mmol/L Anion Gap 17.5 BUN 18 (7-18) mg/dL Creatinine 1.3 (0.6-1.3) mg/dL Est Cr Clr Drug Dosing 27.98 mL/min Estimated GFR (MDRD) 40 BUN/Creatinine Ratio 13.84 Glucose 110 H (74-105) mg/dL Lactic Acid (0.5-2.2) mmol/L Calcium 8.7 (8.4-10.2) mg/dl Total Bilirubin 0.4 (0.2-1.0) mg/dL AST 27 (10-42) IU/L ALT 15 (10-60) IU/L Alkaline Phosphatase 84 (42-121) IU/L Troponin I 0.02 (0.00-0.02) ng/ml B-Natriuretic Peptide (0-100) pg/ml Total Protein 6.6 L (6.7-8.2) g/dl Albumin 3.3 (3.2-5.5) g/dl Globulin 3.3 Albumin/Globulin Ratio 1.00 Urine Color (YELLOW) Urine Appearance (CLEAR) Urine pH (5.0-9.0) Ur Specific [place] (1.005-1.030) Urine Protein (NEGATIVE) Urine Glucose (UA) (NEGATIVE) Urine Ketones (NEGATIVE) Urine Occult Blood (NEGATIVE) Urine Nitrite (NEGATIVE) Urine Bilirubin (NEGATIVE) Urine Urobilinogen (0.2-1.0) mg/dL Ur Leukocyte Esterase (NEGATIVE) Urine RBC /HPF Urine WBC (0-5/HPF) /HPF Ur Epithelial Cells /HPF Amorphous Sediment (0/HPF) /HPF Urine Bacteria (0-FEW/HPF) /HPF Urine Mucus /LPF 08/28/18 08/28/18 08/28/18 Range/Units 17:11 17:11 17:11 WBC (5.0-10.0) 10^3/uL RBC (4.2-5.4) 10^6/uL Hgb (12.0-16.0) g/dL Hct (37.0-47.0) % MCV (80-100) fL MCH (27.0-34.0) pg MCHC (33.0-35.0) g/dL Plt Count (150-450) 10^3/uL Neut % (Auto) (42.2-75.2) % Lymph % (Auto) (20.5-50.1) % [place] % (Auto) (2-8) % Eos % (Auto) (1.0-3.0) % Baso % (Auto) (0.0-1.0) % PT (9.0-12.0) SEC INR (0.9-1.2) D-Dimer, Quantitative 1130 H (0-400) ng/mL Sodium (135-145) mmol/L Potassium (3.6-5.0) mmol/L Chloride (101-111) mmol/L Carbon Dioxide (21.0-31.0) mmol/L Anion Gap BUN (7-18) mg/dL Creatinine (0.6-1.3) mg/dL Est Cr Clr Drug Dosing mL/min Estimated GFR (MDRD) BUN/Creatinine Ratio Glucose (74-105) mg/dL Lactic Acid 1.1 (0.5-2.2) mmol/L Calcium (8.4-10.2) mg/dl Total Bilirubin (0.2-1.0) mg/dL AST (10-42) IU/L ALT (10-60) IU/L Alkaline Phosphatase (42-121) IU/L Troponin I (0.00-0.02) ng/ml B-Natriuretic Peptide 326 H (0-100) pg/ml Total Protein (6.7-8.2) g/dl Albumin (3.2-5.5) g/dl Globulin Albumin/Globulin Ratio Urine Color (YELLOW) Urine Appearance (CLEAR) Urine pH (5.0-9.0) Ur Specific [place] (1.005-1.030) Urine Protein (NEGATIVE) Urine Glucose (UA) (NEGATIVE) Urine Ketones (NEGATIVE) Urine Occult Blood (NEGATIVE) Urine Nitrite (NEGATIVE) Urine Bilirubin (NEGATIVE) Urine Urobilinogen (0.2-1.0) mg/dL Ur Leukocyte Esterase (NEGATIVE) Urine RBC /HPF Urine WBC (0-5/HPF) /HPF Ur Epithelial Cells /HPF Amorphous Sediment (0/HPF) /HPF Urine Bacteria (0-FEW/HPF) /HPF Urine Mucus /LPF 08/28/18 Range/Units 18:10 WBC (5.0-10.0) 10^3/uL RBC (4.2-5.4) 10^6/uL Hgb (12.0-16.0) g/dL Hct (37.0-47.0) % MCV (80-100) fL MCH (27.0-34.0) pg MCHC (33.0-35.0) g/dL Plt Count (150-450) 10^3/uL Neut % (Auto) (42.2-75.2) % Lymph % (Auto) (20.5-50.1) % [place] % (Auto) (2-8) % Eos % (Auto) (1.0-3.0) % Baso % (Auto) (0.0-1.0) % PT (9.0-12.0) SEC INR (0.9-1.2) D-Dimer, Quantitative (0-400) ng/mL Sodium (135-145) mmol/L Potassium (3.6-5.0) mmol/L Chloride (101-111) mmol/L Carbon Dioxide (21.0-31.0) mmol/L Anion Gap BUN (7-18) mg/dL Creatinine (0.6-1.3) mg/dL Est Cr Clr Drug Dosing mL/min Estimated GFR (MDRD) BUN/Creatinine Ratio Glucose (74-105) mg/dL Lactic Acid (0.5-2.2) mmol/L Calcium (8.4-10.2) mg/dl Total Bilirubin (0.2-1.0) mg/dL AST (10-42) IU/L ALT (10-60) IU/L Alkaline Phosphatase (42-121) IU/L Troponin I (0.00-0.02) ng/ml B-Natriuretic Peptide (0-100) pg/ml Total Protein (6.7-8.2) g/dl Albumin (3.2-5.5) g/dl Globulin Albumin/Globulin Ratio Urine Color Yellow (YELLOW) Urine Appearance Turbid (CLEAR) Urine pH 7.5 (5.0-9.0) Ur Specific [place] 1.020 (1.005-1.030) Urine Protein 100 H (NEGATIVE) Urine Glucose (UA) Negative (NEGATIVE) Urine Ketones Negative (NEGATIVE) Urine Occult Blood Moderate H (NEGATIVE) Urine Nitrite Positive H (NEGATIVE) Urine Bilirubin Negative (NEGATIVE) Urine Urobilinogen 0.2 (0.2-1.0) mg/dL Ur Leukocyte Esterase Large H (NEGATIVE) Urine RBC 50-75 H /HPF Urine WBC Packed H (0-5/HPF) /HPF Ur Epithelial Cells Rare /HPF Amorphous Sediment Few (0/HPF) /HPF Urine Bacteria Moderate H (0-FEW/HPF) /HPF Urine Mucus Not seen /LPF Meds: Medications Generic Name Dose Route Start Last Admin Trade Name Freq PRN Reason Stop Dose Admin Acetaminophen 650 mg 08/28/18 21:54 Tylenol PO Q4H PRN Fever Albuterol/Ipratropium 3 ml 08/28/18 21:54 Duoneb 3.0-0.5 Mg/3 Ml NEB Q4HRRT PRN Wheezing Amitriptyline HCl 10 mg 08/29/18 09:00 Elavil PO BID [facility] Amlodipine Besylate 5 mg 08/29/18 09:00 Norvasc PO DAILY [facility] Aspirin 81 mg 08/29/18 09:00 Halfprin PO DAILY [facility] Budesonide 0.5 mg 08/29/18 07:00 Pulmicort NEB BIDRT [facility] Diphenoxylate HCl/Atropine 1 tab 08/28/18 21:57 Lomotil 0.025-2.5 Mg PO Q6H PRN Diarrhea Enoxaparin Sodium 40 mg 08/28/18 22:00 Lovenox SUBCUT DAILY [facility] Fluoxetine HCl 20 mg 08/29/18 09:00 Prozac PO DAILY [facility] Ceftriaxone Sodium 1 gm/ 50 mls @ 50 mls/hr 08/28/18 22:00 08/28/18 22:32 Sodium Chloride IV 50 mls/hr Q24H [facility] Administration Sodium Chloride 1,000 mls @ 125 mls/hr 08/28/18 22:00 08/29/18 03:19 Normal Saline IV 125 mls/hr ASDIRECTED [facility] Administration Metoprolol Tartrate 75 mg 08/29/18 09:00 Lopressor PO BID [facility] Multivitamins/Minerals 1 tab 08/29/18 09:00 Vitamins And Minerals PO DAILY [facility] Ondansetron HCl 4 mg 08/28/18 21:57 Zofran Odt PO Q6H PRN Nausea Simvastatin 10 mg 08/29/18 21:00 Zocor PO BEDTIME [facility] Sodium Chloride 10 ml 08/28/18 17:15 08/28/18 17:17 Saline Flush FLUSH 10 ml ASDIRECTED PRN Administration Keep Vein Open Sodium Chloride 10 ml 08/28/18 21:51 Saline Flush FLUSH ASDIRECTED PRN Keep Vein Open Sodium Chloride 10 ml 08/28/18 21:51 Saline Flush FLUSH ASDIRECTED PRN Keep Vein Open Zolpidem Tartrate 5 mg 08/28/18 21:57 08/28/18 22:32 Ambien PO 5 mg BEDTIME PRN Administration Sleep Discontinued Medications Generic Name Dose Route Start Last Admin Trade Name Freq PRN Reason Stop Dose Admin Albuterol/Ipratropium 3 ml 08/28/18 17:23 08/28/18 17:34 Duoneb 3.0-0.5 Mg/3 Ml NEB 08/28/18 17:24 3 ml ONETIME ONE Administration Diltiazem HCl 20 mg 08/28/18 18:04 08/28/18 18:09 Diltiazem IVPUSH 08/28/18 18:05 20 mg ONETIME ONE Administration Sodium Chloride 1,000 mls @ 200 mls/hr 08/28/18 18:53 08/28/18 19:01 Normal Saline IV 08/28/18 23:52 200 mls/hr .BOLUS ONE Administration Iopamidol 100 ml 08/28/18 19:09 08/28/18 19:23 Isovue-370 (76%) IVPUSH 08/28/18 19:10 70 ml ONETIME ONE Administration - Radiology Interpretation Free Text/Narrative:: Chest xray: FINDINGS: Lungs: Clear lungs. Pleural space: No pneumothorax. No sizable pleural effusion. Heart/Mediastinum: Cardiomegaly. Vasculature: Right internal jugular vein approach Mediport catheter with tip in the SVC. Bones/joints: Unremarkable. IMPRESSION: Clear lungs. Thank you for allowing us to participate in the care of your patient. Dictated and Authenticated by: Jos Barroso MD 08/28/2018 5:53 PM Central Time ([place] & [place]) See rad report Departure - Departure Disposition: Refer to Observation Clinical Impression: Colon cancer metastasized to liver, History of chemotherapy, UTI, Urinary tract infectious disease - Discharge Information <Rachel Foote - Last Filed: 08/29/18 03:22> Course - Radiology Interpretation Free Text/Narrative:: [facility] Final Radiology Report Call: [phone] assistance Online chat: [email or web address] Name: CAMILLA CRAIG Age: 73Years F Date: 08/28/2018 SSN: -- : [id number] Study: CT CHEST W Requesting Physician: RACHEL FOOTE Images: [id number] Addl Studies: Provided Clinical History: Contrast: With Contrast Medium: iso 370 Contrast Amount: 70 mL Contrast Method: RAC Page 1 of 2 EXAM: CT Chest With Contrast EXAM DATE/TIME: 08/28/2018 7:19 PM CLINICAL HISTORY: 73 years old, female; Pain and signs and symptoms; Shortness of breath; Patient HX: Chest pain SOB R/O pe TECHNIQUE: Imaging protocol: Axial computed tomography images of the chest with intravenous contrast. Coronal and sagittal reformatted images were created and reviewed. Radiation optimization: All CT scans at this facility use at least one of these dose optimization techniques: automated exposure control; mA and/or kV adjustment per patient size (includes targeted exams where dose is matched to clinical indication); or iterative reconstruction. Contrast material: ISO 370; Contrast volume: 70 ml; Contrast route: RAC; COMPARISON: CT Chest w Cont 06/17/2017 8:13 PM FINDINGS: Tubes, catheters and devices: Right-sided Port-A-Cath is in place with its tip in the superior vena cava. Lungs: The lungs are hyperinflated, consistent with underlying small airways disease. Mild bronchiectatic changes bilaterally. Pleural space: Apical pleural thickening noted bilaterally. Heart: The heart demonstrates mild diffuse enlargement. Mediastinum: A small hiatal hernia is present. Pulmonary arteries: No evidence of pulmonary embolism. CAMILLA CRAIG | Final Radiology Report CONFIDENTIALITY STATEMENT This report is intended only for use by the referring physician, and only in accordance with law. If you received this in error, call [phone]. Page 2 of 2 Aorta: No evidence of aortic dissection. The vasculature demonstrates diffuse mild atherosclerotic calcification. Lymph nodes: Unremarkable. No enlarged lymph nodes. Bones/joints: The thoracic spine demonstrates mild degenerative changes at multiple levels. Scattered sclerotic densities throughout the thoracic vertebral bodies. Findings are similar to the prior study. Soft tissues: Unremarkable. Liver: Multiple low density masses again noted throughout the liver consistent with metastatic changes. Kidneys and ureters: Moderate left hydronephrosis. IMPRESSION: 1. Multiple low density masses again noted throughout the liver consistent with metastatic changes. 2. No evidence of pulmonary embolism. 3. No evidence of aortic dissection. 4. Scattered sclerotic densities throughout the thoracic vertebral bodies. Findings are similar to the prior study. Thank you for allowing us to participate in the care of your patient. Dictated and Authenticated by: Felipe Singh Departure - Departure Time of Disposition: 20:50 Condition: Good"
[2018-08-28] MEDS ORDERED: Sodium Chloride 0.9% 10 ML Syringe FLUSH PRN ×2 (17:15→21:51)
[2018-08-28] MEDS ORDERED: Albuterol/Ipratropium 3.0-0.5 MG/3 ML Neb Soln NEB ONE (17:23)
[2018-08-28 17:40] LABS: ANION GAP 17.5
[2018-08-28] MEDS ORDERED: Diltiazem 25 MG/5 ML SDV IVPUSH ONE (18:04)
[2018-08-28] MEDS ORDERED: Sodium Chloride 0.9% 1,000 ML IV ONE (18:53)
[2018-08-28] MEDS ORDERED: Iopamidol 755 Mg/ML 100 ML Bottle IVPUSH ONE (19:09)
[2018-08-28] MEDS ORDERED: Albuterol/Ipratropium 3.0-0.5 MG/3 ML Neb Soln NEB PRN (21:54)
[2018-08-28] MEDS ORDERED: Ondansetron 4 MG Tab.DIS PO PRN (21:57)
[2018-08-28] MEDS ORDERED: Atropine/Diphenoxylate 0.025-2.5 MG Tab PO PRN (21:57)
[2018-08-28] MEDS ORDERED: Enoxaparin 40 MG/0.4 ML Syringe SUBCUT SCH (22:00)
--- NOTE | 2018-08-28 22:07 | PCM.HP ---
H&P History of Present Illness - General Date of Service: 08/28/18 Admit Problem/Dx: Admission Diagnosis/Problem Admission Diagnosis/Problem Sepsis, UTI Source of Information: Patient History Limitations: Reports: No Limitations - History of Present Illness Initial Comments - Free Text/Narative: 73 yo F with PMH of colon cancer with mets to the liver, COPD, htn, hld who p/w fever, cough, sore throat. I saw and examined the patient at the bedside. Fever and sore throat started two days ago. Also had an associated cough productive of yellowish sputum No chest pain, no abd pain, no dysuria, no increased frequency, no leg swelling , no wheezing Was seen by PCP yesterday and started on oral levaquin Symptoms persisted and she came to the ED In the ED, she was found to be hypoxic, tachycardic, low grade fever, EKG showed sinus tachy, CXR was clear, CTPE ruled out PE. Admission was requested cos she met SIRS criteria. - Related Data Allergies/Adverse Reactions: Allergies Allergy/AdvReac Type Severity Reaction Status Date / Time ibuprofen Allergy Cannot Verified 08/28/18 21:08 Remember nitrofurantoin Allergy Diarrhea Verified 08/28/18 21:08 [From Macrobid] oxycodone Allergy Cannot Verified 08/28/18 21:08 Remember promethazine HCl Allergy Anxiety Verified 08/28/18 21:08 [From Phenergan] Home Medications: Home Meds FLUoxetine HCl [Fluoxetine HCl] 20 mg PO DAILY 05/04/14 [History] Simvastatin 10 mg PO BEDTIME 05/04/14 [History] Aspirin [Adult Low Dose Aspirin EC] 81 mg PO DAILY 03/23/15 [History] Zolpidem [Ambien] 5 mg PO BEDTIME PRN 03/23/15 [History] Albuterol [Ventolin HFA] 1 puff INH Q4HR PRN 08/18/17 [History] Lidocaine/Prilocaine [EMLA Crm] 5 gm TOP DAILY PRN 08/18/17 [History] Multivitamin with Minerals [Multiple Vitamin] 1 tab PO DAILY 08/18/17 [History] Albuterol/Ipratropium [DuoNeb 3.0-0.5 MG/3 ML] 3 ml NEB TIDRT #90 neb 08/21/17 [ Rx] Budesonide [Pulmicort] 0.5 mg NEB BIDRT #60 neb 08/21/17 [Rx] Loperamide [Imodium] 2 mg PO Q6H cap 08/31/17 [Rx] Diphenoxylate HCl/Atropine [Lomotil] 1 tab PO Q6H PRN 09/12/17 [History] Ondansetron [Zofran ODT] 4 mg PO Q6H PRN 09/12/17 [History] Amitriptyline [Elavil] 10 mg PO BID 08/28/18 [History] Levofloxacin 500 mg PO BID 08/28/18 [History] Metoprolol Tartrate 75 mg PO BID 08/28/18 [History] amLODIPine [Norvasc] 5 mg PO DAILY 08/28/18 [History] Past Medical History HEENT History: Reports: None Cardiovascular History: Reports: CAD, High Cholesterol, Hypertension Respiratory History: Reports: Bronchitis, Recurrent, COPD, Other (See Below) Other Respiratory History: recent pneumonia Gastrointestinal History: Reports: Other (See Below) Other Gastrointestinal History: abnormal digestive system Genitourinary History: Reports: UTI, Recurrent, Other (See Below) Other Genitourinary History: stent in urethea tube and stress incontinence, renal stents [employer] History: Reports: Musculoskeletal History: Reports: Osteoporosis Neurological History: Reports: None Psychiatric History: Reports: Anxiety, Depression Endocrine/Metabolic History: Reports: None Hematologic History: Reports: Anemia Immunologic History: Reports: Immunosuppression, Other (See Below) Other Immunologic History: on chemo Oncologic (Cancer) History: Reports: Colon, Liver, Other (See Below) Other Oncologic History: 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 Dermatologic History: Reports: None Other Dermatologic History: dry skin - Infectious Disease History Infectious Disease History: Reports: Chicken Pox, Measles - Past Surgical History Head Surgeries/Procedures: Reports: None HEENT Surgical History: Reports: Cataract Surgery Other HEENT Surgeries/Procedures: left cataract removal GI Surgical History: Reports: Colonoscopy, Other (See Below) Other GI Surgeries/Procedures: stent in urethea tube Female Surgical History: Reports: Oophorectomy, Ureteral Stent, Other (See Below) Other Female Surgeries/Procedures: bladder lift Social & Family History - Family History Family Medical History: Noncontributory - Tobacco Use Smoking Status *Q: Current Some Day Smoker Years of Tobacco use: 30 Packs/Tins Daily: 1 Second Hand Smoke Exposure: No - Caffeine Use Caffeine Use: Reports: None - Alcohol Use Number of Drinks Per Day: 1 - Recreational Drug Use Recreational Drug Use: No - Living Situation & Occupation Living situation: Reports: Occupation: Retired H&P Review of Systems - Review of Systems: Review Of Systems: See Below General: Reports: Fever HEENT: Reports: No Symptoms Pulmonary: Reports: Shortness of Breath, Cough, Sputum Cardiovascular: Reports: No Symptoms. Denies: Chest Pain Gastrointestinal: Reports: Anorexia Genitourinary: Reports: No Symptoms Musculoskeletal: Reports: No Symptoms Skin: Reports: No Symptoms Psychiatric: Reports: No Symptoms Neurological: Reports: No Symptoms Exam - Exam Exam: See Below - Vital Signs Vital Signs: Last Vital Signs Temp 37.8 C 08/28/18 17:04 Pulse 138 H 08/28/18 17:23 Resp 23 H 08/28/18 17:04 BP 121/75 08/28/18 17:04 Pulse Ox 97 08/28/18 17:59 Weight: 43.346 kg - Exam General: Alert, Oriented HEENT: Conjunctiva Clear, EOMI, Hearing Intact Neck: Supple, Trachea Midline Lungs: Clear to Auscultation, Normal Respiratory Effort Cardiovascular: Regular Rate, Regular Rhythm, Normal S1, Normal S2 GI/Abdominal Exam: Normal Bowel Sounds, Soft, Non-Tender Extremities: Normal Inspection, Normal Range of Motion, Non-Tender - Patient Data Lab Results Last 24 hrs: Laboratory Results - last 24 hr 08/28/18 08/28/18 08/28/18 Range/Units 17:11 17:11 17:11 WBC 4.6 L (5.0-10.0) 10^3/uL RBC 3.01 L (4.2-5.4) 10^6/uL Hgb 9.9 L D (12.0-16.0) g/dL Hct 30.4 L (37.0-47.0) % MCV 101.0 H (80-100) fL MCH 32.9 (27.0-34.0) pg MCHC 32.6 L (33.0-35.0) g/dL Plt Count 253 (150-450) 10^3/uL Neut % (Auto) 70.9 (42.2-75.2) % Lymph % (Auto) 16.3 L (20.5-50.1) % [place] % (Auto) 9.8 H (2-8) % Eos % (Auto) 2.6 (1.0-3.0) % Baso % (Auto) 0.4 (0.0-1.0) % PT 10.2 (9.0-12.0) SEC INR 1.0 (0.9-1.2) D-Dimer, Quantitative (0-400) ng/mL Sodium 132 L (135-145) mmol/L Potassium 4.5 (3.6-5.0) mmol/L Chloride 94 L (101-111) mmol/L Carbon Dioxide 25.0 (21.0-31.0) mmol/L Anion Gap 17.5 BUN 18 (7-18) mg/dL Creatinine 1.3 (0.6-1.3) mg/dL Est Cr Clr Drug Dosing 27.98 mL/min Estimated GFR (MDRD) 40 BUN/Creatinine Ratio 13.84 Glucose 110 H (74-105) mg/dL Lactic Acid (0.5-2.2) mmol/L Calcium 8.7 (8.4-10.2) mg/dl Total Bilirubin 0.4 (0.2-1.0) mg/dL AST 27 (10-42) IU/L ALT 15 (10-60) IU/L Alkaline Phosphatase 84 (42-121) IU/L Troponin I 0.02 (0.00-0.02) ng/ml B-Natriuretic Peptide (0-100) pg/ml Total Protein 6.6 L (6.7-8.2) g/dl Albumin 3.3 (3.2-5.5) g/dl Globulin 3.3 Albumin/Globulin Ratio 1.00 Urine Color (YELLOW) Urine Appearance (CLEAR) Urine pH (5.0-9.0) Ur Specific [place] (1.005-1.030) Urine Protein (NEGATIVE) Urine Glucose (UA) (NEGATIVE) Urine Ketones (NEGATIVE) Urine Occult Blood (NEGATIVE) Urine Nitrite (NEGATIVE) Urine Bilirubin (NEGATIVE) Urine Urobilinogen (0.2-1.0) mg/dL Ur Leukocyte Esterase (NEGATIVE) Urine RBC /HPF Urine WBC (0-5/HPF) /HPF Ur Epithelial Cells /HPF Amorphous Sediment (0/HPF) /HPF Urine Bacteria (0-FEW/HPF) /HPF Urine Mucus /LPF 08/28/18 08/28/18 08/28/18 Range/Units 17:11 17:11 17:11 WBC (5.0-10.0) 10^3/uL RBC (4.2-5.4) 10^6/uL Hgb (12.0-16.0) g/dL Hct (37.0-47.0) % MCV (80-100) fL MCH (27.0-34.0) pg MCHC (33.0-35.0) g/dL Plt Count (150-450) 10^3/uL Neut % (Auto) (42.2-75.2) % Lymph % (Auto) (20.5-50.1) % [place] % (Auto) (2-8) % Eos % (Auto) (1.0-3.0) % Baso % (Auto) (0.0-1.0) % PT (9.0-12.0) SEC INR (0.9-1.2) D-Dimer, Quantitative 1130 H (0-400) ng/mL Sodium (135-145) mmol/L Potassium (3.6-5.0) mmol/L Chloride (101-111) mmol/L Carbon Dioxide (21.0-31.0) mmol/L Anion Gap BUN (7-18) mg/dL Creatinine (0.6-1.3) mg/dL Est Cr Clr Drug Dosing mL/min Estimated GFR (MDRD) BUN/Creatinine Ratio Glucose (74-105) mg/dL Lactic Acid 1.1 (0.5-2.2) mmol/L Calcium (8.4-10.2) mg/dl Total Bilirubin (0.2-1.0) mg/dL AST (10-42) IU/L ALT (10-60) IU/L Alkaline Phosphatase (42-121) IU/L Troponin I (0.00-0.02) ng/ml B-Natriuretic Peptide 326 H (0-100) pg/ml Total Protein (6.7-8.2) g/dl Albumin (3.2-5.5) g/dl Globulin Albumin/Globulin Ratio Urine Color (YELLOW) Urine Appearance (CLEAR) Urine pH (5.0-9.0) Ur Specific [place] (1.005-1.030) Urine Protein (NEGATIVE) Urine Glucose (UA) (NEGATIVE) Urine Ketones (NEGATIVE) Urine Occult Blood (NEGATIVE) Urine Nitrite (NEGATIVE) Urine Bilirubin (NEGATIVE) Urine Urobilinogen (0.2-1.0) mg/dL Ur Leukocyte Esterase (NEGATIVE) Urine RBC /HPF Urine WBC (0-5/HPF) /HPF Ur Epithelial Cells /HPF Amorphous Sediment (0/HPF) /HPF Urine Bacteria (0-FEW/HPF) /HPF Urine Mucus /LPF 08/28/18 Range/Units 18:10 WBC (5.0-10.0) 10^3/uL RBC (4.2-5.4) 10^6/uL Hgb (12.0-16.0) g/dL Hct (37.0-47.0) % MCV (80-100) fL MCH (27.0-34.0) pg MCHC (33.0-35.0) g/dL Plt Count (150-450) 10^3/uL Neut % (Auto) (42.2-75.2) % Lymph % (Auto) (20.5-50.1) % [place] % (Auto) (2-8) % Eos % (Auto) (1.0-3.0) % Baso % (Auto) (0.0-1.0) % PT (9.0-12.0) SEC INR (0.9-1.2) D-Dimer, Quantitative (0-400) ng/mL Sodium (135-145) mmol/L Potassium (3.6-5.0) mmol/L Chloride (101-111) mmol/L Carbon Dioxide (21.0-31.0) mmol/L Anion Gap BUN (7-18) mg/dL Creatinine (0.6-1.3) mg/dL Est Cr Clr Drug Dosing mL/min Estimated GFR (MDRD) BUN/Creatinine Ratio Glucose (74-105) mg/dL Lactic Acid (0.5-2.2) mmol/L Calcium (8.4-10.2) mg/dl Total Bilirubin (0.2-1.0) mg/dL AST (10-42) IU/L ALT (10-60) IU/L Alkaline Phosphatase (42-121) IU/L Troponin I (0.00-0.02) ng/ml B-Natriuretic Peptide (0-100) pg/ml Total Protein (6.7-8.2) g/dl Albumin (3.2-5.5) g/dl Globulin Albumin/Globulin Ratio Urine Color Yellow (YELLOW) Urine Appearance Turbid (CLEAR) Urine pH 7.5 (5.0-9.0) Ur Specific [place] 1.020 (1.005-1.030) Urine Protein 100 H (NEGATIVE) Urine Glucose (UA) Negative (NEGATIVE) Urine Ketones Negative (NEGATIVE) Urine Occult Blood Moderate H (NEGATIVE) Urine Nitrite Positive H (NEGATIVE) Urine Bilirubin Negative (NEGATIVE) Urine Urobilinogen 0.2 (0.2-1.0) mg/dL Ur Leukocyte Esterase Large H (NEGATIVE) Urine RBC 50-75 H /HPF Urine WBC Packed H (0-5/HPF) /HPF Ur Epithelial Cells Rare /HPF Amorphous Sediment Few (0/HPF) /HPF Urine Bacteria Moderate H (0-FEW/HPF) /HPF Urine Mucus Not seen /LPF Result Diagrams: 08/29/18 09:50 08/29/18 09:50 Problem List Initiated/Reviewed/Updated: Yes Orders Last 24hrs: Active Orders 24 hr Category Date Time Status Patient Status [ADT] Routine ADT 08/28/18 21:51 Ordered Ambulate [RC] ASDIRECTED Care 08/28/18 21:51 Ordered EKG Documentation Completion [RC] STAT Care 08/28/18 17:15 Active Height and Weight [RC] DAILY Care 08/28/18 21:51 Ordered Oxygen Therapy [RC] PRN Care 08/28/18 21:51 Ordered Peripheral IV Care [RC] . DIRECTED Care 08/28/18 17:16 Active Peripheral IV Care [RC] . DIRECTED Care 08/28/18 21:51 Ordered RT Aerosol Therapy [RC] ASDIRECTED Care 08/28/18 17:23 Active RT Aerosol Therapy [RC] ASDIRECTED Care 08/28/18 21:56 Ordered Up With Assistance [RC] ASDIRECTED Care 08/28/18 21:51 Ordered VTE/DVT Education [RC] PER UNIT ROUTINE Care 08/28/18 21:51 Ordered Vital Signs [RC] Q4H Care 08/28/18 21:51 Ordered OT Evaluation and Treatment [CONS] Routine Cons 08/28/18 21:51 Ordered PT Evaluation and Treatment [CONS] Routine Cons 08/28/18 21:51 Ordered Regular Diet [DIET] Diet 08/28/18 Dinner Ordered Chest 1V Frontal [CR] Stat Exams 08/28/18 17:15 Taken Chest w Cont [CT] Urgent Exams 08/28/18 19:09 Taken CULTURE BLOOD [BC] Stat Lab 08/28/18 17:11 Received CULTURE BLOOD [BC] Stat Lab 08/28/18 17:35 Received CULTURE URINE [RM] Stat Lab 08/28/18 18:10 Received INFLUENZA A+B AG SCREEN [RM] Routine Lab 08/28/18 21:54 Ordered RESPIRATORY PANEL Routine Lab 08/28/18 21:54 Ordered Acetaminophen [Tylenol] Med 08/28/18 21:54 Ordered 650 mg PO Q4H PRN Albuterol/Ipratropium [DuoNeb 3.0-0.5 MG/3 ML] Med 08/28/18 21:54 Ordered 3 ml NEB Q4HRRT PRN Amitriptyline [Elavil] Med 08/29/18 09:00 Ordered 10 mg PO BID Aspirin [Halfprin] Med 08/29/18 09:00 Ordered 81 mg PO DAILY Atropine/Diphenoxylate [Lomotil 0.025-2.5 MG] Med 08/28/18 21:57 Ordered 1 tab PO Q6H PRN Budesonide [Pulmicort] Med 08/29/18 07:00 Ordered 0.5 mg NEB BIDRT Enoxaparin [Lovenox] Med 08/28/18 22:00 Ordered 40 mg SUBCUT DAILY FLUoxetine HCl [Fluoxetine HCl] Med 08/29/18 09:00 Ordered 20 mg PO DAILY Metoprolol Tartrate [Metoprolol Tartrate] Med 08/29/18 09:00 Ordered 75 mg PO BID Multivitamin with Minerals [Multiple Vitamin] Med 08/29/18 09:00 Ordered 1 tab PO DAILY Ondansetron [Zofran ODT] Med 08/28/18 21:57 Ordered 4 mg PO Q6H PRN Simvastatin [Zocor] Med 08/29/18 21:00 Ordered 10 mg PO BEDTIME Sodium Chloride 0.9% @ 125 MLS/HR (1000ml) Med 08/28/18 22:00 Ordered Sodium Chloride 0.9% [Normal Saline] 1,000 ml IV ASDIRECTED Sodium Chloride 0.9% [Normal Saline] 1,000 ml Med 08/28/18 18:53 Active IV .BOLUS Sodium Chloride 0.9% [Saline Flush] Med 08/28/18 17:15 Active 10 ml FLUSH ASDIRECTED PRN Sodium Chloride 0.9% [Saline Flush] Med 08/28/18 21:51 Ordered 10 ml FLUSH ASDIRECTED PRN Sodium Chloride 0.9% [Saline Flush] Med 08/28/18 21:51 Ordered 10 ml FLUSH ASDIRECTED PRN Zolpidem [Ambien] Med 08/28/18 21:57 Ordered 5 mg PO BEDTIME PRN amLODIPine [Norvasc] Med 08/29/18 09:00 Ordered 5 mg PO DAILY cefTRIAXone [Rocephin] 1 gm Med 08/28/18 22:00 Ordered Sodium Chloride 0.9% [Normal Saline] 50 ml IV Q24H Blood Culture x2 Reflex Set [OM.PC] Stat Ot 08/28/18 17:15 Ordered Peripheral IV Insertion Adult [OM.PC] Routine Oth 08/28/18 21:51 Ordered Peripheral IV Insertion Adult [OM.PC] Stat Oth 08/28/18 17:15 Ordered Saline Lock Insert [OM.PC] Routine Ot 08/28/18 21:51 Ordered Code Status [Resuscitation Status] Routine Resus Stat 08/28/18 21:58 Ordered Medication Orders Sodium Chloride (Normal Saline) 1,000 mls @ 200 mls/hr IV .BOLUS ONE Stop: 08/28/18 23:52 Last Admin: 08/28/18 19:01 Dose: 200 mls/hr Sodium Chloride (Saline Flush) 10 ml FLUSH ASDIRECTED PRN PRN Reason: Keep Vein Open Last Admin: 08/28/18 17:17 Dose: 10 ml Assessment/Plan Comment:: #Sorethroat, fever, cough, SIRS+ve #Likely URTI CT chest/CXR does not show pneumonia Check flu screen, respiratory panel f/u blood cx tylenol prn for fever IV fluid hydration will monitor vital signs closely #possible UTI no dysuria or urinary symptoms, but fever, SIRS +ve f/u urine cx IV ceftriaxone 1g q24 hrs #Hx of colon ca with liver mets follow up with oncology clinic on dc #Hx of COPD not currently in exacerbation lyly prn budesonide q12 hrs #Hx of HTN continue home BP meds #DVT ppx SC lovenox #Code status full code
[2018-08-28] MEDS: cefTRIAXone 1 GM in Sodium Chloride 0.9% 50 ML IV SCH (22:32)
[2018-08-28] MEDS: Zolpidem 5 MG Tab PO PRN (22:32)
[2018-08-29] MEDS: Sodium Chloride 0.9% 1,000 ML IV SCH ×3 (03:19→18:29)
[2018-08-29] MEDS: Acetaminophen 325 MG Tab PO PRN ×2 (04:59→16:32)
[2018-08-29] MEDS: Budesonide 0.5 MG/2 ML Neb Susp NEB SCH ×2 (09:29→18:18)
[2018-08-29] MEDS: Aspirin 81 MG Tab.EC PO SCH (09:29)
[2018-08-29] MEDS: Amitriptyline 10 MG Tab PO SCH ×2 (09:29→20:55)
[2018-08-29] MEDS: Metoprolol Tartrate 50 MG Tab PO SCH ×2 (09:30→20:59)
[2018-08-29] MEDS: Multivitamins, Therapeutic with Minerals Tab PO SCH (09:31)
[2018-08-29] MEDS: amLODIPine 5 MG Tab PO SCH (09:31)
[2018-08-29] MEDS: FLUoxetine 10 MG Cap PO SCH (09:31)
--- NOTE | 2018-08-29 09:42 | PCM.PN ---
- General Info Date of Service: 08/29/18 Admission Dx/Problem (Free Text): Admission Diagnosis/Problem Admission Diagnosis/Problem Back pain Subjective Update: I saw and examined the patient at the bedside Cough has improved Still needs supplemental oxygen No CP, no abd pain, no fever - Review of Systems General: Denies: Fever HEENT: Reports: No Symptoms Pulmonary: Reports: Cough Cardiovascular: Reports: No Symptoms Gastrointestinal: Reports: No Symptoms Genitourinary: Reports: No Symptoms Musculoskeletal: Reports: No Symptoms Skin: Reports: No Symptoms Neurological: Reports: No Symptoms - Patient Data Vitals - Most Recent: Last Vital Signs Temp 36.8 C 08/29/18 08:04 Pulse 88 08/29/18 09:30 Resp 20 08/29/18 08:04 BP 146/68 H 08/29/18 09:31 Pulse Ox 92 L 08/29/18 08:04 Weight - Most Recent: 44.089 kg I&O - Last 24 Hours: Intake & Output 08/28/18 08/29/18 08/29/18 22:59 06:59 14:59 Intake Total 75 840 Output Total 800 400 Balance 75 40 -400 Lab Results Last 24 Hours: Laboratory Results - last 24 hr 08/28/18 08/28/18 08/28/18 Range/Units 17:11 17:11 17:11 WBC 4.6 L (5.0-10.0) 10^3/uL RBC 3.01 L (4.2-5.4) 10^6/uL Hgb 9.9 L D (12.0-16.0) g/dL Hct 30.4 L (37.0-47.0) % MCV 101.0 H (80-100) fL MCH 32.9 (27.0-34.0) pg MCHC 32.6 L (33.0-35.0) g/dL Plt Count 253 (150-450) 10^3/uL Neut % (Auto) 70.9 (42.2-75.2) % Lymph % (Auto) 16.3 L (20.5-50.1) % [place] % (Auto) 9.8 H (2-8) % Eos % (Auto) 2.6 (1.0-3.0) % Baso % (Auto) 0.4 (0.0-1.0) % PT 10.2 (9.0-12.0) SEC INR 1.0 (0.9-1.2) D-Dimer, Quantitative (0-400) ng/mL Sodium 132 L (135-145) mmol/L Potassium 4.5 (3.6-5.0) mmol/L Chloride 94 L (101-111) mmol/L Carbon Dioxide 25.0 (21.0-31.0) mmol/L Anion Gap 17.5 BUN 18 (7-18) mg/dL Creatinine 1.3 (0.6-1.3) mg/dL Est Cr Clr Drug Dosing 27.98 mL/min Estimated GFR (MDRD) 40 BUN/Creatinine Ratio 13.84 Glucose 110 H (74-105) mg/dL Lactic Acid (0.5-2.2) mmol/L Calcium 8.7 (8.4-10.2) mg/dl Total Bilirubin 0.4 (0.2-1.0) mg/dL AST 27 (10-42) IU/L ALT 15 (10-60) IU/L Alkaline Phosphatase 84 (42-121) IU/L Troponin I 0.02 (0.00-0.02) ng/ml B-Natriuretic Peptide (0-100) pg/ml Total Protein 6.6 L (6.7-8.2) g/dl Albumin 3.3 (3.2-5.5) g/dl Globulin 3.3 Albumin/Globulin Ratio 1.00 Urine Color (YELLOW) Urine Appearance (CLEAR) Urine pH (5.0-9.0) Ur Specific [place] (1.005-1.030) Urine Protein (NEGATIVE) Urine Glucose (UA) (NEGATIVE) Urine Ketones (NEGATIVE) Urine Occult Blood (NEGATIVE) Urine Nitrite (NEGATIVE) Urine Bilirubin (NEGATIVE) Urine Urobilinogen (0.2-1.0) mg/dL Ur Leukocyte Esterase (NEGATIVE) Urine RBC /HPF Urine WBC (0-5/HPF) /HPF Ur Epithelial Cells /HPF Amorphous Sediment (0/HPF) /HPF Urine Bacteria (0-FEW/HPF) /HPF Urine Mucus /LPF 08/28/18 08/28/18 08/28/18 Range/Units 17:11 17:11 17:11 WBC (5.0-10.0) 10^3/uL RBC (4.2-5.4) 10^6/uL Hgb (12.0-16.0) g/dL Hct (37.0-47.0) % MCV (80-100) fL MCH (27.0-34.0) pg MCHC (33.0-35.0) g/dL Plt Count (150-450) 10^3/uL Neut % (Auto) (42.2-75.2) % Lymph % (Auto) (20.5-50.1) % [place] % (Auto) (2-8) % Eos % (Auto) (1.0-3.0) % Baso % (Auto) (0.0-1.0) % PT (9.0-12.0) SEC INR (0.9-1.2) D-Dimer, Quantitative 1130 H (0-400) ng/mL Sodium (135-145) mmol/L Potassium (3.6-5.0) mmol/L Chloride (101-111) mmol/L Carbon Dioxide (21.0-31.0) mmol/L Anion Gap BUN (7-18) mg/dL Creatinine (0.6-1.3) mg/dL Est Cr Clr Drug Dosing mL/min Estimated GFR (MDRD) BUN/Creatinine Ratio Glucose (74-105) mg/dL Lactic Acid 1.1 (0.5-2.2) mmol/L Calcium (8.4-10.2) mg/dl Total Bilirubin (0.2-1.0) mg/dL AST (10-42) IU/L ALT (10-60) IU/L Alkaline Phosphatase (42-121) IU/L Troponin I (0.00-0.02) ng/ml B-Natriuretic Peptide 326 H (0-100) pg/ml Total Protein (6.7-8.2) g/dl Albumin (3.2-5.5) g/dl Globulin Albumin/Globulin Ratio Urine Color (YELLOW) Urine Appearance (CLEAR) Urine pH (5.0-9.0) Ur Specific [place] (1.005-1.030) Urine Protein (NEGATIVE) Urine Glucose (UA) (NEGATIVE) Urine Ketones (NEGATIVE) Urine Occult Blood (NEGATIVE) Urine Nitrite (NEGATIVE) Urine Bilirubin (NEGATIVE) Urine Urobilinogen (0.2-1.0) mg/dL Ur Leukocyte Esterase (NEGATIVE) Urine RBC /HPF Urine WBC (0-5/HPF) /HPF Ur Epithelial Cells /HPF Amorphous Sediment (0/HPF) /HPF Urine Bacteria (0-FEW/HPF) /HPF Urine Mucus /LPF 08/28/18 Range/Units 18:10 WBC (5.0-10.0) 10^3/uL RBC (4.2-5.4) 10^6/uL Hgb (12.0-16.0) g/dL Hct (37.0-47.0) % MCV (80-100) fL MCH (27.0-34.0) pg MCHC (33.0-35.0) g/dL Plt Count (150-450) 10^3/uL Neut % (Auto) (42.2-75.2) % Lymph % (Auto) (20.5-50.1) % [place] % (Auto) (2-8) % Eos % (Auto) (1.0-3.0) % Baso % (Auto) (0.0-1.0) % PT (9.0-12.0) SEC INR (0.9-1.2) D-Dimer, Quantitative (0-400) ng/mL Sodium (135-145) mmol/L Potassium (3.6-5.0) mmol/L Chloride (101-111) mmol/L Carbon Dioxide (21.0-31.0) mmol/L Anion Gap BUN (7-18) mg/dL Creatinine (0.6-1.3) mg/dL Est Cr Clr Drug Dosing mL/min Estimated GFR (MDRD) BUN/Creatinine Ratio Glucose (74-105) mg/dL Lactic Acid (0.5-2.2) mmol/L Calcium (8.4-10.2) mg/dl Total Bilirubin (0.2-1.0) mg/dL AST (10-42) IU/L ALT (10-60) IU/L Alkaline Phosphatase (42-121) IU/L Troponin I (0.00-0.02) ng/ml B-Natriuretic Peptide (0-100) pg/ml Total Protein (6.7-8.2) g/dl Albumin (3.2-5.5) g/dl Globulin Albumin/Globulin Ratio Urine Color Yellow (YELLOW) Urine Appearance Turbid (CLEAR) Urine pH 7.5 (5.0-9.0) Ur Specific [place] 1.020 (1.005-1.030) Urine Protein 100 H (NEGATIVE) Urine Glucose (UA) Negative (NEGATIVE) Urine Ketones Negative (NEGATIVE) Urine Occult Blood Moderate H (NEGATIVE) Urine Nitrite Positive H (NEGATIVE) Urine Bilirubin Negative (NEGATIVE) Urine Urobilinogen 0.2 (0.2-1.0) mg/dL Ur Leukocyte Esterase Large H (NEGATIVE) Urine RBC 50-75 H /HPF Urine WBC Packed H (0-5/HPF) /HPF Ur Epithelial Cells Rare /HPF Amorphous Sediment Few (0/HPF) /HPF Urine Bacteria Moderate H (0-FEW/HPF) /HPF Urine Mucus Not seen /LPF Ramses Results Last 24 Hours: Microbiology 08/28/18 22:18 Influenza Type A Antigen Screen - Final Nasal Aspirate, Unspecified NEGATIVE INFLUENZA A VIRUS AG REFERENCE RANGE: NEGATIVE Influenza Type B Antigen Screen - Final NEGATIVE INFLUENZA B VIRUS AG REFERENCE RANGE: NEGATIVE Med Orders - Current: Current Medications Acetaminophen (Tylenol) 650 mg PO Q4H PRN PRN Reason: Fever Last Admin: 08/29/18 04:59 Dose: 650 mg Albuterol/Ipratropium (Duoneb 3.0-0.5 Mg/3 Ml) 3 ml NEB Q4HRRT PRN PRN Reason: Wheezing Amitriptyline HCl (Elavil) 10 mg PO BID [facility] Last Admin: 08/29/18 09:29 Dose: 10 mg Amlodipine Besylate (Norvasc) 5 mg PO DAILY [facility] Last Admin: 08/29/18 09:31 Dose: 5 mg Aspirin (Halfprin) 81 mg PO DAILY [facility] Last Admin: 08/29/18 09:29 Dose: 81 mg Budesonide (Pulmicort) 0.5 mg NEB BIDRT [facility] Last Admin: 08/29/18 09:29 Dose: 0.5 mg Diphenoxylate HCl/Atropine (Lomotil 0.025-2.5 Mg) 1 tab PO Q6H PRN PRN Reason: Diarrhea Enoxaparin Sodium (Lovenox) 30 mg SUBCUT DAILY [facility] Fluoxetine HCl (Prozac) 20 mg PO DAILY [facility] Last Admin: 08/29/18 09:31 Dose: 20 mg Ceftriaxone Sodium 1 gm/ (Sodium Chloride) 50 mls @ 50 mls/hr IV Q24H [facility] Last Admin: 08/28/18 22:32 Dose: 50 mls/hr Sodium Chloride (Normal Saline) 1,000 mls @ 125 mls/hr IV ASDIRECTED [facility] Last Admin: 08/29/18 03:19 Dose: 125 mls/hr Metoprolol Tartrate (Lopressor) 75 mg PO BID [facility] Last Admin: 08/29/18 09:30 Dose: 75 mg Multivitamins/Minerals (Vitamins And Minerals) 1 tab PO DAILY [facility] Last Admin: 08/29/18 09:31 Dose: 1 tab Ondansetron HCl (Zofran Odt) 4 mg PO Q6H PRN PRN Reason: Nausea Simvastatin (Zocor) 10 mg PO BEDTIME [facility] Sodium Chloride (Saline Flush) 10 ml FLUSH ASDIRECTED PRN PRN Reason: Keep Vein Open Last Admin: 08/28/18 17:17 Dose: 10 ml Sodium Chloride (Saline Flush) 10 ml FLUSH ASDIRECTED PRN PRN Reason: Keep Vein Open Sodium Chloride (Saline Flush) 10 ml FLUSH ASDIRECTED PRN PRN Reason: Keep Vein Open Zolpidem Tartrate (Ambien) 5 mg PO BEDTIME PRN PRN Reason: Sleep Last Admin: 08/28/18 22:32 Dose: 5 mg Discontinued Medications Albuterol/Ipratropium (Duoneb 3.0-0.5 Mg/3 Ml) 3 ml NEB ONETIME ONE Stop: 08/28/18 17:24 Last Admin: 08/28/18 17:34 Dose: 3 ml Diltiazem HCl (Diltiazem) 20 mg IVPUSH ONETIME ONE Stop: 08/28/18 18:05 Last Admin: 08/28/18 18:09 Dose: 20 mg Enoxaparin Sodium (Lovenox) 40 mg SUBCUT DAILY [facility] Sodium Chloride (Normal Saline) 1,000 mls @ 200 mls/hr IV .BOLUS ONE Stop: 08/28/18 23:52 Last Admin: 08/28/18 19:01 Dose: 200 mls/hr Iopamidol (Isovue-370 (76%)) 100 ml IVPUSH ONETIME ONE Stop: 08/28/18 19:10 Last Admin: 08/28/18 19:23 Dose: 70 ml - Exam Quality Assessment: Supplemental Oxygen General: Alert, Oriented HEENT: Pupils Equal, Pupils Reactive Neck: Supple Lungs: Clear to Auscultation, Normal Respiratory Effort Cardiovascular: Regular Rate, Regular Rhythm GI/Abdominal Exam: Normal Bowel Sounds, Soft Extremities: Normal Inspection, Normal Range of Motion. No: Pedal Edema - Problem List Review Problem List Initiated/Reviewed/Updated: Yes - My Orders Last 24 Hours: My Active Orders 08/28/18 21:51 Patient Status [ADT] Routine Ambulate [RC] ASDIRECTED Height and Weight [RC] 0600 Oxygen Therapy [RC] PRN Peripheral IV Care [RC] . DIRECTED Up With Assistance [RC] ASDIRECTED VTE/DVT Education [RC] PER UNIT ROUTINE Vital Signs [RC] 00,04,08,12,16,20 OT Evaluation and Treatment [CONS] Routine PT Evaluation and Treatment [CONS] Routine Sodium Chloride 0.9% [Saline Flush] 10 ml FLUSH ASDIRECTED PRN Sodium Chloride 0.9% [Saline Flush] 10 ml FLUSH ASDIRECTED PRN Peripheral IV Insertion Adult [OM.PC] Routine Saline Lock Insert [OM.PC] Routine 08/28/18 21:54 Acetaminophen [Tylenol] 650 mg PO Q4H PRN Albuterol/Ipratropium [DuoNeb 3.0-0.5 MG/3 ML] 3 ml NEB Q4HRRT PRN 08/28/18 21:56 RT Aerosol Therapy [RC] ASDIRECTED 08/28/18 21:57 Atropine/Diphenoxylate [Lomotil 0.025-2.5 MG] 1 tab PO Q6H PRN Ondansetron [Zofran ODT] 4 mg PO Q6H PRN Zolpidem [Ambien] 5 mg PO BEDTIME PRN 08/28/18 21:58 Code Status [Resuscitation Status] Routine 08/28/18 22:00 Sodium Chloride 0.9% [Normal Saline] 1,000 ml IV ASDIRECTED cefTRIAXone [Rocephin] 1 gm Sodium Chloride 0.9% [Normal Saline] 50 ml IV Q24H 08/28/18 22:18 RESPIRATORY PANEL Routine 08/28/18 Dinner Regular Diet [DIET] 08/29/18 07:00 Budesonide [Pulmicort] 0.5 mg NEB BIDRT 08/29/18 09:00 Amitriptyline [Elavil] 10 mg PO BID Aspirin [Halfprin] 81 mg PO DAILY Enoxaparin [Lovenox] 30 mg SUBCUT DAILY FLUoxetine [PROzac] 20 mg PO DAILY Metoprolol Tartrate [Lopressor] 75 mg PO BID Multivitamins/Minerals [Vitamins and Minerals] 1 tab PO DAILY amLODIPine [Norvasc] 5 mg PO DAILY 08/29/18 09:01 BASIC METABOLIC PANEL,BMP [CHEM] Routine CBC WITH AUTO DIFF [HEME] Routine 08/29/18 21:00 Simvastatin [Zocor] 10 mg PO BEDTIME - Plan Plan:: #Sorethroat, fever, cough, SIRS+ve #Likely URTI CT chest/CXR does not show pneumonia Check flu screen: negative, respiratory panel: f/u f/u blood cx tylenol prn for fever IV fluid hydration will monitor vital signs closely #possible UTI no dysuria or urinary symptoms, but fever, SIRS +ve f/u urine cx IV ceftriaxone 1g q24 hrs #Hx of colon ca with liver mets follow up with oncology clinic on dc #Hx of COPD not currently in exacerbation duonebs prn budesonide q12 hrs #Hx of HTN continue home BP meds #DVT ppx SC lovenox #Code status full code
[2018-08-29 10:21] LABS: ANION GAP 14.4
[2018-08-29] MEDS: Enoxaparin 30 MG/0.3 ML Syringe SUBCUT SCH (16:42)
[2018-08-29] MEDS: Simvastatin 10 MG Tab PO SCH (20:55)
[2018-08-29] MEDS: Zolpidem 5 MG Tab PO PRN (20:56)
[2018-08-29] MEDS: cefTRIAXone 1 GM in Sodium Chloride 0.9% 50 ML IV SCH (21:34)
[2018-08-30] MEDS: Acetaminophen 325 MG Tab PO PRN ×3 (01:30→21:33)
[2018-08-30] MEDS: Sodium Chloride 0.9% 1,000 ML IV SCH (04:34)
[2018-08-30] MEDS: Budesonide 0.5 MG/2 ML Neb Susp NEB SCH ×2 (07:14→17:39)
[2018-08-30] MEDS: Amitriptyline 10 MG Tab PO SCH ×2 (08:51→21:05)
[2018-08-30] MEDS: Metoprolol Tartrate 50 MG Tab PO SCH ×2 (08:51→21:06)
[2018-08-30] MEDS: Aspirin 81 MG Tab.EC PO SCH (08:51)
[2018-08-30] MEDS: Enoxaparin 30 MG/0.3 ML Syringe SUBCUT SCH (08:53)
[2018-08-30] MEDS: amLODIPine 5 MG Tab PO SCH (08:53)
[2018-08-30] MEDS: Multivitamins, Therapeutic with Minerals Tab PO SCH (08:54)
[2018-08-30] MEDS: FLUoxetine 10 MG Cap PO SCH (08:54)
--- NOTE | 2018-08-30 12:03 | PCM.PN ---
- General Info Date of Service: 08/30/18 Admission Dx/Problem (Free Text): Admission Diagnosis/Problem Admission Diagnosis/Problem Sepsis, UTI Subjective Update: patient continues to have nasal congestion. She continues to require supplemental oxygen at 2 L. Her exercise tolerance has improved today compared to yesterday, but still not back to baseline. Patient denied any urinary symptoms, abdominal pain, change in bowel habits. - Review of Systems General: Reports: No Symptoms Pulmonary: Reports: No Symptoms Cardiovascular: Reports: No Symptoms Gastrointestinal: Reports: No Symptoms Genitourinary: Reports: No Symptoms Neurological: Reports: No Symptoms Psychiatric: Reports: No Symptoms - Patient Data Vitals - Most Recent: Last Vital Signs Temp 36.8 C 08/30/18 08:43 Pulse 74 08/30/18 08:51 Resp 20 08/30/18 08:43 BP 172/51 H 08/30/18 08:53 Pulse Ox 98 08/30/18 08:43 Weight - Most Recent: 45.586 kg I&O - Last 24 Hours: Intake & Output 08/29/18 08/30/18 08/30/18 22:59 06:59 14:59 Intake Total 1808 1162 400 Output Total 2450 1200 900 Balance -642 -38 -500 Lab Results Last 24 Hours: Laboratory Results - last 24 hr 08/28/18 Range/Units 22:18 Adenovirus (PCR) Not detected (Not Detected) B. pertussis DNA (PCR) Not detected (Not Detected) B.parapertussis DNA PCR Not detected (Not Detected) C. pneumoniae DNA (PCR) Not detected (Not Detected) Coronavirus (PCR) Not detected (Not Detected) Human Metapneumovir PCR Not detected (Not Detected) Influenza A (RT-PCR) Not detected (Not Detected) Influenza B (RT-PCR) Not detected (Not Detected) M. pneumoniae (PCR) Not detected (Not Detected) Parainfluen 1,2,3,4 PCR Detected H (Not Detected) RSV (PCR) Not detected (Not Detected) Entero/Rhino (PCR) Not detected (Not Detected) Ramses Results Last 24 Hours: Microbiology 08/28/18 18:10 Urine Culture - Preliminary Urine, Voided 08/28/18 17:35 Aerobic Blood Culture - Preliminary Blood - Venous - Lab Draw NO GROWTH AFTER 1 DAY Anaerobic Blood Culture - Preliminary NO GROWTH AFTER 1 DAY 08/28/18 17:11 Aerobic Blood Culture - Preliminary Blood - Venous NO GROWTH AFTER 1 DAY Anaerobic Blood Culture - Preliminary NO GROWTH AFTER 1 DAY Med Orders - Current: Current Medications Acetaminophen (Tylenol) 650 mg PO Q4H PRN PRN Reason: Fever Last Admin: 08/30/18 01:30 Dose: 650 mg Albuterol/Ipratropium (Duoneb 3.0-0.5 Mg/3 Ml) 3 ml NEB Q4HRRT PRN PRN Reason: Wheezing Amitriptyline HCl (Elavil) 10 mg PO BID [facility] Last Admin: 08/30/18 08:51 Dose: 10 mg Amlodipine Besylate (Norvasc) 5 mg PO DAILY [facility] Last Admin: 08/30/18 08:53 Dose: 5 mg Aspirin (Halfprin) 81 mg PO DAILY [facility] Last Admin: 08/30/18 08:51 Dose: 81 mg Budesonide (Pulmicort) 0.5 mg NEB BIDRT [facility] Last Admin: 08/30/18 07:14 Dose: 0.5 mg Diphenoxylate HCl/Atropine (Lomotil 0.025-2.5 Mg) 1 tab PO Q6H PRN PRN Reason: Diarrhea Enoxaparin Sodium (Lovenox) 30 mg SUBCUT DAILY [facility] Last Admin: 08/30/18 08:53 Dose: 30 mg Fluoxetine HCl (Prozac) 20 mg PO DAILY [facility] Last Admin: 08/30/18 08:54 Dose: 20 mg Ceftriaxone Sodium 1 gm/ (Sodium Chloride) 50 mls @ 50 mls/hr IV Q24H [facility] Last Admin: 08/29/18 21:34 Dose: 50 mls/hr Sodium Chloride (Normal Saline) 1,000 mls @ 125 mls/hr IV ASDIRECTED [facility] Last Admin: 08/30/18 04:34 Dose: 125 mls/hr Metoprolol Tartrate (Lopressor) 75 mg PO BID [facility] Last Admin: 08/30/18 08:51 Dose: 75 mg Multivitamins/Minerals (Vitamins And Minerals) 1 tab PO DAILY [facility] Last Admin: 08/30/18 08:54 Dose: 1 tab Ondansetron HCl (Zofran Odt) 4 mg PO Q6H PRN PRN Reason: Nausea Simvastatin (Zocor) 10 mg PO BEDTIME [facility] Last Admin: 08/29/18 20:55 Dose: 10 mg Sodium Chloride (Saline Flush) 10 ml FLUSH ASDIRECTED PRN PRN Reason: Keep Vein Open Sodium Chloride (Saline Flush) 10 ml FLUSH ASDIRECTED PRN PRN Reason: Keep Vein Open Vancomycin HCl (Pharmacy To Dose - Vancomycin) 1 dose .XX ASDIRECTED [facility] Zolpidem Tartrate (Ambien) 5 mg PO BEDTIME PRN PRN Reason: Sleep Last Admin: 08/29/18 20:56 Dose: 5 mg Discontinued Medications Albuterol/Ipratropium (Duoneb 3.0-0.5 Mg/3 Ml) 3 ml NEB ONETIME ONE Stop: 08/28/18 17:24 Last Admin: 08/28/18 17:34 Dose: 3 ml Diltiazem HCl (Diltiazem) 20 mg IVPUSH ONETIME ONE Stop: 08/28/18 18:05 Last Admin: 08/28/18 18:09 Dose: 20 mg Enoxaparin Sodium (Lovenox) 40 mg SUBCUT DAILY [facility] Last Admin: 08/29/18 14:57 Dose: Not Given Sodium Chloride (Normal Saline) 1,000 mls @ 200 mls/hr IV .BOLUS ONE Stop: 08/28/18 23:52 Last Admin: 08/28/18 19:01 Dose: 200 mls/hr Iopamidol (Isovue-370 (76%)) 100 ml IVPUSH ONETIME ONE Stop: 08/28/18 19:10 Last Admin: 08/28/18 19:23 Dose: 70 ml Sodium Chloride (Saline Flush) 10 ml FLUSH ASDIRECTED PRN PRN Reason: Keep Vein Open Last Admin: 08/28/18 17:17 Dose: 10 ml - Exam General: Alert, Oriented Lungs: Wheezing (bilateral) Cardiovascular: Regular Rate, Regular Rhythm GI/Abdominal Exam: Normal Bowel Sounds, Soft Extremities: Normal Inspection, No Pedal Edema Skin: Warm, Dry, Intact Psy/Mental Status: Alert, Normal Affect - Problem List Review Problem List Initiated/Reviewed/Updated: Yes - My Orders Last 24 Hours: My Active Orders 08/30/18 11:30 Pharmacy to Dose - Vancomycin 1 dose .XX ASDIRECTED - Plan Plan:: #Sorethroat, fever, cough, SIRS+ve #Likely URTI CT chest/CXR does not show pneumonia patient is parainfluenza positive f/u blood cx discontinue IVF will monitor vital signs closely #UTI no dysuria or urinary symptoms, but fever, SIRS +ve urine cultures are positive for possible staph aureus We'll start patient on vancomycin, await final cultures #Hx of colon ca with liver mets follow up with oncology clinic on dc #Hx of COPD patient is wheezing today, likely in acute exacerbation start patient on prednisone schedule DuoNeb start patient on oral Antibiotics for COPD exacerbation #Hx of HTN continue home BP meds #DVT ppx SC lovenox #Code status full code
[2018-08-30] MEDS: predniSONE 20 MG Tab PO SCH (17:37)
[2018-08-30] MEDS: Zolpidem 5 MG Tab PO PRN (21:04)
[2018-08-30] MEDS: Simvastatin 10 MG Tab PO SCH (21:05)
[2018-08-30] MEDS: Amoxicillin/Clavulanate K 875-125 MG Tab PO SCH (21:06)
[2018-08-31] MEDS: Budesonide 0.5 MG/2 ML Neb Susp NEB SCH ×2 (07:37→17:21)
[2018-08-31] MEDS: Amoxicillin/Clavulanate K 875-125 MG Tab PO SCH (08:48)
[2018-08-31] MEDS: predniSONE 20 MG Tab PO SCH (08:48)
[2018-08-31] MEDS: Aspirin 81 MG Tab.EC PO SCH (08:49)
[2018-08-31] MEDS: FLUoxetine 10 MG Cap PO SCH (08:49)
[2018-08-31] MEDS: Amitriptyline 10 MG Tab PO SCH ×2 (08:49→21:22)
[2018-08-31] MEDS: Metoprolol Tartrate 50 MG Tab PO SCH ×2 (08:49→21:22)
[2018-08-31] MEDS: Multivitamins, Therapeutic with Minerals Tab PO SCH (08:51)
[2018-08-31] MEDS: amLODIPine 5 MG Tab PO SCH (08:51)
[2018-08-31] MEDS: Enoxaparin 30 MG/0.3 ML Syringe SUBCUT SCH (08:52)
--- NOTE | 2018-08-31 12:44 | PCM.PN ---
- General Info Date of Service: 08/31/18 Admission Dx/Problem (Free Text): Admission Diagnosis/Problem Admission Diagnosis/Problem Sepsis, UTI Subjective Update: patient continues to have nasal congestion. She continues to require supplemental oxygen at 2 L. she feels significantly better when compared to yesterday after initiation of steroids and scheduled breathing treatments. Patient desat to 84 during ambulation. She denied any diarrhea or constipation, change in urinary habits. She denied any complaints. - Patient Data Vitals - Most Recent: Last Vital Signs Temp 36.9 C 08/31/18 08:00 Pulse 80 08/31/18 08:49 Resp 18 08/31/18 08:00 BP 134/55 L 08/31/18 08:51 Pulse Ox 97 08/31/18 08:00 Weight - Most Recent: 45.042 kg I&O - Last 24 Hours: Intake & Output 08/30/18 08/31/18 08/31/18 22:59 06:59 14:59 Intake Total 243 75 400 Output Total 300 400 300 Balance -57 -325 100 Lab Results Last 24 Hours: Laboratory Results - last 24 hr 08/31/18 Range/Units 06:00 Creatinine 0.9 (0.6-1.3) mg/dL Est Cr Clr Drug Dosing 40.18 mL/min Estimated GFR (MDRD) > 60 [facility]es Results Last 24 Hours: Microbiology 08/28/18 18:10 Urine Culture - Final Urine, Voided (Mrsa) Staphylococcus Aureus 08/28/18 17:35 Aerobic Blood Culture - Preliminary Blood - Venous - Lab Draw NO GROWTH AFTER 2 DAYS Anaerobic Blood Culture - Preliminary NO GROWTH AFTER 2 DAYS 08/28/18 17:11 Aerobic Blood Culture - Preliminary Blood - Venous NO GROWTH AFTER 2 DAYS Anaerobic Blood Culture - Preliminary NO GROWTH AFTER 2 DAYS Med Orders - Current: Current Medications Acetaminophen (Tylenol) 650 mg PO Q4H PRN PRN Reason: Fever Last Admin: 08/30/18 21:33 Dose: 650 mg Albuterol/Ipratropium (Duoneb 3.0-0.5 Mg/3 Ml) 3 ml NEB Q4HRRT PRN PRN Reason: Wheezing Amitriptyline HCl (Elavil) 10 mg PO BID [facility] Last Admin: 08/31/18 08:49 Dose: 10 mg Amlodipine Besylate (Norvasc) 5 mg PO DAILY [facility] Last Admin: 08/31/18 08:51 Dose: 5 mg Amoxicillin/Clavulanate Potassium (Augmentin 875 Mg/125 Mg) 1 tab PO Q12HR [facility] Stop: 09/04/18 09:01 Last Admin: 08/31/18 08:48 Dose: 1 tab Aspirin (Halfprin) 81 mg PO DAILY [facility] Last Admin: 08/31/18 08:49 Dose: 81 mg Budesonide (Pulmicort) 0.5 mg NEB BIDRT [facility] Last Admin: 08/31/18 07:37 Dose: 0.5 mg Diphenoxylate HCl/Atropine (Lomotil 0.025-2.5 Mg) 1 tab PO Q6H PRN PRN Reason: Diarrhea Enoxaparin Sodium (Lovenox) 30 mg SUBCUT DAILY [facility] Last Admin: 08/31/18 08:52 Dose: 30 mg Fluoxetine HCl (Prozac) 20 mg PO DAILY [facility] Last Admin: 08/31/18 08:49 Dose: 20 mg Vancomycin HCl 0.75 gm/ Sodium (Chloride) 250 mls @ 250 mls/hr IV Q24H [facility] Stop: 08/31/18 15:00 Last Admin: 08/30/18 14:23 Dose: 150 mls/hr Metoprolol Tartrate (Lopressor) 75 mg PO BID [facility] Last Admin: 08/31/18 08:49 Dose: 75 mg Multivitamins/Minerals (Vitamins And Minerals) 1 tab PO DAILY [facility] Last Admin: 08/31/18 08:51 Dose: 1 tab Ondansetron HCl (Zofran Odt) 4 mg PO Q6H PRN PRN Reason: Nausea Prednisone (Prednisone) 40 mg PO WITHBREAKFAST [facility] Stop: 09/03/18 10:00 Last Admin: 08/31/18 08:48 Dose: 40 mg Simvastatin (Zocor) 10 mg PO BEDTIME [facility] Last Admin: 08/30/18 21:05 Dose: 10 mg Sodium Chloride (Saline Flush) 10 ml FLUSH ASDIRECTED PRN PRN Reason: Keep Vein Open Trimethoprim/Sulfamethoxazole (Septra Ds) 1 tab PO BID [facility] Stop: 09/14/18 09:01 Zolpidem Tartrate (Ambien) 5 mg PO BEDTIME PRN PRN Reason: Sleep Last Admin: 08/30/18 21:04 Dose: 5 mg Discontinued Medications Albuterol/Ipratropium (Duoneb 3.0-0.5 Mg/3 Ml) 3 ml NEB ONETIME ONE Stop: 08/28/18 17:24 Last Admin: 08/28/18 17:34 Dose: 3 ml Diltiazem HCl (Diltiazem) 20 mg IVPUSH ONETIME ONE Stop: 08/28/18 18:05 Last Admin: 08/28/18 18:09 Dose: 20 mg Enoxaparin Sodium (Lovenox) 40 mg SUBCUT DAILY [facility] Last Admin: 08/29/18 14:57 Dose: Not Given Sodium Chloride (Normal Saline) 1,000 mls @ 200 mls/hr IV .BOLUS ONE Stop: 08/28/18 23:52 Last Admin: 08/28/18 19:01 Dose: 200 mls/hr Ceftriaxone Sodium 1 gm/ (Sodium Chloride) 50 mls @ 50 mls/hr IV Q24H [facility] Last Admin: 08/29/18 21:34 Dose: 50 mls/hr Sodium Chloride (Normal Saline) 1,000 mls @ 125 mls/hr IV ASDIRECTED [facility] Last Admin: 08/30/18 04:34 Dose: 125 mls/hr Iopamidol (Isovue-370 (76%)) 100 ml IVPUSH ONETIME ONE Stop: 08/28/18 19:10 Last Admin: 08/28/18 19:23 Dose: 70 ml Sodium Chloride (Saline Flush) 10 ml FLUSH ASDIRECTED PRN PRN Reason: Keep Vein Open Last Admin: 08/28/18 17:17 Dose: 10 ml Sodium Chloride (Saline Flush) 10 ml FLUSH ASDIRECTED PRN PRN Reason: Keep Vein Open Last Admin: 08/30/18 14:35 Dose: 10 ml Vancomycin HCl (Pharmacy To Dose - Vancomycin) 0 dose .XX ASDIRECTED [facility] - Exam General: Alert, Oriented Lungs: Clear to Auscultation, Normal Respiratory Effort Cardiovascular: Regular Rate, Regular Rhythm GI/Abdominal Exam: Normal Bowel Sounds, Soft, Non-Tender, No Organomegaly, No Distention Extremities: Normal Inspection, No Pedal Edema Skin: Warm, Dry, Intact Neurological: No New Focal Deficit Psy/Mental Status: Alert, Normal Affect, Normal Mood - Problem List Review Problem List Initiated/Reviewed/Updated: Yes - My Orders Last 24 Hours: My Active Orders 08/30/18 14:00 Vancomycin 0.75 gm Sodium Chloride 0.9% [Normal Saline] 250 ml IV Q24H 08/30/18 17:00 predniSONE 40 mg PO WITHBREAKFAST 08/30/18 21:00 Amoxicillin/Clavulanate K [Augmentin 875 MG/125 MG] 1 tab PO Q12HR 08/31/18 21:00 Sulfamethoxazole/Trimethoprim [Septra DS] 1 tab PO BID 09/01/18 06:00 CREATININE W/GFR [CHEM] DAILY 09/02/18 06:00 CREATININE W/GFR [CHEM] DAILY 09/03/18 06:00 CREATININE W/GFR [CHEM] DAILY 09/04/18 06:00 CREATININE W/GFR [CHEM] DAILY 09/05/18 06:00 CREATININE W/GFR [CHEM] DAILY 09/06/18 06:00 CREATININE W/GFR [CHEM] DAILY - Plan Plan:: #Sorethroat, fever, cough, SIRS+ve #Likely URTI CT chest/CXR does not show pneumonia patient is parainfluenza positive f/u blood cx discontinue IVF will monitor vital signs closely #UTI no dysuria or urinary symptoms, but fever, SIRS +ve urine cultures are positive for MRSA Start patient on Bactrim #Hx of colon ca with liver mets follow up with oncology clinic on dc #Hx of COPD patient is wheezing today, likely in acute exacerbation continue prednisone schedule DuoNeb started patient on bactrim to cover COPD exacerbation and MRSA UTI Wean down oxygen as tolerated #Hx of HTN continue home BP meds #DVT ppx SC lovenox #Code status full code
[2018-08-31] MEDS: Sodium Chloride 0.9% 10 ML Syringe FLUSH PRN ×2 (14:13→16:06)
[2018-08-31] MEDS: Acetaminophen 325 MG Tab PO PRN ×2 (16:24→22:45)
[2018-08-31] MEDS: Zolpidem 5 MG Tab PO PRN (21:22)
[2018-08-31] MEDS: Simvastatin 10 MG Tab PO SCH (21:24)
[2018-08-31] MEDS: Sulfamethoxazole/Trimethoprim 800-160 MG Tab PO SCH (21:29)
[2018-09-01 07:57] LABS: ANION GAP 14.3
[2018-09-01] MEDS: Enoxaparin 30 MG/0.3 ML Syringe SUBCUT SCH (10:02)
[2018-09-01] MEDS: Amitriptyline 10 MG Tab PO SCH (10:03)
[2018-09-01] MEDS: predniSONE 20 MG Tab PO SCH (10:03)
[2018-09-01] MEDS: Sulfamethoxazole/Trimethoprim 800-160 MG Tab PO SCH (10:03)
[2018-09-01] MEDS ORDERED: Potassium Chloride 10 MEQ Tab.ER PO ONE (10:03)
[2018-09-01] MEDS: amLODIPine 5 MG Tab PO SCH (10:04)
[2018-09-01] MEDS: FLUoxetine 10 MG Cap PO SCH (10:04)
[2018-09-01] MEDS: Aspirin 81 MG Tab.EC PO SCH (10:04)
[2018-09-01] MEDS: Metoprolol Tartrate 50 MG Tab PO SCH (10:05)
[2018-09-01] MEDS: Multivitamins, Therapeutic with Minerals Tab PO SCH (10:05)
[2018-09-01 10:08] VITALS: BP 157/71
[2018-09-01] MEDS: Budesonide 0.5 MG/2 ML Neb Susp NEB SCH (10:09)
--- NOTE | 2018-09-01 10:47 | PCM.DCSUM1 ---
Discharge Summary - Hospital Course Free Text/Narrative:: 73 yo F with PMH of colon cancer with mets to the liver, COPD, htn, hld who p/w fever, cough, sore throat. Initially to the hospital on 08/28/2018. Patient had Fever and sore throat started two days prior to admission. Also had an associated cough productive of yellowish sputum No chest pain, no abd pain, no dysuria, no increased frequency, no leg swelling , no wheezing Was seen by PCP the day prior to hospital admission, and started on oral levaquin. Symptoms persisted and she came to the ED In the ED, she was found to be hypoxic, tachycardic, low grade fever, EKG showed sinus tachy, CXR was clear, CTPE ruled out PE. She is admitted to the hospital, on viral panel was positive for parainfluenza. Patient was treated for COPD exacerbation. She continued to require oxygen, and she became due to condition. She was also found to have MRSA UTI. She improve, was transitioned to swing bed on 09/01/18. - Discharge Data Discharge Date: 09/01/18 Discharge Disposition: DC/Tfer W/I Hosp To [place] [id number] Condition: Stable - Patient Summary/Data Consults: Consultations 08/28/18 21:51 OT Evaluation and Treatment [CONS] Routine PT Evaluation and Treatment [CONS] Routine - Discharge Plan *PRESCRIPTION DRUG MONITORING PROGRAM REVIEWED*: No *COPY OF PRESCRIPTION DRUG MONITORING REPORT IN PATIENT KAYLA: No Home Medications: Home Meds FLUoxetine HCl [Fluoxetine HCl] 20 mg PO DAILY 05/04/14 [History] Simvastatin 10 mg PO BEDTIME 05/04/14 [History] Aspirin [Adult Low Dose Aspirin EC] 81 mg PO DAILY 03/23/15 [History] Zolpidem [Ambien] 5 mg PO BEDTIME PRN 03/23/15 [History] Albuterol [Ventolin HFA] 1 puff INH Q4HR PRN 08/18/17 [History] Lidocaine/Prilocaine [EMLA Crm] 5 gm TOP DAILY PRN 08/18/17 [History] Multivitamin with Minerals [Multiple Vitamin] 1 tab PO DAILY 08/18/17 [History] Albuterol/Ipratropium [DuoNeb 3.0-0.5 MG/3 ML] 3 ml NEB TIDRT #90 neb 08/21/17 [ Rx] Budesonide [Pulmicort] 0.5 mg NEB BIDRT #60 neb 08/21/17 [Rx] Loperamide [Imodium] 2 mg PO Q6H cap 08/31/17 [Rx] Diphenoxylate HCl/Atropine [Lomotil] 1 tab PO Q6H PRN 09/12/17 [History] Ondansetron [Zofran ODT] 4 mg PO Q6H PRN 09/12/17 [History] Amitriptyline [Elavil] 10 mg PO BID 08/28/18 [History] Levofloxacin 500 mg PO BID 08/28/18 [History] Metoprolol Tartrate 75 mg PO BID 08/28/18 [History] amLODIPine [Norvasc] 5 mg PO DAILY 08/28/18 [History] Forms: ED Department Discharge Referrals: PCP,None [Primary Care Provider] - - Discharge Summary/Plan Comment DC Time >30 min.: Yes - General Info Date of Service: 09/01/18 Admission Dx/Problem (Free Text: Admission Diagnosis/Problem Admission Diagnosis/Problem Sepsis, UTI - Review of Systems General: Reports: No Symptoms HEENT: Reports: Sore Throat Pulmonary: Reports: No Symptoms Cardiovascular: Reports: No Symptoms Gastrointestinal: Reports: No Symptoms Genitourinary: Reports: No Symptoms Skin: Reports: No Symptoms Neurological: Reports: No Symptoms Psychiatric: Reports: No Symptoms - Patient Data Vitals - Most Recent: Last Vital Signs Temp 36.8 C 09/01/18 08:00 Pulse 74 09/01/18 10:05 Resp 20 09/01/18 08:00 BP 157/71 H 09/01/18 10:05 Pulse Ox 87 L 09/01/18 09:29 Weight - Most Recent: 45.359 kg I&O - Last 24 hours: Intake & Output 08/31/18 09/01/18 09/01/18 22:59 06:59 14:59 Intake Total 260 Output Total 150 Balance -150 260 Lab Results - Last 24 hrs: Laboratory Results - last 24 hr 09/01/18 09/01/18 09/01/18 Range/Units 05:35 05:35 05:35 WBC 7.9 (5.0-10.0) 10^3/uL RBC 2.51 L (4.2-5.4) 10^6/uL Hgb 8.2 L (12.0-16.0) g/dL Hct 24.3 L (37.0-47.0) % MCV 96.8 D (80-100) fL MCH 32.7 (27.0-34.0) pg MCHC 33.7 (33.0-35.0) g/dL Plt Count 218 (150-450) 10^3/uL Neut % (Auto) 74.3 (42.2-75.2) % Lymph % (Auto) 16.2 L (20.5-50.1) % [place] % (Auto) 9.3 H (2-8) % Eos % (Auto) 0.1 L (1.0-3.0) % Baso % (Auto) 0.1 (0.0-1.0) % Sodium 131 L (135-145) mmol/L Potassium 3.3 L (3.6-5.0) mmol/L Chloride 97 L (101-111) mmol/L Carbon Dioxide 23.0 (21.0-31.0) mmol/L Anion Gap 14.3 BUN 16 (7-18) mg/dL Creatinine Cancelled 1.0 Est Cr Clr Drug Dosing Cancelled 36.41 Estimated GFR (MDRD) Cancelled 55 BUN/Creatinine Ratio 16.00 Glucose 93 (74-105) mg/dL Calcium 8.0 L (8.4-10.2) mg/dl Total Bilirubin 0.5 (0.2-1.0) mg/dL AST 25 (10-42) IU/L ALT 16 (10-60) IU/L Alkaline Phosphatase 71 (42-121) IU/L Total Protein 5.5 L (6.7-8.2) g/dl Albumin 2.7 L (3.2-5.5) g/dl Globulin 2.8 Albumin/Globulin Ratio 0.96 AMANUEL Results - Last 24 hrs: Microbiology 08/28/18 17:35 Aerobic Blood Culture - Preliminary Blood - Venous - Lab Draw NO GROWTH AFTER 3 DAYS Anaerobic Blood Culture - Preliminary NO GROWTH AFTER 3 DAYS 08/28/18 17:11 Aerobic Blood Culture - Preliminary Blood - Venous NO GROWTH AFTER 3 DAYS Anaerobic Blood Culture - Preliminary NO GROWTH AFTER 3 DAYS 08/28/18 18:10 Urine Culture - Final Urine, Voided (Mrsa) Staphylococcus Aureus Med Orders - Current: Current Medications Acetaminophen (Tylenol) 650 mg PO Q4H PRN PRN Reason: Fever Last Admin: 08/31/18 22:45 Dose: 650 mg Albuterol/Ipratropium (Duoneb 3.0-0.5 Mg/3 Ml) 3 ml NEB Q4HRRT PRN PRN Reason: Wheezing Amitriptyline HCl (Elavil) 10 mg PO BID [facility]PL[facility] Last Admin: 09/01/18 10:03 Dose: 10 mg Amlodipine Besylate (Norvasc) 5 mg PO DAILY [facility] Last Admin: 09/01/18 10:04 Dose: 5 mg Aspirin (Halfprin) 81 mg PO DAILY [facility] Last Admin: 09/01/18 10:04 Dose: 81 mg Budesonide (Pulmicort) 0.5 mg NEB BIDRT REPLACED [facility] Last Admin: 09/01/18 10:09 Dose: 0.5 mg Diphenoxylate HCl/Atropine (Lomotil 0.025-2.5 Mg) 1 tab PO Q6H PRN PRN Reason: Diarrhea Enoxaparin Sodium (Lovenox) 30 mg SUBCUT DAILY [facility] Last Admin: 09/01/18 10:02 Dose: 30 mg Fluoxetine HCl (Prozac) 20 mg PO DAILY [facility] Last Admin: 09/01/18 10:04 Dose: 20 mg Metoprolol Tartrate (Lopressor) 75 mg PO BID [facility] Last Admin: 09/01/18 10:05 Dose: 75 mg Multivitamins/Minerals (Vitamins And Minerals) 1 tab PO DAILY [facility] Last Admin: 09/01/18 10:05 Dose: 1 tab Ondansetron HCl (Zofran Odt) 4 mg PO Q6H PRN PRN Reason: Nausea Prednisone (Prednisone) 40 mg PO WITHBREAKFAST [facility]PL[facility] Stop: 09/03/18 10:00 Last Admin: 09/01/18 10:03 Dose: 40 mg Simvastatin (Zocor) 10 mg PO BEDTIME [facility]PLACED [facility] Last Admin: 08/31/18 21:24 Dose: 10 mg Sodium Chloride (Saline Flush) 10 ml FLUSH ASDIRECTED PRN PRN Reason: Keep Vein Open Last Admin: 08/31/18 16:06 Dose: 10 ml Trimethoprim/Sulfamethoxazole (Septra Ds) 1 tab PO BID [facility] Stop: 09/14/18 09:01 Last Admin: 09/01/18 10:03 Dose: 1 tab Zolpidem Tartrate (Ambien) 5 mg PO BEDTIME PRN PRN Reason: Sleep Last Admin: 08/31/18 21:22 Dose: 5 mg Discontinued Medications Albuterol/Ipratropium (Duoneb 3.0-0.5 Mg/3 Ml) 3 ml NEB ONETIME ONE Stop: 08/28/18 17:24 Last Admin: 08/28/18 17:34 Dose: 3 ml Amoxicillin/Clavulanate Potassium (Augmentin 875 Mg/125 Mg) 1 tab PO Q12HR [facility] Stop: 09/04/18 09:01 Last Admin: 08/31/18 08:48 Dose: 1 tab Diltiazem HCl (Diltiazem) 20 mg IVPUSH ONETIME ONE Stop: 08/28/18 18:05 Last Admin: 08/28/18 18:09 Dose: 20 mg Enoxaparin Sodium (Lovenox) 40 mg SUBCUT DAILY [facility] Last Admin: 08/29/18 14:57 Dose: Not Given Sodium Chloride (Normal Saline) 1,000 mls @ 200 mls/hr IV .BOLUS ONE Stop: 08/28/18 23:52 Last Admin: 08/28/18 19:01 Dose: 200 mls/hr Ceftriaxone Sodium 1 gm/ (Sodium Chloride) 50 mls @ 50 mls/hr IV Q24H REPLACED [facility] Last Admin: 08/29/18 21:34 Dose: 50 mls/hr Sodium Chloride (Normal Saline) 1,000 mls @ 125 mls/hr IV ASDIRECTED REPLACED BY [facility] Last Admin: 08/30/18 04:34 Dose: 125 mls/hr Vancomycin HCl 0.75 gm/ Sodium (Chloride) 250 mls @ 250 mls/hr IV Q24H [facility]PLACED [facility] Stop: 08/31/18 15:00 Last Admin: 08/31/18 14:11 Dose: 150 mls/hr Iopamidol (Isovue-370 (76%)) 100 ml IVPUSH ONETIME ONE Stop: 08/28/18 19:10 Last Admin: 08/28/18 19:23 Dose: 70 ml Potassium Chloride (Klor-Con 10) 40 meq PO ONETIME ONE Stop: 09/01/18 10:04 Last Admin: 09/01/18 10:20 Dose: 40 meq Sodium Chloride (Saline Flush) 10 ml FLUSH ASDIRECTED PRN PRN Reason: Keep Vein Open Last Admin: 08/28/18 17:17 Dose: 10 ml Sodium Chloride (Saline Flush) 10 ml FLUSH ASDIRECTED PRN PRN Reason: Keep Vein Open Last Admin: 08/30/18 14:35 Dose: 10 ml Vancomycin HCl (Pharmacy To Dose - Vancomycin) 0 dose .XX ASDIRECTED [facility] - Exam General: Reports: Alert, Oriented Lungs: Reports: Clear to Auscultation, Normal Respiratory Effort Cardiovascular: Reports: Regular Rate, Regular Rhythm GI/Abdominal Exam: Normal Bowel Sounds, Soft, Non-Tender Skin: Reports: Warm, Dry, Intact Neurological: Reports: No New Focal Deficit Psy/Mental Status: Reports: Alert, Normal Affect, Normal Mood
== END 2018-09-01 11:01 | disposition swing bed (61) | DRG 872 ==
LOC: DL.ED 16:50 → DL.MS 20:43 → OBSVTOIN 21:51
PROVIDERS: ADMIT Hospitalist; ATTEND Internal Medicine
DX: A41.02 Sepsis due to Methicillin resistant Staphylococcus aureus (principal); N39.0 Urinary tract infection, site not specified; J11.1 Influenza due to unidentified influenza virus with other respiratory manifestations; C18.9 Malignant neoplasm of colon, unspecified; C78.7 Secondary malignant neoplasm of liver and intrahepatic bile duct; E78.5 Hyperlipidemia, unspecified; Z92.21 Personal history of antineoplastic chemotherapy; I25.10 Atherosclerotic heart disease of native coronary artery without angina pectoris; F17.210 Nicotine dependence, cigarettes, uncomplicated; F41.9 Anxiety disorder, unspecified; M81.0 Age-related osteoporosis without current pathological fracture; F32.9 Major depressive disorder, single episode, unspecified; I10 Essential (primary) hypertension; Z85.828 Personal history of other malignant neoplasm of skin; Z98.49 Cataract extraction status, unspecified eye; Z90.710 Acquired absence of both cervix and uterus; E78.00 Pure hypercholesterolemia, unspecified; Z85.05 Personal history of malignant neoplasm of liver; Z85.038 Personal history of other malignant neoplasm of large intestine; J44.9 Chronic obstructive pulmonary disease, unspecified; Z79.82 Long term (current) use of aspirin; Z79.899 Other long term (current) drug therapy; Z88.8 Allergy status to other drugs, medicaments and biological substances
CPT/HCPCS: 36415; 71045; 71260; 80048; 80053; 81001; 82565; 83605; 83880; 84484; 85025; 85379; 85610; 87040; 87086; 87088; 87186; 87486; 87581; 87632; 87798; 87804; 93005; 94640; 94760; 96374; 97110-GO; 97116-GP; 97161-GP; 97165-GO; 97530-GO; 99284; 99285-25; A9270-GY; J0696; J1650; J3370; J3490; J7030; J7050; J7620-GY; Q9967

== ENCOUNTER 2018-09-01 10:52 | Inpatient (IN) | payer MEDICARE, OTHER ==
[2018-09-01] MEDS ORDERED: Atropine/Diphenoxylate 0.025-2.5 MG Tab PO PRN (10:58)
[2018-09-01] MEDS ORDERED: Albuterol/Ipratropium 3.0-0.5 MG/3 ML Neb Soln NEB PRN (10:58)
[2018-09-01] MEDS ORDERED: Sodium Chloride 0.9% 10 ML Syringe FLUSH PRN ×2 (10:58)
[2018-09-01] MEDS ORDERED: Ondansetron 4 MG Tab.DIS PO PRN (10:58)
--- NOTE | 2018-09-01 11:03 | PCM.HP ---
H&P History of Present Illness - General Date of Service: 09/01/18 Admit Problem/Dx: Admission Diagnosis/Problem Admission Diagnosis/Problem Hypoxia - History of Present Illness Initial Comments - Free Text/Narative: 73 yo F with PMH of colon cancer with mets to the liver, COPD, htn, hld who p/w fever, cough, sore throat. Initially to the hospital on 08/28/2018. Patient had Fever and sore throat started two days prior to admission. Also had an associated cough productive of yellowish sputum No chest pain, no abd pain, no dysuria, no increased frequency, no leg swelling , no wheezing Was seen by PCP the day prior to hospital admission, and started on oral levaquin. Symptoms persisted and she came to the ED In the ED, she was found to be hypoxic, tachycardic, low grade fever, EKG showed sinus tachy, CXR was clear, CTPE ruled out PE. She is admitted to the hospital, on viral panel was positive for parainfluenza. Patient was treated for COPD exacerbation. She continued to require oxygen, and she became due to condition. She was also found to have MRSA UTI. She improve, was transitioned to swing bed on 09/01/18. - Related Data Allergies/Adverse Reactions: Allergies Allergy/AdvReac Type Severity Reaction Status Date / Time ibuprofen Allergy Cannot Verified 08/28/18 21:08 Remember nitrofurantoin Allergy Diarrhea Verified 08/28/18 21:08 [From Macrobid] oxycodone Allergy Cannot Verified 08/28/18 21:08 Remember promethazine HCl Allergy Anxiety Verified 08/28/18 21:08 [From Phenergan] Home Medications: Home Meds FLUoxetine HCl [Fluoxetine HCl] 20 mg PO DAILY 05/04/14 [History] Simvastatin 10 mg PO BEDTIME 05/04/14 [History] Aspirin [Adult Low Dose Aspirin EC] 81 mg PO DAILY 03/23/15 [History] Zolpidem [Ambien] 5 mg PO BEDTIME PRN 03/23/15 [History] Albuterol [Ventolin HFA] 1 puff INH Q4HR PRN 08/18/17 [History] Lidocaine/Prilocaine [EMLA Crm] 5 gm TOP DAILY PRN 08/18/17 [History] Multivitamin with Minerals [Multiple Vitamin] 1 tab PO DAILY 08/18/17 [History] Albuterol/Ipratropium [DuoNeb 3.0-0.5 MG/3 ML] 3 ml NEB TIDRT #90 neb 08/21/17 [ Rx] Budesonide [Pulmicort] 0.5 mg NEB BIDRT #60 [facility] 08/21/17 [Rx] Loperamide [Imodium] 2 mg PO Q6H cap 08/31/17 [Rx] Diphenoxylate HCl/Atropine [Lomotil] 1 tab PO Q6H PRN 09/12/17 [History] Ondansetron [Zofran ODT] 4 mg PO Q6H PRN 09/12/17 [History] Amitriptyline [Elavil] 10 mg PO BID 08/28/18 [History] Levofloxacin 500 mg PO BID 08/28/18 [History] Metoprolol Tartrate 75 mg PO BID 08/28/18 [History] amLODIPine [Norvasc] 5 mg PO DAILY 08/28/18 [History] Past Medical History HEENT History: Reports: None Cardiovascular History: Reports: CAD, High Cholesterol, Hypertension Respiratory History: Reports: Bronchitis, Recurrent, COPD, Other (See Below) Other Respiratory History: recent pneumonia Gastrointestinal History: Reports: Other (See Below) Other Gastrointestinal History: abnormal digestive system Genitourinary History: Reports: UTI, Recurrent, Other (See Below) Other Genitourinary History: stent in urethea tube and stress incontinence, renal stents [employer] History: Reports: Musculoskeletal History: Reports: Osteoporosis Neurological History: Reports: None Psychiatric History: Reports: Anxiety, Depression Endocrine/Metabolic History: Reports: None Hematologic History: Reports: Anemia Immunologic History: Reports: Immunosuppression, Other (See Below) Other Immunologic History: on chemo Oncologic (Cancer) History: Reports: Colon, Liver, Other (See Below) Other Oncologic History: 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 Dermatologic History: Reports: None Other Dermatologic History: dry skin - Infectious Disease History Infectious Disease History: Reports: Chicken Pox, Measles - Past Surgical History Head Surgeries/Procedures: Reports: None HEENT Surgical History: Reports: Cataract Surgery Other HEENT Surgeries/Procedures: left cataract removal GI Surgical History: Reports: Colonoscopy, Other (See Below) Other GI Surgeries/Procedures: stent in urethea tube Female Surgical History: Reports: Oophorectomy, Ureteral Stent, Other (See Below) Other Female Surgeries/Procedures: bladder lift Social & Family History - Family History Family Medical History: Noncontributory - Caffeine Use Caffeine Use: Reports: None - Living Situation & Occupation Living situation: Reports: Occupation: Retired H&P Review of Systems - Review of Systems: Review Of Systems: See Below General: Reports: No Symptoms HEENT: Reports: Sore Throat Pulmonary: Reports: No Symptoms Cardiovascular: Reports: No Symptoms Gastrointestinal: Reports: No Symptoms Genitourinary: Reports: No Symptoms Musculoskeletal: Reports: No Symptoms Skin: Reports: No Symptoms Psychiatric: Reports: No Symptoms Neurological: Reports: No Symptoms Hematologic/Lymphatic: Reports: No Symptoms Immunologic: Reports: No Symptoms Exam - Exam Exam: See Below - Exam General: Alert, Oriented, 4 Neck: Supple, Trachea Midline, 2 Lungs: Clear to Auscultation, Normal Respiratory Effort Cardiovascular: Regular Rate, Regular Rhythm GI/Abdominal Exam: Normal Bowel Sounds, Soft, Non-Tender, No Organomegaly, No Distention Extremities: Normal Inspection, No Pedal Edema Skin: Warm, Dry, Intact Neuro Extensive - Mental Status: Alert, Oriented x3, Normal Mood/Affect, Normal Cognition Psychiatric: Alert, Normal Affect, Normal Mood Problem List Initiated/Reviewed/Updated: Yes Orders Last 24hrs: Active Orders 24 hr Category Date Time Status Patient Status [ADT] Routine ADT 09/01/18 11:01 Ordered Ambulate [RC] ASDIRECTED Care 09/01/18 10:58 Ordered Height and Weight [RC] DAILY Care 09/01/18 10:58 Ordered Oxygen Therapy [RC] PRN Care 09/01/18 10:58 Ordered Peripheral IV Care [RC] . DIRECTED Care 09/01/18 10:58 Ordered Peripheral IV Care [RC] . DIRECTED Care 09/01/18 10:58 Ordered Peripheral IV Care [RC] . DIRECTED Care 09/01/18 10:58 Ordered RT Aerosol Therapy [RC] ASDIRECTED Care 09/01/18 10:58 Ordered RT Aerosol Therapy [RC] ASDIRECTED Care 09/01/18 10:58 Ordered RT Aerosol Therapy [RC] ASDIRECTED Care 09/01/18 10:58 Ordered Up With Assistance [RC] ASDIRECTED Care 09/01/18 10:58 Ordered VTE/DVT Education [RC] PER UNIT ROUTINE Care 09/01/18 10:58 Ordered Vital Signs [RC] PER UNIT ROUTINE Care 09/01/18 11:01 Ordered OT Evaluation and Treatment [CONS] Routine Cons 09/01/18 10:58 Ordered PT Evaluation and Treatment [CONS] Routine Cons 09/01/18 10:58 Ordered Regular Diet [DIET] Diet 09/01/18 Dinner Ordered CREATININE W/GFR [CHEM] DAILY Lab 09/02/18 06:00 Ordered CREATININE W/GFR [CHEM] DAILY Lab 09/03/18 06:00 Ordered CREATININE W/GFR [CHEM] DAILY Lab 09/04/18 06:00 Ordered CREATININE W/GFR [CHEM] DAILY Lab 09/05/18 06:00 Ordered CREATININE W/GFR [CHEM] DAILY Lab 09/06/18 06:00 Ordered Acetaminophen [Tylenol] Med 09/01/18 10:58 Ordered 650 mg PO Q4H PRN Albuterol/Ipratropium [DuoNeb 3.0-0.5 MG/3 ML] Med 09/01/18 10:58 Ordered 3 ml NEB Q4HRRT PRN Amitriptyline [Elavil] Med 09/01/18 21:00 Ordered 10 mg PO BID Aspirin [Halfprin] Med 09/02/18 09:00 Ordered 81 mg PO DAILY Atropine/Diphenoxylate [Lomotil 0.025-2.5 MG] Med 09/01/18 10:58 Ordered 1 tab PO Q6H PRN Budesonide [Pulmicort] Med 09/01/18 18:00 Ordered 0.5 mg NEB BIDRT Enoxaparin [Lovenox] Med 09/02/18 09:00 Ordered 30 mg SUBCUT DAILY FLUoxetine [PROzac] Med 09/02/18 09:00 Ordered 20 mg PO DAILY Metoprolol Tartrate [Lopressor] Med 09/01/18 21:00 Ordered 75 mg PO BID Multivitamins/Minerals [Vitamins and Minerals] Med 09/02/18 09:00 Ordered 1 tab PO DAILY Ondansetron [Zofran ODT] Med 09/01/18 10:58 Ordered 4 mg PO Q6H PRN Simvastatin [Zocor] Med 09/01/18 21:00 Ordered 10 mg PO BEDTIME Sodium Chloride 0.9% [Saline Flush] Med 09/01/18 10:58 Ordered 10 ml FLUSH ASDIRECTED PRN Sodium Chloride 0.9% [Saline Flush] Med 09/01/18 10:58 Ordered 10 ml FLUSH ASDIRECTED PRN Sulfamethoxazole/Trimethoprim [Septra DS] Med 09/01/18 21:00 Ordered 1 tab PO BID Zolpidem [Ambien] Med 09/01/18 10:58 Ordered 5 mg PO BEDTIME PRN amLODIPine [Norvasc] Med 09/02/18 09:00 Ordered 5 mg PO DAILY predniSONE Med 09/02/18 08:00 Ordered 40 mg PO WITHBREAKFAST Peripheral IV Insertion Adult [OM.PC] Routine Oth 09/01/18 10:58 Ordered Peripheral IV Insertion Adult [OM.PC] Stat Oth 09/01/18 10:58 Ordered Saline Lock Insert [OM.PC] Routine Oth 09/01/18 10:58 Ordered Medication Orders Acetaminophen (Tylenol) 650 mg PO Q4H PRN PRN Reason: Fever Albuterol/Ipratropium (Duoneb 3.0-0.5 Mg/3 Ml) 3 ml NEB Q4HRRT PRN PRN Reason: Wheezing Amitriptyline HCl (Elavil) 10 mg PO BID [facility] Amlodipine Besylate (Norvasc) 5 mg PO DAILY [facility] Aspirin (Halfprin) 81 mg PO DAILY [facility] Budesonide (Pulmicort) 0.5 mg NEB BIDRT [facility] Diphenoxylate HCl/Atropine (Lomotil 0.025-2.5 Mg) 1 tab PO Q6H PRN PRN Reason: Diarrhea Enoxaparin Sodium (Lovenox) 30 mg SUBCUT DAILY [facility] Fluoxetine HCl (Prozac) 20 mg PO DAILY [facility] Metoprolol Tartrate (Lopressor) 75 mg PO BID [facility] Multivitamins/Minerals (Vitamins And Minerals) 1 tab PO DAILY [facility] Ondansetron HCl (Zofran Odt) 4 mg PO Q6H PRN PRN Reason: Nausea Prednisone (Prednisone) 40 mg PO WITHBREAKFAST [facility] Stop: 09/03/18 10:00 Simvastatin (Zocor) 10 mg PO BEDTIME [facility] Sodium Chloride (Saline Flush) 10 ml FLUSH ASDIRECTED PRN PRN Reason: Keep Vein Open Sodium Chloride (Saline Flush) 10 ml FLUSH ASDIRECTED PRN PRN Reason: Keep Vein Open Trimethoprim/Sulfamethoxazole (Septra Ds) 1 tab PO BID [facility] Stop: 09/14/18 09:01 Zolpidem Tartrate (Ambien) 5 mg PO BEDTIME PRN PRN Reason: Sleep Assessment/Plan Comment:: Hypoxia will wean oxygen as tolerated deconditioning continue PT/OT #Sorethroat, fever, cough, SIRS+ve #Likely URTI CT chest/CXR does not show pneumonia patient is parainfluenza positive f/u blood cx discontinue IVF will monitor vital signs closely #UTI no dysuria or urinary symptoms, but fever, SIRS +ve urine cultures are positive for MRSA Start patient on Bactrim #Hx of colon ca with liver mets follow up with oncology clinic on dc #Hx of COPD patient is wheezing today, likely in acute exacerbation continue prednisone schedule DuoNeb started patient on bactrim to cover COPD exacerbation and MRSA UTI Wean down oxygen as tolerated #Hx of HTN continue home BP meds #DVT ppx SC lovenox #Code status full code
[2018-09-01] MEDS ORDERED: Budesonide 0.5 MG/2 ML Neb Susp NEB SCH (18:00)
[2018-09-01] MEDS: Metoprolol Tartrate 25 MG Tab PO SCH (20:54)
[2018-09-01] MEDS: Sulfamethoxazole/Trimethoprim 800-160 MG Tab PO SCH (20:55)
[2018-09-01] MEDS: Simvastatin 10 MG Tab PO SCH (20:56)
[2018-09-01] MEDS: Amitriptyline 10 MG Tab PO SCH (20:56)
[2018-09-01] MEDS: Zolpidem 5 MG Tab PO PRN (20:57)
[2018-09-02] MEDS: Budesonide 0.5 MG/2 ML Neb Susp NEB SCH ×2 (08:03→15:46)
[2018-09-02] MEDS: Sulfamethoxazole/Trimethoprim 800-160 MG Tab PO SCH ×2 (08:21→21:06)
[2018-09-02] MEDS: Multivitamins, Therapeutic with Minerals Tab PO SCH (08:22)
[2018-09-02] MEDS: predniSONE 20 MG Tab PO SCH (08:22)
[2018-09-02] MEDS: FLUoxetine 10 MG Cap PO SCH (08:23)
[2018-09-02] MEDS: Aspirin 81 MG Tab.EC PO SCH (08:23)
[2018-09-02] MEDS: Amitriptyline 10 MG Tab PO SCH ×2 (08:23→21:07)
[2018-09-02] MEDS: Metoprolol Tartrate 25 MG Tab PO SCH ×2 (08:26→21:07)
[2018-09-02] MEDS: Enoxaparin 30 MG/0.3 ML Syringe SUBCUT SCH (08:27)
[2018-09-02] MEDS: amLODIPine 5 MG Tab PO SCH (08:34)
[2018-09-02] MEDS: Simvastatin 10 MG Tab PO SCH (21:07)
[2018-09-02] MEDS: Zolpidem 5 MG Tab PO PRN (21:07)
[2018-09-03] MEDS: Budesonide 0.5 MG/2 ML Neb Susp NEB SCH ×2 (07:50→15:43)
[2018-09-03] MEDS: FLUoxetine 10 MG Cap PO SCH (08:36)
[2018-09-03] MEDS: Enoxaparin 30 MG/0.3 ML Syringe SUBCUT SCH (08:36)
[2018-09-03] MEDS: Amitriptyline 10 MG Tab PO SCH ×2 (08:37→20:55)
[2018-09-03] MEDS: Sulfamethoxazole/Trimethoprim 800-160 MG Tab PO SCH ×2 (08:37→20:53)
[2018-09-03] MEDS: Multivitamins, Therapeutic with Minerals Tab PO SCH (08:37)
[2018-09-03] MEDS: predniSONE 20 MG Tab PO SCH (08:37)
[2018-09-03] MEDS: amLODIPine 5 MG Tab PO SCH (08:37)
[2018-09-03] MEDS: Aspirin 81 MG Tab.EC PO SCH (08:37)
--- NOTE | 2018-09-03 09:43 | PCM.PN ---
- General Info Date of Service: 09/03/18 Admission Dx/Problem (Free Text): Admission Diagnosis/Problem Admission Diagnosis/Problem Hypoxia Subjective Update: patient continues to require oxygen. She feels that her breathing is better, however she continues to have dyspnea on exertion. She denied any pain. - Review of Systems General: Reports: No Symptoms Pulmonary: Reports: Shortness of Breath Cardiovascular: Reports: No Symptoms Gastrointestinal: Reports: No Symptoms Genitourinary: Reports: No Symptoms Musculoskeletal: Reports: No Symptoms Skin: Reports: No Symptoms Neurological: Reports: No Symptoms Psychiatric: Reports: No Symptoms - Patient Data Vitals - Most Recent: Last Vital Signs Temp 37.4 C 09/02/18 20:00 Pulse 80 09/02/18 21:07 Resp 20 09/02/18 20:00 BP 128/63 09/03/18 08:37 Pulse Ox 91 L 09/03/18 07:51 Weight - Most Recent: 44.543 kg I&O - Last 24 Hours: Intake & Output 09/02/18 09/03/18 09/03/18 22:59 06:59 14:59 Intake Total 360 Balance 360 Lab Results Last 24 Hours: Laboratory Results - last 24 hr 09/03/18 Range/Units 06:05 Creatinine 1.2 (0.6-1.3) mg/dL Est Cr Clr Drug Dosing 29.80 mL/min Estimated GFR (MDRD) 44 Med Orders - Current: Current Medications Acetaminophen (Tylenol) 650 mg PO Q4H PRN PRN Reason: Fever Albuterol/Ipratropium (Duoneb 3.0-0.5 Mg/3 Ml) 3 ml NEB Q4HRRT PRN PRN Reason: Wheezing Amitriptyline HCl (Elavil) 10 mg PO BID [facility] Last Admin: 09/03/18 08:37 Dose: 10 mg Amlodipine Besylate (Norvasc) 5 mg PO DAILY [facility] Last Admin: 09/03/18 08:37 Dose: 5 mg Aspirin (Halfprin) 81 mg PO DAILY [facility] Last Admin: 09/03/18 08:37 Dose: 81 mg Budesonide (Pulmicort) 0.5 mg NEB BID@0700,1500 [facility] Last Admin: 09/03/18 07:50 Dose: 0.5 mg Diphenoxylate HCl/Atropine (Lomotil 0.025-2.5 Mg) 1 tab PO Q6H PRN PRN Reason: Diarrhea Enoxaparin Sodium (Lovenox) 30 mg SUBCUT DAILY [facility] Last Admin: 09/03/18 08:36 Dose: 30 mg Fluoxetine HCl (Prozac) 20 mg PO DAILY [facility] Last Admin: 09/03/18 08:36 Dose: 20 mg Metoprolol Tartrate (Lopressor) 75 mg PO BID [facility] Last Admin: 09/02/18 21:07 Dose: 75 mg Multivitamins/Minerals (Vitamins And Minerals) 1 tab PO DAILY [facility] Last Admin: 09/03/18 08:37 Dose: 1 tab Ondansetron HCl (Zofran Odt) 4 mg PO Q6H PRN PRN Reason: Nausea Prednisone (Prednisone) 40 mg PO WITHBREAKFAST [facility] Stop: 09/03/18 10:00 Last Admin: 09/03/18 08:37 Dose: 40 mg Simvastatin (Zocor) 10 mg PO BEDTIME [facility] Last Admin: 09/02/18 21:07 Dose: 10 mg Trimethoprim/Sulfamethoxazole (Septra Ds) 1 tab PO BID [facility] Stop: 09/14/18 09:01 Last Admin: 09/03/18 08:37 Dose: 1 tab Zolpidem Tartrate (Ambien) 5 mg PO BEDTIME PRN PRN Reason: Sleep Last Admin: 09/02/18 21:07 Dose: 5 mg Discontinued Medications Budesonide (Pulmicort) 0.5 mg NEB BIDRT [facility] Last Admin: 09/01/18 19:17 Dose: Not Given Sodium Chloride (Saline Flush) 10 ml FLUSH ASDIRECTED PRN PRN Reason: Keep Vein Open Sodium Chloride (Saline Flush) 10 ml FLUSH ASDIRECTED PRN PRN Reason: Keep Vein Open - Exam Quality Assessment: Supplemental Oxygen General: Alert, Oriented Lungs: Clear to Auscultation, Normal Respiratory Effort Cardiovascular: Regular Rate, Regular Rhythm GI/Abdominal Exam: Normal Bowel Sounds, Soft, Non-Tender, No Distention Skin: Warm, Dry, Intact Wound/Incisions: Healing Well Neurological: No New Focal Deficit Psy/Mental Status: Alert, Normal Affect, Normal Mood - Problem List Review Problem List Initiated/Reviewed/Updated: Yes - My Orders Last 24 Hours: My Active Orders 09/02/18 09:00 Aspirin [Halfprin] 81 mg PO DAILY Enoxaparin [Lovenox] 30 mg SUBCUT DAILY FLUoxetine [PROzac] 20 mg PO DAILY Multivitamins/Minerals [Vitamins and Minerals] 1 tab PO DAILY amLODIPine [Norvasc] 5 mg PO DAILY 09/04/18 06:00 CREATININE W/GFR [CHEM] DAILY 09/05/18 06:00 CREATININE W/GFR [CHEM] DAILY 09/06/18 06:00 CREATININE W/GFR [CHEM] DAILY - Plan Plan:: Hypoxia will wean oxygen as tolerated deconditioning continue PT/OT #Sorethroat, fever, cough, SIRS+ve # URTI CT chest/CXR does not show pneumonia patient is parainfluenza positive f/u blood cx discontinue IVF will monitor vital signs closely #UTI no dysuria or urinary symptoms, but fever, SIRS +ve urine cultures are positive for MRSA Start patient on Bactrim #Hx of colon ca with liver mets follow up with oncology clinic on dc #Hx of COPD patient is wheezing today, likely in acute exacerbation finish prednisone course schedule DuoNeb started patient on bactrim to cover COPD exacerbation and MRSA UTI Wean down oxygen as tolerated start patient on long-acting anticholinergic #Hx of HTN continue home BP meds #DVT ppx SC lovenox #Code status full code
[2018-09-03] MEDS: Metoprolol Tartrate 25 MG Tab PO SCH ×2 (10:52→20:55)
[2018-09-03] MEDS: Tiotropium Inhaler 18 MCG Inhalation Powder Cap Kit of 5 INH SCH (13:02)
[2018-09-03] MEDS: Acetaminophen 325 MG Tab PO PRN (20:54)
[2018-09-03] MEDS: Simvastatin 10 MG Tab PO SCH (20:54)
[2018-09-03] MEDS: Zolpidem 5 MG Tab PO PRN (20:54)
[2018-09-04] MEDS: Budesonide 0.5 MG/2 ML Neb Susp NEB SCH ×2 (08:06→15:15)
[2018-09-04] MEDS: amLODIPine 5 MG Tab PO SCH (09:16)
[2018-09-04] MEDS: Metoprolol Tartrate 25 MG Tab PO SCH ×2 (09:17→20:53)
[2018-09-04] MEDS: FLUoxetine 10 MG Cap PO SCH (09:17)
[2018-09-04] MEDS: Multivitamins, Therapeutic with Minerals Tab PO SCH (09:17)
[2018-09-04] MEDS: Amitriptyline 10 MG Tab PO SCH ×2 (09:17→21:01)
[2018-09-04] MEDS: Enoxaparin 30 MG/0.3 ML Syringe SUBCUT SCH (09:17)
[2018-09-04] MEDS: Sulfamethoxazole/Trimethoprim 800-160 MG Tab PO SCH ×2 (09:17→20:59)
[2018-09-04] MEDS: Aspirin 81 MG Tab.EC PO SCH (09:17)
[2018-09-04] MEDS: Tiotropium Inhaler 18 MCG Inhalation Powder Cap Kit of 5 INH SCH (09:18)
[2018-09-04 10:42] LABS: ANION GAP 10.3
[2018-09-04] MEDS: Zolpidem 5 MG Tab PO PRN (20:53)
[2018-09-04] MEDS: Simvastatin 10 MG Tab PO SCH (20:59)
[2018-09-04] MEDS: Acetaminophen 325 MG Tab PO PRN (20:59)
[2018-09-05] MEDS: Budesonide 0.5 MG/2 ML Neb Susp NEB SCH ×2 (07:32→15:15)
[2018-09-05] MEDS: FLUoxetine 10 MG Cap PO SCH (09:11)
[2018-09-05] MEDS: Multivitamins, Therapeutic with Minerals Tab PO SCH (09:12)
[2018-09-05] MEDS: amLODIPine 5 MG Tab PO SCH (09:12)
[2018-09-05] MEDS: Metoprolol Tartrate 25 MG Tab PO SCH ×2 (09:12→20:29)
[2018-09-05] MEDS: Sulfamethoxazole/Trimethoprim 800-160 MG Tab PO SCH ×2 (09:12→20:29)
[2018-09-05] MEDS: Amitriptyline 10 MG Tab PO SCH ×2 (09:13→20:28)
[2018-09-05] MEDS: Tiotropium Inhaler 18 MCG Inhalation Powder Cap Kit of 5 INH SCH (09:14)
[2018-09-05] MEDS ORDERED: Sodium Chloride 0.9% 500 ML IV SCH (10:30)
[2018-09-05] MEDS: Simvastatin 10 MG Tab PO SCH (20:28)
[2018-09-05] MEDS: Zolpidem 5 MG Tab PO PRN (20:31)
[2018-09-06] MEDS: Budesonide 0.5 MG/2 ML Neb Susp NEB SCH (07:52)
[2018-09-06] MEDS: Sulfamethoxazole/Trimethoprim 800-160 MG Tab PO SCH (08:37)
[2018-09-06] MEDS: amLODIPine 5 MG Tab PO SCH (08:37)
[2018-09-06] MEDS: FLUoxetine 10 MG Cap PO SCH (08:37)
[2018-09-06] MEDS: Multivitamins, Therapeutic with Minerals Tab PO SCH (08:37)
[2018-09-06] MEDS: Amitriptyline 10 MG Tab PO SCH (08:37)
[2018-09-06] MEDS: Tiotropium Inhaler 18 MCG Inhalation Powder Cap Kit of 5 INH SCH (08:38)
[2018-09-06] MEDS: Metoprolol Tartrate 25 MG Tab PO SCH (08:38)
[2018-09-06 08:40] VITALS: BP 150/60
[2018-09-06 12:04] LABS: ANION GAP 14.3
--- NOTE | 2018-09-06 12:13 | PCM.DCSUM1 ---
Discharge Summary - Hospital Course Free Text/Narrative:: The patient was admitted to acute care and treated for upper respiratory tract infection, COPD exacerbation She was noted to have hypoxemia and was transferred to swing bed for further physical therapy and weaning off oxygen Hypoxia The patient will need home oxygen therapy On room air oxygen saturation was 87%, she required 1 L/m oxygen supplement via nasal cannula oxygen During activity the patient will need 3 L/m oxygen supplement She is active and would require stationary and portable equipment #Sorethroat, fever, cough, SIRS+ve # URTI CT chest/CXR does not show pneumonia patient is parainfluenza positive # anemia likely related o colon ca and chemotx. follow periodically # hyponatremia mild satble #UTI no dysuria or urinary symptoms, but fever, SIRS +ve urine cultures are positive for MRSA she was treated with Bactrim #Hx of colon ca with liver mets follow up with oncology clinic on dc #Hx of COPD finished prednisone course cont nebs, spiriva was added Diagnosis: Stroke: No - Discharge Data Discharge Date: 09/06/18 Discharge Disposition: Home, Self-Care 01 Condition: Good - Patient Summary/Data Consults: Consultations 09/01/18 10:58 OT Evaluation and Treatment [CONS] Routine PT Evaluation and Treatment [CONS] Routine - Patient Instructions Diet: Regular Diet as Tolerated Activity: As Tolerated - Discharge Plan *PRESCRIPTION DRUG MONITORING PROGRAM REVIEWED*: Not Applicable *COPY OF PRESCRIPTION DRUG MONITORING REPORT IN PATIENT KAYLA: Not Applicable Prescriptions/Med Rec: RX: Tiotropium [Spiriva HandiHaler] 18 mcg INH DAILY #30 cap Home Medications: Home Meds RX: FLUoxetine HCl [Fluoxetine HCl] 20 mg PO DAILY 05/04/14 [History] RX: Simvastatin 10 mg PO BEDTIME 05/04/14 [History] RX: Aspirin [Adult Low Dose Aspirin EC] 81 mg PO DAILY 03/23/15 [History] RX: Zolpidem [Ambien] 5 mg PO BEDTIME PRN 03/23/15 [History] RX: Albuterol [Ventolin HFA] 1 puff INH Q4HR PRN 08/18/17 [History] RX: Lidocaine/Prilocaine [EMLA Crm] 5 gm TOP DAILY PRN 08/18/17 [History] RX: Multivitamin with Minerals [Multiple Vitamin] 1 tab PO DAILY 08/18/17 [ History] RX: Diphenoxylate HCl/Atropine [Lomotil] 1 tab PO Q6H PRN 09/12/17 [History] RX: Ondansetron [Zofran ODT] 4 mg PO Q6H PRN 09/12/17 [History] RX: Amitriptyline [Elavil] 10 mg PO BID 08/28/18 [History] RX: Metoprolol Tartrate 75 mg PO BID 08/28/18 [History] RX: amLODIPine [Norvasc] 5 mg PO DAILY 08/28/18 [History] RX: Albuterol/Ipratropium [DuoNeb 3.0-0.5 MG/3 ML] 3 ml INH TID PRN 09/01/18 [ History] RX: Budesonide [Pulmicort] 2 ml INH BID PRN 09/01/18 [History] RX: Loperamide [Imodium] 2 mg PO Q6H PRN 09/01/18 [History] RX: Albuterol/Ipratropium [DuoNeb 3.0-0.5 MG/3 ML] 3 ml NEB Q4HRRT PRN neb 01/17 [Rx] RX: Tiotropium [Spiriva HandiHaler] 18 mcg INH DAILY #30 cap 09/06/18 [Rx] Oxygen Therapy Mode: Nasal Cannula Patient Handouts: Home Oxygen Use, Adult - Discharge Summary/Plan Comment DC Time >30 min.: Yes (ordering oxygen supplement at home) - General Info Date of Service: 09/06/18 - Review of Systems General: Denies: Fever, Weakness Pulmonary: Denies: Shortness of Breath Cardiovascular: Denies: Chest Pain Gastrointestinal: Denies: Abdominal Pain Genitourinary: Denies: Dysuria Neurological: Denies: Confusion - Patient Data Vitals - Most Recent: Last Vital Signs Temp 37.2 C 09/06/18 08:00 Pulse 77 09/06/18 08:38 Resp 20 09/06/18 08:00 BP 150/60 H 09/06/18 08:38 Pulse Ox 94 L 09/06/18 08:00 Weight - Most Recent: 44.906 kg I&O - Last 24 hours: Intake & Output 09/05/18 09/06/18 09/06/18 22:59 06:59 14:59 Intake Total 700 150 Balance 700 150 Lab Results - Last 24 hrs: Laboratory Results - last 24 hr 09/06/18 09/06/18 Range/Units 05:47 05:47 WBC 5.9 (5.0-10.0) 10^3/uL RBC 2.65 L (4.2-5.4) 10^6/uL Hgb 8.7 L (12.0-16.0) g/dL Hct 26.5 L (37.0-47.0) % MCV 100.0 (80-100) fL MCH 32.8 (27.0-34.0) pg MCHC 32.8 L (33.0-35.0) g/dL Plt Count 326 (150-450) 10^3/uL Neut % (Auto) 50.6 (42.2-75.2) % Lymph % (Auto) 25.1 (20.5-50.1) % [place] % (Auto) 20.5 H (2-8) % Eos % (Auto) 3.5 H (1.0-3.0) % Baso % (Auto) 0.3 (0.0-1.0) % Add Manual Diff Yes Creatinine Cancelled Est Cr Clr Drug Dosing Cancelled Estimated GFR (MDRD) Cancelled Med Orders - Current: Current Medications Acetaminophen (Tylenol) 650 mg PO Q4H PRN PRN Reason: Fever Last Admin: 09/03/18 20:54 Dose: 650 mg Albuterol/Ipratropium (Duoneb 3.0-0.5 Mg/3 Ml) 3 ml NEB Q4HRRT PRN PRN Reason: Wheezing Amitriptyline HCl (Elavil) 10 mg PO BID [facility] Last Admin: 09/06/18 08:37 Dose: 10 mg Amlodipine Besylate (Norvasc) 5 mg PO DAILY [facility] Last Admin: 09/06/18 08:37 Dose: 5 mg Budesonide (Pulmicort) 0.5 mg NEB BID@0700,1500 [facility] Last Admin: 09/06/18 07:52 Dose: 0.5 mg Diphenoxylate HCl/Atropine (Lomotil 0.025-2.5 Mg) 1 tab PO Q6H PRN PRN Reason: Diarrhea Fluoxetine HCl (Prozac) 20 mg PO DAILY [facility] Last Admin: 09/06/18 08:37 Dose: 20 mg Sodium Chloride (Normal Saline) 500 mls @ 999 mls/hr IV .BOLUS [facility] Last Admin: 09/05/18 10:59 Dose: 999 mls/hr Metoprolol Tartrate (Lopressor) 75 mg PO BID [facility] Last Admin: 09/06/18 08:38 Dose: 75 mg Multivitamins/Minerals (Vitamins And Minerals) 1 tab PO DAILY [facility] Last Admin: 09/06/18 08:37 Dose: 1 tab Ondansetron HCl (Zofran Odt) 4 mg PO Q6H PRN PRN Reason: Nausea Simvastatin (Zocor) 10 mg PO BEDTIME [facility] Last Admin: 09/05/18 20:28 Dose: 10 mg Tiotropium [place] (Spiriva Handihaler) 18 mcg INH DAILY [facility] Last Admin: 09/06/18 08:38 Dose: 18 mcg Zolpidem Tartrate (Ambien) 5 mg PO BEDTIME PRN PRN Reason: Sleep Last Admin: 09/05/18 20:31 Dose: 5 mg Discontinued Medications Aspirin (Halfprin) 81 mg PO DAILY [facility] Last Admin: 09/04/18 09:17 Dose: 81 mg Budesonide (Pulmicort) 0.5 mg NEB BIDRT [facility] Last Admin: 09/01/18 19:17 Dose: Not Given Enoxaparin Sodium (Lovenox) 30 mg SUBCUT DAILY [facility] Last Admin: 09/04/18 09:17 Dose: 30 mg Prednisone (Prednisone) 40 mg PO WITHBREAKFAST [facility] Stop: 09/03/18 10:00 Last Admin: 09/03/18 08:37 Dose: 40 mg Sodium Chloride (Saline Flush) 10 ml FLUSH ASDIRECTED PRN PRN Reason: Keep Vein Open Sodium Chloride (Saline Flush) 10 ml FLUSH ASDIRECTED PRN PRN Reason: Keep Vein Open Trimethoprim/Sulfamethoxazole (Septra Ds) 1 tab PO BID [facility] Stop: 09/06/18 09:01 Last Admin: 09/06/18 08:37 Dose: 1 tab - Exam Quality Assessment: Reports: Supplemental Oxygen General: Reports: Alert, Oriented Neck: Reports: Supple Lungs: Reports: Normal Respiratory Effort, Decreased Breath Sounds Cardiovascular: Reports: Regular Rate, Regular Rhythm GI/Abdominal Exam: Normal Bowel Sounds, Soft, Non-Tender Extremities: No: Pedal Edema Neurological: Reports: No New Focal Deficit
== END 2018-09-06 14:20 | disposition home or self-care (01) | DRG 206 ==
LOC: DL.MS 11:01 → UNDOADMIN 11:01
PROVIDERS: ADMIT Internal Medicine; ATTEND Internal Medicine
DX: R09.02 Hypoxemia (principal); N39.0 Urinary tract infection, site not specified; E87.1 Hypo-osmolality and hyponatremia; J06.9 Acute upper respiratory infection, unspecified; I10 Essential (primary) hypertension; B95.62 Methicillin resistant Staphylococcus aureus infection as the cause of diseases classified elsewhere; I25.10 Atherosclerotic heart disease of native coronary artery without angina pectoris; J44.9 Chronic obstructive pulmonary disease, unspecified; E78.00 Pure hypercholesterolemia, unspecified; M81.0 Age-related osteoporosis without current pathological fracture; F32.9 Major depressive disorder, single episode, unspecified; F41.9 Anxiety disorder, unspecified; Z96.0 Presence of urogenital implants; D64.9 Anemia, unspecified; Z85.038 Personal history of other malignant neoplasm of large intestine; Z88.8 Allergy status to other drugs, medicaments and biological substances; Z79.82 Long term (current) use of aspirin; Z92.21 Personal history of antineoplastic chemotherapy; Z98.42 Cataract extraction status, left eye; Z85.05 Personal history of malignant neoplasm of liver; Z79.899 Other long term (current) drug therapy
CPT/HCPCS: 36415; 80048; 80053; 82565; 85025; 94618; 94640; 94760; 97110-GO; 97110-GP; 97116-GP; 97161-GP; 97165-GO; 97530-GO; A9270-GY; J1650; J7040

== ENCOUNTER 2018-09-19 21:05 | Emergency (ER) | payer MEDICARE, OTHER ==
[2018-09-19] MEDS ORDERED: Sodium Chloride 0.9% 1,000 ML IV ONE (21:32)
[2018-09-19] MEDS ORDERED: Ondansetron 4 MG/2 ML SDV IV ONE (21:32)
[2018-09-19 22:20] LABS: ANION GAP 12.5; CHLORIDE,CL 101 mmol/L (101-111); SODIUM,NA 133 mmol/L (135-145)
[2018-09-19 23:00] VITALS: BP 144/51; PULSE 91
--- NOTE | 2018-09-19 23:20 | EDM.PDOC ---
ED HPI GENERAL MEDICAL PROBLEM - General Chief Complaint: Gastrointestinal Problem Stated Complaint: FEELING SICK, MAYBE DEHYDRATED Time Seen by Provider: 09/19/18 21:15 Source of Information: Reports: Patient History Limitations: Reports: No Limitations - History of Present Illness INITIAL COMMENTS - FREE TEXT/NARRATIVE: Ed with c/o nausea this evening and emesis x 1. Has zofran at home for nausea but did not take. Denies pain, fever or diarrhea. No difficulty breathing. COPD has been doing well.Patient hx colon cancer with mets. On chemo next due in one week. Urinary stent replaced two weeks ago. UTI first part of august. - Related Data Allergies Allergy/AdvReac Type Severity Reaction Status Date / Time ibuprofen Allergy Cannot Verified 09/19/18 21:18 Remember nitrofurantoin Allergy Diarrhea Verified 09/19/18 21:18 [From Macrobid] oxycodone Allergy Cannot Verified 09/19/18 21:18 Remember promethazine HCl Allergy Anxiety Verified 09/19/18 21:18 [From Phenergan] Home Meds: Home Meds FLUoxetine HCl [Fluoxetine HCl] 20 mg PO DAILY 05/04/14 [History] Simvastatin 10 mg PO BEDTIME 05/04/14 [History] Aspirin [Adult Low Dose Aspirin EC] 81 mg PO DAILY 03/23/15 [History] Zolpidem [Ambien] 5 mg PO BEDTIME PRN 03/23/15 [History] Albuterol [Ventolin HFA] 1 puff INH Q4HR PRN 08/18/17 [History] Lidocaine/Prilocaine [EMLA Crm] 5 gm TOP DAILY PRN 08/18/17 [History] Multivitamin with Minerals [Multiple Vitamin] 1 tab PO DAILY 08/18/17 [History] Diphenoxylate HCl/Atropine [Lomotil] 1 tab PO Q6H PRN 09/12/17 [History] Ondansetron [Zofran ODT] 4 mg PO Q6H PRN 09/12/17 [History] Amitriptyline [Elavil] 10 mg PO BID 08/28/18 [History] Metoprolol Tartrate 75 mg PO BID 08/28/18 [History] amLODIPine [Norvasc] 5 mg PO DAILY 08/28/18 [History] Albuterol/Ipratropium [DuoNeb 3.0-0.5 MG/3 ML] 3 ml INH TID PRN 09/01/18 [ History] Budesonide [Pulmicort] 2 ml INH BID PRN 09/01/18 [History] Loperamide [Imodium] 2 mg PO Q6H PRN 09/01/18 [History] Albuterol/Ipratropium [DuoNeb 3.0-0.5 MG/3 ML] 3 ml NEB Q4HRRT PRN neb [Rx] Tiotropium [Spiriva HandiHaler] 18 mcg INH DAILY #30 cap 09/06/18 [Rx] Past Medical History HEENT History: Reports: None Cardiovascular History: Reports: CAD, High Cholesterol, Hypertension Respiratory History: Reports: Bronchitis, Recurrent, COPD, Other (See Below) Other Respiratory History: recent pneumonia Gastrointestinal History: Reports: Other (See Below) Other Gastrointestinal History: abnormal digestive system Genitourinary History: Reports: UTI, Recurrent, Other (See Below) Other Genitourinary History: stent in urethea tube and stress incontinence, renal stents RANGE 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 Dermatologic History: Reports: None Other Dermatologic History: dry skin - Infectious Disease History Infectious Disease History: Reports: Chicken Pox, Measles - Past Surgical History Head Surgeries/Procedures: Reports: None HEENT Surgical History: Reports: Cataract Surgery Other HEENT Surgeries/Procedures: left cataract removal GI Surgical History: Reports: Colonoscopy, Other (See Below) Other GI Surgeries/Procedures: stent in urethea tube Female Surgical History: Reports: Oophorectomy, Ureteral Stent, Other (See Below) Other Female Surgeries/Procedures: bladder lift Social & Family History - Family History Family Medical History: Noncontributory - Tobacco Use Smoking Status *Q: Current Every Day Smoker Years of Tobacco use: 30 Packs/Tins Daily: 0.2 - Caffeine Use Caffeine Use: Reports: Coffee - Recreational Drug Use Recreational Drug Use: No - Living Situation & Occupation Living situation: Reports: Occupation: Retired ED ROS GENERAL - Review of Systems Review Of Systems: ROS reveals no pertinent complaints other than HPI. ED EXAM, RENAL/ - Physical Exam Exam: See Below Exam Limited By: No Limitations General Appearance: Alert, No Apparent Distress, Thin Ears: Normal External Exam Nose: Normal Inspection Throat/Mouth: Other (mucus membranes dry) Neck: Normal Inspection, Full Range of Motion Respiratory/Chest: No Respiratory Distress, Lungs Clear Cardiovascular: Normal Peripheral Pulses, Regular Rate, Rhythm GI/Abdominal: Normal Bowel Sounds, Soft Back Exam: Full Range of Motion Extremities: Normal Inspection Neurological: Alert, Oriented, Normal Cognition Skin Exam: Warm, Dry, Intact Course - Vital Signs Last Recorded V/S: Last Vital Signs Temp 98.8 F 09/19/18 23:00 Pulse 91 09/19/18 23:00 Resp 16 09/19/18 23:00 BP 144/51 H 09/19/18 23:00 Pulse Ox 92 L 09/19/18 23:00 - Orders/Labs/Meds Orders: Active Orders 24 hr Category Date Time Status CULTURE URINE [RM] Urgent Lab 09/19/18 21:12 Received Labs: Laboratory Tests 09/19/18 09/19/18 09/19/18 Range/Units 21:12 21:42 21:42 WBC 9.7 (5.0-10.0) 10^3/uL RBC 2.61 L (4.2-5.4) 10^6/uL Hgb 8.4 L (12.0-16.0) g/dL Hct 25.9 L (37.0-47.0) % MCV 99.2 (80-100) fL MCH 32.2 (27.0-34.0) pg MCHC 32.4 L (33.0-35.0) g/dL Plt Count 310 (150-450) 10^3/uL Neut % (Auto) 70.7 (42.2-75.2) % Lymph % (Auto) 19.3 L (20.5-50.1) % [place] % (Auto) 6.0 (2-8) % Eos % (Auto) 3.5 H (1.0-3.0) % Baso % (Auto) 0.5 (0.0-1.0) % Sodium 133 L (135-145) mmol/L Potassium 3.5 L (3.6-5.0) mmol/L Chloride 101 (101-111) mmol/L Carbon Dioxide 23.0 (21.0-31.0) mmol/L Anion Gap 12.5 BUN 13 (7-18) mg/dL Creatinine 0.9 (0.6-1.3) mg/dL Est Cr Clr Drug Dosing 40.05 mL/min Estimated GFR (MDRD) > 60 BUN/Creatinine Ratio 14.44 Glucose 92 (74-105) mg/dL Lactic Acid (0.5-2.2) mmol/L Calcium 7.9 L (8.4-10.2) mg/dl Total Bilirubin 0.6 (0.2-1.0) mg/dL AST 25 (10-42) IU/L ALT 13 (10-60) IU/L Alkaline Phosphatase 87 (42-121) IU/L Total Protein 6.4 L (6.7-8.2) g/dl Albumin 3.0 L (3.2-5.5) g/dl Globulin 3.4 Albumin/Globulin Ratio 0.88 Urine Color Light yellow (YELLOW) Urine Appearance Slightly cloudy (CLEAR) Urine pH 7.0 (5.0-9.0) Ur Specific [place] 1.015 (1.005-1.030) Urine Protein 30 H (NEGATIVE) Urine Glucose (UA) Negative (NEGATIVE) Urine Ketones Negative (NEGATIVE) Urine Occult Blood Moderate H (NEGATIVE) Urine Nitrite Negative (NEGATIVE) Urine Bilirubin Negative (NEGATIVE) Urine Urobilinogen 0.2 (0.2-1.0) mg/dL Ur Leukocyte Esterase Large H (NEGATIVE) Urine RBC 30-40 H /HPF Urine WBC 40-50 H (0-5/HPF) /HPF Ur Epithelial Cells Many H (NOT SEEN) /HPF Urine Bacteria Moderate H (0-FEW/HPF) /HPF Urine Yeast Moderate H (NOT SEEN) /HPF 09/19/18 Range/Units 21:42 WBC (5.0-10.0) 10^3/uL RBC (4.2-5.4) 10^6/uL Hgb (12.0-16.0) g/dL Hct (37.0-47.0) % MCV (80-100) fL MCH (27.0-34.0) pg MCHC (33.0-35.0) g/dL Plt Count (150-450) 10^3/uL Neut % (Auto) (42.2-75.2) % Lymph % (Auto) (20.5-50.1) % [place] % (Auto) (2-8) % Eos % (Auto) (1.0-3.0) % Baso % (Auto) (0.0-1.0) % Sodium (135-145) mmol/L Potassium (3.6-5.0) mmol/L Chloride (101-111) mmol/L Carbon Dioxide (21.0-31.0) mmol/L Anion Gap BUN (7-18) mg/dL Creatinine (0.6-1.3) mg/dL Est Cr Clr Drug Dosing mL/min Estimated GFR (MDRD) BUN/Creatinine Ratio Glucose (74-105) mg/dL Lactic Acid 0.5 (0.5-2.2) mmol/L Calcium (8.4-10.2) mg/dl Total Bilirubin (0.2-1.0) mg/dL AST (10-42) IU/L ALT (10-60) IU/L Alkaline Phosphatase (42-121) IU/L Total Protein (6.7-8.2) g/dl Albumin (3.2-5.5) g/dl Globulin Albumin/Globulin Ratio Urine Color (YELLOW) Urine Appearance (CLEAR) Urine pH (5.0-9.0) Ur Specific [place] (1.005-1.030) Urine Protein (NEGATIVE) Urine Glucose (UA) (NEGATIVE) Urine Ketones (NEGATIVE) Urine Occult Blood (NEGATIVE) Urine Nitrite (NEGATIVE) Urine Bilirubin (NEGATIVE) Urine Urobilinogen (0.2-1.0) mg/dL Ur Leukocyte Esterase (NEGATIVE) Urine RBC /HPF Urine WBC (0-5/HPF) /HPF Ur Epithelial Cells (NOT SEEN) /HPF Urine Bacteria (0-FEW/HPF) /HPF Urine Yeast (NOT SEEN) /HPF Meds: Medications Discontinued Medications Generic Name Dose Route Start Last Admin Trade Name Freq PRN Reason Stop Dose Admin Sodium Chloride 1,000 mls @ 500 mls/hr 09/19/18 21:32 09/19/18 21:43 Normal Saline IV 09/19/18 23:31 500 mls/hr .BOLUS ONE Administration Levofloxacin 500 mg 09/19/18 23:29 09/19/18 23:34 Levaquin PO 09/19/18 23:30 500 mg ONETIME ONE Administration Ondansetron HCl 4 mg 09/19/18 21:32 09/19/18 21:45 Zofran IV 09/19/18 21:33 4 mg ONETIME ONE Administration Departure - Departure Time of Disposition: 23:16 Disposition: Home, Self-Care 01 Condition: Good Clinical Impression: Nausea UTI (urinary tract infection) Qualifiers: Urinary tract infection type: site unspecified Hematuria presence: without hematuria Qualified Code(s): N39.0 - Urinary tract infection, site not specified - Discharge Information *PRESCRIPTION DRUG MONITORING PROGRAM REVIEWED*: No *COPY OF PRESCRIPTION DRUG MONITORING REPORT IN PATIENT KAYLA: No Instructions: Urinary Tract Infection, Adult, [id number] Referrals: PCP,None [Primary Care Provider] - Forms: ED Department Discharge Additional Instructions: increase fluids zofran ODT 4mg every 4 hours as needed for nausea Urine culture pending, facility will contact if need to change antibiotic Levaquin 500mg one twice daily follow up with primary on Monday Notify oncology of UTI urgent follow up if symptoms worsen - My Orders Last 24 Hours: My Active Orders 09/19/18 21:12 CULTURE URINE [RM] Urgent - Assessment/Plan Last 24 Hours: My Active Orders 09/19/18 21:12 CULTURE URINE [RM] Urgent
[2018-09-19] MEDS ORDERED: Levofloxacin 500 MG Tab PO ONE (23:29)
== END 2018-09-19 23:40 | disposition home or self-care (01) ==
LOC: DL.ED 21:05
DX: N39.0 Urinary tract infection, site not specified (principal); F17.210 Nicotine dependence, cigarettes, uncomplicated; I10 Essential (primary) hypertension; E78.00 Pure hypercholesterolemia, unspecified; I25.10 Atherosclerotic heart disease of native coronary artery without angina pectoris; F41.9 Anxiety disorder, unspecified; F32.9 Major depressive disorder, single episode, unspecified; D64.9 Anemia, unspecified; Z79.899 Other long term (current) drug therapy; Z79.82 Long term (current) use of aspirin; Z88.6 Allergy status to analgesic agent; Z88.8 Allergy status to other drugs, medicaments and biological substances
CPT/HCPCS: 36415; 80053; 81001; 83605; 85025; 87086; 96361; 96374; 99283; A9270; J2405; J7030

== ENCOUNTER 2018-09-25 18:50 | Emergency (ER) | payer MEDICARE, OTHER ==
[2018-09-25] MEDS ORDERED: Sodium Chloride 0.9% 1,000 ML IV ONE (19:06)
[2018-09-25] MEDS ORDERED: Ondansetron 4 MG/2 ML SDV IV ONE (19:10)
[2018-09-25] MEDS ORDERED: Acetaminophen 650 MG Supp RECTAL STA (19:23)
[2018-09-25] MEDS ORDERED: Metoclopramide 10 MG/2 ML SDV IVPUSH ONE (19:25)
[2018-09-25 19:40] LABS: ANION GAP 15.4
[2018-09-25] MEDS ORDERED: Albuterol/Ipratropium 3.0-0.5 MG/3 ML Neb Soln NEB ONE (19:54)
[2018-09-25 20:00] VITALS: BP 105/74
--- NOTE | 2018-09-25 20:06 | EDM.PDOC ---
ED HPI GENERAL MEDICAL PROBLEM - General Chief Complaint: General Stated Complaint: CAN'T STOP PUKING Time Seen by Provider: 09/25/18 19:00 Source of Information: Reports: Patient, Family, RN History Limitations: Reports: No Limitations - History of Present Illness INITIAL COMMENTS - FREE TEXT/NARRATIVE: c/o cogh chills nausea vomiting starting 3pm today. hx colon cancer with liver mets,, COPD. Due for next chemo tomorrow am, Primary oncologist Dr Joshi. Reported pain to right lower ribs starting this afternoon after lifting flower pot. Onset: Today (3pm) Right Flank Pain Score (Numeric/FACES): 8 - Related Data Allergies Allergy/AdvReac Type Severity Reaction Status Date / Time ibuprofen Allergy Cannot Verified 09/19/18 21:18 Remember nitrofurantoin Allergy Diarrhea Verified 09/19/18 21:18 [From Macrobid] oxycodone Allergy Cannot Verified 09/19/18 21:18 Remember promethazine HCl Allergy Anxiety Verified 09/19/18 21:18 [From Phenergan] Home Meds: Home Meds FLUoxetine HCl [Fluoxetine HCl] 20 mg PO DAILY 05/04/14 [History] Simvastatin 10 mg PO BEDTIME 05/04/14 [History] Aspirin [Adult Low Dose Aspirin EC] 81 mg PO DAILY 03/23/15 [History] Zolpidem [Ambien] 5 mg PO BEDTIME PRN 03/23/15 [History] Albuterol [Ventolin HFA] 1 puff INH Q4HR PRN 08/18/17 [History] Lidocaine/Prilocaine [EMLA Crm] 5 gm TOP DAILY PRN 08/18/17 [History] Multivitamin with Minerals [Multiple Vitamin] 1 tab PO DAILY 08/18/17 [History] Diphenoxylate HCl/Atropine [Lomotil] 1 tab PO Q6H PRN 09/12/17 [History] Ondansetron [Zofran ODT] 4 mg PO Q6H PRN 09/12/17 [History] Amitriptyline [Elavil] 10 mg PO BID 08/28/18 [History] Metoprolol Tartrate 75 mg PO BID 08/28/18 [History] amLODIPine [Norvasc] 5 mg PO DAILY 08/28/18 [History] Albuterol/Ipratropium [DuoNeb 3.0-0.5 MG/3 ML] 3 ml INH TID PRN 09/01/18 [ History] Budesonide [Pulmicort] 2 ml INH BID PRN 09/01/18 [History] Loperamide [Imodium] 2 mg PO Q6H PRN 09/01/18 [History] Albuterol/Ipratropium [DuoNeb 3.0-0.5 MG/3 ML] 3 ml NEB Q4HRRT PRN neb [Rx] Tiotropium [Spiriva HandiHaler] 18 mcg INH DAILY #30 cap 09/06/18 [Rx] Past Medical History HEENT History: Reports: None Cardiovascular History: Reports: CAD, High Cholesterol, Hypertension Respiratory History: Reports: Bronchitis, Recurrent, COPD Other Respiratory History: recent pneumonia Gastrointestinal History: Reports: Other (See Below) Other Gastrointestinal History: abnormal digestive system Genitourinary History: Reports: UTI, Recurrent, Other (See Below) Other Genitourinary History: stent in urethea tube and stress incontinence, renal stents 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 Dermatologic History: Reports: None Other Dermatologic History: dry skin - Infectious Disease History Infectious Disease History: Reports: Chicken Pox, Measles - Past Surgical History Head Surgeries/Procedures: Reports: None HEENT Surgical History: Reports: Cataract Surgery Other HEENT Surgeries/Procedures: left cataract removal GI Surgical History: Reports: Colonoscopy, Other (See Below) Other GI Surgeries/Procedures: stent in urethea tube Female Surgical History: Reports: Oophorectomy, Ureteral Stent, Other (See Below) Other Female Surgeries/Procedures: bladder lift Social & Family History - Family History Family Medical History: Noncontributory - Tobacco Use Smoking Status *Q: Current Some Day Smoker Years of Tobacco use: 37 Packs/Tins Daily: 0.1 Used Tobacco, but Quit: No Second Hand Smoke Exposure: No - Caffeine Use Caffeine Use: Reports: Coffee - Recreational Drug Use Recreational Drug Use: No - Living Situation & Occupation Living situation: Reports: Occupation: Retired ED ROS GENERAL - Review of Systems Review Of Systems: See Below Constitutional: Reports: Fever, Chills HEENT: Reports: No Symptoms Respiratory: Reports: Wheezing, Cough, Sputum Cardiovascular: Reports: No Symptoms GI/Abdominal: Reports: Nausea, Vomiting Musculoskeletal: Reports: No Symptoms Skin: Reports: No Symptoms Neurological: Reports: No Symptoms ED EXAM, GENERAL - Physical Exam Exam: See Below Exam Limited By: No Limitations General Appearance: Alert, No Apparent Distress, Thin Eye Exam: Bilateral Eye: EOMI, PERRL Ears: Normal External Exam Nose: Normal Inspection Throat/Mouth: Normal Inspection, Normal Lips Head: Atraumatic, Facial Swelling Neck: Full Range of Motion Respiratory/Chest: Rhonchi (bilateral base lright greater), Wheezing. No: Chest Non-Tender (tender right lower) Cardiovascular: Regular Rate, Rhythm, Tachycardia GI/Abdominal: Abnormal Bowel Sounds (hypoactive) Back Exam: Full Range of Motion Extremities: Normal Range of Motion Neurological: Alert, Oriented, Normal Cognition Psychiatric: Anxious Skin Exam: Warm, Intact, Pallor Course - Vital Signs Last Recorded V/S: Last Vital Signs Temp 100.9 F H 09/25/18 19:59 Pulse 116 H 09/25/18 19:59 Resp 18 09/25/18 18:58 BP 105/74 09/25/18 19:59 Pulse Ox 92 L 09/25/18 19:59 - Orders/Labs/Meds Orders: Active Orders 24 hr Category Date Time Status RT Aerosol Therapy [RC] ASDIRECTED Care 09/25/18 19:54 Active Chest 1V Frontal [CR] Urgent Exams 09/25/18 19:06 Ordered CULTURE BLOOD [BC] Stat Lab 09/25/18 19:09 Ordered CULTURE BLOOD [BC] Stat Lab 09/25/18 19:14 Received CULTURE URINE [RM] Urgent Lab 09/25/18 19:46 Received UA W/MICROSCOPIC [URIN] Urgent Lab 09/25/18 19:46 Results Piperacillin/Tazobactam [Zosyn] 3.375 gm Med 09/25/18 20:10 Active Sodium Chloride 0.9% [Normal Saline] 100 ml IV ONETIME Sodium Chloride 0.9% [Normal Saline] 1,000 ml Med 05/28/19 19:06 Active IV .BOLUS Vancomycin 500 mg Med 09/25/18 20:11 Active Sodium Chloride 0.9% [Normal Saline] 100 ml IV ONETIME Blood Culture x2 Reflex Set [OM.PC] Stat Oth 09/25/18 19:06 Ordered Medication Orders Sodium Chloride (Normal Saline) 1,000 mls @ 250 mls/hr IV .BOLUS ONE Stop: 09/25/18 23:05 Last Admin: 09/25/18 19:17 Dose: 250 mls/hr Piperacillin Sod/Tazobactam (Sod 3.375 gm/ Sodium Chloride) 100 mls @ 200 mls/ hr IV ONETIME ONE Stop: 09/25/18 20:39 Last Admin: 09/25/18 20:18 Dose: 200 mls/hr Vancomycin HCl 500 mg/ Sodium (Chloride) 100 mls @ 100 mls/hr IV ONETIME ONE Stop: 09/25/18 21:10 Labs: Laboratory Tests 09/25/18 09/25/18 09/25/18 Range/Units 19:14 19:14 19:14 WBC 16.8 H (5.0-10.0) 10^3/uL RBC 3.08 L (4.2-5.4) 10^6/uL Hgb 9.8 L (12.0-16.0) g/dL Hct 30.9 L (37.0-47.0) % MCV 100.3 H (80-100) fL MCH 31.8 (27.0-34.0) pg MCHC 31.7 L (33.0-35.0) g/dL Plt Count 353 (150-450) 10^3/uL Neut % (Auto) 86.4 H (42.2-75.2) % Lymph % (Auto) 6.4 L (20.5-50.1) % [place] % (Auto) 5.5 (2-8) % Eos % (Auto) 1.5 (1.0-3.0) % Baso % (Auto) 0.2 (0.0-1.0) % Sodium 134 L (135-145) mmol/L Potassium 3.4 L (3.6-5.0) mmol/L Chloride 97 L (101-111) mmol/L Carbon Dioxide 25.0 (21.0-31.0) mmol/L Anion Gap 15.4 BUN 16 (7-18) mg/dL Creatinine 1.0 (0.6-1.3) mg/dL Est Cr Clr Drug Dosing 36.78 mL/min Estimated GFR (MDRD) 55 BUN/Creatinine Ratio 16.00 Glucose 129 H (74-105) mg/dL Lactic Acid 1.2 (0.5-2.2) mmol/L Calcium 8.3 L (8.4-10.2) mg/dl Total Bilirubin 0.6 (0.2-1.0) mg/dL AST 40 (10-42) IU/L ALT 16 (10-60) IU/L Alkaline Phosphatase 134 H (42-121) IU/L Total Protein 7.3 (6.7-8.2) g/dl Albumin 3.5 (3.2-5.5) g/dl Globulin 3.8 Albumin/Globulin Ratio 0.92 Amylase 212 H (28-100) U/L Lipase 55 H (22-51) U/L Urine Color (YELLOW) Urine Appearance (CLEAR) Urine pH (5.0-9.0) Ur Specific [place] (1.005-1.030) Urine Protein (NEGATIVE) Urine Glucose (UA) (NEGATIVE) Urine Ketones (NEGATIVE) Urine Occult Blood (NEGATIVE) Urine Nitrite (NEGATIVE) Urine Bilirubin (NEGATIVE) Urine Urobilinogen (0.2-1.0) mg/dL Ur Leukocyte Esterase (NEGATIVE) 09/25/18 Range/Units 19:46 WBC (5.0-10.0) 10^3/uL RBC (4.2-5.4) 10^6/uL Hgb (12.0-16.0) g/dL Hct (37.0-47.0) % MCV (80-100) fL MCH (27.0-34.0) pg MCHC (33.0-35.0) g/dL Plt Count (150-450) 10^3/uL Neut % (Auto) (42.2-75.2) % Lymph % (Auto) (20.5-50.1) % [place] % (Auto) (2-8) % Eos % (Auto) (1.0-3.0) % Baso % (Auto) (0.0-1.0) % Sodium (135-145) mmol/L Potassium (3.6-5.0) mmol/L Chloride (101-111) mmol/L Carbon Dioxide (21.0-31.0) mmol/L Anion Gap BUN (7-18) mg/dL Creatinine (0.6-1.3) mg/dL Est Cr Clr Drug Dosing mL/min Estimated GFR (MDRD) BUN/Creatinine Ratio Glucose (74-105) mg/dL Lactic Acid (0.5-2.2) mmol/L Calcium (8.4-10.2) mg/dl Total Bilirubin (0.2-1.0) mg/dL AST (10-42) IU/L ALT (10-60) IU/L Alkaline Phosphatase (42-121) IU/L Total Protein (6.7-8.2) g/dl Albumin (3.2-5.5) g/dl Globulin Albumin/Globulin Ratio Amylase (28-100) U/L Lipase (22-51) U/L Urine Color Yellow (YELLOW) Urine Appearance Turbid (CLEAR) Urine pH 7.0 (5.0-9.0) Ur Specific [place] 1.015 (1.005-1.030) Urine Protein Trace H (NEGATIVE) Urine Glucose (UA) Negative (NEGATIVE) Urine Ketones Negative (NEGATIVE) Urine Occult Blood Small H (NEGATIVE) Urine Nitrite Negative (NEGATIVE) Urine Bilirubin Negative (NEGATIVE) Urine Urobilinogen 0.2 (0.2-1.0) mg/dL Ur Leukocyte Esterase Small H (NEGATIVE) Meds: Medications Generic Name Dose Route Start Last Admin Trade Name Freq PRN Reason Stop Dose Admin Sodium Chloride 1,000 mls @ 250 mls/hr 09/25/18 19:06 09/25/18 19:17 Normal Saline IV 09/25/18 23:05 250 mls/hr .BOLUS ONE Administration Piperacillin Sod/Tazobactam 100 mls @ 200 mls/hr 09/25/18 20:10 09/25/18 20: 18 Sod 3.375 gm/ Sodium Chloride IV 09/25/18 20:39 200 mls/hr ONETIME ONE Administration Vancomycin HCl 500 mg/ Sodium 100 mls @ 100 mls/hr 09/25/18 20:11 Chloride IV 09/25/18 21:10 ONETIME ONE Discontinued Medications Generic Name Dose Route Start Last Admin Trade Name Freq PRN Reason Stop Dose Admin Acetaminophen 650 mg 09/25/18 19:23 09/25/18 19:40 Tylenol RECTAL 09/25/18 19:24 650 mg NOW STA Administration Albuterol/Ipratropium 3 ml 09/25/18 19:54 09/25/18 20:01 Duoneb 3.0-0.5 Mg/3 Ml NEB 09/25/18 19:55 3 ml ONETIME ONE Administration Metoclopramide HCl 5 mg 09/25/18 19:25 09/25/18 19:39 Reglan IVPUSH 09/25/18 19:26 5 mg ONETIME ONE Administration Ondansetron HCl 4 mg 09/25/18 19:10 09/25/18 19:17 Zofran IV 09/25/18 19:11 4 mg ONETIME ONE Administration - Radiology Interpretation Free Text/Narrative:: [facility] Final Radiology Report Call: [phone] assistance Online chat: [email or web address] Name: CAMILLA RCAIG Age: 73Years F Date: 09/25/2018 SSN: -- : [id number] Study: XR CHEST 1 VIEW FRONTAL Requesting Physician: RACHEL FOOTE Images: 1 Addl Studies: Provided Clinical History: Contrast: Contrast Medium: Contrast Amount: Contrast Method: Page 1 of 2 EXAM: XR Chest, 1 View EXAM DATE/TIME: 09/25/2018 7:24 PM CLINICAL HISTORY: 73 years old, female; Signs and symptoms; Cough and fever; Patient HX: On chemo TECHNIQUE: Imaging protocol: XR of the chest, 1 view. COMPARISON: CR Chest 1V Frontal 08/28/2018 5:21 PM FINDINGS: Tubes, catheters and devices: Mediport catheter with the tip at the superior cavoatrial junction. Lungs: Right lower lung zone infiltrate. Pleural space: Contour abnormality in the right hemidiaphragm suggests the presence of a subpulmonic effusion. Heart/Mediastinum: Cardiomegaly. Bones/joints: Unremarkable. IMPRESSION: 1. Right lower lung zone infiltrate. 2. Contour abnormality in the right hemidiaphragm suggests the presence of a subpulmonic effusion. Thank you for allowing us to participate in the care of your patient. Dictated and Authenticated by: Greg Wolf MD - Re-Assessments/Exams Free Text/Narrative Re-Assessment/Exam: 09/25/18 20:20 No improvement in nausea with zofran, continued dry heave with minimal movement. Harsh loose non productive cough. Nausea improved with Reglan. . Able to tolerate up to bedside commode. No nausea dizziness or vomiting. TC consult Dr. Jessee Sams accepting of patient in transfer. Tx via [facility]. Departure - Departure Time of Disposition: 20:22 Disposition: DC/Tfer to [facility] 02 Condition: Undetermined Clinical Impression: Metastatic colon cancer to liver, Fever, Sepsis, Immunocompromised, Vomiting, COPD (chronic obstructive pulmonary disease) RLL pneumonia Qualifiers: Pneumonia type: due to unspecified organism Qualified Code(s): J18.1 - Lobar pneumonia, unspecified organism - Discharge Information Forms: ED Department Discharge - My Orders Last 24 Hours: My Active Orders 09/25/18 19:06 Chest 1V Frontal [CR] Urgent Sodium Chloride 0.9% [Normal Saline] 1,000 ml IV .BOLUS Blood Culture x2 Reflex Set [OM.PC] Stat 09/25/18 19:09 CULTURE BLOOD [BC] Stat 09/25/18 19:14 CULTURE BLOOD [BC] Stat 09/25/18 19:46 CULTURE URINE [RM] Urgent UA W/MICROSCOPIC [URIN] Urgent 09/25/18 19:54 RT Aerosol Therapy [RC] ASDIRECTED 09/25/18 20:10 Piperacillin/Tazobactam [Zosyn] 3.375 gm Sodium Chloride 0.9% [Normal Saline] 100 ml IV ONETIME 09/25/18 20:11 Vancomycin 500 mg Sodium Chloride 0.9% [Normal Saline] 100 ml IV ONETIME - Assessment/Plan Last 24 Hours: My Active Orders 09/25/18 19:06 Chest 1V Frontal [CR] Urgent Sodium Chloride 0.9% [Normal Saline] 1,000 ml IV .BOLUS Blood Culture x2 Reflex Set [OM.PC] Stat 09/25/18 19:09 CULTURE BLOOD [BC] Stat 09/25/18 19:14 CULTURE BLOOD [BC] Stat 09/25/18 19:46 CULTURE URINE [RM] Urgent UA W/MICROSCOPIC [URIN] Urgent 09/25/18 19:54 RT Aerosol Therapy [RC] ASDIRECTED 09/25/18 20:10 Piperacillin/Tazobactam [Zosyn] 3.375 gm Sodium Chloride 0.9% [Normal Saline] 100 ml IV ONETIME 09/25/18 20:11 Vancomycin 500 mg Sodium Chloride 0.9% [Normal Saline] 100 ml IV ONETIME
[2018-09-25] MEDS ORDERED: Piperacillin/Tazobactam 3.375 GM in Sodium Chloride 0.9% 100 ML IV ONE (20:10)
== END 2018-09-25 21:07 ==
LOC: DL.ED 18:50
DX: A41.9 Sepsis, unspecified organism (principal); C18.9 Malignant neoplasm of colon, unspecified; C78.7 Secondary malignant neoplasm of liver and intrahepatic bile duct; J18.1 Lobar pneumonia, unspecified organism; J44.9 Chronic obstructive pulmonary disease, unspecified; D89.9 Disorder involving the immune mechanism, unspecified; I10 Essential (primary) hypertension; E78.00 Pure hypercholesterolemia, unspecified; F41.9 Anxiety disorder, unspecified; F32.9 Major depressive disorder, single episode, unspecified; F17.210 Nicotine dependence, cigarettes, uncomplicated; Z88.6 Allergy status to analgesic agent; Z88.8 Allergy status to other drugs, medicaments and biological substances; Z79.82 Long term (current) use of aspirin; Z79.899 Other long term (current) drug therapy
CPT/HCPCS: 36415; 71045; 80053; 81001; 82150; 83605; 83690; 85025; 87040; 87086; 94640; 96365; 96375; 99285; A9270; J2405; J2543; J2765; J3370; J7030; J7050; J7620-GY

== ENCOUNTER 2019-02-12 09:54 | Emergency (ER) | payer MEDICARE, OTHER ==
[2019-02-12 10:20] VITALS: BP 150/62; PULSE 86
--- NOTE | 2019-02-12 10:32 | EDM.PDOC ---
ED HPI GENERAL MEDICAL PROBLEM - General Stated Complaint: BLOOD IN STOOLS Time Seen by Provider: 02/12/19 10:18 Source of Information: Reports: Patient History Limitations: Reports: No Limitations - History of Present Illness INITIAL COMMENTS - FREE TEXT/NARRATIVE: This 73 yo female patient reports to the ED with her daughter due to noticing blood in her stool this morning at 0830. The patient reports her bowel movement looked like "tomato juice" and also noticed passing a clot shortly after the initial bowel movement. The patient does have a history of colon cancer with metastases to the liver. The patient reports she is currently taking oral chemo pills (Lonsurf and Trifluridine-Tipiracil). The patient reports she has been feeling well up to this morning when she noticed the change in her stool. The patient denies any abdominal pain or urinary complications. Onset: Today Onset Date: 02/12/19 Onset Time: 08:30 Duration: Other Location: Reports: Other Quality: Reports: Other Severity: Moderate Improves with: Reports: None Worsens with: Reports: None Context: Reports: Other Associated Symptoms: Reports: No Other Symptoms - Related Data Allergies Allergy/AdvReac Type Severity Reaction Status Date / Time ibuprofen Allergy Cannot Verified 02/12/19 10:03 Remember nitrofurantoin Allergy Diarrhea Verified 02/12/19 10:03 [From Macrobid] oxycodone Allergy Cannot Verified 02/12/19 10:03 Remember promethazine HCl Allergy Anxiety Verified 02/12/19 10:03 [From Phenergan] Home Meds: Home Meds FLUoxetine HCl [Fluoxetine HCl] 20 mg PO DAILY 05/04/14 [History] Simvastatin 10 mg PO BEDTIME 05/04/14 [History] Aspirin [Adult Low Dose Aspirin EC] 81 mg PO DAILY 03/23/15 [History] Zolpidem [Ambien] 5 mg PO BEDTIME PRN 03/23/15 [History] Albuterol [Ventolin HFA] 1 puff INH Q4HR PRN 08/18/17 [History] Lidocaine/Prilocaine [EMLA Crm] 5 gm TOP DAILY PRN 08/18/17 [History] Multivitamin with Minerals [Multiple Vitamin] 1 tab PO DAILY 08/18/17 [History] Ondansetron [Zofran ODT] 4 mg PO Q6H PRN 09/12/17 [History] Metoprolol Tartrate 75 mg PO BID 08/28/18 [History] amLODIPine [Norvasc] 5 mg PO DAILY 08/28/18 [History] Loperamide [Imodium] 2 mg PO Q6H PRN 09/01/18 [History] Tiotropium [Spiriva HandiHaler] 18 mcg INH DAILY PRN 01/25/19 [History] Fluocinonide [Lidex 0.05% Crm] 1 appful TOP BID PRN 02/12/19 [History] Lisinopril 20 mg PO DAILY 02/12/19 [History] Prochlorperazine Maleate [Compazine] 10 mg PO Q6H PRN 02/12/19 [History] Trifluridine/Tipiracil HCl [Lonsurf 15 mg-6.14 mg Tablet] 1 tab PO ASDIRECTED [History] Trifluridine/Tipiracil HCl [Lonsurf 20 mg-8.19 mg Tablet] 1 tab PO ASDIRECTED [History] rOPINIRole [Requip] 0.5 mg PO TID PRN 02/12/19 [History] Past Medical History HEENT History: Reports: Cataract Cardiovascular History: Reports: CAD, High Cholesterol, Hypertension Respiratory History: Reports: Bronchitis, Recurrent, COPD, Pneumonia, Recurrent Other Respiratory History: recent pneumonia Gastrointestinal History: Reports: Other (See Below) Other Gastrointestinal History: abnormal digestive system Genitourinary History: Reports: UTI, Recurrent, Other (See Below) Other Genitourinary History: stent in urethea tube and stress incontinence, renal stents [employer] History: Reports: Musculoskeletal History: Reports: Osteoporosis Neurological History: Reports: None Psychiatric History: Reports: Anxiety, Depression Endocrine/Metabolic History: Reports: None Hematologic History: Reports: Anemia Immunologic History: Reports: Immunosuppression, Other (See Below) Other Immunologic History: Cancer pill Oncologic (Cancer) History: Reports: Colon, Liver, Other (See Below) Other Oncologic History: 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 Dermatologic History: Reports: None Other Dermatologic History: dry skin - Infectious Disease History Infectious Disease History: Reports: C-Difficile - Past Surgical History Head Surgeries/Procedures: Reports: None HEENT Surgical History: Reports: Cataract Surgery Other HEENT Surgeries/Procedures: left cataract removal Cardiovascular Surgical History: Reports: None Respiratory Surgical History: Reports: None GI Surgical History: Reports: Colonoscopy Female Surgical History: Reports: Hysterectomy, Oophorectomy, Ureteral Stent , Other (See Below) Other Female Surgeries/Procedures: bladder lift Endocrine Surgical History: Reports: None Social & Family History - Family History Family Medical History: Noncontributory - Caffeine Use Caffeine Use: Reports: Other Other Caffeine Use: unable to obtain - Living Situation & Occupation Living situation: Reports: Occupation: Retired ED ROS GENERAL - Review of Systems Review Of Systems: ROS reveals no pertinent complaints other than HPI. ED EXAM, GI/ABD - Physical Exam Exam: See Below Exam Limited By: No Limitations General Appearance: Alert, WD/WN, Mild Distress Eyes: Bilateral: Normal Appearance, EOMI Ears: Normal External Exam, Normal Canal, Hearing Grossly Normal, Normal TMs Nose: Normal Inspection, Normal Mucosa, No Blood Throat/Mouth: Normal Inspection, Normal Lips, Normal Teeth, Normal Gums, Normal Oropharynx, Normal Voice, No Airway Compromise Head: Atraumatic, Normocephalic Neck: Normal Inspection, Supple, Non-Tender, Full Range of Motion Respiratory/Chest: No Respiratory Distress, Lungs Clear, Normal Breath Sounds, No Accessory Muscle Use, Chest Non-Tender Cardiovascular: Normal Peripheral Pulses, Regular Rate, Rhythm, No Edema, No Gallop, No JVD, No Murmur, No Rub GI/Abdominal Exam: Normal Bowel Sounds, Soft, Non-Tender, No Organomegaly, No Distention, No Abnormal Bruit, No Mass, Pelvis Stable (Female) Exam: Deferred Rectal (Female) Exam: Deferred Back Exam: Normal Inspection, Full Range of Motion, NT Extremities: Normal Inspection, Normal Range of Motion, Non-Tender, Normal Capillary Refill, No Pedal Edema Neurological: Alert, Oriented, CN II-XII Intact, Normal Cognition, Normal Gait, No Motor/Sensory Deficits Psychiatric: Normal Affect, Normal Mood Skin Exam: Warm, Dry, Intact, Normal Color, No Rash Lymphatic: No Adenopathy Course - Vital Signs Last Recorded V/S: Last Vital Signs Temp 37.0 C 02/12/19 09:56 Pulse 86 02/12/19 09:56 Resp 16 02/12/19 09:56 BP 150/62 H 02/12/19 09:56 Pulse Ox 98 02/12/19 09:56 - Orders/Labs/Meds Labs: Laboratory Tests 02/12/19 02/12/19 Range/Units 10:36 10:36 WBC 6.8 (5.0-10.0) 10^3/uL RBC 2.49 L (4.2-5.4) 10^6/uL Hgb 7.8 L (12.0-16.0) g/dL Hct 24.5 L (37.0-47.0) % MCV 98.4 (80-100) fL MCH 31.3 (27.0-34.0) pg MCHC 31.8 L (33.0-35.0) g/dL Plt Count 287 D (150-450) 10^3/uL Neut % (Auto) 82.3 H (42.2-75.2) % Lymph % (Auto) 10.9 L (20.5-50.1) % [place] % (Auto) 3.2 (2-8) % Eos % (Auto) 2.1 (1.0-3.0) % Baso % (Auto) 1.5 H (0.0-1.0) % Sodium 135 (135-145) mmol/L Potassium 4.1 (3.6-5.0) mmol/L Chloride 105 (101-111) mmol/L Carbon Dioxide 21.0 (21.0-31.0) mmol/L Anion Gap 13.1 BUN 33 H (7-18) mg/dL Creatinine 0.9 (0.6-1.3) mg/dL Est Cr Clr Drug Dosing 39.97 mL/min Estimated GFR (MDRD) > 60 BUN/Creatinine Ratio 36.66 Glucose 87 (74-105) mg/dL Calcium 7.8 L (8.4-10.2) mg/dl Total Bilirubin 0.6 (0.2-1.0) mg/dL AST 32 (10-42) IU/L ALT 21 (10-60) IU/L Alkaline Phosphatase 259 H (42-121) IU/L Total Protein 6.1 L (6.7-8.2) g/dl Albumin 2.8 L (3.2-5.5) g/dl Globulin 3.3 Albumin/Globulin Ratio 0.85 Departure - Departure Time of Disposition: 12:06 Disposition: DC/Tfer to Acute Hospital 02 Condition: Fair Clinical Impression: GI bleed Qualifiers: GI bleed type/associated pathology: unspecified gastrointestinal hemorrhage type Qualified Code(s): K92.2 - Gastrointestinal hemorrhage, unspecified - Discharge Information *PRESCRIPTION DRUG MONITORING PROGRAM REVIEWED*: Not Applicable *COPY OF PRESCRIPTION DRUG MONITORING REPORT IN PATIENT KAYLA: Not Applicable [facility] Plan Goals: Discussed the patient's history, examination and lab results with Dr. Mendez ( Hospitalist with [facility] in [place]). Dr. Mendez accepted the patient for continued evaluation and management as a inpatient at [facility]. The patient will be transported by [facility].
[2019-02-12 11:08] LABS: ANION GAP 13.1; CHLORIDE,CL 105 mmol/L (101-111); SODIUM,NA 135 mmol/L (135-145)
== END 2019-02-12 12:50 ==
LOC: DL.ED 09:54
DX: K92.2 Gastrointestinal hemorrhage, unspecified (principal); I25.10 Atherosclerotic heart disease of native coronary artery without angina pectoris; E78.5 Hyperlipidemia, unspecified; J44.9 Chronic obstructive pulmonary disease, unspecified; Z79.899 Other long term (current) drug therapy; Z88.6 Allergy status to analgesic agent; Z88.5 Allergy status to narcotic agent; Z88.8 Allergy status to other drugs, medicaments and biological substances; Z79.82 Long term (current) use of aspirin
CPT/HCPCS: 36415; 80053; 82272; 85025; 99284; 99285

== ENCOUNTER 2019-03-05 17:12 | Emergency (ER) | payer MEDICARE, OTHER ==
[2019-03-05] MEDS ORDERED: Ondansetron 4 MG/2 ML SDV IV ONE (17:51)
[2019-03-05] MEDS: Sodium Chloride 0.9% 10 ML Syringe FLUSH PRN ×2 (18:09→19:29)
[2019-03-05] MEDS: Sodium Chloride 0.9% 1,000 ML IV ONE ×2 (18:16→19:17)
--- NOTE | 2019-03-05 18:16 | EDM.PDOC ---
Scribed by Sarahy Roche 03/05/19 1721 for Berenice Ferguson MD ED HPI GENERAL MEDICAL PROBLEM - General Chief Complaint: General Stated Complaint: UTI & DEHYDRATION Time Seen by Provider: 03/05/19 17:44 Source of Information: Reports: Patient, Family (daughter), RN, RN Notes Reviewed History Limitations: Reports: No Limitations - History of Present Illness INITIAL COMMENTS - FREE TEXT/NARRATIVE: Patient presents to ER by POV with a complaint of a sore throat and feeling "crappy". She also states she has had cold symptoms and having nausea. She has had some loss of appetite and mild nausea, but no vomiting. She states she feels like this when she has a UTI. She was to the clinic for this today, and tried to provide a urine specimen, but missed the urine collection hat, so the clinic sent her to the ER. She rates her pain 3/10 but has taken nothing for it. She also denies burning with urination, urinary frequency, urgency, or blood in the urine. She admits to a mild cough. She states was here a couple of weeks ago with a cough but he is better now. Pt reports a Hx of colon CA with mets to the liver. She recently had her chemo discontinued due to treatment failure, stating that the liver lesions were not responding to treatment. She plans to start a new type of cancer treatment later this week, but she does not know the name of it. Onset: Gradual Duration: Constant Location: Reports: Chest, Generalized, Other (Throat) Severity: Moderate Improves with: Reports: None Worsens with: Reports: None Associated Symptoms: Reports: No Other Symptoms Throat Pain Score (Numeric/FACES): 3 - Related Data Allergies Allergy/AdvReac Type Severity Reaction Status Date / Time ibuprofen Allergy Cannot Verified 03/05/19 17:26 Remember nitrofurantoin Allergy Diarrhea Verified 03/05/19 17:26 [From Macrobid] oxycodone Allergy Cannot Verified 03/05/19 17:26 Remember promethazine HCl Allergy Anxiety Verified 03/05/19 17:26 [From Phenergan] Home Meds: Home Meds FLUoxetine HCl [Fluoxetine HCl] 20 mg PO DAILY 05/04/14 [History] Simvastatin 10 mg PO BEDTIME 05/04/14 [History] Aspirin [Adult Low Dose Aspirin EC] 81 mg PO DAILY 03/23/15 [History] Zolpidem [Ambien] 5 mg PO BEDTIME PRN 03/23/15 [History] Albuterol [Ventolin HFA] 1 puff INH Q4HR PRN 08/18/17 [History] Lidocaine/Prilocaine [EMLA Crm] 5 gm TOP DAILY PRN 08/18/17 [History] Multivitamin with Minerals [Multiple Vitamin] 1 tab PO DAILY 08/18/17 [History] Ondansetron [Zofran ODT] 4 mg PO Q6H PRN 09/12/17 [History] Metoprolol Tartrate 75 mg PO BID 08/28/18 [History] amLODIPine [Norvasc] 5 mg PO DAILY 08/28/18 [History] Loperamide [Imodium] 2 mg PO Q6H PRN 09/01/18 [History] Tiotropium [Spiriva HandiHaler] 18 mcg INH DAILY PRN 01/25/19 [History] Fluocinonide [Lidex 0.05% Crm] 1 appful TOP BID PRN 02/12/19 [History] Lisinopril 20 mg PO DAILY 02/12/19 [History] Prochlorperazine Maleate [Compazine] 10 mg PO Q6H PRN 02/12/19 [History] rOPINIRole [Requip] 0.5 mg PO TID PRN 02/12/19 [History] Past Medical History HEENT History: Reports: Cataract Cardiovascular History: Reports: CAD, High Cholesterol, Hypertension Respiratory History: Reports: Bronchitis, Recurrent, COPD, Pneumonia, Recurrent Other Respiratory History: recent pneumonia Gastrointestinal History: Reports: Other (See Below) Other Gastrointestinal History: abnormal digestive system Genitourinary History: Reports: UTI, Recurrent, Other (See Below) Other Genitourinary History: stent in urethea tube and stress incontinence, renal stents STAFF RADIATION THERAPIST History: Reports: Musculoskeletal History: Reports: Osteoporosis Neurological History: Reports: None Psychiatric History: Reports: Anxiety, Depression Endocrine/Metabolic History: Reports: None Hematologic History: Reports: Anemia Immunologic History: Reports: Immunosuppression, Other (See Below) Other Immunologic History: Cancer pill Oncologic (Cancer) History: Reports: Colon, Liver, Other (See Below) Other Oncologic History: 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 Dermatologic History: Reports: None Other Dermatologic History: dry skin - Infectious Disease History Infectious Disease History: Reports: C-Difficile - Past Surgical History Head Surgeries/Procedures: Reports: None HEENT Surgical History: Reports: Cataract Surgery Other HEENT Surgeries/Procedures: left cataract removal Cardiovascular Surgical History: Reports: None Respiratory Surgical History: Reports: None GI Surgical History: Reports: Colonoscopy Female Surgical History: Reports: Hysterectomy, Oophorectomy, Ureteral Stent , Other (See Below) Other Female Surgeries/Procedures: bladder lift Endocrine Surgical History: Reports: None Social & Family History - Family History Family Medical History: Noncontributory - Tobacco Use Smoking Status *Q: Current Every Day Smoker - Caffeine Use Caffeine Use: Reports: Other Other Caffeine Use: unable to obtain - Living Situation & Occupation Living situation: Reports: , with Spouse Occupation: Retired ED ROS GENERAL - Review of Systems Review Of Systems: ROS reveals no pertinent complaints other than HPI. ED EXAM, GENERAL - Physical Exam Exam: See Below Exam Limited By: No Limitations General Appearance: Alert, No Apparent Distress, Thin, Other (Chronically ill but non-toxic appearing.) Eye Exam: Bilateral Eye: Normal Inspection Ears: Normal External Exam Nose: Normal Inspection, Normal Mucosa, No Blood Throat/Mouth: Normal Lips, Normal Voice, No Airway Compromise, Other (Mild streak of pharyngeal erythema and postnasal drip. Dry oral mucosa.) Head: Atraumatic, Normocephalic Neck: Normal Inspection, Supple, Non-Tender, Full Range of Motion. No: Lymphadenopathy (L), Lymphadenopathy (R) Respiratory/Chest: No Respiratory Distress, No Accessory Muscle Use, Chest Non- Tender, Decreased Breath Sounds, Crackles (Rt base). No: Rales, Rhonchi, Wheezing Cardiovascular: Regular Rate, Rhythm, No Edema, No JVD, Tachycardia GI/Abdominal: Normal Bowel Sounds, Soft, Non-Tender, No Distention. No: Guarding, Rigid, Rebound (Female) Exam: Deferred Rectal (Female) Exam: Deferred Back Exam: Normal Inspection. No: CVA Tenderness (L), CVA Tenderness (R) Extremities: Normal Inspection, Normal Range of Motion, Non-Tender, No Pedal Edema. No: Joint Swelling, Increased Warmth, Redness Neurological: Alert, Oriented, No Motor/Sensory Deficits Psychiatric: Normal Mood Skin Exam: Warm, Dry, Intact, Normal Color, No Rash Course - Vital Signs Last Recorded V/S: Last Vital Signs Temp 100.8 F H 03/05/19 18:19 Pulse 124 H 03/05/19 18:19 Resp 16 03/05/19 18:19 BP 138/73 03/05/19 18:19 Pulse Ox 92 L 03/05/19 18:19 - Orders/Labs/Meds Orders: Active Orders 24 hr Category Date Time Status Peripheral IV Care [RC] . DIRECTED Care 03/05/19 17:51 Active Peripheral IV Care [RC] . DIRECTED Care 03/05/19 19:04 Ordered Peripheral IV Care [RC] . DIRECTED Care 03/05/19 19:05 Ordered Chest 2V [CR] Stat Exams 03/05/19 17:51 Taken CULTURE BLOOD [BC] Stat Lab 03/05/19 18:03 Received CULTURE BLOOD [BC] Stat Lab 03/05/19 18:07 Received CULTURE STREP A CONFIRMATION [RM] Stat Lab 03/05/19 17:35 Results STREP SCRN A RAPID W CULT CONF [RM] Stat Lab 03/05/19 17:35 Results UA RFX AMANUEL AND CULT IF INDIC [URIN] Stat Lab 03/05/19 17:51 Ordered Piperacillin/Tazobactam [Zosyn] 3.375 gm Med 03/05/19 19:05 Ordered Sodium Chloride 0.9% [Normal Saline] 100 ml IV ONETIME Sodium Chloride 0.9% [Saline Flush] Med 03/05/19 17:51 Active 10 ml FLUSH ASDIRECTED PRN Sodium Chloride 0.9% [Saline Flush] Med 03/05/19 19:04 Ordered 10 ml FLUSH ASDIRECTED PRN Sodium Chloride 0.9% [Saline Flush] Med 03/05/19 19:04 Ordered 10 ml FLUSH ASDIRECTED PRN Vancomycin 750 mg Med 03/05/19 19:04 Ordered Sodium Chloride 0.9% [Normal Saline] 250 ml IV ONETIME Blood Culture x2 Reflex Set [OM.PC] Stat Oth 03/05/19 17:50 Ordered Peripheral IV Insertion Adult [OM.PC] Stat Oth 03/05/19 17:50 Ordered Peripheral IV Insertion Adult [OM.PC] Stat Oth 03/05/19 19:04 Ordered Peripheral IV Insertion Adult [OM.PC] Stat Oth 03/05/19 19:05 Ordered Medication Orders Vancomycin HCl 750 mg/ Sodium (Chloride) 250 mls @ 166.667 mls/hr IV ONETIME ONE Stop: 03/05/19 20:33 Sodium Chloride (Saline Flush) 10 ml FLUSH ASDIRECTED PRN PRN Reason: Keep Vein Open Last Admin: 03/05/19 18:09 Dose: 10 ml Sodium Chloride (Saline Flush) 10 ml FLUSH ASDIRECTED PRN PRN Reason: Keep Vein Open Labs: Laboratory Tests 03/05/19 03/05/19 03/05/19 Range/Units 18:03 18:07 18:07 WBC 29.6 H* (5.0-10.0) 10^3/uL RBC 3.51 L (4.2-5.4) 10^6/uL Hgb 10.7 L D (12.0-16.0) g/dL Hct 32.8 L (37.0-47.0) % MCV 93.4 D (80-100) fL MCH 30.5 (27.0-34.0) pg MCHC 32.6 L (33.0-35.0) g/dL Plt Count 458 H D (150-450) 10^3/uL Neut % (Auto) 88.9 H (42.2-75.2) % Lymph % (Auto) 4.3 L (20.5-50.1) % [place] % (Auto) 6.4 (2-8) % Eos % (Auto) 0.2 L (1.0-3.0) % Baso % (Auto) 0.2 (0.0-1.0) % Add Manual Diff Yes Neutrophils % (Manual) 93 H (42-75) % Lymphocytes % (Manual) 4 L (20-50) % Monocytes % (Manual) 3 (2-8) % Sodium 133 L (135-145) mmol/L Potassium 4.1 (3.6-5.0) mmol/L Chloride 96 L (101-111) mmol/L Carbon Dioxide 24.0 (21.0-31.0) mmol/L Anion Gap 17.1 BUN 18 (7-18) mg/dL Creatinine 1.1 (0.6-1.3) mg/dL Est Cr Clr Drug Dosing 32.44 mL/min Estimated GFR (MDRD) 49 BUN/Creatinine Ratio 16.36 Glucose 110 H (74-105) mg/dL Lactic Acid 1.7 (0.5-2.2) mmol/L Calcium 8.4 (8.4-10.2) mg/dl Magnesium 1.5 L (1.8-2.5) mg/dL Total Bilirubin 0.7 (0.2-1.0) mg/dL AST 38 (10-42) IU/L ALT 20 (10-60) IU/L Alkaline Phosphatase 352 H (42-121) IU/L Total Protein 6.6 L (6.7-8.2) g/dl Albumin 2.7 L (3.2-5.5) g/dl Globulin 3.9 Albumin/Globulin Ratio 0.69 Rapid strep: Negative. Meds: Medications Generic Name Dose Route Start Last Admin Trade Name Freq PRN Reason Stop Dose Admin Vancomycin HCl 750 mg/ Sodium 250 mls @ 166.667 mls/hr 03/05/19 19:04 Chloride IV 03/05/19 20:33 ONETIME ONE Sodium Chloride 10 ml 03/05/19 17:51 03/05/19 18:09 Saline Flush FLUSH 10 ml ASDIRECTED PRN Administration Keep Vein Open Sodium Chloride 10 ml 03/05/19 19:04 Saline Flush FLUSH ASDIRECTED PRN Keep Vein Open Discontinued Medications Generic Name Dose Route Start Last Admin Trade Name Freq PRN Reason Stop Dose Admin Sodium Chloride 1,000 mls @ 999 mls/hr 03/05/19 17:51 03/05/19 18:16 Normal Saline IV 03/05/19 18:51 999 mls/hr .BOLUS ONE Administration Ondansetron HCl 4 mg 03/05/19 17:51 03/05/19 18:08 Zofran IV 03/05/19 17:52 4 mg ONETIME ONE Administration - Radiology Interpretation Free Text/Narrative:: [facility] Final Radiology Report Call: [phone] assistance Online chat: [email or web address] Name: CAMILLA CRAIG Age: 73Years F Date: 03/05/2019 SSN: -- : [id number] Study: XR CHEST 2 VIEWS FRONTAL & LAT Requesting Physician: BERENICE FERGUSON Images: 2 Addl Studies: Provided Clinical History: Contrast: Contrast Medium: Contrast Amount: Contrast Method: CONFIDENTIALITY STATEMENT This report is intended only for use by the referring physician, and only in accordance with law. If you received this in error, call [phone]. Page 1 of 1 PROCEDURE INFORMATION: Exam: XR Chest, 2 Views Exam date and time: 03/05/2019 5:51 PM Clinical history: 73 years old, female; Cough TECHNIQUE: Imaging protocol: XR of the chest Views: 2 views. COMPARISON: CR Chest 1V Frontal 11/09/2018 4:55 AM FINDINGS: Tubes, catheters and devices: Right chest port unchanged. Endotracheal and nasogastric tubes have been removed Lungs: Prior pulmonary edema has resolved. There is small linear right basilar opacity. Pleural space: Unremarkable. No pleural effusion. No pneumothorax. Heart/Mediastinum: Unremarkable. No cardiomegaly. Bones/joints: Unremarkable. IMPRESSION: Right lower lung scarring versus subsegmental atelectasis. Resolution of prior pulmonary edema Thank you for allowing us to participate in the care of your patient. Dictated and Authenticated by: Russell Pardo MD 03/05/2019 6:22 PM Central Time ([place] & [place]) Departure - Departure Time of Disposition: 19:06 Disposition: DC/Tfer to Acute Hospital 02 Condition: Critical Clinical Impression: History of chemotherapy, Colon cancer metastasized to liver, Dehydration, Nausea Sepsis Qualifiers: Sepsis type: sepsis due to unspecified organism Sepsis acute organ dysfunction status: without acute organ dysfunction Qualified Code(s): A41.9 - Sepsis, unspecified organism COPD (chronic obstructive pulmonary disease) Qualifiers: COPD type: unspecified COPD Qualified Code(s): J44.9 - Chronic obstructive pulmonary disease, unspecified - Discharge Information *PRESCRIPTION DRUG MONITORING PROGRAM REVIEWED*: No *COPY OF PRESCRIPTION DRUG MONITORING REPORT IN PATIENT KAYLA: No Forms: ED Department Discharge, Interfacility Transfer EMTALA - My Orders Last 24 Hours: My Active Orders 03/05/19 17:35 CULTURE STREP A CONFIRMATION [RM] Stat STREP SCRN A RAPID W CULT CONF [RM] Stat 03/05/19 17:50 Blood Culture x2 Reflex Set [OM.PC] Stat Peripheral IV Insertion Adult [OM.PC] Stat 03/05/19 17:51 Peripheral IV Care [RC] . DIRECTED Chest 2V [CR] Stat UA RFX AMANUEL AND CULT IF INDIC [URIN] Stat Sodium Chloride 0.9% [Saline Flush] 10 ml FLUSH ASDIRECTED PRN 03/05/19 18:03 CULTURE BLOOD [BC] Stat 03/05/19 18:07 CULTURE BLOOD [BC] Stat 03/05/19 19:04 Peripheral IV Care [RC] . DIRECTED Sodium Chloride 0.9% [Saline Flush] 10 ml FLUSH ASDIRECTED PRN Sodium Chloride 0.9% [Saline Flush] 10 ml FLUSH ASDIRECTED PRN Vancomycin 750 mg Sodium Chloride 0.9% [Normal Saline] 250 ml IV ONETIME Peripheral IV Insertion Adult [OM.PC] Stat 03/05/19 19:05 Peripheral IV Care [RC] . DIRECTED Piperacillin/Tazobactam [Zosyn] 3.375 gm Sodium Chloride 0.9% [Normal Saline] 100 ml IV ONETIME Peripheral IV Insertion Adult [OM.PC] Stat - Assessment/Plan Last 24 Hours: My Active Orders 03/05/19 17:35 CULTURE STREP A CONFIRMATION [RM] Stat STREP SCRN A RAPID W CULT CONF [RM] Stat 03/05/19 17:50 Blood Culture x2 Reflex Set [OM.PC] Stat Peripheral IV Insertion Adult [OM.PC] Stat 03/05/19 17:51 Peripheral IV Care [RC] . DIRECTED Chest 2V [CR] Stat UA RFX AMANUEL AND CULT IF INDIC [URIN] Stat Sodium Chloride 0.9% [Saline Flush] 10 ml FLUSH ASDIRECTED PRN 03/05/19 18:03 CULTURE BLOOD [BC] Stat 03/05/19 18:07 CULTURE BLOOD [BC] Stat 03/05/19 19:04 Peripheral IV Care [RC] . DIRECTED Sodium Chloride 0.9% [Saline Flush] 10 ml FLUSH ASDIRECTED PRN Sodium Chloride 0.9% [Saline Flush] 10 ml FLUSH ASDIRECTED PRN Vancomycin 750 mg Sodium Chloride 0.9% [Normal Saline] 250 ml IV ONETIME Peripheral IV Insertion Adult [OM.PC] Stat 03/05/19 19:05 Peripheral IV Care [RC] . DIRECTED Piperacillin/Tazobactam [Zosyn] 3.375 gm Sodium Chloride 0.9% [Normal Saline] 100 ml IV ONETIME Peripheral IV Insertion Adult [OM.PC] Stat I have read and agree with the documentation that has been completed regarding this visit. By signing this record, I attest that the documentation was completed in my physical presence and is an accurate record of the encounter.
[2019-03-05 18:39] LABS: ANION GAP 17.1
[2019-03-05] MEDS ORDERED: Sodium Chloride 0.9% 10 ML Syringe FLUSH PRN ×2 (19:04)
[2019-03-05] MEDS ORDERED: Piperacillin/Tazobactam 3.375 GM in Sodium Chloride 0.9% 100 ML IV ONE (19:05)
[2019-03-05 19:48] VITALS: BP 142/61; PULSE 100
[2019-03-05] MEDS ORDERED: Acetaminophen 325 MG Tab PO ONE (19:49)
== END 2019-03-05 21:11 ==
LOC: DL.ED 17:12
DX: A41.9 Sepsis, unspecified organism (principal); C18.9 Malignant neoplasm of colon, unspecified; C78.7 Secondary malignant neoplasm of liver and intrahepatic bile duct; J44.9 Chronic obstructive pulmonary disease, unspecified; E86.0 Dehydration; R11.0 Nausea; E78.00 Pure hypercholesterolemia, unspecified; I10 Essential (primary) hypertension; I25.10 Atherosclerotic heart disease of native coronary artery without angina pectoris; F32.9 Major depressive disorder, single episode, unspecified; F41.9 Anxiety disorder, unspecified; F17.200 Nicotine dependence, unspecified, uncomplicated; Z92.21 Personal history of antineoplastic chemotherapy; Z88.6 Allergy status to analgesic agent; Z88.1 Allergy status to other antibiotic agents; Z88.8 Allergy status to other drugs, medicaments and biological substances; Z88.5 Allergy status to narcotic agent; Z79.899 Other long term (current) drug therapy; Z79.82 Long term (current) use of aspirin; Z79.51 Long term (current) use of inhaled steroids
CPT/HCPCS: 36415; 71046; 80053; 81001; 83605; 83735; 85025; 87040; 87081; 87086; 87430; 87804; 96361; 96365; 96367; 96375; 99284; A9270; J2405; J2543; J3370; J7030; J7050

== ENCOUNTER 2019-04-10 12:16 | Inpatient (IN) | payer MEDICARE, OTHER ==
[2019-04-10] MEDS ORDERED: Albuterol/Ipratropium 3.0-0.5 MG/3 ML Neb Soln NEB PRN (14:28)
[2019-04-10] MEDS ORDERED: Ondansetron 4 MG Tab.DIS PO PRN (14:32)
[2019-04-10] MEDS ORDERED: Hydrocortisone 1% Crm 30 GM Tube TOP PRN (14:32)
[2019-04-10] MEDS ORDERED: Albuterol 6.7 GM Inhaler INH PRN (14:32)
[2019-04-10] MEDS ORDERED: Lidocaine/Prilocaine 2.5-2.5% Crm 5 GM Tube TOP PRN (14:32)
--- NOTE | 2019-04-10 15:12 | CR ---
EXAMINATION: Chest 1V Frontal SEX: Female AGE: 73 years CLINICAL HISTORY: 73-year-old female with history metastatic colon cancer (liver) and now cough. INTERPRETATION: 1. Right supraclavicular central venous chemoinfusion pump. 2. Prominent cardiac silhouette without pulmonary vascular congestion, cephalization of flow, alveolar edema or dependent pleural effusion. 3. Chronic mild blunting of right costophrenic sulcus. No new lung mass, hilar lymphadenopathy lobar consolidation (infiltrate/atelectasis) when compared back to and March 2019 PA film. 4. No pneumothorax or pneumomediastinum. Midline tracheal airway unremarkable. CONCLUSION: No acute cardiopulmonary abnormality. Specifically no sign of metastatic lung disease or lobar pneumonia.
[2019-04-10] MEDS: Sodium Chloride 0.9% 1,000 ML IV SCH (16:23)
[2019-04-10] MEDS: Nicotine 21 MG/24 Hr Patch TRDERM SCH (16:34)
--- NOTE | 2019-04-10 20:47 | HP ---
CHIEF COMPLAINT: Weakness. HISTORY OF PRESENTING ILLNESS: Mrs. Becky Barrios is a 73-year-old female with medical history significant for hypertension; hyperlipidemia; chronic obstructive pulmonary airway disease; hydronephrosis of the left kidney; history of chronic tobacco use; gastroesophageal reflux disease; coronary artery disease; metastatic colon cancer, received multiple doses of chemotherapy; had complications with a hospitalization last month from 03/18/2019, where she had MRSA pneumonia requiring admission to the intensive care unit and had complications with acute respiratory failure, acute COPD exacerbation at that time, and was later discharged to swing bed on 04/01. She was in swing bed here, and had physical therapy and occupational therapy, and was discharged on the of this month. After going home, she was apparently doing normal at her baseline function. She was following with her primary care physician as a regular check-up today in the clinic, and labs were drawn, which were all abnormal. She was noted to have acute renal failure with her creatinine worsening up to 2.8 with elevated BUN and also worsening anemia with hemoglobin down to 7.4, requiring admission to the hospital for further evaluation and treatment. At this time, the patient complains of some mild weakness. She complains of swelling to her lower extremities and having a hard time ambulating at home. She denies any fevers or chills in the last few days. No complaints of nausea, vomiting, or diarrhea in the last few days. No complaints of chest pain. No complaints of shortness of breath. No complaints of headaches at this time. The patient denied any history of chest pains on exertion, but has mild dyspnea on exertion. No history of orthopnea or paroxysmal nocturnal dyspnea. The patient denied any history of hematemesis, hematochezia, or melanotic stools. Normal bowel and bladder habits otherwise. REVIEW OF SYSTEMS: A complete review of systems including skin; ear, nose, and throat; cardiovascular system; respiratory system; gastrointestinal system; genitourinary system; hematology; oncology; neurology; allergy; immunology; and constitutional were well evaluated and were negative except for the above-said notes. PAST MEDICAL HISTORY: Significant for hypertension, hyperlipidemia, chronic obstructive pulmonary airway disease, chronic tobacco use, history of nephrolithiasis and ureteral stent placement, history of MRSA pneumonia, seasonal allergies, carotid artery disease, coronary artery disease, multiple episodes of pneumonia, anxiety and depression. PAST SURGICAL HISTORY: Significant for total abdominal hysterectomy with bilateral salpingo-oophorectomy, colonoscopy, cystoscopy, ureteral stent placement, and upper endoscopies. FAMILY HISTORY: Significant for diabetes, hypertension, and aneurysm in her father; heart disease in her brother. SOCIAL HISTORY: The patient continues to smoke tobacco. History of occasional alcohol intake. ALLERGIES: Allergic History: The patient is noted to have allergies to Macrobid, oxycodone, acetaminophen, ibuprofen, and promethazine. CURRENT MEDICATIONS: Include Ambien 5 mg at bedtime as needed for sleep, Spiriva 18 mcg inhalation daily as needed, simvastatin 10 mg daily, Protonix 40 mg daily, Zofran 4 mg every 6 hours as needed, olanzapine 10 mg at bedtime, multivitamin 1 tablet daily, metoprolol 150 mg twice a day, lisinopril 10 mg daily, Zyvox 600 mg twice daily, hydrocortisone cream topical, Lasix 40 mg daily, aspirin 81 mg daily, and amiodarone 200 mg daily. PHYSICAL EXAMINATION: Vitals: Temperature of 97.7, pulse of 69, blood pressure of 116/51, respiratory rate of 18, and saturating at 100%. General Appearance: The patient is well oriented to time, place, and person. Follows commands spontaneously. Cardiovascular System: S1, S2 heard with normal intensity. No gallops. Respiratory: Clear to auscultation bilaterally. No wheeze. No crepitations. Abdomen: Soft. Bowel sounds positive. Nontender. No rigidity. Extremities: Edema positive, 2+ edema in bilateral lower extremities. Pulses felt. LABORATORY DATA: Sodium 137, potassium 4.3, chloride 103, bicarb 24.8, BUN 44, creatinine 2.8, glucose 101. WBC 7.2, hemoglobin 7.4, hematocrit 22.7, platelet count 65. ASSESSMENT: 1. [id number] renal failure. 2. Anemia. 3. History of metastatic colon cancer. 4. Hypertension. 5. Hyperlipidemia. 6. Chronic obstructive pulmonary airway disease. 7. History of recent diagnosis of MRSA pneumonia, currently on oral Zyvox. 8. Chronic tobacco use. 9. Hydronephrosis of the left kidney requiring ureteral stent placement. 10.Severe malnutrition. 11.History of atrial fibrillation. PLAN: 1. [id number]-babqfvv renal failure: The patient is noted to have elevated creatinine. At baseline, creatinine is around 1.4. Now, her creatinine is at 2.8 and also elevated BUN up to 44. Her GFR is at 17; her baseline GFR has been around 44. The patient will be admitted to the hospital. We will start her on gentle hydration. We will be cautious with hydration as she has history of diastolic heart failure and also edema to the lower extremities, closely follow. Avoid nephrotoxic agents. Dose adjust medications for renal function. Recheck a basic metabolic panel in the a.m. 2. Anemia: The patient is noted to have worsening anemia. Her hemoglobin is down to 7.4. She is complaining of weakness, and she is being symptomatic, we will transfuse at least 1 unit of packed red blood cells. Given her history of cancer and requiring frequent blood transfusions, we will consider leukoreduced and irradiated blood products. We will recheck a hemoglobin in the a.m. She denies any hematemesis, hematochezia, or melenotic stools. 3. Hydronephrosis: The patient had history of left-sided hydronephrosis requiring ureteral stent placement. Unsure if her acute renal failure is obstructive in nature. We will do a bladder scan. We will keep her gently hydrated. She denies any flank pain. If her renal function does not improve despite gentle hydration, we will consider getting an imaging study to evaluate the hydronephrosis. 4. Hypertension: The patient's blood pressure seems to be in acceptable range. Continue with current antihypertensive medication. Try to avoid any hypotensive episodes. 5. Chronic obstructive pulmonary airway disease: Remains stable. Continue with inhalation treatments. No wheeze noted on physical exam. 6. Metastatic colon cancer: She usually follows with Oncology. She has been receiving chemotherapy, but given her infectious process, her chemotherapy has been delayed. 7. Recent diagnosis of MRSA pneumonia. She is currently on Zyvox; continue the same. 8. DVT prophylaxis: We will have her on heparin for DVT prophylaxis. She is noted to have thrombocytopenia. We will be cautious. Recheck a CBC in the a.m. 9. Code status: The patient wants to be full code. 10.Discussed in detail with Hannah Fulton, transferring physician, regarding the plan of care. Reviewed the labs and medications. Reviewed the old charts. [facility] /[id number]
[2019-04-10] MEDS: Zolpidem 5 MG Tab PO PRN (21:22)
[2019-04-10] MEDS: Metoprolol Tartrate 50 MG Tab PO SCH (21:24)
[2019-04-10] MEDS: OLANZapine 5 MG Tab PO SCH (21:25)
[2019-04-10] MEDS: Simvastatin 10 MG Tab PO SCH (21:26)
[2019-04-10] MEDS: LINEZOLID 600 MG PO SCH (22:37)
[2019-04-10] MEDS: ZINC OXIDE TOP SCH (22:38)
[2019-04-10] MEDS: MENTHOL TOP SCH (22:38)
[2019-04-11] MEDS: Acetaminophen 325 MG Tab PO PRN ×2 (01:57→18:36)
[2019-04-11] MEDS: Sodium Chloride 0.9% 1,000 ML IV SCH ×2 (06:06→19:40)
[2019-04-11] MEDS: Pantoprazole 40 MG Tab.CR PO SCH (06:07)
[2019-04-11 06:53] LABS: ANION GAP 15.1
[2019-04-11] MEDS ORDERED: Heparin Sodium 5,000 Units/ML Vial SUBCUT SCH (09:00)
[2019-04-11] MEDS: Tiotropium Inhaler 18 MCG Inhalation Powder Cap Kit of 5 INH SCH (09:19)
[2019-04-11] MEDS: MENTHOL TOP SCH ×2 (09:21→21:21)
[2019-04-11] MEDS: ZINC OXIDE TOP SCH ×2 (09:21→21:21)
[2019-04-11] MEDS: LINEZOLID 600 MG PO SCH ×2 (09:24→21:24)
[2019-04-11] MEDS: Nicotine 21 MG/24 Hr Patch TRDERM SCH (09:24)
[2019-04-11] MEDS: Amiodarone 200 MG Tab PO SCH (09:25)
[2019-04-11] MEDS: Metoprolol Tartrate 50 MG Tab PO SCH ×2 (09:25→21:21)
[2019-04-11] MEDS: Aspirin 81 MG Tab.EC PO SCH (09:26)
[2019-04-11] MEDS: Multivitamins, Therapeutic with Minerals Tab PO SCH (09:26)
--- NOTE | 2019-04-11 12:56 | PN ---
DATE: 04/11/2019 HISTORY OF PRESENT ILLNESS: Ms. Becky Barrios is a 73-year-old female with a medical history significant for hypertension, hyperlipidemia, chronic obstructive pulmonary airway disease, hydronephrosis of the left kidney requiring stent placement, chronic tobacco use, gastroesophageal reflux disease, coronary artery disease, metastatic colon cancer, had been receiving chemotherapy, recent diagnosis of MRSA pneumonia who presented to the hospital with complaints of increasing weakness and was further evaluated with labs which showed evidence of severe anemia with acute on chronic renal failure requiring admission to the hospital. For the last 24 hours, the patient denies any ongoing chest pain. No shortness of breath. No abdominal pain. No nausea. No vomiting. No diarrhea. REVIEW OF SYSTEMS: Cardiovascular, respiratory, gastrointestinal, neurology, constitutional were all evaluated. PHYSICAL EXAMINATION: Vital Signs: Temperature of 98.6, pulse of 67, blood pressure 133/49, respiratory rate of 20, saturating at 97%. General Appearance: The patient is well oriented to time, place, and person. Follows commands spontaneously. Cardiovascular System: S1, S2 heard with normal intensity. No gallops. Respiratory System: Clear to auscultation bilaterally. No wheeze. No crepitations. Abdomen: Soft. Bowel sounds positive. Nontender. No rigidity. Extremities: 2+ pitting edema noted, bilateral lower extremities. MEDICATIONS: Reviewed. Continue with DuoNeb as needed for shortness of breath, amiodarone 200 mg daily, aspirin 81 mg daily, Zyvox 600 mg q.12 hourly, metoprolol 150 mg twice a day, multivitamin 1 tablet daily, nicotine transdermal patch, Zyprexa 10 mg at bedtime, simvastatin 10 mg at bedtime, Spiriva 18 mcg inhalation daily, Ambien as needed for sleep. LABORATORY DATA: Reviewed. Sodium 134, potassium 4.1, chloride 103, BUN 52, creatinine 2.6, glucose 90. AST 27, ALT 16, alkaline phosphatase 335, total protein 5.1. WBC 5.2, hemoglobin 6.5, hematocrit 19.7, platelet count 42. ASSESSMENT: 1. Acute on chronic renal failure. 2. Severe anemia. 3. Thrombocytopenia. 4. Hyponatremia. 5. Metastatic colon cancer, on chemotherapy. 6. Hypertension. 7. Chronic obstructive pulmonary airway disease. 8. History of MRSA pneumonia, currently on Zyvox. 9. Chronic tobacco use. 10.History of hydronephrosis requiring ureteral stent placement. 11.Severe malnutrition. 12.History of atrial fibrillation. PLAN: 1. Acute on chronic renal failure. The patient continues to have elevated creatinine and BUN. Given her history of hydronephrosis and ureteral stent placement, we will order for a CT scan of the abdomen and pelvis to rule out any possible stent occlusion versus stent displacement or to see if there is any worsening of the hydronephrosis. We will closely follow. Keep her hydrated with IV fluids. Avoid nephrotoxic agents. Dose adjust medications for renal function. 2. Anemia. The patient is noted to have severe anemia, unsure if this is chemotherapy related. The patient will require 1 unit of packed red blood cell transfusion. Her hemoglobin worsened to 6.5. She denied any hematemesis, hematochezia, or melenic stools. We will recheck a CBC in a.m. and transfuse as needed. 3. Hydronephrosis. The patient recently diagnosed with hydronephrosis and had ureteral stent placement. We will closely follow with a CT scan of abdomen and pelvis without any contrast. 4. Hypertension, blood pressure well controlled. Continue with current antihypertensive medications. 5. Chronic obstructive pulmonary airway disease, remains stable. No wheeze noted on the lung exam. 6. History of metastatic colon cancer. She has been receiving chemotherapy, but currently on hold secondary to infectious process and hospitalization. 7. DVT prophylaxis. Be cautious regarding DVT prophylaxis as she is noted to have thrombocytopenia. We will change to heparin q.12 hourly. Use LIA hose for DVT prophylaxis and encourage the patient to ambulate. [facility] /[id number]
--- NOTE | 2019-04-11 16:47 | CT ---
EXAMINATION: Abdomen Pelvis wo Cont SEX: Female AGE: 73 years CLINICAL HISTORY: 73-year-old hypertensive 106 pound female smoker with METASTATIC COLON CANCER, acute renal failure and left ureteral stent placement. PAIN. Hysterectomy. Patient reported CT exam 15 January 2018 to have "5.7 x 7.3 cm distention left renal pelvis despite ipsilateral stent but liver improvement since 17 June 2017". Reevaluate please. Scan technique: Volume acquisition of data from the abdomen and pelvis obtained without oral or IV contrast were patient was lying supine on the Siemens multislice scanner [place], [place]. All data archived in the PACS system for storage, reformatting and study. INTERPRETATION: 1. Hepatomegaly with multiple complex septated intrahepatic mass lesions of varying size and configuration i.e. METASTASES. This represents decided change (deterioration) radiographic appearance since 15 January 2018 exam 2. Dilated left renal pelvis (proximal pigtail catheter loop pulled down near the UPJ left kidney). 3. Second, smaller right kidney located in the right lower quadrant (RLQ) shows no sign of pyelocaliectasis or obstructive uropathy. Faint calyceal calcification upper pole right kidney and midpole left kidneys. 4. No new signs of mechanical bowel obstruction, abdominal or pelvic mass lesion,, mesenteric lymphadenopathy, mechanical bowel obstruction, ascites or free intraperitoneal air. 5. Lung bases clear. Specifically, no sign of effusion or metastatic deposits lower lobes. 6. Densely calcified "cast" normal caliber aortoiliac vessels. Osteoporosis, scoliosis and multilevel disc disease lumbar spine. 7. Apparent anasarca soft tissues over the flanks and buttocks. CONCLUSION: Metastatic liver disease, progressive. Chronic dilatation left renal pelvis (stent), smaller than December 2017. Lung bases clear. No pleural effusion. No ascites.
[2019-04-11] MEDS: Ondansetron 4 MG Tab.DIS PO PRN (19:34)
[2019-04-11] MEDS: Simvastatin 10 MG Tab PO SCH (21:24)
[2019-04-11] MEDS: OLANZapine 5 MG Tab PO SCH (21:28)
[2019-04-11] MEDS: Zolpidem 5 MG Tab PO PRN (21:34)
[2019-04-11] MEDS: rOPINIRole 0.25 MG Tab PO PRN (23:17)
[2019-04-12] MEDS: Acetaminophen 325 MG Tab PO PRN ×3 (00:05→17:30)
[2019-04-12] MEDS: Pantoprazole 40 MG Tab.CR PO SCH (05:54)
[2019-04-12] MEDS: Amiodarone 200 MG Tab PO SCH (09:24)
[2019-04-12] MEDS: Nicotine 21 MG/24 Hr Patch TRDERM SCH (09:24)
[2019-04-12] MEDS: Metoprolol Tartrate 50 MG Tab PO SCH ×2 (09:26→21:20)
[2019-04-12] MEDS: Aspirin 81 MG Tab.EC PO SCH (09:26)
[2019-04-12] MEDS: MENTHOL TOP SCH ×2 (09:28→21:20)
[2019-04-12] MEDS: ZINC OXIDE TOP SCH ×2 (09:28→21:20)
[2019-04-12] MEDS: Tiotropium Inhaler 18 MCG Inhalation Powder Cap Kit of 5 INH SCH (09:29)
[2019-04-12] MEDS: Multivitamins, Therapeutic with Minerals Tab PO SCH (09:30)
[2019-04-12] MEDS: LINEZOLID 600 MG PO SCH ×2 (09:31→21:19)
[2019-04-12] MEDS: Sodium Chloride 0.9% 1,000 ML IV SCH (09:33)
[2019-04-12] MEDS: Ondansetron 4 MG Tab.DIS PO PRN (15:16)
--- NOTE | 2019-04-12 15:49 | PN ---
DATE: 04/12/2019 SUBJECTIVE: Ms. Becky Barrios is a 73-year-old female with a medical history significant for hypertension, hyperlipidemia, chronic obstructive pulmonary disease, hydronephrosis of the left kidney requiring stent placement, chronic tobacco use, gastroesophageal reflux disease, metastatic colon cancer to the liver, and recent diagnosis of MRSA pneumonia, currently on Zyvox; admitted to the hospital with complaints of weakness, tiredness, and noted to have severe anemia along with acute on chronic renal failure. For the last 24 hours, the patient is continued on IV fluids. She received blood transfusion without any complication. She denies any ongoing chest pains. No shortness of breath. No abdominal pain. She complains of increased swelling to her lower extremities and gaining weight. REVIEW OF SYSTEMS: Cardiovascular, respiratory, gastrointestinal, neurology, and constitutional were all evaluated. PHYSICAL EXAMINATION: Vital Signs: Temperature of 98.9, pulse of 69, blood pressure 146/47, respiratory rate of 18, and saturating at 98% on room air. General Appearance: The patient is well oriented to time, place, and person. Follows commands spontaneously. Cardiovascular System: S1, S2 heard with normal intensity. No gallops. Respiratory System: Clear to auscultation bilaterally. No wheeze. No crepitations. Abdomen: Soft. Bowel sounds positive. Nontender. No rigidity. Extremities: 1 to 2+ pitting edema noted in bilateral lower extremities. MEDICATIONS: Reviewed. Continue with DuoNeb as needed for shortness of breath, amiodarone 200 mg daily, aspirin 81 mg daily, Zyvox 600 mg q.12 hourly, metoprolol 150 mg twice a day, Nicotine transdermal patch, olanzapine 10 mg at bedtime, Requip 0.5 mg 3 times a day as needed for restless legs syndrome, simvastatin 10 mg at bedtime, and Spiriva 18 mcg inhalation daily. LABORATORY DATA: Reviewed. WBC 4.7, hemoglobin 7.9, hematocrit 23.3, and platelet count 31. Sodium 133, potassium 4, chloride 105, bicarbonate 19, BUN 45, creatinine 2.3, and glucose 100. ASSESSMENT: 1. Acute on chronic renal failure. 2. Severe anemia requiring blood transfusion. 3. Thrombocytopenia. 4. Hyponatremia. 5. Metastatic colon cancer to liver. 6. Hypertension. 7. Chronic obstructive pulmonary disease. 8. History of methicillin-resistant Staphylococcus aureus pneumonia, currently on Zyvox. 9. Chronic tobacco use. 10.Hydronephrosis requiring ureteral stent placement. 11.Severe malnutrition. 12.History of atrial fibrillation. PLAN: 1. Severe anemia. The patient required 1 unit of packed red blood cells after which her hemoglobin improved to 7.9. We will transfuse another 2 units of packed red blood cells, which should be leukoreduced and irradiated given her multiple transfusions and cancer patient. Unfortunately, we could not get the blood until tomorrow. Closely follow. 2. Thrombocytopenia, seems to be worsening. We will hold off all heparin products. We will recheck a CBC in a.m. 3. Acute on chronic renal failure, improved with IV fluids. We will hold IV fluids for now. Avoid nephrotoxic agents. Dose adjust medications for renal function. 4. Edema. The patient is noted to have edema and anasarca. This is mainly from low albumin from her metastatic liver disease. The patient is encouraged to be on nutritional supplements. She is also noted to have severe malnutrition. 5. Metastatic colon cancer. The patient will be evaluated by Oncology as an outpatient. She has been receiving chemotherapy as an outpatient. 6. Pneumonia. The patient was recently diagnosed with MRSA pneumonia. She is currently on Zyvox. Continue the same. 7. Possible UTI. The patient is noted to have abnormal urinalysis. She is noted to have gram-negative rods. We will follow with ID and susceptibility. She has been on Zyvox. She remains afebrile. We will closely follow with ID and susceptibility on the urine culture report. 8. Hydronephrosis. The patient recently underwent stent placement. Given her worsening renal function, we did a CT scan of the abdomen and pelvis without any contrast, which showed dilated left renal pelvis, proximal pigtail catheter loop pulled down near the UPJ of left kidney but no evidence of worsening hydronephrosis or any pyelonephritis noted on this CAT scan. Closely follow. Spent over 35 minutes of time in evaluating and treating this patient, doing the imaging studies, and discussing treatment goals and options with the patient's family members at bedside. [facility] /[id number]
[2019-04-12] MEDS: Simvastatin 10 MG Tab PO SCH (21:20)
[2019-04-12] MEDS: OLANZapine 5 MG Tab PO SCH (21:20)
[2019-04-12] MEDS: Zolpidem 5 MG Tab PO PRN (21:35)
[2019-04-13] MEDS: Acetaminophen 325 MG Tab PO PRN ×5 (00:17→21:56)
[2019-04-13] MEDS: rOPINIRole 0.25 MG Tab PO PRN ×2 (03:29→23:32)
[2019-04-13] MEDS: Pantoprazole 40 MG Tab.CR PO SCH (06:23)
[2019-04-13 06:56] LABS: ANION GAP 11.9
[2019-04-13] MEDS: Nicotine 21 MG/24 Hr Patch TRDERM SCH (09:15)
[2019-04-13] MEDS: Aspirin 81 MG Tab.EC PO SCH (09:15)
[2019-04-13] MEDS: Multivitamins, Therapeutic with Minerals Tab PO SCH (09:15)
[2019-04-13] MEDS: LINEZOLID 600 MG PO SCH (09:15)
[2019-04-13] MEDS: Tiotropium Inhaler 18 MCG Inhalation Powder Cap Kit of 5 INH SCH (09:15)
[2019-04-13] MEDS: ZINC OXIDE TOP SCH ×2 (09:15→21:46)
[2019-04-13] MEDS: Metoprolol Tartrate 50 MG Tab PO SCH ×2 (09:15→21:42)
[2019-04-13] MEDS: MENTHOL TOP SCH ×2 (09:15→21:46)
[2019-04-13] MEDS: Amiodarone 200 MG Tab PO SCH (09:15)
[2019-04-13] MEDS ORDERED: Ertapenem 1 GM in Sodium Chloride 0.9% 50 ML IV SCH (11:30)
[2019-04-13] MEDS ORDERED: Furosemide 40 MG/4 ML VIAL IVPUSH ONE (12:29)
--- NOTE | 2019-04-13 13:02 | PN ---
DATE: 04/13/2019 HISTORY OF PRESENT ILLNESS: Ms. Becky Barrios is a 73-year-old female with a medical history significant for hypertension; hyperlipidemia; chronic obstructive pulmonary disease; left-sided hydronephrosis, requiring stent placement; chronic tobacco use; history of metastatic colon cancer to the liver; recent diagnosis of MRSA pneumonia, currently on Zyvox, admitted to the hospital with complaints of weakness, tiredness, and noted to have severe anemia and acute on chronic renal failure. For the last 24 hours, the patient is receiving blood transfusion. She denies any chest pain. No shortness of breath. She has mild nosebleeds, and the patient says that she has been picking her nose. No abdominal pain. No nausea. No vomiting. No diarrhea. REVIEW OF SYSTEMS: Cardiovascular, respiratory, gastrointestinal, neurology, constitutional were all evaluated. PHYSICAL EXAMINATION: Vital Signs: Temperature of 98.2, pulse of 67, blood pressure 149/63, respiratory rate of 18, saturating at 100%. General Appearance: The patient is well oriented to time, place, and person. Follows commands spontaneously. Cardiovascular System: S1, S2 heard with normal intensity. No gallops. Respiratory System: Clear to auscultation bilaterally. No wheeze. No crepitations. Abdomen: Soft. Bowel sounds positive. Nontender. No rigidity. Extremities: 2+ edema noted, bilateral lower extremities. MEDICATIONS: Reviewed. Continue with Tylenol as needed, albuterol inhalation every 4 hours as needed, DuoNeb q.4 hours as needed, aspirin 81 mg daily, ertapenem 500 mg daily, Imodium as needed, metoprolol 150 mg twice a day, nicotine transdermal patch, Zyprexa 10 mg at bedtime, Protonix 40 mg daily, Requip 0.5 mg 3 times a day as needed, simvastatin 10 mg at bedtime, Spiriva 18 mcg inhalation daily. LABORATORY DATA: 1. WBC 3.9, hemoglobin 6.9, hematocrit 20.7, platelet count 21. 2. Sodium 136, potassium 3.9, chloride 109, bicarb 19, BUN 35, creatinine 1.7, glucose 81. 3. Calcium 7.4, magnesium 1.3. ASSESSMENT: 1. Pancytopenia. 2. Acute on chronic renal failure, improved. 3. Urinary tract infection with Klebsiella and Enterococcus. 4. Hypertension. 5. Hyperlipidemia. 6. Metastatic colon cancer with mets to the liver. 7. Hypomagnesemia. 8. Chronic obstructive pulmonary disease. 9. History of MRSA pneumonia, requiring Zyvox. 10.Chronic tobacco use. 11.Hydronephrosis, requiring ureteral stent placement. 12.Severe malnutrition. 13.History of atrial fibrillation. PLAN: 1. Pancytopenia. The patient noted to have pancytopenia with anemia and thrombocytopenia. The patient noted to have worsening platelet count and hemoglobin. She has been on Zyvox for more than 2 weeks. We will discontinue the Zyvox as this could be leading to her pancytopenia also with underlying cancer and chemotherapy. We will recheck a CBC with differential in the a.m. She is getting 2 units of packed red blood cells today. She might need a platelet transfusion also if the platelet count goes less than 10, closely follow. 2. Hyponatremia, mild in nature. Improved at this time. 3. Hypomagnesemia. We will replace with oral magnesium oxide. 4. DVT prophylaxis. Avoid any heparin products secondary to worsening thrombocytopenia. 5. Hypertension. Blood pressure well controlled. Continue with current antihypertensive medication. 6. Severe malnutrition. The patient is encouraged to have good oral intake. The patient is encouraged to use Boost or Ensure, but the patient claims that she has intolerance to Boost. 7. History of hydronephrosis, requiring ureteral stent placement. The patient had a CT scan of the abdomen and pelvis done on this admission which did not show any worsening of her hydronephrosis and moreover her kidney function seems to be improving. 8. Edema. The patient has edema to the lower extremities. This could be resulting from hypoalbuminemia and third spacing. The patient is encouraged to use LIA hose. We will give her a dose of Lasix today IV since she is receiving 2 units of packed red blood cells. [facility] /[id number]
[2019-04-13] MEDS: Zolpidem 5 MG Tab PO PRN (21:35)
[2019-04-13] MEDS: OLANZapine 5 MG Tab PO SCH (21:49)
[2019-04-13] MEDS: Simvastatin 10 MG Tab PO SCH (21:49)
[2019-04-14] MEDS: Acetaminophen 325 MG Tab PO PRN ×3 (01:59→16:06)
[2019-04-14] MEDS: Pantoprazole 40 MG Tab.CR PO SCH (06:04)
[2019-04-14 06:58] LABS: ANION GAP 13.3
[2019-04-14] MEDS: Amiodarone 200 MG Tab PO SCH (09:13)
[2019-04-14] MEDS: Metoprolol Tartrate 50 MG Tab PO SCH ×2 (09:14→20:39)
[2019-04-14] MEDS: Multivitamins, Therapeutic with Minerals Tab PO SCH (09:14)
[2019-04-14] MEDS: Aspirin 81 MG Tab.EC PO SCH (09:14)
[2019-04-14] MEDS: Nicotine 21 MG/24 Hr Patch TRDERM SCH (09:14)
[2019-04-14] MEDS: Tiotropium Inhaler 18 MCG Inhalation Powder Cap Kit of 5 INH SCH (09:15)
[2019-04-14] MEDS: MENTHOL TOP SCH ×2 (09:15→20:38)
[2019-04-14] MEDS: ZINC OXIDE TOP SCH ×2 (09:15→20:38)
[2019-04-14] MEDS: Ondansetron 4 MG Tab.DIS PO PRN (09:48)
--- NOTE | 2019-04-14 13:38 | PN ---
DATE: 04/14/2019 SUBJECTIVE: Ms. Becky Barrios is a 73-year-old female with a medical history significant for hypertension, hyperlipidemia, chronic obstructive pulmonary disease, left-sided hydronephrosis requiring stents placed, and history of MRSA pneumonia requiring Zyvox treatment; admitted with complaints of weakness and tiredness; and noted to have severe anemia and acute on chronic renal failure. For the last 24 hours, the patient received blood transfusion without any complications. She denies any chest pain. No shortness of breath. No abdominal pain. REVIEW OF SYSTEMS: Cardiovascular respiratory, gastrointestinal, neurology, and constitutional were all evaluated. PHYSICAL EXAMINATION: Vital Signs: Temperature of 98.9, pulse of 70, blood pressure 166/65, respiratory rate of 18, and saturating at 98% on room air. General Appearance: The patient is well oriented to time, place, and person. Follows commands spontaneously. Cardiovascular System: S1, S2 heard with normal intensity. No gallops. Respiratory System: Clear to auscultation bilaterally. No wheeze. No crepitations. Abdomen: Soft. Bowel sounds positive. Nontender. No rigidity. Extremities: 2+ edema noted in bilateral lower extremities. MEDICATIONS: Reviewed. Continue with DuoNeb every 4 hours as needed for shortness of breath, amiodarone 200 mg daily, aspirin 81 mg daily, ertapenem 500 mg IV daily, magnesium oxide 500 mg twice a day, metoprolol 150 mg twice a day, Nicotine transdermal patch, Protonix 40 mg daily, Requip 0.5 mg 3 times a day as needed, Zocor 10 mg at bedtime, and Spiriva 18 mcg inhalation daily. LABORATORY DATA: WBC 5, hemoglobin 10.6, hematocrit 31, and platelet count 21. Sodium 136, potassium 4.3, chloride 107, bicarbonate 20, BUN 32, creatinine 1.4, glucose 85, magnesium 1.3, and calcium 7.7. ASSESSMENT: 1. Pancytopenia. 2. Acute on chronic renal failure, improved. 3. Urinary tract infection with Klebsiella and Enterococcus. 4. Hypertension. 5. Hyperlipidemia. 6. Metastatic colon cancer with metastasis to the liver. 7. Hypomagnesemia. 8. Chronic obstructive pulmonary disease. 9. History of pneumonia, requiring Zyvox. 10.Chronic tobacco use. 11.Hydronephrosis, requiring ureteral stent placement. 12.Severe malnutrition. 13.History of atrial fibrillation. PLAN: 1. Pancytopenia. The patient's pancytopenia seems to be improved. She required 3 units of packed red blood cells after which hemoglobin improved to 10. Her platelet count is stabilized at 21. We will recheck a CBC with differential in a.m. 2. Acute on chronic renal failure, improved. Her creatinine is back to baseline function at 1.4 with a BUN improving to 32. We will closely follow the patient. Avoid any nephrotoxic agents. Dose adjust medications for renal function. 3. Urinary tract infection. Her urine culture is positive for Klebsiella and Enterococcus, both sensitive to ertapenem. We will continue with ertapenem for now. 4. Hypertension, well controlled. Continue with beta irma. 5. Metastatic colon cancer. The patient has been receiving chemotherapy, but she has been on hold due to recurrent infections. She will follow with Oncology Clinic as outpatient. 6. Hypomagnesemia. The patient continues to have low magnesium. We will replace with oral magnesium oxide 500 mg twice a day. 7. Chronic obstructive pulmonary disease, remains stable. No wheeze noted on the lung exam. Continue with the nebulizer treatment as needed. 8. Chronic tobacco use. The patient is currently on nicotine transdermal patch. Continue the same. 9. Hydronephrosis. The patient required stent placement recently. CT scan done on this admission shows stabilization. 10.Severe malnutrition. The patient is encouraged to eat. We will change it to regular diet. We advised Boost or Ensure, but the patient claims that she has intolerance to them. 11.DVT prophylaxis. Avoid any heparin per secondary thrombocytopenia. [facility] /[id number]
[2019-04-14] MEDS: Loperamide 2 MG Cap PO PRN (17:38)
[2019-04-14] MEDS: Simvastatin 10 MG Tab PO SCH (20:40)
[2019-04-14] MEDS: OLANZapine 5 MG Tab PO SCH (20:40)
[2019-04-14] MEDS: Zolpidem 5 MG Tab PO PRN (21:01)
[2019-04-15] MEDS: Acetaminophen 325 MG Tab PO PRN ×5 (01:42→21:49)
[2019-04-15] MEDS: Pantoprazole 40 MG Tab.CR PO SCH (06:04)
[2019-04-15 07:03] LABS: ANION GAP 12.3
[2019-04-15] MEDS: Nicotine 21 MG/24 Hr Patch TRDERM SCH (08:40)
[2019-04-15] MEDS: Amiodarone 200 MG Tab PO SCH (08:41)
[2019-04-15] MEDS: Aspirin 81 MG Tab.EC PO SCH (08:41)
[2019-04-15] MEDS: Tiotropium Inhaler 18 MCG Inhalation Powder Cap Kit of 5 INH SCH (08:42)
[2019-04-15] MEDS: ZINC OXIDE TOP SCH ×2 (08:44→21:13)
[2019-04-15] MEDS: MENTHOL TOP SCH ×2 (08:44→21:13)
[2019-04-15] MEDS: Metoprolol Tartrate 50 MG Tab PO SCH ×2 (09:34→21:11)
[2019-04-15] MEDS: Multivitamins, Therapeutic with Minerals Tab PO SCH (09:35)
[2019-04-15] MEDS: Hydrochlorothiazide 25 MG Tab PO SCH (12:08)
--- NOTE | 2019-04-15 13:35 | PN ---
DATE: 04/15/2019 SUBJECTIVE: Ms. Becky Barrios is a 73-year-old female with medical history significant for hypertension, hyperlipidemia, chronic obstructive pulmonary disease, history of metastatic colon cancer with metastasis to the liver, history of recent pneumonia requiring Zyvox treatment, admitted to the hospital with complaints of increasing weakness, tiredness, and noted to have severe anemia with acute on chronic renal failure. For the last 24 hours, the patient is noted to have nosebleeds and also some bleeds on the lips and also petechiae on the lower extremities. She denies any chest pain. No shortness of breath. No abdominal pain. No nausea. No vomiting. REVIEW OF SYSTEMS: Cardiovascular, respiratory, gastrointestinal, neurology, constitutional were all evaluated. PHYSICAL EXAMINATION: Vital Signs: Temperature of 98.9, pulse of 72, blood pressure 161/64, respiratory rate of 20, saturating at 99% on room air. General Appearance: The patient is well oriented to time, place, and person. Follows commands spontaneously. Cardiovascular System: S1 and S2 heard with normal intensity. Respiratory System: Clear to auscultation bilaterally. No wheeze. Abdomen: Soft. Bowel sounds positive. Nontender. Extremities: 2+ edema noted to bilateral lower extremities. MEDICATIONS: Reviewed. Continue with DuoNeb every 4 hours as needed, aspirin 81 mg daily, added hydrochlorothiazide 25 mg daily, Imodium as needed, magnesium oxide 500 mg twice a day, metoprolol 150 mg twice a day, nicotine transdermal patch 21 mg, Zyprexa 10 mg at bedtime, Protonix 40 mg daily, Requip 0.5 mg 3 times a day as needed, Zocor 10 mg at bedtime, Spiriva 18 mcg inhalation daily, ertapenem 500 mg daily. ASSESSMENT: 1. Pancytopenia. 2. Acute on chronic renal failure, improved. 3. Urinary tract infection with Klebsiella and Enterococcus, on ertapenem. 4. Hypertension. 5. Hyperlipidemia. 6. Metastatic colon cancer with metastasis to the liver. 7. Hypomagnesemia. 8. Chronic obstructive pulmonary disease. 9. Hydronephrosis requiring ureteral stent placement on the left side. 10.Chronic tobacco use. 11.Severe malnutrition. 12.History of atrial fibrillation. PLAN: 1. Pancytopenia. Her anemia and neutropenia got improved, but she continues to have thrombocytopenia. Her platelet count has worsened. We will order for 1 unit of platelet transfusion, leukoreduced and irradiated, so this will be readily available tomorrow. The patient is noted to have petechiae and also nosebleeds, so we will try to transfuse at least 1 unit of platelets. 2. Acute on chronic renal failure, improved and resolved. The patient's creatinine is back to baseline. Avoid nephrotoxic agents. Dose adjust medications for renal function. Recheck a BMP in a.m. 3. Urinary tract infection. She is noted to have Klebsiella and Enterococcus. She has a stent in place. She might benefit from Urology appointment earlier than later. We will also continue with IV ertapenem. 4. Hypertension. The patient's blood pressure seems to be in acceptable range, elevated at times. Added hydrochlorothiazide for better control of the blood pressure, closely follow. 5. Metastatic colon cancer with metastasis to the liver. The patient's last dose of chemotherapy was almost 3 to 4 weeks back. She will be following with Oncology Clinic when she is more stable. 6. Chronic obstructive pulmonary disease, remains stable. No wheeze noted on the lung exam. Continue with current nebulizer treatment. She will be encouraged to use incentive spirometer and flutter valve. 7. Hydronephrosis. The patient has ureteral stent in place and with recent urinary tract infection, she might benefit from Urology consultation as an outpatient earlier. 8. History of atrial fibrillation, rate controlled. Continue with beta irma. Continue with amiodarone. Unfortunately, we cannot anticoagulate her secondary to worsening thrombocytopenia. 9. Discussed with family members at bedside. [facility] /[id number]
[2019-04-15] MEDS: Loperamide 2 MG Cap PO PRN (13:56)
[2019-04-15] MEDS: Nystatin Susp 100,000 Unit/ML 5 ML UD Cup PO SCH ×3 (15:36→21:14)
[2019-04-15] MEDS: Sodium Chloride 0.65% Nasal Spray 45 ML Bottle NAS PRN ×2 (16:15→21:12)
[2019-04-15] MEDS: Ondansetron 4 MG Tab.DIS PO PRN (20:12)
[2019-04-15] MEDS: OLANZapine 5 MG Tab PO SCH (21:10)
[2019-04-15] MEDS: Zolpidem 5 MG Tab PO PRN (21:10)
[2019-04-15] MEDS: Simvastatin 10 MG Tab PO SCH (21:10)
[2019-04-16] MEDS: Pantoprazole 40 MG Tab.CR PO SCH (05:39)
[2019-04-16] MEDS: Loperamide 2 MG Cap PO PRN ×3 (06:16→18:46)
[2019-04-16 06:59] LABS: ANION GAP 12.2
[2019-04-16] MEDS: Nystatin Susp 100,000 Unit/ML 5 ML UD Cup PO SCH ×4 (08:20→20:37)
[2019-04-16] MEDS: Nicotine 21 MG/24 Hr Patch TRDERM SCH (08:20)
[2019-04-16] MEDS: Metoprolol Tartrate 50 MG Tab PO SCH ×2 (08:21→20:34)
[2019-04-16] MEDS: Aspirin 81 MG Tab.EC PO SCH (08:22)
[2019-04-16] MEDS: Hydrochlorothiazide 25 MG Tab PO SCH (08:22)
[2019-04-16] MEDS: Amiodarone 200 MG Tab PO SCH (08:22)
[2019-04-16] MEDS: Multivitamins, Therapeutic with Minerals Tab PO SCH (08:22)
[2019-04-16] MEDS: Tiotropium Inhaler 18 MCG Inhalation Powder Cap Kit of 5 INH SCH (08:24)
[2019-04-16] MEDS: ZINC OXIDE TOP SCH ×2 (10:00→20:37)
[2019-04-16] MEDS: MENTHOL TOP SCH ×2 (10:00→20:37)
--- NOTE | 2019-04-16 12:54 | PN ---
DATE: 04/16/2019 HISTORY OF PRESENT ILLNESS: Ms. Becky Barrios is a 73-year-old female with medical history significant for hypertension, hyperlipidemia, chronic obstructive pulmonary disease, history of metastatic colon cancer with mets to the liver, history of recent pneumonia requiring antibiotic treatment, admitted with increasing weakness, tiredness, and noted to have severe anemia and acute on chronic renal failure. For the last 24 hours, the patient denies any ongoing chest pain. No shortness of breath. No abdominal pain. No nausea. No vomiting. No diarrhea. No complications with bleeding. REVIEW OF SYSTEMS: Cardiovascular, respiratory, gastrointestinal, neurology, constitutional were all evaluated. PHYSICAL EXAMINATION: Vital Signs: Temperature of 98.9, pulse of 103, blood pressure of 151/71, respiratory rate of 20, saturating at 98% on room air. General Appearance: The patient is well oriented to time, place, and person. Follows commands spontaneously. Cardiovascular System: S1, S2 heard with normal intensity. No gallops. Respiratory System: Clear to auscultation bilaterally. No wheeze. No crepitations. Abdomen: Soft. Bowel sounds positive. Nontender. No rigidity. Extremities: 2+ edema noted, bilateral lower extremities. MEDICATIONS: Reviewed. Continue with: 1. DuoNeb every 4 hours as needed. 2. Aspirin 81 mg daily. 3. Amiodarone 200 mg daily. 4. Ertapenem 500 mg daily. 5. Hydrochlorothiazide 25 mg daily. 6. Imodium 2 mg every 6 hours as needed. 7. Magnesium oxide 500 mg twice a day. 8. Metoprolol 150 mg twice a day. 9. Multivitamin 1 tablet daily. 10.Nicotine transdermal patch. 11.Zyprexa 10 mg at bedtime. 12.Requip 0.5 mg 3 times a day as needed. 13.Zocor 10 mg at bedtime. 14.Spiriva 18 mcg inhalation daily. LABORATORY DATA: 1. WBC 4.6, hemoglobin 9.2, hematocrit 27.8, platelet count 14. 2. Sodium 137, potassium 4.2, chloride 104, bicarb 25, BUN 29, creatinine 1.2, glucose 98. ASSESSMENT: 1. Pancytopenia. 2. Status post packed red blood cell transfusion. 3. Acute on chronic renal failure, resolved. 4. Urinary tract infection with Klebsiella and Enterobacter, on ertapenem. 5. Hypertension. 6. Hyperlipidemia. 7. Metastatic colon cancer with mets to the liver. 8. Hypomagnesemia. 9. Chronic obstructive pulmonary disease. 10.Hydronephrosis requiring ureteral stent to the left side. 11.Severe malnutrition. 12.Chronic tobacco use. 13.History of atrial fibrillation. PLAN: 1. Thrombocytopenia. The patient continues to have worsening thrombocytopenia. Platelet count is down to 14. We will transfuse 1 unit of platelets. We will recheck a CBC in a.m. The patient was noted to have pancytopenia. She required packed red blood cell transfusion on this admission. She requires irradiated and leukoreduced blood products secondary to chronic transfusions and underlying cancer. 2. Urinary tract infection. The patient was started on ertapenem. We will continue the same. She will require the ertapenem till 04/20 to complete 1 week of IV antibiotics, and later on, she will be switched to oral ciprofloxacin at the time of discharge after 04/20 for 1 more week of oral antibiotic ciprofloxacin as discussed with Infectious Disease team. 3. Acute on chronic renal failure. The patient's creatinine is back to baseline at 1.2. Avoid nephrotoxic agents. Dose adjust medications for renal function. 4. Hypertension, well controlled. We added hydrochlorothiazide for better blood pressure control and edema also. We will continue with current antihypertensive medication. 5. Metastatic colon cancer. She will need to follow with Oncology Clinic as an outpatient. She has mets to the liver. 6. Hypomagnesemia. She is currently on oral magnesium. Her magnesium is slightly improved to 1.4. Continue with magnesium oxide twice a day. 7. DVT prophylaxis. Avoid any heparin products secondary to worsening thrombocytopenia and risk of bleeding. 8. Hydronephrosis. She has a left ureteral stent placed. Discussed with Dr. Rodriguez. She will be following with Urology Clinic in next 1 week of time for possible exchange of the ureteral stent with urine culture positive for Enterobacter and Klebsiella. 9. Discussed with family members. [facility] /[id number]
[2019-04-16] MEDS: Ondansetron 4 MG Tab.DIS PO PRN (18:46)
[2019-04-16] MEDS: Acetaminophen 325 MG Tab PO PRN (20:32)
[2019-04-16] MEDS: OLANZapine 5 MG Tab PO SCH (20:33)
[2019-04-16] MEDS: Simvastatin 10 MG Tab PO SCH (20:34)
[2019-04-16] MEDS: Zolpidem 5 MG Tab PO PRN (20:35)
[2019-04-17] MEDS: Acetaminophen 325 MG Tab PO PRN ×3 (00:24→20:40)
[2019-04-17] MEDS: Pantoprazole 40 MG Tab.CR PO SCH (05:57)
[2019-04-17 06:46] LABS: ANION GAP 10.7
[2019-04-17] MEDS: Metoprolol Tartrate 50 MG Tab PO SCH ×2 (08:58→20:34)
[2019-04-17] MEDS: Multivitamins, Therapeutic with Minerals Tab PO SCH (08:58)
[2019-04-17] MEDS: Aspirin 81 MG Tab.EC PO SCH (08:59)
[2019-04-17] MEDS: Hydrochlorothiazide 25 MG Tab PO SCH (09:00)
[2019-04-17] MEDS: Amiodarone 200 MG Tab PO SCH (09:00)
[2019-04-17] MEDS: ZINC OXIDE TOP SCH ×2 (09:01→20:41)
[2019-04-17] MEDS: Tiotropium Inhaler 18 MCG Inhalation Powder Cap Kit of 5 INH SCH (09:01)
[2019-04-17] MEDS: MENTHOL TOP SCH ×2 (09:01→20:41)
[2019-04-17] MEDS: Nicotine 21 MG/24 Hr Patch TRDERM SCH (09:02)
[2019-04-17] MEDS: Sodium Chloride 0.65% Nasal Spray 45 ML Bottle NAS PRN (09:02)
[2019-04-17] MEDS: Nystatin Susp 100,000 Unit/ML 5 ML UD Cup PO SCH ×2 (09:16→14:10)
[2019-04-17] MEDS: Loperamide 2 MG Cap PO PRN ×2 (10:32→17:51)
--- NOTE | 2019-04-17 11:23 | PN ---
DATE: 04/17/2019 SUBJECTIVE: The patient is a 73-year-old lady with metastatic colon cancer with metastasis to the liver admitted with severe anemia and acute on chronic renal failure, and she has received already 3 units of packed RBC and required 1-unit platelet transfusion. She is also noted to have a UTI with Klebsiella and Enterobacter and currently on IV ertapenem. The patient this morning is feeling slightly better. She denies any significant ongoing complaints. No chest pain, shortness of breath, abdominal pain, nor any other complaints. LABORATORY DATA: Lab workup this morning: CBC; WBC is 4.1, hemoglobin is 7.6, hematocrit is 23, platelet is 49. Chem-6: BUN is 26, calcium is 7.5, magnesium is 1.5. OBJECTIVE: Vital Signs: Blood pressure is 152/67, pulse 71, respiration of 16, saturation is 95% on room air. Heart: Regular rate and rhythm. Lungs: Diminished breath sounds on both bases, but no significant crackles, no wheezing. Abdomen: Soft and nontender. Bowel sounds positive. Extremities: Negative for any calf tenderness or pedal edema. PLAN: We will continue with her IV ertapenem. I am going to recheck a CBC and basic metabolic panel and magnesium level in a.m. and if her hemoglobin is still dropping, then we might have to transfuse her again some packed RBC. [facility] /[id number]
[2019-04-17] MEDS: Ondansetron 4 MG Tab.DIS PO PRN (14:37)
[2019-04-17] MEDS: Simvastatin 10 MG Tab PO SCH (20:34)
[2019-04-17] MEDS: OLANZapine 5 MG Tab PO SCH (20:34)
[2019-04-17] MEDS: Zolpidem 5 MG Tab PO PRN (20:40)
[2019-04-18] MEDS: Acetaminophen 325 MG Tab PO PRN ×3 (04:33→20:55)
[2019-04-18] MEDS: Pantoprazole 40 MG Tab.CR PO SCH (06:04)
[2019-04-18] MEDS: Loperamide 2 MG Cap PO PRN (06:47)
[2019-04-18 06:51] LABS: ANION GAP 11.6
[2019-04-18] MEDS: Nicotine 21 MG/24 Hr Patch TRDERM SCH (08:40)
[2019-04-18] MEDS: Hydrochlorothiazide 25 MG Tab PO SCH (08:42)
[2019-04-18] MEDS: Aspirin 81 MG Tab.EC PO SCH (08:42)
[2019-04-18] MEDS: Amiodarone 200 MG Tab PO SCH (08:43)
[2019-04-18] MEDS: Multivitamins, Therapeutic with Minerals Tab PO SCH (08:43)
[2019-04-18] MEDS: Metoprolol Tartrate 50 MG Tab PO SCH ×2 (08:43→20:48)
[2019-04-18] MEDS: ZINC OXIDE TOP SCH ×2 (08:47→20:57)
[2019-04-18] MEDS: MENTHOL TOP SCH ×2 (08:47→20:57)
[2019-04-18] MEDS: Tiotropium Inhaler 18 MCG Inhalation Powder Cap Kit of 5 INH SCH (08:48)
[2019-04-18] MEDS: Sodium Chloride 0.65% Nasal Spray 45 ML Bottle NAS PRN ×2 (08:49→16:13)
--- NOTE | 2019-04-18 10:33 | PN ---
DATE: 04/18/2019 SUBJECTIVE: The patient this morning is feeling good. Appetite is improving. The patient denies any significant ongoing complaint except for some bruise on the left lower leg. She denies though any chest pain, shortness of breath, fever, chills, abdominal pain. She had some lab workup this morning for followup of her CBC and WBC is 4.4; hemoglobin is 7.3, still dropping; and platelet is 33, also dropped from yesterday. Basic metabolic panel; BUN is 20, chloride of 100, the rest of the panel unremarkable. OBJECTIVE: Vital Signs: Blood pressure is 157/68, pulse 71, respiration of 18 saturation is 96% on room air. Heart: Regular rate and rhythm. No gallops. No rubs. Lungs: Diminished breath sounds on both bases. No crackles. No wheezing. Abdomen: Soft and nontender. Extremities: Remarkable for 1+ bilateral pedal edema. No calf tenderness. No signs of cellulitis. MEDICATIONS: Reviewed. PLAN: We will continue with her ertapenem IV, and I am going to transfuse her 1 unit of packed RBC and 1 unit of platelet because of further drop in her hemoglobin and platelets. Otherwise, we will continue the rest of her management. [facility] /[id number]
[2019-04-18] MEDS: Sodium Chloride 0.9% 10 ML Syringe FLUSH PRN ×2 (10:39→20:51)
[2019-04-18] MEDS: Ondansetron 4 MG Tab.DIS PO PRN (14:11)
[2019-04-18] MEDS: OLANZapine 5 MG Tab PO SCH (20:48)
[2019-04-18] MEDS: Simvastatin 10 MG Tab PO SCH (20:48)
[2019-04-18] MEDS: Zolpidem 5 MG Tab PO PRN (20:49)
[2019-04-19] MEDS: Pantoprazole 40 MG Tab.CR PO SCH (05:33)
[2019-04-19] MEDS: Acetaminophen 325 MG Tab PO PRN ×2 (06:01→14:38)
[2019-04-19 06:53] LABS: ANION GAP 11.8
[2019-04-19] MEDS: Multivitamins, Therapeutic with Minerals Tab PO SCH (08:39)
[2019-04-19] MEDS: Metoprolol Tartrate 50 MG Tab PO SCH ×2 (08:39→21:36)
[2019-04-19] MEDS: Hydrochlorothiazide 25 MG Tab PO SCH (08:39)
[2019-04-19] MEDS: Nicotine 21 MG/24 Hr Patch TRDERM SCH (08:40)
[2019-04-19] MEDS: Aspirin 81 MG Tab.EC PO SCH (08:40)
[2019-04-19] MEDS: Amiodarone 200 MG Tab PO SCH (08:40)
[2019-04-19] MEDS: MENTHOL TOP SCH ×2 (08:45→21:40)
[2019-04-19] MEDS: ZINC OXIDE TOP SCH ×2 (08:45→21:40)
[2019-04-19] MEDS: Tiotropium Inhaler 18 MCG Inhalation Powder Cap Kit of 5 INH SCH (08:46)
[2019-04-19] MEDS ORDERED: Furosemide 40 MG/4 ML VIAL IVPUSH ONE (08:52)
--- NOTE | 2019-04-19 09:58 | CR ---
EXAMINATION: Chest 1V Frontal SEX: Female AGE: 73 years CLINICAL HISTORY: 73-year-old female hospitalized with shortness of breath (SOB). INTERPRETATION: 1. Chronic large heart and right supraclavicular central venous line unchanged since 10 April 2019 exam. 2. Generalized pulmonary venous congestion/cephalization of flow with large NEW bibasilar dependent PLEURAL EFFUSIONS. 3. Underlying basilar atelectasis or infiltrate differential consideration. 4. No new lung mass or hilar lymphadenopathy. 5. No pneumothorax or pneumomediastinum. CONCLUSION: Cardiovascular decompensation (CHF) since recent 10 April 2019 films.
--- NOTE | 2019-04-19 10:16 | PN ---
DATE: 04/19/2019 SUBJECTIVE: The patient this morning is feeling a little bit better, but last night she had an episode of shortness of breath and hypoxemia and desaturation. She was placed on 4 L of oxygen and saturation came up to 97%. The patient denies though any chest pain, but she is complaining of some increasing pedal edema, and she denies any fever, chills, abdominal pain, or any other complaints. OBJECTIVE: Vital Signs: Blood pressure is 140/57, pulse of 101, respiration of 16, temperature of 99.3. Heart: Regular rate and rhythm. No gallops. No rubs. Lungs: Diminished breath sounds on both bases, but no significant crackles. No wheezing. Abdomen: Soft and nontender. Bowel sounds positive. Extremities: Remarkable for 1+ bilateral pedal edema. No calf tenderness. MEDICATIONS: Reviewed. PLAN: We will continue with her present management. I am going to check for a chest x-ray, a BNP, and a D-dimer just to make sure that there are no other pathology going on. Otherwise, we will continue with her present management. We will also give her IV Lasix 40 mg x1 today. [facility] /[id number]
[2019-04-19] MEDS: Sodium Chloride 0.9% 10 ML Syringe FLUSH PRN ×2 (10:26→10:40)
[2019-04-19] MEDS: Furosemide 40 MG Tab PO SCH (14:42)
[2019-04-19] MEDS: Ondansetron 4 MG Tab.DIS PO PRN (16:46)
[2019-04-19] MEDS: OLANZapine 5 MG Tab PO SCH (21:36)
[2019-04-19] MEDS: Simvastatin 10 MG Tab PO SCH (21:37)
[2019-04-19] MEDS: Zolpidem 5 MG Tab PO PRN (21:48)
[2019-04-20] MEDS: Acetaminophen 325 MG Tab PO PRN ×2 (03:54→18:22)
[2019-04-20] MEDS: Pantoprazole 40 MG Tab.CR PO SCH (05:29)
[2019-04-20] MEDS ORDERED: Furosemide 40 MG/4 ML VIAL IVPUSH ONE (08:47)
[2019-04-20] MEDS: Amiodarone 200 MG Tab PO SCH (09:04)
[2019-04-20] MEDS: Metoprolol Tartrate 50 MG Tab PO SCH ×2 (09:05→21:08)
[2019-04-20] MEDS: Hydrochlorothiazide 25 MG Tab PO SCH (09:06)
[2019-04-20] MEDS: Multivitamins, Therapeutic with Minerals Tab PO SCH (09:06)
[2019-04-20] MEDS: Furosemide 40 MG Tab PO SCH (09:06)
[2019-04-20] MEDS: Nicotine 21 MG/24 Hr Patch TRDERM SCH (09:06)
[2019-04-20] MEDS: Aspirin 81 MG Tab.EC PO SCH (09:06)
[2019-04-20] MEDS: MENTHOL TOP SCH ×2 (09:08→21:08)
[2019-04-20] MEDS: ZINC OXIDE TOP SCH ×2 (09:08→21:08)
[2019-04-20] MEDS: Tiotropium Inhaler 18 MCG Inhalation Powder Cap Kit of 5 INH SCH (09:09)
[2019-04-20] MEDS: Sodium Chloride 0.9% 10 ML Syringe FLUSH PRN ×3 (09:11→21:10)
--- NOTE | 2019-04-20 09:19 | PN ---
DATE: 04/20/2019 Official report of the chest x-ray that was done yesterday showed cardiovascular decompensation and her BNP came back 2226, which was elevated, and because of this, she was given 40 mg of IV Lasix and started on oral Lasix 40 mg a day. She received 1 unit packed RBC for her anemia and also 1 unit of platelets. The patient's hemoglobin this morning is 8.5 and hematocrit is 25.3, and platelet is 107, which has improved. The patient last night again had some desaturation for which she needed an increase in her oxygen. But this morning she is sleeping and feeling well, and denies any chest pain, fever, chills, abdominal pain, or any other significant complaints. OBJECTIVE: Vital Signs: Blood pressure is 153/59, pulse of 75, respirations 20, and saturation is 95% on 3 L per nasal cannula. Heart: Regular rate and rhythm. No gallops, no rubs. Lungs: Diminished breath sounds on both bases. No significant crackles. No wheezing. Abdomen: Soft, nontender. Bowel sounds positive. EXTREMITIES: Remarkable for 1+ bilateral pedal edema. No calf tenderness. PLAN: We will continue with her IV antibiotics. We will give her another dose of Lasix 60 mg IV x1 today and continue with oral Lasix 40 mg a day. We will recheck her CBC and basic metabolic panel in a.m. and also we will switch IV antibiotics to oral for her urinary tract infection. [facility] /[id number]
[2019-04-20] MEDS: Loperamide 2 MG Cap PO PRN (10:10)
[2019-04-20] MEDS: OLANZapine 5 MG Tab PO SCH (21:09)
[2019-04-20] MEDS: Simvastatin 10 MG Tab PO SCH (21:09)
[2019-04-20] MEDS: Zolpidem 5 MG Tab PO PRN (21:10)
[2019-04-21] MEDS: Acetaminophen 325 MG Tab PO PRN ×2 (01:16→06:03)
[2019-04-21] MEDS: Pantoprazole 40 MG Tab.CR PO SCH (06:03)
[2019-04-21 06:57] LABS: ANION GAP 10.5
[2019-04-21 07:57] VITALS: BP 156/64; PULSE 74
[2019-04-21] MEDS ORDERED: Potassium Chloride 10 MEQ Tab.ER PO ONE (09:00)
[2019-04-21] MEDS: Amiodarone 200 MG Tab PO SCH (09:26)
[2019-04-21] MEDS: Metoprolol Tartrate 50 MG Tab PO SCH (09:26)
[2019-04-21] MEDS: Hydrochlorothiazide 25 MG Tab PO SCH (09:27)
[2019-04-21] MEDS: Aspirin 81 MG Tab.EC PO SCH (09:27)
[2019-04-21] MEDS: Nicotine 21 MG/24 Hr Patch TRDERM SCH (09:28)
[2019-04-21] MEDS: Multivitamins, Therapeutic with Minerals Tab PO SCH (09:28)
[2019-04-21] MEDS: ZINC OXIDE TOP SCH (09:28)
[2019-04-21] MEDS: Furosemide 40 MG Tab PO SCH (09:28)
[2019-04-21] MEDS: MENTHOL TOP SCH (09:28)
--- NOTE | 2019-04-21 09:28 | DISCH ---
FINAL DIAGNOSES: 1. Congestive heart failure exacerbation/fluid overload. 2. Acute on chronic renal failure. 3. Severe anemia. 4. Severe thrombocytopenia. 5. History of colon cancer with metastasis to the liver. 6. Chronic obstructive pulmonary disease. 7. Hypoxemia. 8. Urinary tract infection with Klebsiella and enterobacter. BRIEF HISTORY OF PRESENT ILLNESS: The patient is a 73-year-old female with history of hypertension, COPD, metastatic colon cancer with metastasis to the liver. She was admitted initially with severe anemia and acute on chronic renal failure and also with thrombocytopenia. During the hospitalization, she was noted with UTI with Klebsiella and enterobacter, and she was placed on IV ertapenem. She was given IV ertapenem for several days, and this was switched eventfully to Cipro. During the hospitalization, she received a total 4 units of packed RBC and 2 units of platelet transfusion. During the hospitalizations, it was complicated by fluid overload/CHF, most likely from holding her oral Lasix and from the blood transfusion and platelet transfusion. She was given IV Lasix and put back on her oral Lasix at home, and she did respond well. The rest of the hospitalization was unremarkable, and the patient requested to be discharged home as it is [place] time and overall she is feeling much better. She is going to follow up with Hannah Fulton NP, with her primary care provider in 4 to 5 days with a repeat CBC and basic metabolic panel. We will also set her up for an appointment with Infectious Disease and Urology as an outpatient followup and condition on discharge improved. [facility] /[id number]
[2019-04-21] MEDS: Tiotropium Inhaler 18 MCG Inhalation Powder Cap Kit of 5 INH SCH (09:29)
--- NOTE | 2019-04-21 09:34 | PN ---
DATE: 04/21/2019 SUBJECTIVE: The patient had a good night's sleep, and the patient this morning is feeling much better, and she mentioned that she would like to go home because it is [place] time. She lost a pound since last night after the IV Lasix and her pedal edema is also slowly improving. She denies any chest pain, fever, chills, abdominal pain, or any other complaints. OBJECTIVE: Vital Signs: Blood pressure is 156/64, pulse 74, respiration of 20, saturation is 92% on 2 L per nasal cannula, and temperature of 98.8. Heart: Regular rate and rhythm. No rubs. Lungs: Diminished breath sounds on both bases with very mild expiratory wheeze bilaterally. No crackles. Abdomen: Soft and nontender. Bowel sounds positive. Extremities: Remarkable for trace to 1+ bilateral pedal edema. No calf tenderness. LABORATORY DATA: Lab workup this morning: CBC; WBC 7.9, hemoglobin is 8.1, hematocrit is 25.1, platelet is 100. Chem-6; potassium is 3.5, chloride of 96, bicarb of 32, and calcium 7.5. The rest of the panel unremarkable. PLAN: We will discharge the patient home, and we will continue with oral antibiotics, Cipro, for her urinary tract infection. We will continue with the rest of her management and we will continue with oral Lasix and we will also give her potassium supplementation. We will have her follow up with Hannah Fulton in the next 4 to 5 days with a recheck of CBC, basic metabolic panel, and also set her up with followup appointment with Infectious Disease and Urology. [facility] /[id number]
[2019-04-21] MEDS: Sodium Chloride 0.9% 10 ML Syringe FLUSH PRN (10:19)
[2019-04-22] MEDS ORDERED: Potassium Chloride 10 MEQ Tab.ER PO SCH (08:00)
== END 2019-04-21 10:37 | disposition home or self-care (01) | DRG 808 ==
LOC: DL.MS 12:19
PROVIDERS: ADMIT Internal Medicine; ATTEND Internal Medicine
PROC: 30233N1 Transfusion of Nonautologous Red Blood Cells into Peripheral Vein, Percutaneous Approach (ICD-10-PCS; principal; 2019-04-10)
PROC: 30233R1 Transfusion of Nonautologous Platelets into Peripheral Vein, Percutaneous Approach (ICD-10-PCS; 2019-04-18)
DX: D61.810 Antineoplastic chemotherapy induced pancytopenia (principal); E43 Unspecified severe protein-calorie malnutrition; I50.33 Acute on chronic diastolic (congestive) heart failure; N17.9 Acute kidney failure, unspecified; I13.0 Hypertensive heart and chronic kidney disease with heart failure and stage 1 through stage 4 chronic kidney disease, or unspecified chronic kidney disease; E87.1 Hypo-osmolality and hyponatremia; C18.9 Malignant neoplasm of colon, unspecified; C78.7 Secondary malignant neoplasm of liver and intrahepatic bile duct; Z68.1 Body mass index [BMI] 19.9 or less, adult; N13.6 Pyonephrosis; D69.6 Thrombocytopenia, unspecified; N18.9 Chronic kidney disease, unspecified; D64.9 Anemia, unspecified; E78.5 Hyperlipidemia, unspecified; J44.9 Chronic obstructive pulmonary disease, unspecified; K21.9 Gastro-esophageal reflux disease without esophagitis; I25.10 Atherosclerotic heart disease of native coronary artery without angina pectoris; F41.9 Anxiety disorder, unspecified; F32.9 Major depressive disorder, single episode, unspecified; Z96.0 Presence of urogenital implants; E83.42 Hypomagnesemia; B96.1 Klebsiella pneumoniae [K. pneumoniae] as the cause of diseases classified elsewhere; B95.2 Enterococcus as the cause of diseases classified elsewhere; F17.200 Nicotine dependence, unspecified, uncomplicated; I48.91 Unspecified atrial fibrillation; Z92.21 Personal history of antineoplastic chemotherapy; Z88.8 Allergy status to other drugs, medicaments and biological substances; Z79.899 Other long term (current) drug therapy; Z87.01 Personal history of pneumonia (recurrent); Z90.710 Acquired absence of both cervix and uterus; Z87.442 Personal history of urinary calculi; Z99.81 Dependence on supplemental oxygen
CPT/HCPCS: 36415; 36430; 71045; 74176; 80048; 80076; 81001; 83735; 83880; 85025; 85027; 85610; 86850; 86900; 86901; 86920; 86922; 87086; 87088; 87186; 94760; 97161-GP; 97165-GO; A9270-GY; J1335; J1642; J1940; J7030; J7050; J7620-GY; P9037; P9040

== ENCOUNTER 2019-04-22 08:49 | Emergency (ER) | payer MEDICARE, OTHER ==
--- NOTE | 2019-04-22 09:17 | EDM.PDOC ---
ED HPI GENERAL MEDICAL PROBLEM - General Chief Complaint: Respiratory Problem Stated Complaint: AMBULANCE Time Seen by Provider: 04/22/19 08:52 Source of Information: Reports: Patient, EMS History Limitations: Reports: No Limitations - History of Present Illness INITIAL COMMENTS - FREE TEXT/NARRATIVE: This 73 yo female patient was brought to the ED by [facility] due to increased shortness of breath and low oxygen levels while at home. EMS reported that the patient's oxygen saturation was 55% when they got to the home. The patient had been given a nebulizer treatment prior to their arrival. The patient reports she is feeling normal at this time. The patient's daughter reports the patient was discharged yesterday from to home. The patient was wearing her home oxygen all day yesterday. This morning the daughter reports she went to check on the patient and could hear loud breathing when she entered the room. The patient's oxygen level was 76% while on her home oxygen (2 lpm). The patient was given a Duoneb treatment which increased her oxygen saturation to the upper 80's. The patient wanted her daughter to bring her to the hospital, so the daughter helped her get into the car. Once in the car, the patient told her daughter that she could not do it due to shortness of breath. The daughter reports that her oxygen saturation level was in the low 60's at that time. The daughter then called the ambulance to transport the patient. The daughter reports the home oxygen concentrator only goes up to 2 lpm. 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 Treatments - Related Data Allergies Allergy/AdvReac Type Severity Reaction Status Date / Time ibuprofen Allergy Cannot Verified 04/10/19 13:24 Remember nitrofurantoin Allergy Diarrhea Verified 04/10/19 13:24 [From Macrobid] oxycodone Allergy Cannot Verified 04/10/19 13:24 Remember promethazine HCl Allergy Anxiety Verified 04/10/19 13:24 [From Phenergan] Home Meds: Home Meds Simvastatin 10 mg PO BEDTIME 05/04/14 [History] Aspirin [Adult Low Dose Aspirin EC] 81 mg PO DAILY 03/23/15 [History] Zolpidem [Ambien] 5 mg PO BEDTIME PRN 03/23/15 [History] Albuterol [Ventolin HFA] 1 puff INH Q4HR PRN 08/18/17 [History] Lidocaine/Prilocaine [EMLA Crm] 5 gm TOP DAILY PRN 08/18/17 [History] Multivitamin with Minerals [Multiple Vitamin] 1 tab PO DAILY 08/18/17 [History] Ondansetron [Zofran ODT] 4 mg PO Q6H PRN 09/12/17 [History] Loperamide [Imodium] 2 mg PO Q6H PRN 09/01/18 [History] Tiotropium [Spiriva HandiHaler] 18 mcg INH DAILY 01/25/19 [History] Fluocinonide [Lidex 0.05% Crm] 1 appful TOP BID PRN 02/12/19 [History] Amiodarone [Cordarone] 200 mg PO DAILY 04/01/19 [History] Furosemide 40 mg PO DAILY 04/01/19 [History] Hydrocortisone [Hydrocortisone 1% Crm] 1 applic TOP TID PRN 04/01/19 [History] Metoprolol Tartrate [Lopressor] 150 mg PO BID 04/01/19 [History] Pantoprazole Sodium [Protonix] 40 mg PO DAILY 04/01/19 [History] Menthol/Zinc Oxide [Calmoseptine] 1 applic TOP BID 04/10/19 [History] OLANZapine [Olanzapine] 10 mg PO BEDTIME 04/10/19 [History] rOPINIRole [Requip] 0.5 mg PO TID PRN 04/11/19 [History] Ciprofloxacin [Ciprofloxacin HCl] 500 mg PO BID 7 Days #14 tab 04/21/19 [Rx] Furosemide [Lasix] 40 mg PO DAILY tablet 04/21/19 [Rx] Nicotine [Habitrol] 21 mg TRDERM DAILY #14 patch 04/21/19 [Rx] Potassium Chloride [Klor-Con 10] 20 meq PO WITHBREAKFAST #30 tab.er 04/21/19 [Rx ] hydroCHLOROthiazide [Hydrochlorothiazide] 25 mg PO DAILY tablet 04/21/19 [Rx] Past Medical History HEENT History: Reports: Cataract Cardiovascular History: Reports: CAD, High Cholesterol, Hypertension Respiratory History: Reports: Bronchitis, Recurrent, COPD, Pneumonia, Recurrent Other Respiratory History: recent pneumonia Gastrointestinal History: Reports: GI Bleed, Other (See Below) Other Gastrointestinal History: abnormal digestive system Genitourinary History: Reports: UTI, Recurrent, Other (See Below) Other Genitourinary History: stent in urethea tube and stress incontinence, renal stents 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 Dermatologic History: Reports: None Other Dermatologic History: dry skin - Infectious Disease History Infectious Disease History: Reports: C-Difficile, MRSA - Past Surgical History Head Surgeries/Procedures: Reports: None HEENT Surgical History: Reports: Cataract Surgery Other HEENT Surgeries/Procedures: left cataract removal Cardiovascular Surgical History: Reports: None Respiratory Surgical History: Reports: None GI Surgical History: Reports: Colonoscopy Female Surgical History: Reports: Hysterectomy, Salpingo-Oophorectomy, Ureteral Stent, Other (See Below) Other Female Surgeries/Procedures: bladder lift Endocrine Surgical History: Reports: None Musculoskeletal Surgical History: Reports: None Oncologic Surgical History: Reports: Biopsy of Breast Dermatological Surgical History: Reports: None Social & Family History - Family History Family Medical History: Noncontributory - Caffeine Use Caffeine Use: Reports: None Other Caffeine Use: unable to obtain - Living Situation & Occupation Living situation: Reports: , with Spouse Occupation: Retired ED ROS GENERAL - Review of Systems Review Of Systems: Comprehensive ROS is negative, except as noted in HPI. ED EXAM, GENERAL - Physical Exam Exam: See Below Exam Limited By: No Limitations General Appearance: Alert, WD/WN, Moderate Distress Eye Exam: Bilateral Eye: EOMI, Normal Inspection, PERRL Ears: Normal External Exam, Normal Canal, Hearing Grossly Normal, Normal TMs Nose: Normal Inspection, Normal Mucosa, No Blood Throat/Mouth: Normal Inspection, Normal Lips, Normal Teeth, Normal Gums, Normal Oropharynx, Normal Voice, No Airway Compromise Head: Atraumatic, Normocephalic Neck: Normal Inspection, Supple, Non-Tender, Full Range of Motion Respiratory/Chest: Rhonchi, Wheezing Cardiovascular: Normal Peripheral Pulses, Regular Rate, Rhythm, No Edema, No Gallop, No JVD, No Murmur, No Rub GI/Abdominal: Normal Bowel Sounds, Soft, Non-Tender, No Organomegaly, No Distention, No Abnormal Bruit, No Mass (Female) Exam: Deferred Rectal (Female) Exam: Deferred Back Exam: Normal Inspection, Full Range of Motion, NT Extremities: Normal Inspection, Normal Range of Motion, Non-Tender, Normal Capillary Refill, No Pedal Edema Neurological: Alert, Oriented, CN II-XII Intact, Normal Cognition, Normal Gait, Normal Reflexes, No Motor/Sensory Deficits Psychiatric: Normal Affect, Normal Mood Skin Exam: Warm, Dry, Intact, Normal Color, No Rash Lymphatic: No Adenopathy Course - Orders/Labs/Meds Orders: Active Orders 24 hr Category Date Time Status EKG Documentation Completion [RC] URGENT Care 04/22/19 08:43 Active Chest 1V Frontal [CR] Urgent Exams 04/22/19 08:43 Taken CULTURE BLOOD [BC] Stat Lab 04/22/19 08:58 Received CULTURE URINE [RM] Urgent Lab 04/22/19 09:09 Received Labs: Laboratory Tests 04/22/19 04/22/19 04/22/19 Range/Units 08:58 08:58 08:58 WBC 9.2 (5.0-10.0) 10^3/uL RBC 2.95 L (4.2-5.4) 10^6/uL Hgb 9.2 L (12.0-16.0) g/dL Hct 28.2 L (37.0-47.0) % MCV 95.6 (80-100) fL MCH 31.2 (27.0-34.0) pg MCHC 32.6 L (33.0-35.0) g/dL Plt Count 148 L (150-450) 10^3/uL Neut % (Auto) 68.0 (42.2-75.2) % Lymph % (Auto) 13.4 L (20.5-50.1) % [place] % (Auto) 15.4 H (2-8) % Eos % (Auto) 2.9 (1.0-3.0) % Baso % (Auto) 0.3 (0.0-1.0) % Sodium 136 (135-145) mmol/L Potassium 3.7 (3.6-5.0) mmol/L Chloride 94 L (101-111) mmol/L Carbon Dioxide 32.0 H (21.0-31.0) mmol/L Anion Gap 13.7 BUN 21 H (7-18) mg/dL Creatinine 1.4 H (0.6-1.3) mg/dL Est Cr Clr Drug Dosing TNP Estimated GFR (MDRD) 37 BUN/Creatinine Ratio 15.00 Glucose 102 (74-105) mg/dL Lactic Acid 1.1 (0.5-2.2) mmol/L Calcium 7.7 L (8.4-10.2) mg/dl Total Bilirubin 0.5 (0.2-1.0) mg/dL AST 58 H (10-42) IU/L ALT 26 (10-60) IU/L Alkaline Phosphatase 536 H (42-121) IU/L Troponin I 0.90 H* (0.00-0.02) ng/ml B-Natriuretic Peptide (0-100) pg/ml Total Protein 5.5 L (6.7-8.2) g/dl Albumin 2.1 L (3.2-5.5) g/dl Globulin 3.4 Albumin/Globulin Ratio 0.62 Urine Color (YELLOW) Urine Appearance (CLEAR) Urine pH (5.0-9.0) Ur Specific [place] (1.005-1.030) Urine Protein (NEGATIVE) Urine Glucose (UA) (NEGATIVE) Urine Ketones (NEGATIVE) Urine Occult Blood (NEGATIVE) Urine Nitrite (NEGATIVE) Urine Bilirubin (NEGATIVE) Urine Urobilinogen (0.2-1.0) mg/dL Ur Leukocyte Esterase (NEGATIVE) Urine RBC /HPF Urine WBC (0-5/HPF) /HPF Ur Epithelial Cells (NOT SEEN) /HPF Urine Bacteria (0-FEW/HPF) /HPF Urine Mucus (NOT SEEN) /LPF 04/22/19 04/22/19 Range/Units 08:58 09:09 WBC (5.0-10.0) 10^3/uL RBC (4.2-5.4) 10^6/uL Hgb (12.0-16.0) g/dL Hct (37.0-47.0) % MCV (80-100) fL MCH (27.0-34.0) pg MCHC (33.0-35.0) g/dL Plt Count (150-450) 10^3/uL Neut % (Auto) (42.2-75.2) % Lymph % (Auto) (20.5-50.1) % [place] % (Auto) (2-8) % Eos % (Auto) (1.0-3.0) % Baso % (Auto) (0.0-1.0) % Sodium (135-145) mmol/L Potassium (3.6-5.0) mmol/L Chloride (101-111) mmol/L Carbon Dioxide (21.0-31.0) mmol/L Anion Gap BUN (7-18) mg/dL Creatinine (0.6-1.3) mg/dL Est Cr Clr Drug Dosing Estimated GFR (MDRD) BUN/Creatinine Ratio Glucose (74-105) mg/dL Lactic Acid (0.5-2.2) mmol/L Calcium (8.4-10.2) mg/dl Total Bilirubin (0.2-1.0) mg/dL AST (10-42) IU/L ALT (10-60) IU/L Alkaline Phosphatase (42-121) IU/L Troponin I (0.00-0.02) ng/ml B-Natriuretic Peptide 3510 H (0-100) pg/ml Total Protein (6.7-8.2) g/dl Albumin (3.2-5.5) g/dl Globulin Albumin/Globulin Ratio Urine Color Yellow (YELLOW) Urine Appearance Slightly cloudy (CLEAR) Urine pH 6.5 (5.0-9.0) Ur Specific [place] 1.015 (1.005-1.030) Urine Protein 30 H (NEGATIVE) Urine Glucose (UA) Negative (NEGATIVE) Urine Ketones Negative (NEGATIVE) Urine Occult Blood Small H (NEGATIVE) Urine Nitrite Negative (NEGATIVE) Urine Bilirubin Negative (NEGATIVE) Urine Urobilinogen 0.2 (0.2-1.0) mg/dL Ur Leukocyte Esterase Moderate H (NEGATIVE) Urine RBC 0-5 /HPF Urine WBC 75-100 H (0-5/HPF) /HPF Ur Epithelial Cells Few (NOT SEEN) /HPF Urine Bacteria Few (0-FEW/HPF) /HPF Urine Mucus Rare (NOT SEEN) /LPF Meds: Medications Discontinued Medications Generic Name Dose Route Start Last Admin Trade Name Guillermo PRN Reason Stop Dose Admin Aspirin 324 mg 04/22/19 09:40 04/22/19 09:44 Aspirin PO 04/22/19 09:41 324 mg ONETIME ONE Administration Furosemide 40 mg 04/22/19 09:57 Lasix IVPUSH 04/22/19 09:58 NOW ONE Heparin Sodium (Porcine) 4,000 units 04/22/19 09:57 Heparin Sodium IVPUSH 04/22/19 09:58 .BOLUS ONE Heparin Sodium/Sodium Chloride 25,000 units in 500 mls @ 13.63 mls/hr 09:58 Heparin 25,000 Units In 1/2 Ns 500 Ml IV 04/22/19 09:59 ONETIME ONE 12 UNITS/KG/HR Departure - Departure Time of Disposition: 10:07 Disposition: DC/Tfer to Acute Hospital 02 Condition: Poor Clinical Impression: NSTEMI (non-ST elevated myocardial infarction) CHF (congestive heart failure) Qualifiers: Heart failure type: unspecified Heart failure chronicity: acute on chronic Qualified Code(s): I50.9 - Heart failure, unspecified - Discharge Information *PRESCRIPTION DRUG MONITORING PROGRAM REVIEWED*: Not Applicable *COPY OF PRESCRIPTION DRUG MONITORING REPORT IN PATIENT KAYLA: Not Applicable Forms: Interfacility Transfer EMTALA Care Plan Goals: Discussed the patient's history, examination, lab, x-ray and EKG results with Dr. Amanda (Hospitalist with [facility]). Dr. Amanda accepted the patient for continued evaluation and management. The patient will be transported by [facility]. Sepsis Event Note - Focused Exam Date Exam was Performed: 04/22/19 Time Exam was Performed: 10:05 - My Orders Last 24 Hours: My Active Orders 04/22/19 08:43 EKG Documentation Completion [RC] URGENT Chest 1V Frontal [CR] Urgent 04/22/19 08:58 CULTURE BLOOD [BC] Stat 04/22/19 09:09 CULTURE URINE [RM] Urgent - Assessment/Plan Last 24 Hours: My Active Orders 04/22/19 08:43 EKG Documentation Completion [RC] URGENT Chest 1V Frontal [CR] Urgent 04/22/19 08:58 CULTURE BLOOD [BC] Stat 04/22/19 09:09 CULTURE URINE [RM] Urgent
[2019-04-22] MEDS ORDERED: Aspirin 81 MG Tab.Chew PO ONE (09:40)
[2019-04-22 09:41] LABS: ANION GAP 13.7; CHLORIDE,CL 94 mmol/L (101-111); SODIUM,NA 136 mmol/L (135-145)
[2019-04-22] MEDS ORDERED: Heparin Sodium 5,000 Units/ML Vial IVPUSH ONE (09:57)
[2019-04-22] MEDS ORDERED: Furosemide 40 MG/4 ML VIAL IVPUSH ONE (09:57)
[2019-04-22] MEDS ORDERED: Heparin Sodium/0.45% NaCl 25,000 UNITS/500 ML BAG IV ONE (09:58)
[2019-04-22 10:07] VITALS: BP 144/68; PULSE 82
== END 2019-04-22 11:00 ==
LOC: DL.ED 08:49
DX: I21.4 Non-ST elevation (NSTEMI) myocardial infarction (principal); I11.0 Hypertensive heart disease with heart failure; I50.9 Heart failure, unspecified; E78.00 Pure hypercholesterolemia, unspecified; J44.9 Chronic obstructive pulmonary disease, unspecified; I25.10 Atherosclerotic heart disease of native coronary artery without angina pectoris; Z88.6 Allergy status to analgesic agent; Z88.1 Allergy status to other antibiotic agents; Z88.5 Allergy status to narcotic agent; Z88.8 Allergy status to other drugs, medicaments and biological substances; Z79.899 Other long term (current) drug therapy; Z79.82 Long term (current) use of aspirin
CPT/HCPCS: 36415; 71045; 80053; 81001; 83605; 83880; 84484; 85025; 87040; 87086; 87088; 87186; 93005; A9270-GY; J1644; J1940

== ENCOUNTER 2019-05-09 11:05 | Inpatient (IN) | payer MEDICARE, OTHER ==
[2019-05-09] MEDS ORDERED: Acetaminophen 325 MG Tab PO PRN (12:29)
[2019-05-09] MEDS ORDERED: rOPINIRole 0.25 MG Tab PO PRN (13:50)
[2019-05-09] MEDS ORDERED: Loperamide 2 MG Cap PO PRN (13:50)
[2019-05-09] MEDS ORDERED: Furosemide 40 MG Tab PO SCH (14:15)
[2019-05-09] MEDS: Gabapentin 100 MG Cap PO SCH ×2 (14:45→21:28)
[2019-05-09] MEDS: Heparin Sodium 5,000 Units/ML Vial SUBCUT SCH ×2 (14:45→21:42)
[2019-05-09] MEDS ORDERED: ClonazePAM 0.5 MG Tab PO PRN (16:04)
[2019-05-09] MEDS ORDERED: Albuterol/Ipratropium 3.0-0.5 MG/3 ML Neb Soln NEB PRN (16:09)
--- NOTE | 2019-05-09 16:19 | PCM.HP ---
H&P History of Present Illness - General Date of Service: 05/09/19 Admit Problem/Dx: Admission Diagnosis/Problem Admission Diagnosis/Problem Weakness Source of Information: Patient, Old Records (from [facility]) - History of Present Illness Initial Comments - Free Text/Narative: transferred from acute care for weakness Buttock Pain Score (Numeric/FACES): 5 - Related Data Allergies/Adverse Reactions: Allergies Allergy/AdvReac Type Severity Reaction Status Date / Time ibuprofen Allergy Cannot Verified 05/09/19 11:58 Remember nitrofurantoin Allergy Diarrhea Verified 05/09/19 11:58 [From Macrobid] oxycodone Allergy Cannot Verified 05/09/19 11:58 Remember promethazine HCl Allergy Anxiety Verified 05/09/19 11:58 [From Phenergan] Home Medications: Home Meds Simvastatin 10 mg PO BEDTIME 05/04/14 [History] Aspirin [Adult Low Dose Aspirin EC] 81 mg PO DAILY 03/23/15 [History] Albuterol [Ventolin HFA] 2 puff INH Q4HR PRN 08/18/17 [History] Lidocaine/Prilocaine [EMLA Crm] 5 gm TOP DAILY PRN 08/18/17 [History] Multivitamin with Minerals [Multiple Vitamin] 1 tab PO DAILY 08/18/17 [History] Loperamide [Imodium] 2 mg PO Q6H PRN 09/01/18 [History] Tiotropium [Spiriva HandiHaler] 18 mcg INH DAILY 01/25/19 [History] Fluocinonide [Lidex 0.05% Crm] 1 appful TOP BID PRN 02/12/19 [History] Amiodarone [Cordarone] 200 mg PO DAILY 04/01/19 [History] Hydrocortisone [Hydrocortisone 1% Crm] 1 applic TOP TID PRN 04/01/19 [History] Metoprolol Tartrate [Lopressor] 150 mg PO BID 04/01/19 [History] Pantoprazole Sodium [Protonix] 40 mg PO DAILY 04/01/19 [History] Menthol/Zinc Oxide [Calmoseptine] 1 applic TOP BID 04/10/19 [History] rOPINIRole [Requip] 0.5 mg PO TID PRN 04/11/19 [History] FLUoxetine [PROzac] 20 mg PO DAILY 05/09/19 [History] Ferrous Sulfate 325 mg PO DAILY 05/09/19 [History] Furosemide [Lasix] 40 mg PO BID 05/09/19 [History] Gabapentin [Neurontin] 100 mg PO TID 05/09/19 [History] Mirtazapine 7.5 mg PO BEDTIME 05/09/19 [History] Nicotine [Nicotine Patch] 14 mg TOP DAILY 05/09/19 [History] Ondansetron [Zofran] 8 mg PO Q8H PRN 05/09/19 [History] Prochlorperazine [Compazine] 10 mg PO Q6HR 05/09/19 [History] Past Medical History HEENT History: Reports: Cataract Cardiovascular History: Reports: CAD, High Cholesterol, Hypertension Respiratory History: Reports: Bronchitis, Recurrent, COPD, Pneumonia, Recurrent Other Respiratory History: recent pneumonia Gastrointestinal History: Reports: GI Bleed, Other (See Below) Other Gastrointestinal History: abnormal digestive system Genitourinary History: Reports: UTI, Recurrent, Other (See Below) Other Genitourinary History: stent in urethea tube and stress incontinence, renal stents 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 Dermatologic History: Reports: None Other Dermatologic History: dry skin - Infectious Disease History Infectious Disease History: Reports: MRSA - Past Surgical History Head Surgeries/Procedures: Reports: None HEENT Surgical History: Reports: Cataract Surgery Other HEENT Surgeries/Procedures: left cataract removal Cardiovascular Surgical History: Reports: None Respiratory Surgical History: Reports: None GI Surgical History: Reports: Colonoscopy Female Surgical History: Reports: Hysterectomy, Salpingo-Oophorectomy, Ureteral Stent, Other (See Below) Other Female Surgeries/Procedures: bladder lift Endocrine Surgical History: Reports: None Musculoskeletal Surgical History: Reports: None Oncologic Surgical History: Reports: Biopsy of Breast Dermatological Surgical History: Reports: None Social & Family History - Family History Family Medical History: Noncontributory - Tobacco Use Smoking Status *Q: Former Smoker Used Tobacco, but Quit: Yes Month/Year Tobacco Last Used: 2019 - Caffeine Use Caffeine Use: Reports: Coffee Other Caffeine Use: unable to obtain - Living Situation & Occupation Living situation: Reports: , with Spouse Occupation: Retired H&P Review of Systems - Review of Systems: Review Of Systems: See Below General: Denies: Fever Pulmonary: Reports: Shortness of Breath (improving). Denies: Wheezing Cardiovascular: Reports: Edema. Denies: Chest Pain Gastrointestinal: Denies: Abdominal Pain Genitourinary: Denies: Dysuria Psychiatric: Denies: Confusion Neurological: Denies: Confusion, Dizziness Exam - Exam Exam: See Below - Vital Signs Vital Signs: Last Vital Signs Temp 37.0 C 05/09/19 12:29 Pulse 75 05/09/19 12:29 Resp 18 05/09/19 12:29 BP 132/67 05/09/19 12:29 Pulse Ox 98 05/09/19 12:29 - Exam Quality Assessment: Supplemental Oxygen General: Alert, Oriented HEENT: EOMI Neck: Supple Lungs: Normal Respiratory Effort, Decreased Breath Sounds, Rhonchi Cardiovascular: Regular Rate, Regular Rhythm GI/Abdominal Exam: Normal Bowel Sounds, Soft, Non-Tender Extremities: Pedal Edema (1-2 + b/l--) - Problem List (1) Acute respiratory failure SNOMED Code(s): 50620768 ICD Code: J96.00 - ACUTE RESPIRATORY FAILURE, UNSP W HYPOXIA OR HYPERCAPNIA Status: Acute Current Visit: No (2) COPD (chronic obstructive pulmonary disease) SNOMED Code(s): 18039704 ICD Code: J44.9 - CHRONIC OBSTRUCTIVE PULMONARY DISEASE, UNSPECIFIED Status : Acute Current Visit: No (3) HTN, Essential hypertension SNOMED Code(s): 24020636 ICD Code: I10 - ESSENTIAL (PRIMARY) HYPERTENSION Status: Acute Current Visit: No (4) NSTEMI (non-ST elevated myocardial infarction) SNOMED Code(s): 36023813 ICD Code: I21.4 - NON-ST ELEVATION (NSTEMI) MYOCARDIAL INFARCTION Status: Acute Current Visit: No (5) Pneumonia SNOMED Code(s): 130826897 ICD Code: J18.9 - PNEUMONIA, UNSPECIFIED ORGANISM Status: Acute Current Visit: No (6) UTI, Urinary tract infectious disease SNOMED Code(s): 75156978 ICD Code: N39.0 - URINARY TRACT INFECTION, SITE NOT SPECIFIED Status: Acute Current Visit: No Problem List Initiated/Reviewed/Updated: Yes Orders Last 24hrs: Active Orders 24 hr Category Date Time Status Patient Status [ADT] Routine ADT 05/09/19 12:29 Active Antiembolic Devices [RC] PER UNIT ROUTINE Care 05/09/19 12:31 Active Oxygen Therapy [RC] PRN Care 05/09/19 12:29 Active RT Aerosol Therapy [RC] ASDIRECTED Care 05/09/19 13:54 Active RT Aerosol Therapy [RC] ASDIRECTED Care 05/09/19 16:09 Active Up With Assistance [RC] ASDIRECTED Care 05/09/19 12:29 Active Vital Signs [RC] QSHIFT Care 05/09/19 12:29 Active OT Evaluation and Treatment [CONS] Routine Cons 05/09/19 12:29 Active PT Evaluation and Treatment [CONS] Routine Cons 05/09/19 12:29 Active Regular Diet [DIET] Diet 05/09/19 Dinner Active BASIC METABOLIC PANEL,BMP [CHEM] AM Lab 05/10/19 05:11 Ordered MAGNESIUM [CHEM] AM Lab 05/10/19 05:11 Ordered PHOSPHORUS [CHEM] AM Lab 05/10/19 05:11 Ordered Acetaminophen [Tylenol] Med 05/09/19 12:29 Active 650 mg PO Q4H PRN Albuterol/Ipratropium [DuoNeb 3.0-0.5 MG/3 ML] Med 05/09/19 16:09 Ordered 3 ml NEB Q2H PRN Amiodarone [Cordarone] Med 05/10/19 09:00 Active 200 mg PO DAILY Aspirin [Halfprin] Med 05/10/19 09:00 Active 81 mg PO DAILY Budesonide [Pulmicort] Med 05/09/19 18:00 Active 0.5 mg NEB BIDRT Bumetanide [Bumex] Med 05/10/19 08:00 Ordered 1 mg PO BIDDIURETIC Ceftaroline Fosamil [Teflaro] 300 mg Med 05/09/19 21:00 Active Sodium Chloride 0.9% [Normal Saline] 250 ml IV Q12HR ClonazePAM [KlonoPIN] Med 05/09/19 16:04 Ordered 0.25 mg PO TID PRN Ferrous Sulfate Med 05/10/19 09:00 Active 325 mg PO DAILY Gabapentin [Neurontin] Med 05/09/19 14:00 Active 100 mg PO TID Heparin Sodium Med 05/09/19 14:00 Active 5,000 units SUBCUT Q8HR Loperamide [Imodium] Med 05/09/19 13:50 Active 2 mg PO Q6H PRN Metoprolol Tartrate [Lopressor] Med 05/09/19 21:00 Active 150 mg PO BID Micafungin [Mycamine] 100 mg Med 05/09/19 20:00 Active Sodium Chloride 0.9% [Normal Saline] 100 ml IV Q24H Mirtazapine [Remeron] Med 05/09/19 21:00 Active 7.5 mg PO BEDTIME Multivitamins/Minerals [Vitamins and Minerals] Med 05/10/19 09:00 Active 1 tab PO DAILY Nicotine [Habitrol] Med 05/10/19 09:00 Active 14 mg TOP DAILY Pantoprazole [ProTONIX] Med 05/10/19 06:00 Active 40 mg PO ACBRK Potassium Chloride [Klor-Con 10] Med 05/09/19 18:00 Ordered 20 meq PO BIDMEALS Simvastatin [Zocor] Med 05/09/19 21:00 Active 10 mg PO BEDTIME Tiotropium [Spiriva HandiHaler] Med 05/10/19 09:00 Active 18 mcg INH DAILY rOPINIRole [Requip] Med 05/09/19 21:00 Ordered 1 mg PO TID Antiembolic Hose [OM.PC] Per Unit Routine Oth 05/09/19 12:30 Ordered Resuscitation Status Routine Resus Stat 05/09/19 12:29 Ordered Medication Orders Acetaminophen (Tylenol) 650 mg PO Q4H PRN PRN Reason: Pain (Mild 1-3)/fever Albuterol/Ipratropium (Duoneb 3.0-0.5 Mg/3 Ml) 3 ml NEB Q2H PRN PRN Reason: sob Amiodarone HCl (Cordarone) 200 mg PO DAILY [facility] Aspirin (Halfprin) 81 mg PO DAILY [facility] Budesonide (Pulmicort) 0.5 mg NEB BIDRT [facility] Bumetanide (Bumex) 1 mg PO BIDDIURETIC [facility] Clonazepam (Klonopin) 0.25 mg PO TID PRN PRN Reason: Anxiety Ferrous Sulfate (Ferrous Sulfate) 325 mg PO DAILY [facility] Gabapentin (Neurontin) 100 mg PO TID [facility] Last Admin: 05/09/19 14:45 Dose: 100 mg Heparin Sodium (Porcine) (Heparin Sodium) 5,000 units SUBCUT Q8HR [facility] Last Admin: 05/09/19 14:45 Dose: 5,000 units Micafungin Sodium 100 mg/ (Sodium Chloride) 100 mls @ 100 mls/hr IV Q24H [facility] Ceftaroline Fosamil 300 mg/ (Sodium Chloride) 250 mls @ 250 mls/hr IV Q12HR [facility] Loperamide HCl (Imodium) 2 mg PO Q6H PRN PRN Reason: Diarrhea Metoprolol Tartrate (Lopressor) 150 mg PO BID [facility] Mirtazapine (Remeron) 7.5 mg PO BEDTIME [facility] Multivitamins/Minerals (Vitamins And Minerals) 1 tab PO DAILY [facility] Nicotine (Habitrol) 14 mg TOP DAILY [facility] Pantoprazole Sodium (Protonix) 40 mg PO ACBRK [facility] Potassium Chloride (Klor-Con 10) 20 meq PO BIDMEALS [facility] Ropinirole HCl (Requip) 1 mg PO TID [facility] Simvastatin (Zocor) 10 mg PO BEDTIME [facility] Tiotropium [place] (Spiriva Handihaler) 18 mcg INH DAILY [facility] Assessment/Plan Comment:: Transferred from acute care for weakness Have physical and occupational therapy evaluation and treatment Recurrent acute hypoxemic, hypercarbic respiratory failure Supplement oxygen as needed Monitor for signs and symptoms of CO2 retention Pulmicort nebulizer DuoNeb as needed Recurrent MRSA pneumonia One more week of Ceftin Prolene treatment IV Urinary tract infection with yeast s/p UPJ obstructio 0 treated with stent 1 week of micafungin treatment IV Lower extremity edema, bilateral pleural effusions The patient had thoracentesis and diuretics in acute care Continue Bumex Giorgi stocking for edema Monitor electrolytes with diuretics chronic diastolic congestive heart failure Continue Bumex, metoprolol Holding GISELA inhibitor for renal failure Chronic urinary retention Daniel catheter is in place Try to remove in a few days Coronary artery disease Recent type II myocardial infarction Continue metoprolol, asa Not on anticoagulation with a history of GI bleed Metastatic colon cancer Oncology has recently evaluated the patient and there were no further plans for treatment. dr. Joshi recommended hospice Anxiety, depression, restless leg syndrome Clonazepam when necessary Remeron for sleep Scheduled requip dvt prophylaxis sq heparin
[2019-05-09] MEDS: Potassium Chloride 10 MEQ Tab.ER PO SCH (17:37)
[2019-05-09] MEDS: Budesonide 0.5 MG/2 ML Neb Susp NEB SCH (17:38)
[2019-05-09] MEDS ORDERED: Micafungin 100 MG in Sodium Chloride 0.9% 100 ML IV SCH (20:00)
[2019-05-09] MEDS ORDERED: Simvastatin 10 MG Tab PO SCH (21:00)
[2019-05-09] MEDS ORDERED: Mirtazapine 15 MG Tab PO SCH (21:00)
[2019-05-09] MEDS ORDERED: SODIUM CHLORIDE 0.9% IV SCH (21:00)
[2019-05-09] MEDS ORDERED: CEFTAROLINE FOSAMIL IV SCH (21:00)
[2019-05-09] MEDS: rOPINIRole 0.25 MG Tab PO SCH (21:23)
[2019-05-09] MEDS: Metoprolol Tartrate 50 MG Tab PO SCH (21:27)
[2019-05-10] MEDS ORDERED: Pantoprazole 40 MG Tab.CR PO SCH (06:00)
[2019-05-10] MEDS: Heparin Sodium 5,000 Units/ML Vial SUBCUT SCH ×2 (06:11→15:27)
[2019-05-10 08:01] VITALS: BP 120/60; PULSE 71
[2019-05-10] MEDS: Budesonide 0.5 MG/2 ML Neb Susp NEB SCH ×2 (08:05→17:47)
[2019-05-10 08:22] LABS: ANION GAP 13.2; CHLORIDE,CL 107 mmol/L (101-111); SODIUM,NA 142 mmol/L (135-145)
[2019-05-10] MEDS ORDERED: Multivitamins, Therapeutic with Minerals Tab PO SCH (09:00)
[2019-05-10] MEDS ORDERED: Aspirin 81 MG Tab.EC PO SCH (09:00)
[2019-05-10] MEDS ORDERED: Nicotine 14 MG/24 Hr Patch TOP SCH (09:00)
[2019-05-10] MEDS ORDERED: FLUoxetine 10 MG Cap PO SCH (09:00)
[2019-05-10] MEDS ORDERED: Ferrous Sulfate 325 MG Tab PO SCH (09:00)
[2019-05-10] MEDS ORDERED: Tiotropium Inhaler 18 MCG Inhalation Powder Cap Kit of 5 INH SCH (09:00)
[2019-05-10] MEDS ORDERED: Amiodarone 200 MG Tab PO SCH (09:00)
[2019-05-10 10:37] LABS: BASE EXCESS ARTERIAL -1 mmol/L ((-2)-(+3)); BICARBONATE,ARTERIAL 25.2 mmol/L (22-26); O2 DELIVERY DEVICE NASAL CANNULA; O2 SATURATION ARTERIAL 92 % (95-100); PCO2 ARTERIAL 55 mmHg (35-45); PO2 ARTERIAL 70 mmHg (70-100)
[2019-05-10 10:39] LABS: ALLEN TEST PERFORMED
[2019-05-10] MEDS: Gabapentin 100 MG Cap PO SCH ×2 (10:55→15:27)
[2019-05-10] MEDS: rOPINIRole 0.25 MG Tab PO SCH ×2 (10:55→15:27)
[2019-05-10] MEDS: Bumetanide 1 MG Tab PO SCH ×2 (10:55→15:27)
[2019-05-10] MEDS: Metoprolol Tartrate 50 MG Tab PO SCH (10:57)
[2019-05-10] MEDS: Potassium Chloride 10 MEQ Tab.ER PO SCH ×2 (10:57→17:47)
[2019-05-10] MEDS ORDERED: Albuterol/Ipratropium 3.0-0.5 MG/3 ML Neb Soln NEB SCH (15:00)
--- NOTE | 2019-05-10 16:40 | PCM.DCSUM1 ---
Discharge Summary - Hospital Course Free Text/Narrative:: Transferred from acute care for weakness Have physical and occupational therapy evaluation and treatment Recurrent acute hypoxemic, hypercarbic respiratory failure Supplement oxygen as needed Monitor for signs and symptoms of CO2 retention Pulmicort nebulizer DuoNeb as needed today pt was more sleepy obtained ABG showed hypercarbic respiratory failure with resp acidosis start bipap use bipap for night transfer to acute care Recurrent MRSA pneumonia One more week of Ceftin Prolene treatment IV Urinary tract infection with yeast s/p UPJ obstructio 0 treated with stent 1 week of micafungin treatment IV Lower extremity edema, bilateral pleural effusions The patient had thoracentesis and diuretics in acute care Continue Bumex Giorgi stocking for edema Monitor electrolytes with diuretics chronic diastolic congestive heart failure Continue Bumex, metoprolol Holding GISELA inhibitor for renal failure Chronic urinary retention Daniel catheter is in place Try to remove in a few days Coronary artery disease Recent type II myocardial infarction Continue metoprolol, asa Not on anticoagulation with a history of GI bleed Metastatic colon cancer Oncology has recently evaluated the patient and there were no further plans for treatment. dr. 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 - Discharge Diagnosis/Problem(s) (1) Acute respiratory failure SNOMED Code(s): 72542800 ICD Code: J96.00 - ACUTE RESPIRATORY FAILURE, UNSP W HYPOXIA OR HYPERCAPNIA Status: Acute Current Visit: No (2) COPD (chronic obstructive pulmonary disease) SNOMED Code(s): 37786885 ICD Code: J44.9 - CHRONIC OBSTRUCTIVE PULMONARY DISEASE, UNSPECIFIED Status : Acute Current Visit: No (3) HTN, Essential hypertension SNOMED Code(s): 99380940 ICD Code: I10 - ESSENTIAL (PRIMARY) HYPERTENSION Status: Acute Current Visit: No (4) NSTEMI (non-ST elevated myocardial infarction) SNOMED Code(s): 11217448 ICD Code: I21.4 - NON-ST ELEVATION (NSTEMI) MYOCARDIAL INFARCTION Status: Acute Current Visit: No (5) Pneumonia SNOMED Code(s): 777242583 ICD Code: J18.9 - PNEUMONIA, UNSPECIFIED ORGANISM Status: Acute Current Visit: No (6) UTI, Urinary tract infectious disease SNOMED Code(s): 92425604 ICD Code: N39.0 - URINARY TRACT INFECTION, SITE NOT SPECIFIED Status: Acute Current Visit: No - Patient Summary/Data Consults: Consultations 05/09/19 12:29 OT Evaluation and Treatment [CONS] Routine PT Evaluation and Treatment [CONS] Routine - Patient Instructions Diet: Heart Healthy Diet Activity: As Tolerated - Discharge Plan *PRESCRIPTION DRUG MONITORING PROGRAM REVIEWED*: Not Applicable *COPY OF PRESCRIPTION DRUG MONITORING REPORT IN PATIENT KAYLA: Not Applicable Home Medications: Home Meds Simvastatin 10 mg PO BEDTIME 05/04/14 [History] Aspirin [Adult Low Dose Aspirin EC] 81 mg PO DAILY 03/23/15 [History] Multivitamin with Minerals [Multiple Vitamin] 1 tab PO DAILY 08/18/17 [History] Loperamide [Imodium] 2 mg PO Q6H PRN 09/01/18 [History] Amiodarone [Cordarone] 200 mg PO DAILY 04/01/19 [History] Metoprolol Tartrate [Lopressor] 150 mg PO BID 04/01/19 [History] Pantoprazole Sodium [Protonix] 40 mg PO DAILY 04/01/19 [History] Ferrous Sulfate 325 mg PO DAILY 05/09/19 [History] Gabapentin [Neurontin] 100 mg PO TID 05/09/19 [History] Mirtazapine 7.5 mg PO BEDTIME 05/09/19 [History] Nicotine [Nicotine Patch] 14 mg TOP DAILY 05/09/19 [History] Acetaminophen [Tylenol] 650 mg PO Q4H PRN tablet 05/10/19 [Rx] Albuterol/Ipratropium [DuoNeb 3.0-0.5 MG/3 ML] 3 ml NEB Q2H PRN neb 05/10/19 [ Rx] Albuterol/Ipratropium [DuoNeb 3.0-0.5 MG/3 ML] 3 ml NEB TIDRT neb 05/10/19 [Rx] Budesonide [Pulmicort] 0.5 mg NEB BIDRT neb 05/10/19 [Rx] Bumetanide [Bumex] 1 mg PO BIDDIURETIC tablet 05/10/19 [Rx] Ceftaroline Fosamil [Teflaro] 300 mg IV Q12HR vial 05/10/19 [Rx] ClonazePAM [KlonoPIN] 0.25 mg PO TID PRN tablet 05/10/19 [Rx] Heparin Sodium 5,000 units SUBCUT Q8HR vial 05/10/19 [Rx] Micafungin [Mycamine] 100 mg IV Q24H vial 05/10/19 [Rx] Potassium Chloride [Klor-Con 10] 20 meq PO BIDMEALS tab.er 05/10/19 [Rx] rOPINIRole [Requip] 1 mg PO TID tablet 05/10/19 [Rx] - Discharge Summary/Plan Comment DC Time >30 min.: No - General Info Date of Service: 05/10/19 Admission Dx/Problem (Free Text: Admission Diagnosis/Problem Admission Diagnosis/Problem Weakness Functional Status: Denies: Tolerating Diet (very little intake) - Review of Systems Pulmonary: Denies: Shortness of Breath, Wheezing Cardiovascular: Denies: Chest Pain Gastrointestinal: Denies: Abdominal Pain Skin: Denies: Cyanosis Psychiatric: Reports: Confusion, Anxiety - Patient Data Vitals - Most Recent: Last Vital Signs Temp 37.0 C 05/10/19 08:00 Pulse 71 05/10/19 08:00 Resp 16 05/10/19 08:00 BP 120/60 05/10/19 08:00 Pulse Ox 90 L 05/10/19 12:13 Weight - Most Recent: 55.338 kg I&O - Last 24 hours: Intake & Output 05/10/19 05/10/19 05/10/19 06:59 14:59 22:59 Intake Total 650 Output Total 380 Balance 270 Lab Results - Last 24 hrs: Laboratory Results - last 24 hr 05/10/19 05/10/19 Range/Units 07:53 10:31 ABG pH 7.28 L (7.35-7.45) ABG pCO2 55 H (35-45) mmHg ABG pO2 70 (70-100) mmHg ABG HCO3 25.2 (22-26) mmol/L ABG O2 Saturation 92 L (95-100) % ABG Base Excess -1 ((-2)-(+3)) mmol/L Ricki Test Performed O2 Delivery Device Nasal cannula Sodium 142 (135-145) mmol/L Potassium 4.2 (3.6-5.0) mmol/L Chloride 107 D (101-111) mmol/L Carbon Dioxide 26.0 (21.0-31.0) mmol/L Anion Gap 13.2 BUN 43 H (7-18) mg/dL Creatinine 1.8 H (0.6-1.3) mg/dL Est Cr Clr Drug Dosing TNP Estimated GFR (MDRD) 28 Glucose 79 (74-105) mg/dL Calcium 7.8 L (8.4-10.2) mg/dl Phosphorus 4.4 (2.5-4.6) mg/dL Magnesium 1.6 L (1.8-2.5) mg/dL Med Orders - Current: Current Medications Acetaminophen (Tylenol) 650 mg PO Q4H PRN PRN Reason: Pain (Mild 1-3)/fever Albuterol/Ipratropium (Duoneb 3.0-0.5 Mg/3 Ml) 3 ml NEB Q2H PRN PRN Reason: sob Albuterol/Ipratropium (Duoneb 3.0-0.5 Mg/3 Ml) 3 ml NEB TIDRT [facility] Last Admin: 05/10/19 15:50 Dose: Not Given Amiodarone HCl (Cordarone) 200 mg PO DAILY [facility] Last Admin: 05/10/19 10:57 Dose: Not Given Aspirin (Halfprin) 81 mg PO DAILY [facility] Last Admin: 05/10/19 10:57 Dose: Not Given Budesonide (Pulmicort) 0.5 mg NEB BIDRT [facility] Last Admin: 05/10/19 08:05 Dose: Not Given Bumetanide (Bumex) 1 mg PO BIDDIURETIC [facility] Last Admin: 05/10/19 15:27 Dose: Not Given Clonazepam (Klonopin) 0.25 mg PO TID PRN PRN Reason: Anxiety Last Admin: 05/10/19 12:49 Dose: 0.25 mg Ferrous Sulfate (Ferrous Sulfate) 325 mg PO DAILY [facility] Last Admin: 05/10/19 10:56 Dose: Not Given Gabapentin (Neurontin) 100 mg PO TID [facility] Last Admin: 05/10/19 15:27 Dose: Not Given Heparin Sodium (Porcine) (Heparin Sodium) 5,000 units SUBCUT Q8HR [facility] Last Admin: 05/10/19 15:27 Dose: Not Given Micafungin Sodium 100 mg/ (Sodium Chloride) 100 mls @ 100 mls/hr IV Q24H [facility] Last Infusion: 05/09/19 22:31 Dose: Infused Ceftaroline Fosamil 300 mg/ (Sodium Chloride) 250 mls @ 250 mls/hr IV Q12HR [facility] Last Admin: 05/10/19 10:01 Dose: 250 mls/hr Loperamide HCl (Imodium) 2 mg PO Q6H PRN PRN Reason: Diarrhea Magnesium Oxide (Magnesium Oxide) 250 mg PO BIDM [facility] Stop: 05/11/19 08:01 Metoprolol Tartrate (Lopressor) 150 mg PO BID [facility] Last Admin: 05/10/19 10:57 Dose: Not Given Mirtazapine (Remeron) 7.5 mg PO BEDTIME [facility] Last Admin: 05/09/19 21:19 Dose: 7.5 mg Multivitamins/Minerals (Vitamins And Minerals) 1 tab PO DAILY [facility] Last Admin: 05/10/19 10:56 Dose: Not Given Nicotine (Habitrol) 14 mg TOP DAILY [facility] Last Admin: 05/10/19 10:56 Dose: Not Given Pantoprazole Sodium (Protonix) 40 mg PO ACBRK [facility] Last Admin: 05/10/19 06:08 Dose: 40 mg Potassium Chloride (Klor-Con 10) 20 meq PO BIDMEALS [facility] Last Admin: 05/10/19 10:57 Dose: Not Given Ropinirole HCl (Requip) 1 mg PO TID [facility] Last Admin: 05/10/19 15:27 Dose: Not Given Simvastatin (Zocor) 10 mg PO BEDTIME [facility] Last Admin: 05/09/19 21:29 Dose: 10 mg Discontinued Medications Fluoxetine HCl (Prozac) 20 mg PO DAILY [facility] Furosemide (Lasix) 40 mg PO BIDDIURETIC [facility] Last Admin: 05/09/19 14:45 Dose: 40 mg Ceftaroline Fosamil 300 mg/ (Sodium Chloride) 100 mls @ 100 mls/hr IV Q12HR [facility] Stop: 05/16/19 21:01 Ropinirole HCl (Requip) 0.5 mg PO TID PRN PRN Reason: Other Tiotropium [place] (Spiriva Handihaler) 18 mcg INH DAILY [facility] Last Admin: 05/10/19 10:58 Dose: Not Given - Exam General: Reports: Alert. Denies: Oriented Neck: Reports: Supple Lungs: Reports: Normal Respiratory Effort, Decreased Breath Sounds. Denies: Wheezing Cardiovascular: Reports: Regular Rate, Regular Rhythm GI/Abdominal Exam: Normal Bowel Sounds, Soft, Non-Tender Extremities: No Pedal Edema Skin: Reports: Warm, Dry Neurological: Reports: No New Focal Deficit Psy/Mental Status: Reports: Alert, Anxious
== END 2019-05-10 18:31 | disposition critical access hospital (66) | DRG 947 ==
LOC: DL.MS 11:05 → UNDOADMIN 11:05 → DL.MS 12:29 → UNDODISIN 05-10 18:31
PROVIDERS: ADMIT Internal Medicine; ATTEND Internal Medicine
DX: R53.1 Weakness (principal); J96.01 Acute respiratory failure with hypoxia; J96.02 Acute respiratory failure with hypercapnia; J15.212 Pneumonia due to Methicillin resistant Staphylococcus aureus; I21.4 Non-ST elevation (NSTEMI) myocardial infarction; B37.49 Other urogenital candidiasis; I50.32 Chronic diastolic (congestive) heart failure; C18.9 Malignant neoplasm of colon, unspecified; E87.2 Acidosis; J44.0 Chronic obstructive pulmonary disease with (acute) lower respiratory infection; R33.9 Retention of urine, unspecified; I25.10 Atherosclerotic heart disease of native coronary artery without angina pectoris; F41.9 Anxiety disorder, unspecified; F32.9 Major depressive disorder, single episode, unspecified; G25.81 Restless legs syndrome; N13.5 Crossing vessel and stricture of ureter without hydronephrosis; E78.00 Pure hypercholesterolemia, unspecified; I11.0 Hypertensive heart disease with heart failure; M81.0 Age-related osteoporosis without current pathological fracture; Z88.6 Allergy status to analgesic agent; Z88.5 Allergy status to narcotic agent; Z79.82 Long term (current) use of aspirin; Z79.899 Other long term (current) drug therapy; Z87.891 Personal history of nicotine dependence
CPT/HCPCS: 36415; 36600; 80048; 82803; 83735; 84100; 94660; 94760; A9270-GY; J0712; J1644; J2248; J7050

== ENCOUNTER 2019-05-10 18:10 | Inpatient (IN) | payer MEDICARE, OTHER ==
[2019-05-10] MEDS ORDERED: Loperamide 2 MG Cap PO PRN (18:17)
[2019-05-10] MEDS ORDERED: Albuterol/Ipratropium 3.0-0.5 MG/3 ML Neb Soln NEB PRN (18:17)
[2019-05-10] MEDS ORDERED: Ondansetron 4 MG Tab.DIS PO PRN (18:31)
--- NOTE | 2019-05-10 18:43 | PCM.HP ---
H&P History of Present Illness - General Date of Service: 05/10/19 Admit Problem/Dx: Admission Diagnosis/Problem Admission Diagnosis/Problem Respiratory failure with hypercapnia Source of Information: Patient, Family - History of Present Illness Initial Comments - Free Text/Narative: transfered to swing bed from [facility] care following prolonged hospitalization She was noted to have increasing sleepiness ABG showed hypercapnic respiratory failure with respiratory acidosis The patient will be transferred to acute care to start BiPAP therapy - Related Data Allergies/Adverse Reactions: Allergies Allergy/AdvReac Type Severity Reaction Status Date / Time ibuprofen Allergy Cannot Verified 05/09/19 11:58 Remember nitrofurantoin Allergy Diarrhea Verified 05/09/19 11:58 [From Macrobid] oxycodone Allergy Cannot Verified 05/09/19 11:58 Remember promethazine HCl Allergy Anxiety Verified 05/09/19 11:58 [From Phenergan] Home Medications: Home Meds Simvastatin 10 mg PO BEDTIME 05/04/14 [History] Aspirin [Adult Low Dose Aspirin EC] 81 mg PO DAILY 03/23/15 [History] Multivitamin with Minerals [Multiple Vitamin] 1 tab PO DAILY 08/18/17 [History] Loperamide [Imodium] 2 mg PO Q6H PRN 09/01/18 [History] Amiodarone [Cordarone] 200 mg PO DAILY 04/01/19 [History] Metoprolol Tartrate [Lopressor] 150 mg PO BID 04/01/19 [History] Pantoprazole Sodium [Protonix] 40 mg PO DAILY 04/01/19 [History] Ferrous Sulfate 325 mg PO DAILY 05/09/19 [History] Gabapentin [Neurontin] 100 mg PO TID 05/09/19 [History] Mirtazapine 7.5 mg PO BEDTIME 05/09/19 [History] Nicotine [Nicotine Patch] 14 mg TOP DAILY 05/09/19 [History] Acetaminophen [Tylenol] 650 mg PO Q4H PRN tablet 05/10/19 [Rx] Albuterol/Ipratropium [DuoNeb 3.0-0.5 MG/3 ML] 3 ml NEB Q2H PRN neb 05/10/19 [ Rx] Albuterol/Ipratropium [DuoNeb 3.0-0.5 MG/3 ML] 3 ml NEB TIDRT neb 05/10/19 [Rx] Budesonide [Pulmicort] 0.5 mg NEB BIDRT neb 05/10/19 [Rx] Bumetanide [Bumex] 1 mg PO BIDDIURETIC tablet 05/10/19 [Rx] Ceftaroline Fosamil [Teflaro] 300 mg IV Q12HR vial 05/10/19 [Rx] ClonazePAM [KlonoPIN] 0.25 mg PO TID PRN tablet 05/10/19 [Rx] Heparin Sodium 5,000 units SUBCUT Q8HR vial 05/10/19 [Rx] Micafungin [Mycamine] 100 mg IV Q24H vial 05/10/19 [Rx] Potassium Chloride [Klor-Con 10] 20 meq PO BIDMEALS tab.er 05/10/19 [Rx] rOPINIRole [Requip] 1 mg PO TID tablet 05/10/19 [Rx] Past Medical History HEENT History: Reports: Cataract Cardiovascular History: Reports: CAD, High Cholesterol, Hypertension Respiratory History: Reports: Bronchitis, Recurrent, COPD, Pneumonia, Recurrent Other Respiratory History: recent pneumonia Gastrointestinal History: Reports: GI Bleed, Other (See Below) Other Gastrointestinal History: abnormal digestive system Genitourinary History: Reports: UTI, Recurrent, Other (See Below) Other Genitourinary History: stent in urethea tube and stress incontinence, renal stents [employer] History: Reports: Musculoskeletal History: Reports: Osteoporosis Neurological History: Reports: None Psychiatric History: Reports: Anxiety, Depression Endocrine/Metabolic History: Reports: None Hematologic History: Reports: Anemia Immunologic History: Reports: Immunosuppression, Other (See Below) Other Immunologic History: Cancer pill- not taking at this time04/10/19 Oncologic (Cancer) History: Reports: Colon, Liver, Other (See Below) Other Oncologic History: 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 Dermatologic History: Reports: None Other Dermatologic History: dry skin - Infectious Disease History Infectious Disease History: Reports: MRSA - Past Surgical History Head Surgeries/Procedures: Reports: None HEENT Surgical History: Reports: Cataract Surgery Other HEENT Surgeries/Procedures: left cataract removal Cardiovascular Surgical History: Reports: None Respiratory Surgical History: Reports: None GI Surgical History: Reports: Colonoscopy Female Surgical History: Reports: Hysterectomy, Salpingo-Oophorectomy, Ureteral Stent, Other (See Below) Other Female Surgeries/Procedures: bladder lift Endocrine Surgical History: Reports: None Musculoskeletal Surgical History: Reports: None Oncologic Surgical History: Reports: Biopsy of Breast Dermatological Surgical History: Reports: None Social & Family History - Family History Family Medical History: Noncontributory - Caffeine Use Caffeine Use: Reports: Coffee Other Caffeine Use: unable to obtain - Living Situation & Occupation Living situation: Reports: , with Spouse Occupation: Retired H&P Review of Systems - Review of Systems: Review Of Systems: See Below General: Denies: Fever, Chills Pulmonary: Reports: Shortness of Breath, Wheezing, Cough Cardiovascular: Denies: Chest Pain Gastrointestinal: Denies: Abdominal Pain Genitourinary: Denies: Dysuria Neurological: Reports: Confusion Exam - Exam Exam: See Below - Exam General: Alert, Oriented (Partially) Neck: Supple Lungs: Decreased Breath Sounds, Rhonchi, Wheezing (Mild) GI/Abdominal Exam: Normal Bowel Sounds, Soft, Non-Tender Extremities: No Pedal Edema - Problem List (1) Acute hypercapnic respiratory failure SNOMED Code(s): 874849275 ICD Code: J96.02 - ACUTE RESPIRATORY FAILURE WITH HYPERCAPNIA Status: Acute Current Visit: Yes (2) Acute exacerbation of chronic obstructive pulmonary disease (COPD) SNOMED Code(s): 240355395 ICD Code: J44.1 - CHRONIC OBSTRUCTIVE PULMONARY DISEASE W (ACUTE) EXACERBATION Status: Acute Current Visit: No (3) NSTEMI (non-ST elevated myocardial infarction) SNOMED Code(s): 41952315 ICD Code: I21.4 - NON-ST ELEVATION (NSTEMI) MYOCARDIAL INFARCTION Status: Acute Current Visit: No (4) Pneumonia SNOMED Code(s): 332654484 ICD Code: J18.9 - PNEUMONIA, UNSPECIFIED ORGANISM Status: Acute Current Visit: No (5) UTI, Urinary tract infectious disease SNOMED Code(s): 03603820 ICD Code: N39.0 - URINARY TRACT INFECTION, SITE NOT SPECIFIED Status: Acute Current Visit: No Problem List Initiated/Reviewed/Updated: Yes Orders Last 24hrs: Active Orders 24 hr Category Date Time Status Admission Diagnosis [ADT] Routine ADT 05/10/19 18:15 Ordered Admission Status [Patient Status] [ADT] Routine ADT 05/10/19 18:15 Active Antiembolic Devices [RC] PER UNIT ROUTINE Care 05/10/19 18:32 Active BIPAP Adult [RT BiPAP/CPAP] [RC] ASDIRECTED Care 05/10/19 18:39 Active Oxygen Therapy [RC] PRN Care 05/10/19 18:31 Active Up With Assistance [RC] ASDIRECTED Care 05/10/19 18:31 Active VTE/DVT Education [RC] PER UNIT ROUTINE Care 05/10/19 18:31 Active Vital Signs [RC] Q4H Care 05/10/19 18:31 Active Regular Diet [DIET] Diet 05/10/19 Breakfast Active BASIC METABOLIC PANEL,BMP [CHEM] AM Lab 05/11/19 05:15 Ordered CBC WITH AUTO DIFF [HEME] AM Lab 05/11/19 05:15 Ordered Acetaminophen [Tylenol] Med 05/10/19 18:17 Ordered 650 mg PO Q4H PRN Albuterol/Ipratropium [DuoNeb 3.0-0.5 MG/3 ML] Med 05/10/19 18:17 Ordered 3 ml NEB Q2H PRN Albuterol/Ipratropium [DuoNeb 3.0-0.5 MG/3 ML] Med 05/10/19 21:00 Ordered 3 ml NEB TIDRT Amiodarone [Cordarone] Med 05/11/19 09:00 Ordered 200 mg PO DAILY Aspirin [Halfprin] Med 05/11/19 09:00 Ordered 81 mg PO DAILY Budesonide [Pulmicort] Med 05/11/19 07:00 Ordered 0.5 mg NEB BIDRT Bumetanide [Bumex] Med 05/11/19 08:00 Ordered 1 mg PO BIDDIURETIC Ceftaroline Fosamil [Teflaro] Med 05/10/19 21:00 Ordered 300 mg IV Q12HR ClonazePAM [KlonoPIN] Med 05/10/19 18:17 Ordered 0.25 mg PO TID PRN Ferrous Sulfate Med 05/11/19 09:00 Ordered 325 mg PO DAILY Gabapentin [Neurontin] Med 05/10/19 21:00 Ordered 100 mg PO TID Heparin Sodium Med 05/10/19 22:00 Ordered 5,000 units SUBCUT Q8HR Loperamide [Imodium] Med 05/10/19 18:17 Ordered 2 mg PO Q6H PRN Metoprolol Tartrate [Lopressor] Med 05/10/19 21:00 Ordered 150 mg PO BID Micafungin [Mycamine] Med 05/10/19 18:30 Ordered 100 mg IV Q24H Mirtazapine [Mirtazapine] Med 05/10/19 21:00 Ordered 7.5 mg PO BEDTIME Multivitamin with Minerals [Multiple Vitamin] Med 05/11/19 09:00 Ordered 1 tab PO DAILY Nicotine [Habitrol] Med 05/11/19 09:00 Ordered 14 mg TOP DAILY Ondansetron [Zofran ODT] Med 05/10/19 18:31 Ordered 4 mg PO Q6H PRN Ondansetron [Zofran] Med 05/10/19 18:31 Ordered 4 mg IVPUSH Q6H PRN Pantoprazole [ProTONIX] Med 05/11/19 09:00 Ordered 40 mg PO DAILY Potassium Chloride [Klor-Con 10] Med 05/11/19 08:00 Ordered 20 meq PO BIDMEALS Simvastatin [Zocor] Med 05/10/19 21:00 Ordered 10 mg PO BEDTIME rOPINIRole [Requip] Med 05/10/19 21:00 Ordered 1 mg PO TID Antiembolic Hose [OM.PC] Per Unit Routine Oth 05/10/19 18:32 Ordered Resuscitation Status Routine Resus Stat 05/10/19 18:31 Ordered Medication Orders Acetaminophen (Tylenol) 650 mg PO Q4H PRN PRN Reason: Pain (Mild 1-3)/fever Albuterol/Ipratropium (Duoneb 3.0-0.5 Mg/3 Ml) 3 ml NEB Q2H PRN PRN Reason: sob Albuterol/Ipratropium (Duoneb 3.0-0.5 Mg/3 Ml) 3 ml NEB TIDRT [facility] Amiodarone HCl (Cordarone) 200 mg PO DAILY [facility] Aspirin (Halfprin) 81 mg PO DAILY [facility] Budesonide (Pulmicort) 0.5 mg NEB BIDRT [facility] Bumetanide (Bumex) 1 mg PO BIDDIURETIC [facility] Ceftaroline Fosamil (Teflaro) 300 mg IV Q12HR [facility] Clonazepam (Klonopin) 0.25 mg PO TID PRN PRN Reason: Anxiety Ferrous Sulfate (Ferrous Sulfate) 325 mg PO DAILY [facility] Gabapentin (Neurontin) 100 mg PO TID [facility] Heparin Sodium (Porcine) (Heparin Sodium) 5,000 units SUBCUT Q8HR [facility] Loperamide HCl (Imodium) 2 mg PO Q6H PRN PRN Reason: Diarrhea Metoprolol Tartrate (Lopressor) 150 mg PO BID [facility] Micafungin Sodium (Mycamine) 100 mg IV Q24H [facility] Nicotine (Habitrol) 14 mg TOP DAILY [facility] Non-Formulary Medication (Mirtazapine [Mirtazapine]) 7.5 mg PO BEDTIME [facility] Non-Formulary Medication (Multivitamin With Minerals [Multiple Vitamin]) 1 tab PO DAILY [facility] Ondansetron HCl (Zofran Odt) 4 mg PO Q6H PRN PRN Reason: nausea, able to take PO Ondansetron HCl (Zofran) 4 mg IVPUSH Q6H PRN PRN Reason: Nausea/Vomiting Pantoprazole Sodium (Protonix) 40 mg PO DAILY [facility] Potassium Chloride (Klor-Con 10) 20 meq PO BIDMEALS [facility] Ropinirole HCl (Requip) 1 mg PO TID [facility] Simvastatin (Zocor) 10 mg PO BEDTIME [facility] Assessment/Plan Comment:: Transferred from acute care for weakness Have physical and occupational therapy evaluation and treatment Recurrent acute hypoxemic, hypercarbic respiratory failure Supplement oxygen as needed Monitor for signs and symptoms of CO2 retention Pulmicort nebulizer DuoNeb as needed today pt was more sleepy obtained ABG showed hypercarbic respiratory failure with resp acidosis start bipap use bipap for night transferred to acute care Recurrent MRSA pneumonia One more week of Ceftin Prolene treatment IV Urinary tract infection with yeast s/p UPJ obstructio 0 treated with stent 1 week of micafungin treatment IV Lower extremity edema, bilateral pleural effusions The patient had thoracentesis and diuretics in acute care Continue Bumex Giorgi stocking for edema Monitor electrolytes with diuretics chronic diastolic congestive heart failure Continue Bumex, metoprolol Holding GISELA inhibitor for renal failure Chronic urinary retention Daniel catheter is in place Try to remove in a few days Coronary artery disease Recent type II myocardial infarction Continue metoprolol, asa Not on anticoagulation with a history of GI bleed Metastatic colon cancer Oncology has recently evaluated the patient and there were no further plans for treatment. dr. Joshi recommended hospice Anxiety, depression, restless leg syndrome Clonazepam when necessary Remeron for sleep Scheduled requip dvt prophylaxis sq heparin
[2019-05-10] MEDS ORDERED: NS + KCl 20mEq/L 1,000 ML IV SCH (20:45)
[2019-05-10] MEDS: Micafungin 100 MG in Sodium Chloride 0.9% 100 ML IV SCH (20:57)
[2019-05-10] MEDS: Albuterol/Ipratropium 3.0-0.5 MG/3 ML Neb Soln NEB SCH (20:58)
[2019-05-10] MEDS: ClonazePAM 0.5 MG Tab PO PRN (20:58)
[2019-05-10] MEDS ORDERED: SODIUM CHLORIDE 0.9% IV SCH (21:00)
[2019-05-10] MEDS ORDERED: CEFTAROLINE FOSAMIL IV SCH (21:00)
[2019-05-10] MEDS: Heparin Sodium 5,000 Units/ML Vial SUBCUT SCH (21:12)
[2019-05-10] MEDS: Gabapentin 100 MG Cap PO SCH (21:12)
[2019-05-10] MEDS: Metoprolol Tartrate 50 MG Tab PO SCH (21:12)
[2019-05-10] MEDS: Simvastatin 10 MG Tab PO SCH (21:12)
[2019-05-10] MEDS: rOPINIRole 2 MG Tab PO SCH (21:12)
[2019-05-10] MEDS: Mirtazapine 15 MG Tab PO SCH (21:12)
[2019-05-10] MEDS: Acetaminophen 325 MG Tab PO PRN (21:16)
[2019-05-10] MEDS: Ondansetron 4 MG/2 ML SDV IVPUSH PRN (21:16)
[2019-05-10] MEDS ORDERED: Haloperidol Lactate 5 MG/ML SDV IM ONE (22:49)
[2019-05-11] MEDS: Heparin Sodium 5,000 Units/ML Vial SUBCUT SCH ×3 (05:10→21:40)
[2019-05-11] MEDS: Pantoprazole 40 MG Tab.CR PO SCH (05:10)
[2019-05-11 06:52] LABS: ANION GAP 13.1
[2019-05-11] MEDS: Budesonide 0.5 MG/2 ML Neb Susp NEB SCH ×2 (07:21→18:27)
[2019-05-11] MEDS: Albuterol/Ipratropium 3.0-0.5 MG/3 ML Neb Soln NEB SCH ×3 (07:21→21:39)
[2019-05-11] MEDS: rOPINIRole 2 MG Tab PO SCH ×3 (09:57→21:39)
[2019-05-11] MEDS: Bumetanide 1 MG Tab PO SCH ×2 (09:58→14:48)
[2019-05-11] MEDS: Potassium Chloride 10 MEQ Tab.ER PO SCH ×2 (09:58→18:08)
[2019-05-11] MEDS: Ferrous Sulfate 325 MG Tab PO SCH (09:59)
[2019-05-11] MEDS: Gabapentin 100 MG Cap PO SCH ×3 (09:59→21:39)
[2019-05-11] MEDS: Amiodarone 200 MG Tab PO SCH (09:59)
[2019-05-11] MEDS: Aspirin 81 MG Tab.EC PO SCH (09:59)
[2019-05-11] MEDS: Nicotine 14 MG/24 Hr Patch TOP SCH (10:00)
[2019-05-11] MEDS: Multivitamins, Therapeutic with Minerals Tab PO SCH (10:01)
[2019-05-11] MEDS: Metoprolol Tartrate 50 MG Tab PO SCH ×2 (10:01→21:40)
--- NOTE | 2019-05-11 11:48 | PCM.PN ---
- General Info Date of Service: 05/11/19 Admission Dx/Problem (Free Text): Admission Diagnosis/Problem Admission Diagnosis/Problem Respiratory failure with hypercapnia Subjective Update: overnight has been on bipap was restless, took clonazepam and haldol this morning more awake very little oral intake hypoglycemia noted loose stools continued for days, no associated abd pain - Review of Systems General: Reports: Weakness. Denies: Fever Pulmonary: Reports: Shortness of Breath Cardiovascular: Denies: Chest Pain Gastrointestinal: Denies: Abdominal Pain Genitourinary: Reports: Other (has zhong) - Patient Data Vitals - Most Recent: Last Vital Signs Temp 36.4 C 05/11/19 11:32 Pulse 72 05/11/19 11:32 Resp 18 05/11/19 11:32 BP 121/61 05/11/19 11:32 Pulse Ox 95 05/11/19 11:32 Weight - Most Recent: 55.338 kg I&O - Last 24 Hours: Intake & Output 05/10/19 05/11/19 05/11/19 22:59 06:59 14:59 Intake Total 50 490 Output Total 125 Balance 50 -125 490 Lab Results Last 24 Hours: Laboratory Results - last 24 hr 05/11/19 05/11/19 05/11/19 Range/Units 06:20 06:20 09:05 WBC 11.8 H (5.0-10.0) 10^3/uL RBC 2.97 L (4.2-5.4) 10^6/uL Hgb 9.6 L (12.0-16.0) g/dL Hct 31.9 L (37.0-47.0) % MCV 107.4 H D (80-100) fL MCH 32.3 (27.0-34.0) pg MCHC 30.1 L (33.0-35.0) g/dL Plt Count 128 L (150-450) 10^3/uL Neut % (Auto) 75.3 H (42.2-75.2) % Lymph % (Auto) 10.5 L (20.5-50.1) % [place] % (Auto) 12.9 H (2-8) % Eos % (Auto) 0.9 L (1.0-3.0) % Baso % (Auto) 0.4 (0.0-1.0) % Add Manual Diff Yes Neutrophils % (Manual) 72 (42-75) % Band Neutrophils % 2 % Lymphocytes % (Manual) 15 L (20-50) % Monocytes % (Manual) 10 H (2-8) % Eosinophils % (Manual) 1 (1-3) % Hypochromasia 1+ slight Stomatocytes 1+ slight Sodium 142 (135-145) mmol/L Potassium 4.1 (3.6-5.0) mmol/L Chloride 109 (101-111) mmol/L Carbon Dioxide 24.0 (21.0-31.0) mmol/L Anion Gap 13.1 BUN 41 H (7-18) mg/dL Creatinine 1.8 H (0.6-1.3) mg/dL Est Cr Clr Drug Dosing 22.34 mL/min Estimated GFR (MDRD) 28 Glucose 65 L (74-105) mg/dL POC Glucose 65 L (83-110) mg/dl Calcium 7.4 L (8.4-10.2) mg/dl Med Orders - Current: Current Medications Acetaminophen (Tylenol) 650 mg PO Q4H PRN PRN Reason: Pain (Mild 1-3)/fever Last Admin: 05/10/19 21:16 Dose: 650 mg Albuterol/Ipratropium (Duoneb 3.0-0.5 Mg/3 Ml) 3 ml NEB Q2H PRN PRN Reason: sob Albuterol/Ipratropium (Duoneb 3.0-0.5 Mg/3 Ml) 3 ml NEB TIDRT [facility] Last Admin: 05/11/19 07:21 Dose: 3 ml Amiodarone HCl (Cordarone) 200 mg PO DAILY [facility] Last Admin: 05/11/19 09:59 Dose: 200 mg Aspirin (Halfprin) 81 mg PO DAILY [facility] Last Admin: 05/11/19 09:59 Dose: 81 mg Budesonide (Pulmicort) 0.5 mg NEB BIDRT [facility] Last Admin: 05/11/19 07:21 Dose: 0.5 mg Bumetanide (Bumex) 1 mg PO BIDDIURETIC [facility] Last Admin: 05/11/19 09:58 Dose: 1 mg Clonazepam (Klonopin) 0.25 mg PO TID PRN PRN Reason: Anxiety Last Admin: 05/10/19 20:58 Dose: 0.25 mg Ferrous Sulfate (Ferrous Sulfate) 325 mg PO DAILY [facility] Last Admin: 05/11/19 09:59 Dose: 325 mg Gabapentin (Neurontin) 100 mg PO TID [facility] Last Admin: 05/11/19 09:59 Dose: 100 mg Heparin Sodium (Porcine) (Heparin Sodium) 5,000 units SUBCUT Q8HR [facility] Last Admin: 05/11/19 05:10 Dose: Not Given Micafungin Sodium 100 mg/ (Sodium Chloride) 100 mls @ 100 mls/hr IV Q24H [facility] Last Admin: 05/10/19 20:57 Dose: 100 mls/hr Ceftaroline Fosamil 300 mg/ (Sodium Chloride) 250 mls @ 250 mls/hr IV Q12HR [facility] Last Admin: 05/11/19 10:21 Dose: 250 mls/hr Dextrose/Sodium Chloride (Dextrose 5%-Normal Saline) 1,000 mls @ 75 mls/hr IV ASDIRECTED [facility] Loperamide HCl (Imodium) 2 mg PO Q6H PRN PRN Reason: Diarrhea Metoprolol Tartrate (Lopressor) 150 mg PO BID [facility] Last Admin: 05/11/19 10:01 Dose: Not Given Mirtazapine (Remeron) 7.5 mg PO BEDTIME [facility] Last Admin: 05/10/19 21:12 Dose: 7.5 mg Multivitamins/Minerals (Vitamins And Minerals) 1 tab PO DAILY [facility] Last Admin: 05/11/19 10:01 Dose: Not Given Nicotine (Habitrol) 14 mg TOP DAILY [facility] Last Admin: 05/11/19 10:00 Dose: 14 mg Ondansetron HCl (Zofran Odt) 4 mg PO Q6H PRN PRN Reason: nausea, able to take PO Ondansetron HCl (Zofran) 4 mg IVPUSH Q6H PRN PRN Reason: Nausea/Vomiting Last Admin: 05/10/19 21:16 Dose: 4 mg Pantoprazole Sodium (Protonix) 40 mg PO ACBREAKFAST [facility] Last Admin: 05/11/19 05:10 Dose: Not Given Potassium Chloride (Klor-Con 10) 20 meq PO BIDMEALS [facility] Last Admin: 05/11/19 09:58 Dose: 20 meq Ropinirole HCl (Requip) 1 mg PO TID [facility] Last Admin: 05/11/19 09:57 Dose: 1 mg Simvastatin (Zocor) 10 mg PO BEDTIME [facility] Last Admin: 05/10/19 21:12 Dose: 10 mg Discontinued Medications Haloperidol Lactate (Haldol) 0.5 mg IM ONETIME ONE Stop: 05/10/19 22:50 Last Admin: 05/10/19 22:59 Dose: 0.5 mg Ceftaroline Fosamil 300 mg/ (Sodium Chloride) 100 mls @ 100 mls/hr IV Q12HR [facility] Last Admin: 05/10/19 21:34 Dose: Not Given Potassium Chloride/Sodium Chloride (Normal Saline With 20 Meq Kcl) 1,000 mls @ 75 mls/hr IV ASDIRECTED [facility] Last Infusion: 05/11/19 09:52 Dose: 0 mls/hr - Exam General: Alert. No: Oriented Neck: Supple Lungs: Decreased Breath Sounds Cardiovascular: Regular Rate, Regular Rhythm GI/Abdominal Exam: Normal Bowel Sounds, Soft, Non-Tender Extremities: Pedal Edema (1+) Sepsis Event Note - Evaluation Sepsis Screening Result: No Definite Risk - Focused Exam Vital Signs: Vital Signs Temp Pulse Pulse Resp BP BP BP 05/11/19 11:32 36.4 C 72 18 121/61 05/11/19 10:01 68 120/62 05/11/19 08:00 36.3 C 68 17 120/62 05/11/19 07:22 67 05/11/19 04:00 36.6 C 62 16 05/11/19 00:00 36.4 C 64 16 105/47 L Pulse Ox Pulse Ox 05/11/19 11:32 95 05/11/19 10:01 05/11/19 08:00 97 05/11/19 07:22 95 05/11/19 04:00 99 05/11/19 00:00 99 Date Exam was Performed: 05/11/19 Time Exam was Performed: 11:43 - Problem List & Annotations (1) Acute hypercapnic respiratory failure SNOMED Code(s): 839435071 Code(s): J96.02 - ACUTE RESPIRATORY FAILURE WITH HYPERCAPNIA Status: Acute Current Visit: Yes (2) Acute exacerbation of chronic obstructive pulmonary disease (COPD) SNOMED Code(s): 428821234 Code(s): J44.1 - CHRONIC OBSTRUCTIVE PULMONARY DISEASE W (ACUTE) EXACERBATION Status: Acute Current Visit: No (3) NSTEMI (non-ST elevated myocardial infarction) SNOMED Code(s): 24698824 Code(s): I21.4 - NON-ST ELEVATION (NSTEMI) MYOCARDIAL INFARCTION Status: Acute Current Visit: No (4) Pneumonia SNOMED Code(s): 195455445 Code(s): J18.9 - PNEUMONIA, UNSPECIFIED ORGANISM Status: Acute Current Visit: No (5) UTI, Urinary tract infectious disease SNOMED Code(s): 58367250 Code(s): N39.0 - URINARY TRACT INFECTION, SITE NOT SPECIFIED Status: Acute Current Visit: No - Problem List Review Problem List Initiated/Reviewed/Updated: Yes - My Orders Last 24 Hours: My Active Orders 05/10/19 18:15 Admission Diagnosis [ADT] Routine Admission Status [Patient Status] [ADT] Routine 05/10/19 18:17 Acetaminophen [Tylenol] 650 mg PO Q4H PRN Albuterol/Ipratropium [DuoNeb 3.0-0.5 MG/3 ML] 3 ml NEB Q2H PRN ClonazePAM [KlonoPIN] 0.25 mg PO TID PRN Loperamide [Imodium] 2 mg PO Q6H PRN 05/10/19 18:31 Oxygen Therapy [RC] PRN Up With Assistance [RC] ASDIRECTED VTE/DVT Education [RC] PER UNIT ROUTINE Vital Signs [RC] 00,04,08,12,16,20 Ondansetron [Zofran ODT] 4 mg PO Q6H PRN Ondansetron [Zofran] 4 mg IVPUSH Q6H PRN Resuscitation Status Routine 05/10/19 18:32 Antiembolic Devices [RC] 09,21 Antiembolic Hose [OM.PC] Per Unit Routine 05/10/19 18:39 BIPAP Adult [RT BiPAP/CPAP] [RC] ASDIRECTED 05/10/19 21:00 Albuterol/Ipratropium [DuoNeb 3.0-0.5 MG/3 ML] 3 ml NEB TIDRT Ceftaroline Fosamil [Teflaro] 300 mg Sodium Chloride 0.9% [Normal Saline] 250 ml IV Q12HR Gabapentin [Neurontin] 100 mg PO TID Metoprolol Tartrate [Lopressor] 150 mg PO BID Mirtazapine [Remeron] 7.5 mg PO BEDTIME Simvastatin [Zocor] 10 mg PO BEDTIME rOPINIRole [Requip] 1 mg PO TID 05/10/19 22:00 Heparin Sodium 5,000 units SUBCUT Q8HR 05/11/19 06:00 Pantoprazole [ProTONIX] 40 mg PO ACBREAKFAST 05/11/19 07:00 Budesonide [Pulmicort] 0.5 mg NEB BIDRT 05/11/19 08:00 Bumetanide [Bumex] 1 mg PO BIDDIURETIC Potassium Chloride [Klor-Con 10] 20 meq PO BIDMEALS 05/11/19 09:00 Amiodarone [Cordarone] 200 mg PO DAILY Aspirin [Halfprin] 81 mg PO DAILY Ferrous Sulfate 325 mg PO DAILY Multivitamins/Minerals [Vitamins and Minerals] 1 tab PO DAILY Nicotine [Habitrol] 14 mg TOP DAILY 05/11/19 11:42 Chest 1V Frontal [CR] Routine 05/11/19 11:45 Dextrose 5%-Normal Saline @ 75 MLS/HR(1000ml) Dextrose 5%-0.9% NaCl [Dextrose 5 %-Normal Saline] 1,000 ml IV ASDIRECTED 05/11/19 18:00 Micafungin [Mycamine] 100 mg Sodium Chloride 0.9% [Normal Saline] 100 ml IV Q24H - Plan Plan:: Transferred from acute care for weakness Have physical and occupational therapy evaluation and treatment Recurrent acute hypoxemic, hypercarbic respiratory failure Supplement oxygen as needed Monitor for signs and symptoms of CO2 retention Pulmicort nebulizer DuoNeb as needed acute hypercarbic respiratory failure with resp acidosis overnight has been on bipap will try to stop for the day supplement oxygen will get cxr to evaluate for pleural effusion Recurrent MRSA pneumonia One more week of Ceftaroline treatment IV - finish 05/16 Urinary tract infection with yeast s/p UPJ obstruction- treated with stent 1 week of micafungin treatment IV finih - 05/16 Lower extremity edema, bilateral pleural effusions The patient had thoracentesis and diuretics in acute care Continue Bumex Giorgi stocking for edema Monitor electrolytes with diuretics chronic diastolic congestive heart failure started low dose IVF for hypoglycemia Continue Bumex, metoprolol Holding GISELA inhibitor for renal failure Chronic urinary retention Zhong catheter is in place Try to remove in a few days Coronary artery disease Recent type II myocardial infarction Continue metoprolol, asa Not on anticoagulation with a history of GI bleed Metastatic colon cancer Oncology has recently evaluated the patient and there were no further plans for treatment. dr. Joshi recommended hospice Anxiety, depression, restless leg syndrome Clonazepam when necessary haldol when necessary to tolerate bipap Remeron for sleep Scheduled requip dvt prophylaxis sq heparin
[2019-05-11] MEDS: Dextrose 5%-0.9% NaCl 1,000 ML IV SCH (11:58)
[2019-05-11] MEDS: Micafungin 100 MG in Sodium Chloride 0.9% 100 ML IV SCH (18:11)
[2019-05-11] MEDS ORDERED: Haloperidol Lactate 5 MG/ML SDV IM PRN (18:57)
[2019-05-11] MEDS: Mirtazapine 15 MG Tab PO SCH (21:38)
[2019-05-11] MEDS: Simvastatin 10 MG Tab PO SCH (21:39)
[2019-05-11] MEDS: ClonazePAM 0.5 MG Tab PO PRN (21:39)
[2019-05-12] MEDS: Dextrose 5%-0.9% NaCl 1,000 ML IV SCH (03:08)
[2019-05-12] MEDS: Heparin Sodium 5,000 Units/ML Vial SUBCUT SCH ×3 (06:32→21:09)
[2019-05-12] MEDS: Budesonide 0.5 MG/2 ML Neb Susp NEB SCH ×3 (07:25→18:37)
[2019-05-12] MEDS: Albuterol/Ipratropium 3.0-0.5 MG/3 ML Neb Soln NEB SCH ×3 (07:25→20:46)
[2019-05-12] MEDS: Pantoprazole 40 MG Tab.CR PO SCH (09:34)
[2019-05-12] MEDS: Potassium Chloride 10 MEQ Tab.ER PO SCH ×2 (09:37→18:20)
[2019-05-12] MEDS: Bumetanide 1 MG Tab PO SCH ×2 (09:37→14:37)
[2019-05-12] MEDS: Nicotine 14 MG/24 Hr Patch TOP SCH (09:38)
[2019-05-12] MEDS: Ferrous Sulfate 325 MG Tab PO SCH (09:38)
[2019-05-12] MEDS: Aspirin 81 MG Tab.EC PO SCH (09:40)
[2019-05-12] MEDS: Metoprolol Tartrate 50 MG Tab PO SCH ×2 (09:41→20:45)
[2019-05-12] MEDS: rOPINIRole 2 MG Tab PO SCH ×3 (09:42→20:45)
[2019-05-12] MEDS: Multivitamins, Therapeutic with Minerals Tab PO SCH (09:42)
[2019-05-12] MEDS: Gabapentin 100 MG Cap PO SCH ×3 (09:48→21:09)
[2019-05-12] MEDS: Amiodarone 200 MG Tab PO SCH (09:48)
[2019-05-12 10:35] LABS: ANION GAP 13.2
--- NOTE | 2019-05-12 11:16 | PCM.PN ---
- General Info Date of Service: 05/12/19 Admission Dx/Problem (Free Text): Admission Diagnosis/Problem Admission Diagnosis/Problem Respiratory failure with hypercapnia Subjective Update: was restless, took clonazepam and haldol again and with that tolerated overnight bipap much improved oral intake small amount of loose stools continued for days, no associated abd pain Functional Status: Reports: Pain Controlled, Tolerating Diet - Review of Systems General: Reports: Weakness. Denies: Fever Pulmonary: Reports: Shortness of Breath (with activity) Cardiovascular: Denies: Chest Pain Gastrointestinal: Denies: Abdominal Pain Neurological: Reports: Confusion - Patient Data Vitals - Most Recent: Last Vital Signs Temp 36.5 C 05/12/19 07:50 Pulse 77 05/12/19 09:41 Resp 18 05/12/19 07:50 BP 118/66 05/12/19 09:41 Pulse Ox 100 05/12/19 07:50 Weight - Most Recent: 55.338 kg I&O - Last 24 Hours: Intake & Output 05/11/19 05/12/19 05/12/19 22:59 06:59 14:59 Intake Total 275 Output Total 275 Balance 275 -275 Lab Results Last 24 Hours: Laboratory Results - last 24 hr 05/12/19 Range/Units 10:09 Sodium 141 (135-145) mmol/L Potassium 4.2 (3.6-5.0) mmol/L Chloride 110 (101-111) mmol/L Carbon Dioxide 22.0 (21.0-31.0) mmol/L Anion Gap 13.2 BUN 39 H (7-18) mg/dL Creatinine 1.8 H (0.6-1.3) mg/dL Est Cr Clr Drug Dosing 22.34 mL/min Estimated GFR (MDRD) 28 Glucose 158 H (74-105) mg/dL Calcium 7.3 L (8.4-10.2) mg/dl Med Orders - Current: Current Medications Acetaminophen (Tylenol) 650 mg PO Q4H PRN PRN Reason: Pain (Mild 1-3)/fever Last Admin: 05/10/19 21:16 Dose: 650 mg Albuterol/Ipratropium (Duoneb 3.0-0.5 Mg/3 Ml) 3 ml NEB Q2H PRN PRN Reason: sob Albuterol/Ipratropium (Duoneb 3.0-0.5 Mg/3 Ml) 3 ml NEB TIDRT [facility] Last Admin: 05/12/19 07:25 Dose: 3 ml Amiodarone HCl (Cordarone) 200 mg PO DAILY [facility] Last Admin: 05/12/19 09:48 Dose: 200 mg Aspirin (Halfprin) 81 mg PO DAILY [facility] Last Admin: 05/12/19 09:40 Dose: 81 mg Budesonide (Pulmicort) 0.5 mg NEB BIDRT [facility] Last Admin: 05/12/19 07:25 Dose: 0.5 mg Bumetanide (Bumex) 1 mg PO BIDDIURETIC [facility] Last Admin: 05/12/19 09:37 Dose: 1 mg Clonazepam (Klonopin) 0.25 mg PO TID PRN PRN Reason: Anxiety Last Admin: 05/11/19 21:39 Dose: 0.25 mg Ferrous Sulfate (Ferrous Sulfate) 325 mg PO DAILY [facility] Last Admin: 05/12/19 09:38 Dose: 325 mg Gabapentin (Neurontin) 100 mg PO TID [facility] Last Admin: 05/12/19 09:48 Dose: 100 mg Haloperidol (Haldol) 0.5 mg PO BEDTIME PRN PRN Reason: restlessness, agitation, sleep Heparin Sodium (Porcine) (Heparin Sodium) 5,000 units SUBCUT Q8HR [facility] Last Admin: 05/12/19 06:32 Dose: Not Given Micafungin Sodium 100 mg/ (Sodium Chloride) 100 mls @ 100 mls/hr IV Q24H [facility] Last Infusion: 05/11/19 19:58 Dose: Infused Ceftaroline Fosamil 300 mg/ (Sodium Chloride) 250 mls @ 250 mls/hr IV Q12HR [facility] Last Admin: 05/12/19 09:49 Dose: 250 mls/hr Loperamide HCl (Imodium) 2 mg PO Q6H PRN PRN Reason: Diarrhea Last Admin: 05/11/19 21:39 Dose: 2 mg Metoprolol Tartrate (Lopressor) 150 mg PO BID [facility] Last Admin: 05/12/19 09:41 Dose: 150 mg Mirtazapine (Remeron) 7.5 mg PO BEDTIME [facility] Last Admin: 05/11/19 21:38 Dose: 7.5 mg Multivitamins/Minerals (Vitamins And Minerals) 1 tab PO DAILY [facility] Last Admin: 05/12/19 09:42 Dose: 1 tab Nicotine (Habitrol) 14 mg TOP DAILY [facility] Last Admin: 05/12/19 09:38 Dose: 14 mg Ondansetron HCl (Zofran Odt) 4 mg PO Q6H PRN PRN Reason: nausea, able to take PO Ondansetron HCl (Zofran) 4 mg IVPUSH Q6H PRN PRN Reason: Nausea/Vomiting Last Admin: 05/10/19 21:16 Dose: 4 mg Pantoprazole Sodium (Protonix) 40 mg PO ACBREAKFAST [facility] Last Admin: 05/12/19 09:34 Dose: 40 mg Potassium Chloride (Klor-Con 10) 20 meq PO BIDMEALS [facility] Last Admin: 05/12/19 09:37 Dose: 20 meq Ropinirole HCl (Requip) 1 mg PO TID [facility] Last Admin: 05/12/19 09:42 Dose: 1 mg Simvastatin (Zocor) 10 mg PO BEDTIME [facility] Last Admin: 05/11/19 21:39 Dose: 10 mg Discontinued Medications Haloperidol Lactate (Haldol) 0.5 mg IM ONETIME ONE Stop: 05/10/19 22:50 Last Admin: 05/10/19 22:59 Dose: 0.5 mg Haloperidol Lactate (Haldol) 0.5 mg IM ONETIME PRN PRN Reason: Agitation Stop: 05/12/19 06:00 Last Admin: 05/11/19 21:42 Dose: 0.5 mg Ceftaroline Fosamil 300 mg/ (Sodium Chloride) 100 mls @ 100 mls/hr IV Q12HR [facility] Last Admin: 05/10/19 21:34 Dose: Not Given Potassium Chloride/Sodium Chloride (Normal Saline With 20 Meq Kcl) 1,000 mls @ 75 mls/hr IV ASDIRECTED [facility] Last Infusion: 05/11/19 09:52 Dose: 0 mls/hr Dextrose/Sodium Chloride (Dextrose 5%-Normal Saline) 1,000 mls @ 75 mls/hr IV ASDIRECTED [facility] Last Admin: 05/12/19 03:08 Dose: 75 mls/hr - Exam Quality Assessment: Supplemental Oxygen General: Alert, Oriented (mostly ) Neck: Supple Lungs: Decreased Breath Sounds. No: Wheezing Cardiovascular: Regular Rate, Regular Rhythm Extremities: Pedal Edema, Other (edema of arms) Neurological: No New Focal Deficit, Other (somewhat lethargic) Psy/Mental Status: Alert, Normal Affect, Normal Mood Sepsis Event Note - Evaluation Sepsis Screening Result: No Definite Risk - Focused Exam Vital Signs: Vital Signs Temp Pulse Pulse Resp BP BP Pulse Ox 05/12/19 09:41 77 118/66 05/12/19 07:50 36.5 C 77 18 118/66 100 05/12/19 07:29 78 05/12/19 07:26 05/12/19 04:00 35.9 C 72 14 96/58 L 98 Pulse Ox 05/12/19 09:41 05/12/19 07:50 05/12/19 07:29 98 05/12/19 07:26 98 05/12/19 04:00 Date Exam was Performed: 05/12/19 Time Exam was Performed: 11:11 - Problem List & Annotations (1) Acute hypercapnic respiratory failure SNOMED Code(s): 643155102 Code(s): J96.02 - ACUTE RESPIRATORY FAILURE WITH HYPERCAPNIA Status: Acute Current Visit: Yes (2) Acute exacerbation of chronic obstructive pulmonary disease (COPD) SNOMED Code(s): 034379138 Code(s): J44.1 - CHRONIC OBSTRUCTIVE PULMONARY DISEASE W (ACUTE) EXACERBATION Status: Acute Current Visit: No (3) NSTEMI (non-ST elevated myocardial infarction) SNOMED Code(s): 63146235 Code(s): I21.4 - NON-ST ELEVATION (NSTEMI) MYOCARDIAL INFARCTION Status: Acute Current Visit: No (4) Pneumonia SNOMED Code(s): 694857978 Code(s): J18.9 - PNEUMONIA, UNSPECIFIED ORGANISM Status: Acute Current Visit: No (5) UTI, Urinary tract infectious disease SNOMED Code(s): 23100794 Code(s): N39.0 - URINARY TRACT INFECTION, SITE NOT SPECIFIED Status: Acute Current Visit: No - Problem List Review Problem List Initiated/Reviewed/Updated: Yes - My Orders Last 24 Hours: My Active Orders 05/11/19 18:00 Micafungin [Mycamine] 100 mg Sodium Chloride 0.9% [Normal Saline] 100 ml IV Q24H 05/12/19 11:09 haloperidoL [Haldol] 0.5 mg PO BEDTIME PRN 05/13/19 05:15 BASIC METABOLIC PANEL,BMP [CHEM] AM CBC WITH AUTO DIFF [HEME] AM - Plan Plan:: Transferred from acute care for weakness Have physical and occupational therapy evaluation and treatment Recurrent acute hypoxemic, hypercarbic respiratory failure Supplement oxygen as needed Monitor for signs and symptoms of CO2 retention Pulmicort nebulizer DuoNeb as needed acute hypercarbic respiratory failure with resp acidosis improved with bipap will try to cont during the night and stop for the day supplement oxygen cxr showed no large effusion Recurrent MRSA pneumonia cont Ceftaroline treatment IV - finish 05/16 Urinary tract infection with yeast s/p UPJ obstruction- treated with stent cont micafungin treatment IV finih - 05/16 Lower extremity edema, bilateral pleural effusions The patient had thoracentesis and diuretics in acute care Continue Bumex Giorgi stocking for edema Monitor electrolytes with diuretics chronic diastolic congestive heart failure started low dose IVF for hypoglycemia Continue Bumex, metoprolol Holding GISELA inhibitor for renal failure Chronic urinary retention Daniel catheter is in place Try to remove in a few days when otherwise stable Coronary artery disease Recent type II myocardial infarction Continue metoprolol, asa Not on anticoagulation with a history of GI bleed Metastatic colon cancer Oncology has recently evaluated the patient and there were no further plans for treatment. dr. Joshi recommended hospice Anxiety, depression, restless leg syndrome Clonazepam when necessary haldol when necessary to tolerate bipap - switch to PO Remeron for sleep Scheduled requip dvt prophylaxis sq heparin
[2019-05-12] MEDS: Micafungin 100 MG in Sodium Chloride 0.9% 100 ML IV SCH (18:26)
[2019-05-12] MEDS: Mirtazapine 15 MG Tab PO SCH (20:45)
[2019-05-12] MEDS: Simvastatin 10 MG Tab PO SCH (20:45)
[2019-05-12] MEDS: Haloperidol 1 MG Tab PO PRN (21:08)
[2019-05-13] MEDS: Pantoprazole 40 MG Tab.CR PO SCH (05:42)
[2019-05-13] MEDS: Heparin Sodium 5,000 Units/ML Vial SUBCUT SCH ×3 (05:42→21:56)
[2019-05-13 07:02] LABS: ANION GAP 12.8
[2019-05-13] MEDS: Budesonide 0.5 MG/2 ML Neb Susp NEB SCH ×3 (07:13→18:36)
[2019-05-13] MEDS: Albuterol/Ipratropium 3.0-0.5 MG/3 ML Neb Soln NEB SCH ×3 (07:13→21:56)
[2019-05-13] MEDS: Metoprolol Tartrate 50 MG Tab PO SCH ×2 (08:17→21:53)
[2019-05-13] MEDS: Bumetanide 1 MG Tab PO SCH ×3 (08:18→18:28)
[2019-05-13] MEDS: Aspirin 81 MG Tab.EC PO SCH (08:18)
[2019-05-13] MEDS: Potassium Chloride 10 MEQ Tab.ER PO SCH ×2 (08:18→18:28)
[2019-05-13] MEDS: Gabapentin 100 MG Cap PO SCH ×3 (08:19→21:55)
[2019-05-13] MEDS: Amiodarone 200 MG Tab PO SCH (08:19)
[2019-05-13] MEDS: rOPINIRole 2 MG Tab PO SCH ×3 (08:19→21:54)
[2019-05-13] MEDS: Multivitamins, Therapeutic with Minerals Tab PO SCH (08:20)
[2019-05-13] MEDS: Nicotine 14 MG/24 Hr Patch TOP SCH (08:20)
[2019-05-13] MEDS: Ferrous Sulfate 325 MG Tab PO SCH (08:20)
[2019-05-13] MEDS: Sodium Chloride 0.9% 10 ML Syringe FLUSH PRN ×3 (09:24→21:45)
--- NOTE | 2019-05-13 11:40 | PCM.PN ---
- General Info Date of Service: 05/13/19 Subjective Update: slept well with haldol again and with that tolerated bipap sob is mod, stable, no associated chest pain no fever Functional Status: Reports: Tolerating Diet - Review of Systems General: Reports: Weakness Gastrointestinal: Denies: Abdominal Pain Genitourinary: Denies: Dysuria Neurological: Reports: Confusion - Patient Data Vitals - Most Recent: Last Vital Signs Temp 36.9 C 05/13/19 07:59 Pulse 82 05/13/19 08:17 Resp 16 05/13/19 07:59 BP 108/63 05/13/19 08:17 Pulse Ox 94 L 05/13/19 07:59 Weight - Most Recent: 55.338 kg I&O - Last 24 Hours: Intake & Output 05/12/19 05/13/19 05/13/19 22:59 06:59 14:59 Intake Total 627 401 450 Output Total 200 Balance 627 201 450 Lab Results Last 24 Hours: Laboratory Results - last 24 hr 05/13/19 05/13/19 Range/Units 06:15 06:15 WBC 12.0 H (5.0-10.0) 10^3/uL RBC 2.96 L (4.2-5.4) 10^6/uL Hgb 9.5 L (12.0-16.0) g/dL Hct 32.2 L (37.0-47.0) % MCV 108.8 H (80-100) fL MCH 32.1 (27.0-34.0) pg MCHC 29.5 L (33.0-35.0) g/dL Plt Count 93 L (150-450) 10^3/uL Neut % (Auto) 80.0 H (42.2-75.2) % Lymph % (Auto) 7.6 L (20.5-50.1) % [place] % (Auto) 11.4 H (2-8) % Eos % (Auto) 0.8 L (1.0-3.0) % Baso % (Auto) 0.2 (0.0-1.0) % Add Manual Diff Yes Neutrophils % (Manual) 82 H (42-75) % Lymphocytes % (Manual) 7 L (20-50) % Monocytes % (Manual) 11 H (2-8) % Macrocytosis 3+ marked Sodium 141 (135-145) mmol/L Potassium 4.8 (3.6-5.0) mmol/L Chloride 110 (101-111) mmol/L Carbon Dioxide 23.0 (21.0-31.0) mmol/L Anion Gap 12.8 BUN 38 H (7-18) mg/dL Creatinine 1.8 H (0.6-1.3) mg/dL Est Cr Clr Drug Dosing 22.34 mL/min Estimated GFR (MDRD) 28 Glucose 94 (74-105) mg/dL Calcium 7.3 L (8.4-10.2) mg/dl Med Orders - Current: Current Medications Acetaminophen (Tylenol) 650 mg PO Q4H PRN PRN Reason: Pain (Mild 1-3)/fever Last Admin: 05/10/19 21:16 Dose: 650 mg Albuterol/Ipratropium (Duoneb 3.0-0.5 Mg/3 Ml) 3 ml NEB Q2H PRN PRN Reason: sob Albuterol/Ipratropium (Duoneb 3.0-0.5 Mg/3 Ml) 3 ml NEB TIDRT [facility] Last Admin: 05/13/19 07:13 Dose: 3 ml Amiodarone HCl (Cordarone) 200 mg PO DAILY [facility] Last Admin: 05/13/19 08:19 Dose: 200 mg Aspirin (Halfprin) 81 mg PO DAILY [facility] Last Admin: 05/13/19 08:18 Dose: 81 mg Budesonide (Pulmicort) 0.5 mg NEB BIDRT [facility] Last Admin: 05/13/19 07:13 Dose: 0.5 mg Bumetanide (Bumex) 1 mg PO TID [facility] Clonazepam (Klonopin) 0.25 mg PO TID PRN PRN Reason: Anxiety Last Admin: 05/11/19 21:39 Dose: 0.25 mg Ferrous Sulfate (Ferrous Sulfate) 325 mg PO DAILY [facility] Last Admin: 05/13/19 08:20 Dose: 325 mg Gabapentin (Neurontin) 100 mg PO TID [facility] Last Admin: 05/13/19 08:19 Dose: 100 mg Haloperidol (Haldol) 0.5 mg PO BEDTIME PRN PRN Reason: restlessness, agitation, sleep Last Admin: 05/12/19 21:08 Dose: 0.5 mg Heparin Sodium (Porcine) (Heparin Sodium) 5,000 units SUBCUT Q8HR [facility] Last Admin: 05/13/19 05:42 Dose: 5,000 units Micafungin Sodium 100 mg/ (Sodium Chloride) 100 mls @ 100 mls/hr IV Q24H [facility] Last Infusion: 05/12/19 19:26 Dose: Infused Ceftaroline Fosamil 300 mg/ (Sodium Chloride) 250 mls @ 250 mls/hr IV Q12HR [facility] Last Admin: 05/13/19 09:24 Dose: 250 mls/hr Loperamide HCl (Imodium) 2 mg PO Q6H PRN PRN Reason: Diarrhea Last Admin: 05/11/19 21:39 Dose: 2 mg Metoprolol Tartrate (Lopressor) 150 mg PO BID [facility] Last Admin: 05/13/19 08:17 Dose: 150 mg Mirtazapine (Remeron) 7.5 mg PO BEDTIME [facility] Last Admin: 05/12/19 20:45 Dose: 7.5 mg Multivitamins/Minerals (Vitamins And Minerals) 1 tab PO DAILY [facility] Last Admin: 05/13/19 08:20 Dose: 1 tab Nicotine (Habitrol) 14 mg TOP DAILY [facility] Last Admin: 05/13/19 08:20 Dose: 14 mg Ondansetron HCl (Zofran Odt) 4 mg PO Q6H PRN PRN Reason: nausea, able to take PO Ondansetron HCl (Zofran) 4 mg IVPUSH Q6H PRN PRN Reason: Nausea/Vomiting Last Admin: 05/10/19 21:16 Dose: 4 mg Pantoprazole Sodium (Protonix) 40 mg PO ACBREAKFAST [facility] Last Admin: 05/13/19 05:42 Dose: 40 mg Potassium Chloride (Klor-Con 10) 20 meq PO BIDMEALS [facility] Last Admin: 05/13/19 08:18 Dose: 20 meq Ropinirole HCl (Requip) 1 mg PO TID [facility] Last Admin: 05/13/19 08:19 Dose: 1 mg Simvastatin (Zocor) 10 mg PO BEDTIME [facility] Last Admin: 05/12/19 20:45 Dose: 10 mg Sodium Chloride (Saline Flush) 10 ml FLUSH ASDIRECTED PRN PRN Reason: Keep Vein Open Last Admin: 05/13/19 09:24 Dose: 10 ml Discontinued Medications Bumetanide (Bumex) 1 mg PO BIDDIURETIC [facility] Last Admin: 05/13/19 08:18 Dose: 1 mg Haloperidol Lactate (Haldol) 0.5 mg IM ONETIME ONE Stop: 05/10/19 22:50 Last Admin: 05/10/19 22:59 Dose: 0.5 mg Haloperidol Lactate (Haldol) 0.5 mg IM ONETIME PRN PRN Reason: Agitation Stop: 05/12/19 06:00 Last Admin: 05/11/19 21:42 Dose: 0.5 mg Ceftaroline Fosamil 300 mg/ (Sodium Chloride) 100 mls @ 100 mls/hr IV Q12HR [facility] Last Admin: 05/10/19 21:34 Dose: Not Given Potassium Chloride/Sodium Chloride (Normal Saline With 20 Meq Kcl) 1,000 mls @ 75 mls/hr IV ASDIRECTED [facility] Last Infusion: 05/11/19 09:52 Dose: 0 mls/hr Dextrose/Sodium Chloride (Dextrose 5%-Normal Saline) 1,000 mls @ 75 mls/hr IV ASDIRECTED [facility] Last Admin: 05/12/19 03:08 Dose: 75 mls/hr - Exam General: Alert, Oriented Neck: Supple Lungs: Decreased Breath Sounds, Rhonchi. No: Wheezing Cardiovascular: Regular Rate, Regular Rhythm GI/Abdominal Exam: Normal Bowel Sounds, Soft, Non-Tender Extremities: Pedal Edema Skin: Warm, Dry Psy/Mental Status: Alert, Normal Affect, Normal Mood Sepsis Event Note - Evaluation Sepsis Screening Result: No Definite Risk - Focused Exam Vital Signs: Vital Signs Temp Pulse Pulse Resp BP BP Pulse Ox 05/13/19 08:17 82 108/63 05/13/19 07:59 36.9 C 78 16 106/62 94 L 05/13/19 07:49 36.9 C 82 18 108/63 100 05/13/19 07:13 78 05/13/19 04:00 36.3 C 77 16 105/57 L 97 Pulse Ox 05/13/19 08:17 05/13/19 07:59 05/13/19 07:49 05/13/19 07:13 95 05/13/19 04:00 Date Exam was Performed: 05/13/19 Time Exam was Performed: 11:36 - Problem List & Annotations (1) Acute hypercapnic respiratory failure SNOMED Code(s): 003757908 Code(s): J96.02 - ACUTE RESPIRATORY FAILURE WITH HYPERCAPNIA Status: Acute Current Visit: Yes (2) Acute exacerbation of chronic obstructive pulmonary disease (COPD) SNOMED Code(s): 626174163 Code(s): J44.1 - CHRONIC OBSTRUCTIVE PULMONARY DISEASE W (ACUTE) EXACERBATION Status: Acute Current Visit: No (3) NSTEMI (non-ST elevated myocardial infarction) SNOMED Code(s): 84194766 Code(s): I21.4 - NON-ST ELEVATION (NSTEMI) MYOCARDIAL INFARCTION Status: Acute Current Visit: No (4) Pneumonia SNOMED Code(s): 218150237 Code(s): J18.9 - PNEUMONIA, UNSPECIFIED ORGANISM Status: Acute Current Visit: No (5) UTI, Urinary tract infectious disease SNOMED Code(s): 52672859 Code(s): N39.0 - URINARY TRACT INFECTION, SITE NOT SPECIFIED Status: Acute Current Visit: No - Problem List Review Problem List Initiated/Reviewed/Updated: Yes - My Orders Last 24 Hours: My Active Orders 05/12/19 11:09 haloperidoL [Haldol] 0.5 mg PO BEDTIME PRN 05/13/19 04:07 Sodium Chloride 0.9% [Saline Flush] 10 ml FLUSH ASDIRECTED PRN 05/13/19 14:00 Bumetanide [Bumex] 1 mg PO TID 05/14/19 05:15 BASIC METABOLIC PANEL,BMP [CHEM] AM CBC WITH AUTO DIFF [HEME] AM - Plan Plan:: Transferred from acute care for weakness Have physical and occupational therapy evaluation and treatment Recurrent acute hypoxemic, hypercarbic respiratory failure Supplement oxygen as needed Monitor for signs and symptoms of CO2 retention Pulmicort nebulizer DuoNeb as needed acute hypercarbic respiratory failure with resp acidosis improved with bipap will try to cont during the night and stop for the day supplement oxygen cxr showed no large effusion Recurrent MRSA pneumonia cont Ceftaroline treatment IV - finish 05/16 Urinary tract infection with yeast s/p UPJ obstruction- treated with stent cont micafungin treatment IV finish - 05/16 Lower extremity edema, bilateral pleural effusions The patient had thoracentesis and diuretics in acute care Giorgi stocking for edema Monitor electrolytes with diuretics chronic diastolic congestive heart failure will increase the Bumex cont metoprolol Holding GISELA inhibitor for renal failure Chronic urinary retention Daniel catheter is in place Try to remove in a few days when otherwise stable Coronary artery disease Recent type II myocardial infarction Continue metoprolol, asa Not on anticoagulation with a history of GI bleed Metastatic colon cancer Oncology has recently evaluated the patient and there were no further plans for treatment. dr. Joshi recommended hospice Anxiety, depression, restless leg syndrome Clonazepam when necessary haldol when necessary to tolerate bipap - switch to PO Remeron for sleep Scheduled requip dvt prophylaxis sq heparin pt/ot eval for swing bed
[2019-05-13] MEDS: Micafungin 100 MG in Sodium Chloride 0.9% 100 ML IV SCH (18:24)
[2019-05-13] MEDS: Simvastatin 10 MG Tab PO SCH (21:54)
[2019-05-13] MEDS: Mirtazapine 15 MG Tab PO SCH (21:55)
[2019-05-13] MEDS: Haloperidol 1 MG Tab PO PRN (22:14)
[2019-05-14] MEDS: Heparin Sodium 5,000 Units/ML Vial SUBCUT SCH ×3 (06:27→21:50)
[2019-05-14] MEDS: Pantoprazole 40 MG Tab.CR PO SCH (06:28)
[2019-05-14] MEDS: Bumetanide 1 MG Tab PO SCH ×2 (06:28→10:49)
[2019-05-14 06:51] LABS: ANION GAP 12.7
[2019-05-14] MEDS: Budesonide 0.5 MG/2 ML Neb Susp NEB SCH ×2 (08:12→18:11)
[2019-05-14] MEDS: Albuterol/Ipratropium 3.0-0.5 MG/3 ML Neb Soln NEB SCH ×3 (08:12→21:25)
[2019-05-14] MEDS: Sodium Chloride 0.9% 10 ML Syringe FLUSH PRN ×8 (09:32→22:46)
[2019-05-14] MEDS: Nicotine 14 MG/24 Hr Patch TOP SCH (09:34)
[2019-05-14] MEDS: Amiodarone 200 MG Tab PO SCH (10:43)
[2019-05-14] MEDS: Potassium Chloride 10 MEQ Tab.ER PO SCH ×2 (10:43→18:09)
[2019-05-14] MEDS: Metoprolol Tartrate 50 MG Tab PO SCH ×2 (10:44→21:29)
[2019-05-14] MEDS: rOPINIRole 2 MG Tab PO SCH ×3 (10:44→21:17)
[2019-05-14] MEDS: Gabapentin 100 MG Cap PO SCH ×3 (10:44→21:18)
[2019-05-14] MEDS: Ferrous Sulfate 325 MG Tab PO SCH (10:45)
[2019-05-14] MEDS: Multivitamins, Therapeutic with Minerals Tab PO SCH (10:45)
[2019-05-14] MEDS: Aspirin 81 MG Tab.EC PO SCH (10:45)
--- NOTE | 2019-05-14 12:13 | PCM.PN ---
- General Info Date of Service: 05/14/19 Admission Dx/Problem (Free Text): Admission Diagnosis/Problem Admission Diagnosis/Problem Respiratory failure with hypercapnia Subjective Update: has been with bipap last night sleepy most of the day sob is mod, worse with activity, stable, no associated chest pain no fever Functional Status: Reports: Pain Controlled, Tolerating Diet (low intake) - Review of Systems General: Reports: Weakness, Fatigue, Malaise. Denies: Fever Pulmonary: Reports: Shortness of Breath. Denies: Wheezing Cardiovascular: Denies: Chest Pain Gastrointestinal: Denies: Abdominal Pain Genitourinary: Reports: Other (zhong) Neurological: Reports: Confusion (mild episodic) - Patient Data Vitals - Most Recent: Last Vital Signs Temp 98.9 F 05/14/19 12:00 Pulse 69 05/14/19 12:00 Resp 16 05/14/19 12:00 BP 110/57 L 05/14/19 12:00 Pulse Ox 96 05/14/19 12:00 Weight - Most Recent: 129 lb 6.4 oz I&O - Last 24 Hours: Intake & Output 05/13/19 05/14/19 05/14/19 22:59 06:59 14:59 Intake Total 300 244 Output Total 475 225 Balance -175 -225 244 Lab Results Last 24 Hours: Laboratory Results - last 24 hr 05/14/19 05/14/19 Range/Units 06:20 06:20 WBC 12.2 H (5.0-10.0) 10^3/uL RBC 2.96 L (4.2-5.4) 10^6/uL Hgb 9.8 L (12.0-16.0) g/dL Hct 32.4 L (37.0-47.0) % MCV 109.5 H (80-100) fL MCH 33.1 (27.0-34.0) pg MCHC 30.2 L (33.0-35.0) g/dL Plt Count 86 L (150-450) 10^3/uL Neut % (Auto) 81.4 H (42.2-75.2) % Lymph % (Auto) 6.9 L (20.5-50.1) % Geary % (Auto) 10.3 H (2-8) % Eos % (Auto) 1.1 (1.0-3.0) % Baso % (Auto) 0.3 (0.0-1.0) % Sodium 140 (135-145) mmol/L Potassium 4.7 (3.6-5.0) mmol/L Chloride 109 (101-111) mmol/L Carbon Dioxide 23.0 (21.0-31.0) mmol/L Anion Gap 12.7 BUN 38 H (7-18) mg/dL Creatinine 1.8 H (0.6-1.3) mg/dL Est Cr Clr Drug Dosing 22.34 mL/min Estimated GFR (MDRD) 28 Glucose 82 (74-105) mg/dL Calcium 7.5 L (8.4-10.2) mg/dl Med Orders - Current: Current Medications Acetaminophen (Tylenol) 650 mg PO Q4H PRN PRN Reason: Pain (Mild 1-3)/fever Last Admin: 05/10/19 21:16 Dose: 650 mg Albuterol/Ipratropium (Duoneb 3.0-0.5 Mg/3 Ml) 3 ml NEB Q2H PRN PRN Reason: sob Albuterol/Ipratropium (Duoneb 3.0-0.5 Mg/3 Ml) 3 ml NEB TIDRT [facility] Last Admin: 05/14/19 08:12 Dose: 3 ml Amiodarone HCl (Cordarone) 200 mg PO DAILY [facility] Last Admin: 05/14/19 10:43 Dose: 200 mg Aspirin (Halfprin) 81 mg PO DAILY [facility] Last Admin: 05/14/19 10:45 Dose: 81 mg Budesonide (Pulmicort) 0.5 mg NEB BIDRT [facility] Last Admin: 05/14/19 08:12 Dose: 0.5 mg Bumetanide (Bumex) 1 mg IVPUSH Q8H [facility] Clonazepam (Klonopin) 0.25 mg PO TID PRN PRN Reason: Anxiety Last Admin: 05/11/19 21:39 Dose: 0.25 mg Ferrous Sulfate (Ferrous Sulfate) 325 mg PO DAILY [facility] Last Admin: 05/14/19 10:45 Dose: 325 mg Gabapentin (Neurontin) 100 mg PO TID [facility] Last Admin: 05/14/19 10:44 Dose: 100 mg Haloperidol (Haldol) 0.5 mg PO BEDTIME PRN PRN Reason: restlessness, agitation, sleep Last Admin: 05/13/19 22:14 Dose: 0.5 mg Heparin Sodium (Porcine) (Heparin Sodium) 5,000 units SUBCUT Q8HR [facility] Last Admin: 05/14/19 06:27 Dose: 5,000 units Micafungin Sodium 100 mg/ (Sodium Chloride) 100 mls @ 100 mls/hr IV Q24H [facility] Last Infusion: 05/13/19 19:30 Dose: Infused Ceftaroline Fosamil 300 mg/ (Sodium Chloride) 250 mls @ 250 mls/hr IV Q12HR [facility] Last Admin: 05/14/19 09:31 Dose: 250 mls/hr Albumin Human (Buminate 5%) 250 mls @ 100 mls/hr IV Q8HR [facility] Stop: 05/15/19 08:29 Loperamide HCl (Imodium) 2 mg PO Q6H PRN PRN Reason: Diarrhea Last Admin: 05/11/19 21:39 Dose: 2 mg Metoprolol Tartrate (Lopressor) 150 mg PO BID [facility] Last Admin: 05/14/19 10:44 Dose: 150 mg Mirtazapine (Remeron) 7.5 mg PO BEDTIME [facility] Last Admin: 05/13/19 21:55 Dose: 7.5 mg Multivitamins/Minerals (Vitamins And Minerals) 1 tab PO DAILY [facility] Last Admin: 05/14/19 10:45 Dose: 1 tab Nicotine (Habitrol) 14 mg TOP DAILY [facility] Last Admin: 05/14/19 09:34 Dose: 14 mg Ondansetron HCl (Zofran Odt) 4 mg PO Q6H PRN PRN Reason: nausea, able to take PO Ondansetron HCl (Zofran) 4 mg IVPUSH Q6H PRN PRN Reason: Nausea/Vomiting Last Admin: 05/10/19 21:16 Dose: 4 mg Pantoprazole Sodium (Protonix) 40 mg PO ACBREAKFAST [facility] Last Admin: 05/14/19 06:28 Dose: 40 mg Potassium Chloride (Klor-Con 10) 20 meq PO BIDMEALS [facility] Last Admin: 05/14/19 10:43 Dose: 20 meq Ropinirole HCl (Requip) 1 mg PO TID [facility] Last Admin: 05/14/19 10:44 Dose: 1 mg Simvastatin (Zocor) 10 mg PO BEDTIME [facility] Last Admin: 05/13/19 21:54 Dose: 10 mg Sodium Chloride (Saline Flush) 10 ml FLUSH ASDIRECTED PRN PRN Reason: Keep Vein Open Last Admin: 05/14/19 09:32 Dose: 10 ml Discontinued Medications Bumetanide (Bumex) 1 mg PO BIDDIURETIC [facility] Last Admin: 05/13/19 08:18 Dose: 1 mg Bumetanide (Bumex) 1 mg PO TIDAC [facility] Last Admin: 05/14/19 10:49 Dose: 1 mg Haloperidol Lactate (Haldol) 0.5 mg IM ONETIME ONE Stop: 05/10/19 22:50 Last Admin: 05/10/19 22:59 Dose: 0.5 mg Haloperidol Lactate (Haldol) 0.5 mg IM ONETIME PRN PRN Reason: Agitation Stop: 05/12/19 06:00 Last Admin: 05/11/19 21:42 Dose: 0.5 mg Ceftaroline Fosamil 300 mg/ (Sodium Chloride) 100 mls @ 100 mls/hr IV Q12HR [facility] Last Admin: 05/10/19 21:34 Dose: Not Given Potassium Chloride/Sodium Chloride (Normal Saline With 20 Meq Kcl) 1,000 mls @ 75 mls/hr IV ASDIRECTED [facility] Last Infusion: 05/11/19 09:52 Dose: 0 mls/hr Dextrose/Sodium Chloride (Dextrose 5%-Normal Saline) 1,000 mls @ 75 mls/hr IV ASDIRECTED [facility] Last Admin: 05/12/19 03:08 Dose: 75 mls/hr - Exam Quality Assessment: Supplemental Oxygen General: Other (sleepy but arousable easily) Neck: Supple Lungs: Decreased Breath Sounds, Rhonchi Cardiovascular: Regular Rate, Regular Rhythm GI/Abdominal Exam: Normal Bowel Sounds, Soft, Non-Tender Extremities: Pedal Edema, Other (edema of upper extremities) Neurological: No New Focal Deficit Sepsis Event Note - Evaluation Sepsis Screening Result: No Definite Risk - Focused Exam Vital Signs: Vital Signs Temp Pulse Pulse Resp BP BP BP 05/14/19 12:00 98.9 F 69 16 110/57 L 05/14/19 10:44 80 116/54 L 05/14/19 08:12 80 05/14/19 07:45 97.8 F 73 16 116/54 L 05/14/19 04:30 97 F 72 16 107/59 L Pulse Ox Pulse Ox 05/14/19 12:00 96 05/14/19 10:44 05/14/19 08:12 95 05/14/19 07:45 99 05/14/19 04:30 100 Date Exam was Performed: 05/14/19 Time Exam was Performed: 12:06 - Problem List & Annotations (1) Acute hypercapnic respiratory failure SNOMED Code(s): 879365139 Code(s): J96.02 - ACUTE RESPIRATORY FAILURE WITH HYPERCAPNIA Status: Acute Current Visit: Yes (2) Acute exacerbation of chronic obstructive pulmonary disease (COPD) SNOMED Code(s): 875176525 Code(s): J44.1 - CHRONIC OBSTRUCTIVE PULMONARY DISEASE W (ACUTE) EXACERBATION Status: Acute Current Visit: No (3) NSTEMI (non-ST elevated myocardial infarction) SNOMED Code(s): 08462604 Code(s): I21.4 - NON-ST ELEVATION (NSTEMI) MYOCARDIAL INFARCTION Status: Acute Current Visit: No (4) Pneumonia SNOMED Code(s): 786486335 Code(s): J18.9 - PNEUMONIA, UNSPECIFIED ORGANISM Status: Acute Current Visit: No (5) UTI, Urinary tract infectious disease SNOMED Code(s): 18264178 Code(s): N39.0 - URINARY TRACT INFECTION, SITE NOT SPECIFIED Status: Acute Current Visit: No - Problem List Review Problem List Initiated/Reviewed/Updated: Yes - My Orders Last 24 Hours: My Active Orders 05/13/19 11:40 OT Evaluation and Treatment [CONS] Routine PT Evaluation and Treatment [CONS] Routine 05/14/19 10:01 Urinary Catheter Assessment [RC] ASDIRECTED 05/14/19 12:15 Bumetanide [Bumex] 1 mg IVPUSH Q8H 05/14/19 14:00 Albumin 5% [Buminate 5%] 250 ml IV Q8HR 05/15/19 05:15 BASIC METABOLIC PANEL,BMP [CHEM] AM CBC WITH AUTO DIFF [HEME] AM - Plan Plan:: Transferred from acute care for weakness Have physical and occupational therapy evaluation and treatment Recurrent acute hypoxemic, hypercarbic respiratory failure Supplement oxygen as needed Monitor for signs and symptoms of CO2 retention Pulmicort nebulizer DuoNeb as needed recurrent acute hypercarbic respiratory failure with resp acidosis improving with bipap but poorly tolerated will try wean off supplement oxygen - target o2 sat 88-90% cxr showed no large effusion Recurrent MRSA pneumonia cont Ceftaroline treatment IV - finish 05/16 Urinary tract infection with yeast s/p UPJ obstruction- treated with stent cont micafungin treatment IV finish - 05/16 Lower extremity edema, bilateral pleural effusions upper extremity edema chronic diastolic congestive heart failure low albumin The patient had thoracentesis and diuretics in acute care Giorgi stocking for edema will switch bumex to IV tid add IV albumin infusion Monitor electrolytes with diuretics Holding GISELA inhibitor for renal failure Chronic urinary retention Zhong catheter is in place Try to remove in a few days when otherwise stable Coronary artery disease Recent type II myocardial infarction Continue metoprolol, asa Not on anticoagulation with a history of GI bleed Metastatic colon cancer Oncology has recently evaluated the patient and there were no further plans for treatment. dr. Joshi recommended hospice Anxiety, depression, restless leg syndrome Clonazepam when necessary haldol when necessary to tolerate bipap Remeron for sleep Scheduled requip dvt prophylaxis sq heparin met with pt, daughter, son (on the phone) and SW plan for NH discharge pt and family will decide if they want any further rehospitalization if deteriorates in NH
[2019-05-14] MEDS: Bumetanide 1 MG/4 ML MDV IVPUSH SCH ×2 (13:47→22:11)
[2019-05-14] MEDS: Albumin 5% 250 ML IV SCH ×2 (14:58→22:46)
[2019-05-14] MEDS: Micafungin 100 MG in Sodium Chloride 0.9% 100 ML IV SCH (18:13)
[2019-05-14] MEDS: Mirtazapine 15 MG Tab PO SCH (21:18)
[2019-05-14] MEDS: Simvastatin 10 MG Tab PO SCH (21:24)
[2019-05-15] MEDS: Sodium Chloride 0.9% 10 ML Syringe FLUSH PRN ×5 (01:14→22:02)
[2019-05-15] MEDS: Haloperidol 1 MG Tab PO PRN (03:30)
[2019-05-15] MEDS: Heparin Sodium 5,000 Units/ML Vial SUBCUT SCH ×3 (06:20→22:15)
[2019-05-15] MEDS: Pantoprazole 40 MG Tab.CR PO SCH ×2 (06:23→06:34)
[2019-05-15] MEDS: Bumetanide 1 MG/4 ML MDV IVPUSH SCH ×3 (06:25→22:02)
[2019-05-15 07:22] LABS: ANION GAP 11.6
[2019-05-15] MEDS: Budesonide 0.5 MG/2 ML Neb Susp NEB SCH ×2 (08:01→18:05)
[2019-05-15] MEDS: Albuterol/Ipratropium 3.0-0.5 MG/3 ML Neb Soln NEB SCH ×3 (08:01→22:01)
[2019-05-15] MEDS: Albumin 5% 250 ML IV SCH (08:28)
--- NOTE | 2019-05-15 10:23 | PN ---
DATE: 05/15/2019 SUBJECTIVE: The patient is a 73-year-old lady with past medical history of hypertension, COPD, metastatic colon cancer with metastasis to the liver, history of anemia, and acute and chronic renal failure, who was admitted because of hypercarbic respiratory failure. The patient has been on BiPAP and is currently on IV antibiotics and also on Bumex IV. The patient last night refused the BiPAP about 3 o'clock this morning and she also had some Haldol. This morning, the patient is still sleepy but looks comfortable. She denies any ongoing complaints. She denies any pain, shortness of breath, nor any other complaints. OBJECTIVE: Vital Signs: Blood pressure is 110/52, pulse of 71, respirations of 16, saturation is 97% on 2.5 L per nasal cannula, temperature of 98. Heart: Regular rate and rhythm. Normal S1 and S2. No gallops. No rubs. Lungs: Diminished breath sounds bilaterally, but no significant crackles. No wheezing. Abdomen: Soft, nontender. Extremities: Remarkable for 1 to 2+ bilateral pedal edema. PLAN: We will continue with her present management. We will try to wean her off the BiPAP, although when she refused the BiPAP this morning, her saturation has been good on 2 L per nasal cannula. She is DNR and discharge planning is made for her to go [facility] [place] [facility]. [facility] /[id number]
[2019-05-15] MEDS: Potassium Chloride 10 MEQ Tab.ER PO SCH ×2 (10:30→17:11)
[2019-05-15] MEDS: Aspirin 81 MG Tab.EC PO SCH (10:30)
[2019-05-15] MEDS: Gabapentin 100 MG Cap PO SCH ×3 (10:31→22:01)
[2019-05-15] MEDS: Ferrous Sulfate 325 MG Tab PO SCH (10:31)
[2019-05-15] MEDS: rOPINIRole 2 MG Tab PO SCH ×3 (10:31→22:00)
[2019-05-15] MEDS: Nicotine 14 MG/24 Hr Patch TOP SCH (10:31)
[2019-05-15] MEDS: Amiodarone 200 MG Tab PO SCH (10:31)
[2019-05-15] MEDS: Multivitamins, Therapeutic with Minerals Tab PO SCH (10:31)
[2019-05-15] MEDS: Metoprolol Tartrate 50 MG Tab PO SCH ×2 (10:31→21:59)
[2019-05-15] MEDS: Ondansetron 4 MG/2 ML SDV IVPUSH PRN (11:59)
[2019-05-15] MEDS: Acetaminophen 325 MG Tab PO PRN (17:11)
[2019-05-15] MEDS: Micafungin 100 MG in Sodium Chloride 0.9% 100 ML IV SCH (18:11)
[2019-05-15] MEDS: Mirtazapine 15 MG Tab PO SCH (21:59)
[2019-05-15] MEDS: Simvastatin 10 MG Tab PO SCH (22:02)
[2019-05-16] MEDS: Sodium Chloride 0.9% 10 ML Syringe FLUSH PRN (05:18)
[2019-05-16] MEDS: Bumetanide 1 MG/4 ML MDV IVPUSH SCH ×3 (05:19→22:00)
[2019-05-16] MEDS: Heparin Sodium 5,000 Units/ML Vial SUBCUT SCH ×2 (05:21→14:37)
[2019-05-16] MEDS: Pantoprazole 40 MG Tab.CR PO SCH (05:23)
[2019-05-16] MEDS: Budesonide 0.5 MG/2 ML Neb Susp NEB SCH ×2 (08:30→18:56)
[2019-05-16] MEDS: Albuterol/Ipratropium 3.0-0.5 MG/3 ML Neb Soln NEB SCH ×3 (08:30→20:41)
[2019-05-16] MEDS: Nicotine 14 MG/24 Hr Patch TOP SCH (09:13)
[2019-05-16] MEDS: Potassium Chloride 10 MEQ Tab.ER PO SCH ×2 (09:13→18:55)
[2019-05-16] MEDS: Amiodarone 200 MG Tab PO SCH (09:15)
[2019-05-16] MEDS: Metoprolol Tartrate 50 MG Tab PO SCH ×2 (09:15→20:45)
[2019-05-16] MEDS: Gabapentin 100 MG Cap PO SCH ×3 (09:15→20:43)
[2019-05-16] MEDS: Ferrous Sulfate 325 MG Tab PO SCH (09:15)
[2019-05-16] MEDS: rOPINIRole 2 MG Tab PO SCH ×3 (09:16→20:44)
[2019-05-16] MEDS: Aspirin 81 MG Tab.EC PO SCH (09:16)
[2019-05-16] MEDS: Multivitamins, Therapeutic with Minerals Tab PO SCH (09:16)
--- NOTE | 2019-05-16 11:34 | PN ---
DATE: 05/16/2019 SUBJECTIVE: The patient refused again the BiPAP last night, but this morning she is doing fairly well and she denies any significant ongoing complaints. She denies any chest pain or worsening of shortness of breath, saturation is 91% on 2 L. The patient is alert and coherent. OBJECTIVE: Vital Signs: Blood pressure is 109/95, pulse is 70, respiration of 17, temperature of 98.7, and saturation is 91% on 2 L per nasal cannula. Heart: Regular rate and rhythm. Lungs: Diminished breath sounds bilaterally, but no significant wheezing or crackles. Abdomen: Soft, nontender. Extremities: Remarkable for 1 to 2+ bilateral pedal edema with support stockings bilaterally. MEDICATIONS: Reviewed. PLAN: We will continue with her present management and IV Bumex and IV antibiotics, and since she has been refusing the BiPAP, we will just discontinue the BiPAP and she has been doing fairly well, and we are still awaiting for discharge planning for the patient as [facility] and this is for palliative care. [facility] /[id number]
[2019-05-16] MEDS: Ondansetron 4 MG/2 ML SDV IVPUSH PRN (17:26)
[2019-05-16] MEDS: Micafungin 100 MG in Sodium Chloride 0.9% 100 ML IV SCH (18:06)
[2019-05-16] MEDS: Simvastatin 10 MG Tab PO SCH (20:43)
[2019-05-16] MEDS: Mirtazapine 15 MG Tab PO SCH (20:44)
[2019-05-17] MEDS: Heparin Sodium 5,000 Units/ML Vial SUBCUT SCH ×2 (05:54→05:55)
[2019-05-17] MEDS: Bumetanide 1 MG/4 ML MDV IVPUSH SCH (06:02)
[2019-05-17] MEDS: Pantoprazole 40 MG Tab.CR PO SCH (06:02)
[2019-05-17] MEDS: Albuterol/Ipratropium 3.0-0.5 MG/3 ML Neb Soln NEB SCH (09:45)
[2019-05-17] MEDS: Budesonide 0.5 MG/2 ML Neb Susp NEB SCH (09:45)
[2019-05-17] MEDS: Potassium Chloride 10 MEQ Tab.ER PO SCH (09:54)
[2019-05-17] MEDS: Multivitamins, Therapeutic with Minerals Tab PO SCH (09:54)
[2019-05-17] MEDS: rOPINIRole 2 MG Tab PO SCH (09:54)
[2019-05-17] MEDS: Metoprolol Tartrate 50 MG Tab PO SCH (09:54)
[2019-05-17] MEDS: Gabapentin 100 MG Cap PO SCH (09:55)
[2019-05-17] MEDS: Aspirin 81 MG Tab.EC PO SCH (09:55)
[2019-05-17] MEDS: Ferrous Sulfate 325 MG Tab PO SCH (09:55)
[2019-05-17] MEDS: Amiodarone 200 MG Tab PO SCH (09:55)
[2019-05-17 09:57] VITALS: BP 111/57; PULSE 74
[2019-05-17] MEDS: Nicotine 14 MG/24 Hr Patch TOP SCH (09:57)
--- NOTE | 2019-05-17 11:43 | PN ---
DATE: 05/17/2019 SUBJECTIVE: The patient is doing fairly well this morning, and she is alert and coherent, but the patient still has significant bilateral pedal edema and the patient also refused the BiPAP machine and also has been refusing some of the oral medication because she has difficulty swallowing with it. Nursing staff has talked with daughterSusy, and talked about putting her on comfort cares, and her daughter was agreeable with the plan and able to talk with the patient this morning in presence of her sister, Savanna, and I have talked to her about putting her on comfort care because overall her prognosis is just grim and with her recent recurrent hospitalizations and plus her history of colon cancer with current metastases to the liver, and Dr. Joshi has indicated that he does not have any other options for her, and I have talked with the patient about comfort cares and she agreed with this. The patient currently denies any other concerns though. OBJECTIVE: Vital Signs: Blood pressure is 111/53, pulse 71, respirations 16, saturation is 95% on 2 L per nasal cannula. Heart: Regular rate and rhythm. Lungs: Diminished breath sounds bilaterally, but no significant wheezing. Abdomen: Soft and nontender. Bowel sounds positive. Extremities: Remarkable for 2+ bilateral pedal edema with support stockings. PLAN: We will discharge the patient to Swing bed, and we will put her on comfort cares as discussed with the patient as well as with her sister and her daughter. [facility] /[id number]
--- NOTE | 2019-05-17 11:51 | DISCH ---
FINAL DIAGNOSIS: 1. Hypercarbic respiratory failure. 2. Metastatic colon cancer with metastasis to the liver. 3. Malnutrition. 4. Recurrent respiratory failure. 5. Chronic obstructive pulmonary disease. 6. Urinary tract infection. 7. NSTEMI ([id number] myocardial infarction). BRIEF HISTORY OF PRESENT ILLNESS: Please see H and P. For pertinent labs, x- ray, and other tests. See H and P. The patient was started on BiPAP and she was also given micafungin antifungal IV for her urinary tract infection and ceftaroline IV for her pneumonia and she was given Bumex IV every 8 hours for her fluid retention and pedal edema. During the hospitalization, patient has been refusing the BiPAP and also had difficulty swallowing some of her oral medication. Despite the generous amount of Bumex IV, the patient continued to have significant pedal edema. Her code level status was changed from a full code to a DNR, and there was some visit with and discussion with the patient and also discussion with the nurses and her daughter and changing her from DNR to comfort measures and the patient agreed. Because of this, the patient will be discharged to swing bed and she will be on comfort measures. Again, patient is agreeable to this plan, and I have talked with the patient while her sister, Savanna Lundberg, was with her. CONDITION ON DISCHARGE/TRANSFER TO SWING BED: Stable. [facility] /[id number]
== END 2019-05-17 10:22 | disposition swing bed (61) | DRG 177 ==
LOC: DL.MS 18:15 → EEVIPCON 18:15
PROVIDERS: ADMIT Internal Medicine; ATTEND Internal Medicine
PROC: 5A09357 Assistance with Respiratory Ventilation, Less than 24 Consecutive Hours, Continuous Positive Airway Pressure (ICD-10-PCS; principal; 2019-05-10)
DX: J15.212 Pneumonia due to Methicillin resistant Staphylococcus aureus (principal); J96.02 Acute respiratory failure with hypercapnia; I21.4 Non-ST elevation (NSTEMI) myocardial infarction; J44.1 Chronic obstructive pulmonary disease with (acute) exacerbation; I50.32 Chronic diastolic (congestive) heart failure; C18.9 Malignant neoplasm of colon, unspecified; C78.7 Secondary malignant neoplasm of liver and intrahepatic bile duct; B37.49 Other urogenital candidiasis; J44.0 Chronic obstructive pulmonary disease with (acute) lower respiratory infection; E46 Unspecified protein-calorie malnutrition; E87.2 Acidosis; Z66 Do not resuscitate; Z51.5 Encounter for palliative care; R33.8 Other retention of urine; F41.9 Anxiety disorder, unspecified; F32.9 Major depressive disorder, single episode, unspecified; G25.81 Restless legs syndrome; N13.5 Crossing vessel and stricture of ureter without hydronephrosis; I25.10 Atherosclerotic heart disease of native coronary artery without angina pectoris; E78.00 Pure hypercholesterolemia, unspecified; I11.0 Hypertensive heart disease with heart failure; M81.0 Age-related osteoporosis without current pathological fracture; D64.9 Anemia, unspecified; Z88.5 Allergy status to narcotic agent; Z88.6 Allergy status to analgesic agent; Z98.49 Cataract extraction status, unspecified eye; Z79.82 Long term (current) use of aspirin; Z79.899 Other long term (current) drug therapy; Z90.710 Acquired absence of both cervix and uterus; Z68.23 Body mass index [BMI] 23.0-23.9, adult
CPT/HCPCS: 36415; 71045; 80048; 82962; 85025; 94640; 94660; 94760; 97163-GP; 97167-GO; A9270-GY; J0712; J1630; J1644; J2248; J2405; J3480; J3490; J7042; J7050; J7620-GY; P9045

== ENCOUNTER 2019-05-17 10:12 | Inpatient (IN) | payer MEDICARE, OTHER ==
[2019-05-17] MEDS ORDERED: Albuterol/Ipratropium 3.0-0.5 MG/3 ML Neb Soln NEB PRN (10:19)
[2019-05-17] MEDS ORDERED: Acetaminophen 325 MG Tab PO PRN (10:19)
[2019-05-17] MEDS ORDERED: Haloperidol 1 MG Tab PO PRN (10:19)
[2019-05-17] MEDS ORDERED: Ondansetron 4 MG/2 ML SDV IVPUSH PRN (10:19)
[2019-05-17] MEDS ORDERED: Ondansetron 4 MG Tab.DIS PO PRN (10:19)
[2019-05-17] MEDS ORDERED: Loperamide 2 MG Cap PO PRN (10:19)
--- NOTE | 2019-05-17 12:13 | HP ---
HISTORY OF PRESENT ILLNESS: The patient is a 73-year-old lady with multiple medical problems including hypertension, COPD, metastatic colon cancer with metastasis to the liver, history of anemia, thrombocytopenia, and recent hypercarbic respiratory failure, was recently discharged from acute care and now to swing bed for comfort cares. She was on IV antibiotics with ceftaroline for her pneumonia and also on micafungin for fungal urinary tract infection and was also on BiPAP during the hospitalization, but the patient has been refusing the BiPAP. The patient also had difficulty with swallowing of her other oral medications. Again, as discussed with the patient as well as with her daughter, she will be admitted to swing bed for comfort cares. PAST MEDICAL HISTORY: As HPI. She has had prolonged hospitalization one after the other in the past several weeks. FAMILY HISTORY: Noncontributory. SOCIAL HISTORY: . She is retired from work, currently nonsmoker. MEDICATIONS: From acute care: Tylenol, DuoNeb, amiodarone, aspirin, Pulmicort, Bumex, ceftaroline, clonazepam, ferrous sulfate, gabapentin, haloperidol, heparin subcu, loperamide, metoprolol, micafungin, Remeron, and Zofran. ALLERGIES: Ibuprofen, nitrofurantoin, oxycodone, and Phenergan. PHYSICAL EXAMINATION: General: The patient is alert. She is on oxygen per nasal cannula, not in any acute respiratory distress. Vital Signs: Blood pressure is 111/57, pulse 74, respiration of 16, temperature of 97.9. Heart: Regular rate and rhythm. No rubs. Lungs: Diminished breath sounds bilaterally, but no significant crackles. No wheezing. Abdomen: Soft and nontender. Extremities: Remarkable for 2+ bilateral pedal edema and with sports stockings bilaterally. ADMITTING DIAGNOSIS: 1. Pneumonia and recent hypercarbic respiratory failure. 2. Fungal urinary tract infection. 3. Metastatic colon cancer with metastasis to the liver. 4. Chronic obstructive pulmonary disease. 5. Fluid retention. 6. Malnutrition. PLAN: The patient is going to be admitted to swing bed for comfort cares. [facility] /[id number]
[2019-05-17] MEDS: LORazepam 2 MG/ML Syringe IVPUSH SCH ×2 (12:57→21:58)
[2019-05-17] MEDS: Albuterol/Ipratropium 3.0-0.5 MG/3 ML Neb Soln NEB SCH ×2 (15:17→20:58)
[2019-05-17] MEDS: Bumetanide 1 MG/4 ML MDV IVPUSH SCH ×2 (15:30→21:59)
[2019-05-17] MEDS: Gabapentin 100 MG Cap PO SCH ×2 (15:41→20:58)
[2019-05-17] MEDS: Potassium Chloride 10 MEQ Tab.ER PO SCH (18:14)
[2019-05-17] MEDS: Budesonide 0.5 MG/2 ML Neb Susp NEB SCH (18:16)
[2019-05-17] MEDS: Metoprolol Tartrate 50 MG Tab PO SCH (20:57)
[2019-05-18] MEDS: Bumetanide 1 MG/4 ML MDV IVPUSH SCH ×3 (05:48→22:22)
[2019-05-18] MEDS: Albuterol/Ipratropium 3.0-0.5 MG/3 ML Neb Soln NEB SCH (08:10)
[2019-05-18] MEDS: Budesonide 0.5 MG/2 ML Neb Susp NEB SCH ×2 (08:10→17:24)
[2019-05-18] MEDS: Nicotine 14 MG/24 Hr Patch TOP SCH (09:24)
[2019-05-18] MEDS: LORazepam 2 MG/ML Syringe IVPUSH SCH ×2 (09:24→22:24)
[2019-05-18] MEDS: Potassium Chloride 10 MEQ Tab.ER PO SCH ×2 (09:25→17:23)
[2019-05-18] MEDS: Gabapentin 100 MG Cap PO SCH ×3 (09:25→22:21)
[2019-05-18] MEDS: Metoprolol Tartrate 50 MG Tab PO SCH ×2 (09:25→22:21)
[2019-05-18] MEDS: Sodium Chloride 0.9% 10 ML Syringe FLUSH PRN (09:26)
[2019-05-19] MEDS: Morphine 2 MG/ML Syringe IVPUSH PRN ×2 (04:10→15:50)
[2019-05-19] MEDS: Bumetanide 1 MG/4 ML MDV IVPUSH SCH ×3 (07:38→21:49)
[2019-05-19] MEDS: Budesonide 0.5 MG/2 ML Neb Susp NEB SCH ×2 (08:04→17:29)
[2019-05-19] MEDS: Sodium Chloride 0.9% 10 ML Syringe FLUSH PRN ×3 (09:18→15:51)
[2019-05-19] MEDS: LORazepam 2 MG/ML Syringe IVPUSH SCH ×2 (09:18→21:48)
[2019-05-19] MEDS: Potassium Chloride 10 MEQ Tab.ER PO SCH ×2 (09:19→17:29)
[2019-05-19] MEDS: Metoprolol Tartrate 50 MG Tab PO SCH ×2 (09:19→20:47)
[2019-05-19] MEDS: Gabapentin 100 MG Cap PO SCH ×3 (09:19→20:48)
[2019-05-19] MEDS: Nicotine 14 MG/24 Hr Patch TOP SCH (09:19)
[2019-05-20] MEDS: Morphine 2 MG/ML Syringe IVPUSH PRN ×3 (02:05→14:15)
[2019-05-20] MEDS: Bumetanide 1 MG/4 ML MDV IVPUSH SCH ×3 (05:41→21:50)
[2019-05-20] MEDS: Budesonide 0.5 MG/2 ML Neb Susp NEB SCH ×2 (07:11→17:26)
[2019-05-20] MEDS: LORazepam 2 MG/ML Syringe IVPUSH SCH ×2 (08:40→21:44)
[2019-05-20] MEDS: Potassium Chloride 10 MEQ Tab.ER PO SCH ×2 (09:25→17:25)
[2019-05-20] MEDS: Metoprolol Tartrate 50 MG Tab PO SCH ×2 (09:26→22:07)
[2019-05-20] MEDS: Nicotine 14 MG/24 Hr Patch TOP SCH (09:26)
[2019-05-20] MEDS: Gabapentin 100 MG Cap PO SCH ×3 (09:26→22:08)
--- NOTE | 2019-05-20 11:18 | PN ---
DATE: 05/20/2019 SUBJECTIVE: The patient has been unresponsive but looks comfortable. The patient has not been able to take the oral medication a lot of times because of the unresponsiveness. OBJECTIVE: Vital Signs: Blood pressure is 125/67, pulse of 86, respirations of 18, temperature of 98.5, and saturation is 86% on 1 L per nasal cannula. Heart: Regular rate and rhythm. Lungs: Diminished breath sounds bilaterally, but no significant crackles. No wheezing. Abdomen: Soft, nontender. Extremities: Still remarkable for 2 to 3+ bilateral pedal edema. PLAN: We will continue with her comfort cares. [facility] /[id number]
[2019-05-20] MEDS ORDERED: LORazepam 2 MG/ML Syringe IVPUSH ONE (13:56)
[2019-05-20] MEDS: Sodium Chloride 0.9% 10 ML Syringe FLUSH PRN ×3 (21:42→21:55)
[2019-05-21] MEDS: Sodium Chloride 0.9% 10 ML Syringe FLUSH PRN ×9 (03:55→22:19)
[2019-05-21] MEDS: Morphine 2 MG/ML Syringe IVPUSH PRN ×3 (03:56→10:33)
[2019-05-21] MEDS: Bumetanide 1 MG/4 ML MDV IVPUSH SCH ×3 (06:12→22:20)
[2019-05-21] MEDS: LORazepam 2 MG/ML Syringe IVPUSH SCH ×2 (09:06→22:17)
[2019-05-21] MEDS: Potassium Chloride 10 MEQ Tab.ER PO SCH ×2 (09:07→17:13)
[2019-05-21] MEDS: Nicotine 14 MG/24 Hr Patch TOP SCH (09:07)
[2019-05-21] MEDS: Metoprolol Tartrate 50 MG Tab PO SCH ×2 (09:07→22:35)
[2019-05-21] MEDS: Gabapentin 100 MG Cap PO SCH ×3 (09:07→22:35)
[2019-05-21] MEDS: Budesonide 0.5 MG/2 ML Neb Susp NEB SCH (09:36)
[2019-05-21] MEDS: LORazepam 2 MG/ML Syringe IVPUSH PRN ×2 (10:33→15:16)
[2019-05-21] MEDS: Atropine 1% Ophth Soln 5 ML BOTTLE SL PRN ×2 (10:41→15:17)
[2019-05-21] MEDS: Acetaminophen 650 MG Supp RECTAL PRN (13:50)
[2019-05-22] MEDS: Morphine 2 MG/ML Syringe IVPUSH PRN ×3 (00:03→16:19)
[2019-05-22] MEDS: Sodium Chloride 0.9% 10 ML Syringe FLUSH PRN ×8 (00:03→13:45)
[2019-05-22] MEDS: LORazepam 2 MG/ML Syringe IVPUSH PRN ×3 (05:50→16:20)
[2019-05-22] MEDS: Bumetanide 1 MG/4 ML MDV IVPUSH SCH ×3 (06:59→21:34)
[2019-05-22] MEDS: Potassium Chloride 10 MEQ Tab.ER PO SCH ×2 (07:07→17:20)
[2019-05-22] MEDS: LORazepam 2 MG/ML Syringe IVPUSH SCH ×2 (09:36→21:33)
[2019-05-22] MEDS: Metoprolol Tartrate 50 MG Tab PO SCH ×2 (09:38→21:34)
[2019-05-22] MEDS: Gabapentin 100 MG Cap PO SCH ×3 (09:38→21:34)
[2019-05-22] MEDS: Nicotine 14 MG/24 Hr Patch TOP SCH (09:38)
[2019-05-22] MEDS: Acetaminophen 650 MG Supp RECTAL PRN (13:46)
[2019-05-22] MEDS: Atropine 1% Ophth Soln 5 ML BOTTLE SL PRN ×3 (18:26→21:36)
[2019-05-22 21:25] VITALS: BP 83/39; PULSE 103
== END 2019-05-23 02:25 | disposition expired | DRG 951 ==
LOC: DL.MS 10:19
PROVIDERS: ADMIT Internal Medicine; ATTEND Hospitalist
DX: Z51.5 Encounter for palliative care (principal); J18.9 Pneumonia, unspecified organism; J96.92 Respiratory failure, unspecified with hypercapnia; C78.7 Secondary malignant neoplasm of liver and intrahepatic bile duct; C18.9 Malignant neoplasm of colon, unspecified; J44.0 Chronic obstructive pulmonary disease with (acute) lower respiratory infection; B37.49 Other urogenital candidiasis; E46 Unspecified protein-calorie malnutrition; I10 Essential (primary) hypertension; R60.9 Edema, unspecified; Z88.6 Allergy status to analgesic agent; Z88.8 Allergy status to other drugs, medicaments and biological substances; Z79.899 Other long term (current) drug therapy; Z68.24 Body mass index [BMI] 24.0-24.9, adult
CPT/HCPCS: 51702; 51703; A9270-GY; J2060; J2270; J3490